=== PATIENT | female | born 1935 | race Two or more races ===

== ENCOUNTER 2017-05-27 14:31 | Emergency (ER) | payer MEDICARE, OTHER ==
[~2017-05-27] VITALS: Ht 162.6 cm; Wt 73.9 kg
[~2017-05-27 14:31] MED LIST: AMBIEN10 M1 ORAL; ATIVAN; ATIVAN0.5 MG ORAL; BENAZEPRIL HCL20 MG; BENAZEPRIL-HCT1 EAC1 ORAL; CEFTIN500 MG ORAL; CLARITIN10 M2 PO; COLACE100 MG ORAL; FLAGYL500 MG ORAL; GABAPENTIN300 MG ORAL; HYDROCHLOROTHIAZIDE; KEFLEX500 MG ORAL; LACTULOSE10 GM/153 PO; LIPITOR10 MG ORAL; LITHIUM; LITHIUM CARBON150 MG ORAL; NORCO 5-325 TA1 EACH ORAL; NORVASC; NORVASC5 MG ORAL; PANTOPRAZOLE SO40 MG ORAL; POLYETHYLENE GL17 GM ORAL; PRILOSEC; QUETIAPINE FUMA50 MG ORAL; SIMETHICONE80 MG ORAL; TRANSDERM-SCOP1.5 MG TD; TRAZADONE; TRAZODONE HCL50 MG PO; XANAX0.5 MG ORAL; ZYPREXA5 MG ORAL
--- NOTE | 2017-05-27 14:55 | Emergency Room Report ---
History of Present Illness General Chief Complaint: Lower Extremity Injury Source: Patient, Family Member Present Illness HPI 82-year-old female walks in with pain to out a part of right ankle after accidental missing step getting into a van. Patient not sure if ankle he everted or inverted. Pain when she walks. Previous left knee arthroscopically , but no other orthopedic surgery previously, no injury to for her ankle previously. Didn't take any medication for pain. Allergies: Coded Allergies: GABAPENTIN (Verified Allergy, Unknown, 05/27/17) LITHIUM (Verified Allergy, Unknown, 05/27/17) Patient History Past Medical History: see triage record, old chart reviewed Past Surgical History: none, other - left knee arthroscopy Pertinent Family History: none Social History: Denies: smoking, alcohol use, drug use Now: No Immunizations: UTD Reviewed Nursing Documentation: PMH: Agreed, PSxH: Agreed Nursing Documentation-PMH Hx Hypertension: Yes Hx Cancer: No Hx Gastrointestinal Problems: Yes - GASTRITIS Hx Dialysis: No History Of Psychiatric Problem: Yes - Bipolar Hx Neurological Problems: No Review of Systems All Other Systems: negative except mentioned in HPI Physical Exam Vital Signs Date Time Temp Pulse Resp B/P (MAP) Pulse Ox O2 Delivery O2 Flow Rate FiO2 05/27/17 14:39 98.2 72 18 143/64 97 Room Air Sp02 EP Interpretation: reviewed, normal General Appearance: normal inspection, well appearing, no apparent distress, alert Head: atraumatic ENT: normal ENT inspection, hearing grossly normal, normal voice Neck: normal inspection, full range of motion, supple, no bony tend Respiratory: normal inspection, lungs clear, normal breath sounds, no respiratory distress, no retraction, no wheezing Cardiovascular #1: regular rate, rhythm, no edema Gastrointestinal: normal inspection, normal bowel sounds, non tender, soft, no guarding, no hernia Genitourinary: no CVA tenderness Musculoskeletal: normal inspection, back normal, normal range of motion, Shelby' s Sign negative, other - right ankle: No obvious swelling or trauma, no deformity. Very minimal tenderness to lateral malleolus. Neurologic: normal inspection, alert, responsive, speech normal Psychiatric: normal inspection, judgement/insight normal, mood/affect normal Skin: normal inspection, normal color, no rash Medical Decision Making Diagnostic Impression: Primary Impression: Right ankle sprain Qualified Codes: S93.401A - Sprain of unspecified ligament of right ankle, initial encounter ER Course 82-year-old female with accidental right ankle sprain noObvious signs of trauma exam X-rays of right ankle and foot unremarkable on ER review Patient placed in air cast and, and crutches Will followup with Dr. Luna ER course: Patient has remained stable during ED stay. Patient is to be discharged to home. Patient is instructed to follow up with Dr Luna within 5 days. Strict return precautions discussed with patient such as fever, chills, worsening/severe pain, nausea, vomiting, which may indicate severe illness. Patient verbalizes understanding and agrees with plan. Please note that this Emergency Department Report was dictated using [employer] tender technology software, occasionally this can lead to erroneous entry secondary to interpretation by the dictation equipment Other X-Ray Diagnostic Results Other X-Ray Diagnostic Results #1: X-Ray ordered: Right ankle # of Views/Limited Vs Complete: 3 View Indication: Pain EP Interpretation: Yes Interpretation: no dislocation, no soft tissue swelling, no fractures Impression: No acute disease Electronically Signed by: Dr Nima Prescott mD Other X-Ray Diagnostic Results #2: X-Ray ordered: Right foot # of Views/Limited Vs Complete: 3 View Indication: Pain EP Interpretation: Yes Interpretation: no dislocation, no soft tissue swelling, no fractures Impression: No acute disease Electronically Signed by: Dr Nima Prescott MD Last Vital Signs Date Time Temp Pulse Resp B/P (MAP) Pulse Ox O2 Delivery O2 Flow Rate FiO2 05/27/17 14:39 98.2 72 18 143/64 97 Room Air Status: improved Disposition: HOME, SELF-CARE NIMA PRESCOTT M.D. May 27, 2017 14:54
[2017-05-27] MEDS ORDERED: TYLENOL325 MG ORAL (15:45)
[2017-05-27 15:54] VITALS: BP 141/68
--- NOTE | 2017-05-27 17:04 | Diagnostic Imaging Report ---
Indication: PAIN Technique: 3 views right foot Comparison: none Findings: Bones are osteoporotic. No acute fractures. There is probably an old healed fracture deformity of the fifth metatarsal base. No dislocations. Joint spaces are preserved. There are plantar and calcaneal spurs. Impression: Osteoporotic change. No definite acute bony trauma
--- NOTE | 2017-05-27 17:15 | Diagnostic Imaging Report ---
Indication: PAIN Technique: 3 views of the right ankle Comparison: none Findings: No acute fractures. No dislocations. There are plantar and calcaneal spurs. The joint spaces are preserved. Bones are osteoporotic Impression: No acute process
== END 2017-05-27 15:54 | disposition home or self-care (01) ==
LOC: EMR 14:58
DX: S93.401A Sprain of unspecified ligament of right ankle, initial encounter (principal); F31.9 Bipolar disorder, unspecified; I10 Essential (primary) hypertension; Z88.8 Allergy status to other drugs, medicaments and biological substances; X50.1XXA Overexertion from prolonged static or awkward postures, initial encounter; Y92.810 Car as the place of occurrence of the external cause
CPT/HCPCS: 99284

== ENCOUNTER 2017-08-01 07:00 | Emergency (ER) | payer MEDICARE, OTHER ==
[~2017-08-01] VITALS: Ht 160 cm; Wt 67.6 kg
[~2017-08-01 07:00] MED LIST changes: +TYLENOL325 MG ORAL
[2017-08-01] MEDS ORDERED: QUETIAPINE FUM200 MG ORAL (07:06)
[2017-08-01] MEDS ORDERED: VITAMIN D400 INTLU ORAL (07:06)
[2017-08-01] MEDS ORDERED: MELATONIN5 M6 PO (07:06)
[2017-08-01] MEDS ORDERED: FERROUS SULFAT325 MG ORAL (07:06)
[2017-08-01 07:50] VITALS: BP 144/68
--- NOTE | 2017-08-01 08:11 | Emergency Room Report ---
History of Present Illness General Chief Complaint: Laceration Source: Patient, Family Member Present Illness HPI 82YOF with laceration to left earlobe when removing earring this morning. Per son, patient, patient always had large 1-inch slit there for large earing clips but tip of earlobe tore this morning No active/tano bleeding currently No retained FB from earring Allergies: Coded Allergies: GABAPENTIN (Verified Allergy, Unknown, 05/27/17) LITHIUM (Verified Allergy, Unknown, 05/27/17) Patient History Past Medical History: none Past Surgical History: none Pertinent Family History: none Social History: Denies: smoking, alcohol use, drug use Now: No Immunizations: UTD Reviewed Nursing Documentation: PMH: Agreed, PSxH: Agreed Nursing Documentation-PMH Hx Hypertension: Yes Hx Cancer: No Hx Gastrointestinal Problems: Yes - GASTRITIS Hx Dialysis: No History Of Psychiatric Problem: Yes - bipolar Hx Neurological Problems: No Review of Systems All Other Systems: negative except mentioned in HPI Physical Exam Vital Signs Date Time Temp Pulse Resp B/P (MAP) Pulse Ox O2 Delivery O2 Flow Rate FiO2 08/01/17 07:02 97.3 63 14 144/68 98 Room Air 97.3 Sp02 EP Interpretation: reviewed, normal General Appearance: normal inspection, well appearing, no apparent distress, alert, GCS 15, non-toxic Head: normocephalic, atraumatic Eyes: bilateral eye PERRL, bilateral eye EOMI ENT: normal ENT inspection, hearing grossly normal, normal pharynx, no angioedema, normal voice, TMs + canals normal, uvula midline, moist mucus membranes, other - Left earlobe: only distal inferior part of lobe is freshly torn, no tano bleeding. Looks like 1-inch earring slit is always there. No retained FB. Neck: normal inspection, full range of motion, supple, thyroid normal, no meningismus, no bony tend Respiratory: normal inspection, lungs clear, normal breath sounds, no rhonchi, no respiratory distress, no retraction, no accessory muscle use, no wheezing, speaking full sentences Cardiovascular #1: regular rate, rhythm, no edema, no JVD, normal capillary refill Gastrointestinal: normal inspection, normal bowel sounds, non tender, soft, no mass, no peritonitis, non-distended, no guarding, no hernia, no pulsatile mass Genitourinary: no CVA tenderness Musculoskeletal: normal inspection, back normal, normal range of motion, no calf tenderness, pelvis stable, Shelby's Sign negative Neurologic: normal inspection, alert, oriented x3, responsive, beef grader III-XII nml as tested, motor strength/tone normal, cerebellar normal, normal gait, speech normal Psychiatric: normal inspection, judgement/insight normal, mood/affect normal, no suicidal/homicidal ideation, no delusions Skin: normal inspection, normal color, no rash Lymphatic: normal inspection, no adenopathy Procedures Laceration/Wound Repair Laceration/Wound Repair : Consent: Verbal Wound Location: other - Left earlobe Wound Explored: clean Betadine Prep?: Yes Anesthesia: 1% Lidocaine Wound Debrided: minimal Wound Repaired With: sutures Suture Size/Type: 6:0 Number of Sutures: 2 Layer Closure?: Yes Deep Layer Suture Size/Type: 6:0 Number Deep Layer Sutures: 1 Sterile Dressing Applied?: Yes Splint Applied?: No Sling Applied?: No Patient Tolerated: Well Complications: None Medical Decision Making Diagnostic Impression: Primary Impression: Laceration of left earlobe Qualified Codes: S01.312A - Laceration without foreign body of left ear, initial encounter ER Course Left earlobe laceration now s/p primary repair of distal tip in ED with 1 deep layer absorbable suture and 2 external sutures Covered with dry dressing Advised keep clean for 24-36 hours Return in 7-10 days for suture removal ER course: Patient has remained stable during ED stay. Disposition: Patient is to be discharged to home. Patient is instructed to follow up ER in 7-10 days for suture removal Strict return precautions discussed with patient such as fever, chills, worsening/severe pain, nausea, vomiting, which may indicate severe illness. Patient verbalizes understanding and agrees with plan. Please note that this Emergency Department Report was dictated using [employer] inspection supervisor technology software, occasionally this can lead to erroneous entry secondary to interpretation by the dictation equipment Last Vital Signs Date Time Temp Pulse Resp B/P (MAP) Pulse Ox O2 Delivery O2 Flow Rate FiO2 08/01/17 07:50 97.3 63 14 144/68 98 Room Air 97.3 Status: improved Disposition: HOME, SELF-CARE Condition: Improved Patient Instructions: Laceration Care, Adult Additional Instructions: - Return to 7-10 days to ER for suture removal (2 sutures to be removed) - Keep clean/dry for 24-36 hours NIMA PRESCOTT M.D. Aug 01, 2017 08:11
[2017-08-01 08:13] VITALS: BP 144/68
== END 2017-08-01 08:42 | disposition home or self-care (01) ==
LOC: EMR 07:59
DX: S01.312A Laceration without foreign body of left ear, initial encounter (principal); X58.XXXA Exposure to other specified factors, initial encounter; Y92.9 Unspecified place or not applicable; I10 Essential (primary) hypertension; F31.9 Bipolar disorder, unspecified; Z88.8 Allergy status to other drugs, medicaments and biological substances
CPT/HCPCS: 99283

== ENCOUNTER 2017-08-10 11:47 | Emergency (ER) | payer MEDICARE, OTHER ==
[~2017-08-10] VITALS: Ht 162.6 cm; Wt 59.0 kg
[~2017-08-10 11:47] MED LIST changes: +FERROUS SULFAT325 MG ORAL; +MELATONIN5 M6 PO; +QUETIAPINE FUM200 MG ORAL; +VITAMIN D400 INTLU ORAL
--- NOTE | 2017-08-10 12:41 | Emergency Room Report ---
History of Present Illness General Chief Complaint: Wound Recheck/Suture Removal Present Illness HPI 82 YO female presents to the ED c/o Sutures in the right ear lobe x 1 week that need to be removed s/p wound closure. Denies bleeding. Denies pain, fleeting, tenderness or discharge. She states she has been avoiding water and keeping her here as clean as possible. Allergies: Coded Allergies: GABAPENTIN (Verified Allergy, Unknown, 05/27/17) LITHIUM (Verified Allergy, Unknown, 05/27/17) Patient History Past Medical History: see triage record Past Surgical History: none Pertinent Family History: none Now: No Immunizations: UTD Reviewed Nursing Documentation: PMH: Agreed, PSxH: Agreed Nursing Documentation-PMH Hx Hypertension: Yes Hx Cancer: No Hx Gastrointestinal Problems: Yes - GASTRITIS Hx Dialysis: No Hx Neurological Problems: No Review of Systems All Other Systems: negative except mentioned in HPI Physical Exam Vital Signs Date Time Temp Pulse Resp B/P (MAP) Pulse Ox O2 Delivery O2 Flow Rate FiO2 08/10/17 12:15 97.8 78 16 110/60 98 Room Air 97.9 Sp02 EP Interpretation: reviewed, normal General Appearance: no apparent distress, alert, GCS 15, non-toxic Head: normocephalic, atraumatic Eyes: bilateral eye PERRL, bilateral eye fluoroscene uptake ENT: hearing grossly normal, normal voice, other - Right Earlobe sutured lac noted, two sutures in place. no erythma. Neck: full range of motion Respiratory: lungs clear, normal breath sounds, speaking full sentences Cardiovascular #1: regular rate, rhythm Musculoskeletal: back normal, gait/station normal, normal range of motion, non- tender Neurologic: alert, oriented x3, responsive, motor strength/tone normal, sensory intact, speech normal, grossly normal Psychiatric: judgement/insight normal Skin: normal color, no rash, warm/dry, well hydrated, wd healing/no infection noted - the laceration is healed, sutures removed, however the ear lobe did not take and is separate although healed. Medical Decision Making PA Attestation Dr. Wagner is my supervising Physician whom patient management has been discussed with. Diagnostic Impression: Primary Impression: Encounter for removal of sutures Additional Impression: Split ear lobe ER Course Pt. presents to the ED c/o Suture in the left ear lobe x 1 week that need to be removed s/p wound closure. Ddx considered but are not limited to laceration, tendon injury, cellulitis, dehiscence. Vital signs: are WNL, pt. is afebrile H&PE are most consistent with: healed laceration of the Right ear lobe. the Lobe is split/ did not take. ORDERS: none required at this time, the diagnosis is clinical ED INTERVENTIONS: - 2 Sutures removed. d/w pt. and son about cosmetic revision. also offered two referrals for plastic surgeons Dr. Cruz, and Dr. Dawson. DISCHARGE: At this time pt. is stable for d/c to home. Will provide printed patient care instructions, and any necessary prescriptions. Care plan and follow up instructions have been discussed with the patient prior to discharge. Last Vital Signs Date Time Temp Pulse Resp B/P (MAP) Pulse Ox O2 Delivery O2 Flow Rate FiO2 08/10/17 12:15 97.8 78 16 110/60 98 Room Air 97.9 Disposition: HOME, SELF-CARE Condition: Stable Referrals: PADMA CRUZ PERRY M.D. Patient Instructions: Suture Removal, Care After Additional Instructions: Take any previously prescribed medications as directed. Referral for Plastic Surgery for Split ear lobe revision. Follow up with a Primary Care Provider in 3-5 days. Return sooner to ED if new symptoms occur, or current symptoms become worse. - Please note that this Emergency Department Report was dictated using [employer] service representative technology software, occasionally this can lead to erroneous entry secondary to interpretation by the dictation equipment. Farahna Carrero Aug 10, 2017 12:41
[2017-08-10 12:42] VITALS: BP 110/60
[2017-08-10 12:47] VITALS: BP 110/60
== END 2017-08-10 12:49 | disposition home or self-care (01) ==
LOC: EMR 12:35
DX: S01.312D Laceration without foreign body of left ear, subsequent encounter (principal); X58.XXXD Exposure to other specified factors, subsequent encounter; Z48.02 Encounter for removal of sutures; I10 Essential (primary) hypertension; Z88.8 Allergy status to other drugs, medicaments and biological substances
CPT/HCPCS: 99281

== ENCOUNTER 2018-02-10 01:14 | Emergency (ER) | payer MEDICARE, OTHER ==
[~2018-02-10] VITALS: Ht 157.5 cm; Wt 74.8 kg
--- NOTE | 2018-02-10 01:48 | Emergency Room Report ---
History of Present Illness General Chief Complaint: Laceration Source: Patient, Family Member Present Illness HPI Ear ring pulled through ear lobe earlier tonight. Same happened before on R side. No pain. No bleeding. No fevers. Bipolar disorder. Goes to [employer] and now worried cannot go due to disfigurement. Anxious, not suicidal. Has been eating and sleeping. Had seen plastics who quoted amount to have other ear fixed. Allergies: Coded Allergies: GABAPENTIN (Verified Allergy, Unknown, 05/27/17) LITHIUM (Verified Allergy, Unknown, 05/27/17) Patient History Past Medical History: see triage record Social History: Denies: smoking, alcohol use, drug use Social History Narrative with son Reviewed Nursing Documentation: PMH: Agreed; PSxH: Agreed Nursing Documentation-PMH Hx Hypertension: Yes Hx Cancer: No Hx Gastrointestinal Problems: Yes - GASTRITIS Hx Dialysis: No History Of Psychiatric Problem: Yes - bipolar Hx Neurological Problems: No Review of Systems Constitutional: Denies: fever ENT: Reports: see HPI Skin: Reports: see HPI Psychiatric: Reports: see HPI Hematologic/Lymphatic: Reports: see HPI Physical Exam Vital Signs Date Time Temp Pulse Resp B/P (MAP) Pulse Ox O2 Delivery O2 Flow Rate FiO2 02/10/18 01:28 98.1 66 18 124/66 98 Room Air 98.1 General Appearance: well appearing, no apparent distress Head: normocephalic, atraumatic Eyes: bilateral eye normal inspection, bilateral eye PERRL ENT: hearing grossly normal, normal voice, other - L ear lobe with small area where prior piercing pulled through larger hole. R with V shaped prior piercing space Neck: full range of motion, supple Respiratory: lungs clear, no respiratory distress, speaking full sentences Cardiovascular #1: regular rate, rhythm Cardiovascular #2: 2+ radial (R) Gastrointestinal: normal inspection, overweight Musculoskeletal: digits/nails normal, gait/station normal, normal range of motion, no calf tenderness Neurologic: alert, normal gait, grossly normal Psychiatric: no suicidal/homicidal ideation, depressed affect, anxious Skin: other - see ear Medical Decision Making Diagnostic Impression: Primary Impression: Ear lobe laceration Qualified Codes: S01.312A - Laceration without foreign body of left ear, initial encounter Additional Impression: Bipolar depression ER Course Patient with piercing lac L. Discussed that would have to revise completely or will not heal. No evidence of current infection. She is anxious about this and states now will not be able to go to [facility]. Discussed either need to go to plastic surgeon or have ear pierced again. Local care indicated. Patient stable for outpatient observation and treatment. Last Vital Signs Date Time Temp Pulse Resp B/P (MAP) Pulse Ox O2 Delivery O2 Flow Rate FiO2 02/10/18 02:05 98.1 18 124/66 98 Room Air 98.1 02/10/18 01:28 66 Status: improved Disposition: HOME, SELF-CARE Condition: Improved Scripts Bacitracin (Bacitracin) 28.4 Gm Oint...g. 1 APPLIC TOPIC BID, #10 GM Prov: Pb Wagner M.D. 02/10/18 Pb Wagner M.D. Feb 10, 2018 01:48
[2018-02-10] MEDS ORDERED: BACITRACIN15 GM TOPIC (01:51)
[2018-02-10] MEDS ORDERED: Bacitracin Oint UD TOPIC ONE (02:00)
[2018-02-10 02:04] VITALS: BP 124/66
[2018-02-10 02:05] VITALS: BP 124/66
== END 2018-02-10 02:11 | disposition home or self-care (01) ==
LOC: EMR 01:49
DX: S01.312A Laceration without foreign body of left ear, initial encounter (principal); X50.9XXA Other and unspecified overexertion or strenuous movements or postures, initial encounter; Y93.89 Activity, other specified; Y92.9 Unspecified place or not applicable; F31.9 Bipolar disorder, unspecified
CPT/HCPCS: 99282

== ENCOUNTER 2018-09-28 18:38 | Emergency (ER) | payer MEDICARE, OTHER ==
[~2018-09-28] VITALS: Ht 160 cm; Wt 76.7 kg
[~2018-09-28 18:38] MED LIST changes: +BACITRACIN15 GM TOPIC
--- NOTE | 2018-09-28 18:54 | NUR ---
ED Nurse Note: Pt came from home s/p fall [id number] ago. According to son, pt was trying to put luggages away and that is when she lost balance and hit her head on the floor. Pt's fall was unwitnessed. Pt noted to have blood on posterior head where the trauma was at. Trauma area not actively bleeding. Pt is complaining of 10/10 pain. Non radiating. Pt is A + O x4. Ambulatory. Skin warm to touch.
[2018-09-28 18:56] VITALS: BP 175/100
[2018-09-28] MEDS ORDERED: Hydrogen Peroxide 473ml Bottle TOPIC ONE (19:00)
--- NOTE | 2018-09-28 19:02 | NUR ---
HAND-OFF: Report given to AMADA Hale.
--- NOTE | 2018-09-28 19:04 | Emergency Room Report ---
History of Present Illness General Chief Complaint: Multiple Trauma/Fall Source: Patient Present Illness HPI Patient presents with reports of trauma and fall backwards Patient reports a mechanical fall backwards while she was picking something up denies any lightheadedness or lapse of consciousness denies any chest pain or short of breath Patient has pain to the back of the head 5 out of 10 Family denies any repetitive questioning denies any focal weakness Patient has significant bleeding from the back of the head and presents for further evaluation Allergies: Coded Allergies: GABAPENTIN (Verified Allergy, Unknown, 05/27/17) LITHIUM (Verified Allergy, Unknown, 05/27/17) Patient History Past Medical History: see triage record Pertinent Family History: none Last Menstrual Period: na Reviewed Nursing Documentation: PMH: Agreed; PSxH: Agreed Nursing Documentation-PMH Past Medical History: No History, Except For Hx Hypertension: Yes Hx Cancer: No Hx Gastrointestinal Problems: Yes - GASTRITIS Hx Dialysis: No History Of Psychiatric Problem: Yes - bipolar Hx Neurological Problems: No Review of Systems All Other Systems: negative except mentioned in HPI Physical Exam Vital Signs Date Time Temp Pulse Resp B/P (MAP) Pulse Ox O2 Delivery O2 Flow Rate FiO2 09/28/18 18:42 99.1 76 20 152/89 98 Room Air 09/28/18 18:56 95 Sp02 EP Interpretation: reviewed, normal General Appearance: well appearing, no apparent distress Head: other - Approximately 2 x 2 centimeter hematoma occipital region Eyes: bilateral eye PERRL, bilateral eye EOMI ENT: hearing grossly normal, normal pharynx, TMs + canals normal, uvula midline Neck: full range of motion, supple, no meningismus, no bony tend Respiratory: lungs clear, normal breath sounds, no rhonchi, no respiratory distress, no retraction, no accessory muscle use Cardiovascular #1: normal peripheral pulses, regular rate, rhythm, no edema, no gallop, no JVD, no murmur Gastrointestinal: normal bowel sounds, non tender, soft, no mass, no organomegaly, non-distended, no guarding, no hernia, no pulsatile mass, no rebound Genitourinary: no CVA tenderness Musculoskeletal: normal inspection Neurologic: oriented x3, responsive, technician helper instrument III-XII nml as tested, motor strength/ tone normal, sensory intact Psychiatric: mood/affect normal Skin: other - Abrasion with hematoma occipital region of the scalp, associated bleeding from the abrasion, superficial 0.5 cm laceration as well Lymphatic: normal inspection, no adenopathy Procedures Laceration/Wound Repair Progress The area in question shows skin abrasion, along with a very superficial half centimeter laceration, this area did not require suture or staple placement Surgicel was applied to the top layer, pressure dressing on top and Kerlix wrapped around this patient tolerated procedure well, Medical Decision Making Diagnostic Impression: Primary Impression: Head injury Additional Impression: Laceration ER Course Given the history and presentation given the patient's age and comorbidities CT imaging was obtained does not show any acute pathology with regards to bleeding or fractures Patient is observed further in the ER continues to remain GCS 15 And at this time stable for close outpatient follow-up patient is not reported to be on any blood thinners CT/MRI/US Diagnostic Results CT/MRI/US Diagnostic Results : Impression CT head no active bleeding or fracture soft tissue hematoma seen Last Vital Signs Date Time Temp Pulse Resp B/P (MAP) Pulse Ox O2 Delivery O2 Flow Rate FiO2 09/28/18 18:56 98.9 93 27 175/100 95 Room Air 09/28/18 18:56 95 Status: improved Disposition: HOME, SELF-CARE Condition: Improved Additional Instructions: Patient is provided with the discharge instructions notified to follow up with primary doctor in the next 2-3 days otherwise return to the er with any worsening symptoms. Please note that this report is being documented using [employer] technology. This can lead to erroneous entry secondary to incorrect interpretation by the dictating instrument. Kota Richards DO Sep 28, 2018 19:04
--- NOTE | 2018-09-28 19:25 | NUR ---
ER Nurse Note: Pt wound cleaned with hydrogen peroxide and ERMD inspected wound. Placed gauze with kerlix on wound. Pt at [facility]; awaiting results. Will continue to montrm.
[2018-09-28] MEDS ORDERED: Surgicel 4in x 8in TOPIC ONE (19:45)
[2018-09-28 20:39] VITALS: BP 145/86
--- NOTE | 2018-09-28 20:40 | NUR ---
ER Nurse Note: Pt back from radiology, awaiting results. Pt calm. Pt seen, treated, medically cleared for discharge by ERMD. Discharge instructions and prescriptions given with repeat verbazliaion by pt. Instructed pt to follow up with primary care provider within one week. Wound care and teaching with supplies provided, Pt a&ox4, VSS, no signs of distress. Pt left with all belongings with steady gait via own transportation.
--- NOTE | 2018-09-29 10:35 | Diagnostic Imaging Report ---
Indications: Head pain, status post fall Technique: Spiral acquisitions obtained through the brain. Angled axial and coronal 5 x 5 mm slices were reconstructed. Total dose length product 1301.76 mGycm. CTDI vol(s) 70.38 mGy. Dose reduction achieved using automated exposure control Comparison: 10/12/2012 Findings: There is a high parietal scalp hematoma and contusion on the right. No evidence of underlying calvarial injury. No acute intracranial hemorrhage or edema, mass effect, nor midline shift. There is mild age-related enlargement of the ventricles and extra-axial CSF spaces. Normal kim-white differentiation. Visualized orbits are unremarkable. There is some opacification of the right sphenoid sinus. 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 No significant interim change Impression: Evidence of scalp soft tissue injury Chronic and age-related changes, as described No acute intracranial bleed or mass effect This agrees with the preliminary interpretation provided overnight by [facility] teleradiology service. The CT scanner at [facility] is accredited by the [employer] and the scans are performed using protocols designed to limit radiation exposure to as low as reasonably achievable to attain images of sufficient resolution adequate for diagnostic evaluation.
== END 2018-09-28 20:40 | disposition home or self-care (01) ==
LOC: EMR 19:40
DX: S09.90XA Unspecified injury of head, initial encounter (principal); S01.01XA Laceration without foreign body of scalp, initial encounter; F31.9 Bipolar disorder, unspecified; I10 Essential (primary) hypertension; Z88.8 Allergy status to other drugs, medicaments and biological substances; W01.0XXA Fall on same level from slipping, tripping and stumbling without subsequent striking against object, initial encounter; Y92.9 Unspecified place or not applicable
CPT/HCPCS: 70450; 99284

== ENCOUNTER 2018-10-20 20:19 | Inpatient (IN) | payer MEDICARE, OTHER ==
[~2018-10-20] VITALS: Ht 160 cm; Wt 77.1 kg
[2018-10-20 20:30] VITALS: BP 165/70
--- NOTE | 2018-10-20 20:38 | NUR ---
ED Nurse Note: Received report. Pt from home c/o fall yesterday 10/19/18 at 0500 with pain in chest and left leg. Will assess and carry out ER MD's orders.
--- NOTE | 2018-10-20 20:39 | Emergency Room Report ---
History of Present Illness General Chief Complaint: Multiple Trauma/Fall Source: Patient Present Illness HPI Patient initiated presents with reports of left ankle sprain after a fall however after further discussion patient reports that she's had multiple falls over the past several days has had increased dizziness and balance problems Patient is not able to provide appropriate medical history or medication list Denies any chest pain denies any shortness of breath denies any back or flank pain denies any vomiting or diarrhea She does have pain to the left ankle with the most recent fall Allergies: Coded Allergies: GABAPENTIN (Verified Allergy, Unknown, 05/27/17) LITHIUM (Verified Allergy, Unknown, 05/27/17) Patient History Limited by: medical condition Past Medical History: see triage record Pertinent Family History: none Reviewed Nursing Documentation: PMH: Agreed; PSxH: Agreed Nursing Documentation-PMH Past Medical History: No History, Except For Hx Hypertension: Yes Hx Cancer: No Hx Gastrointestinal Problems: Yes - GASTRITIS Hx Dialysis: No Hx Neurological Problems: No Review of Systems All Other Systems: limited - Other than the ones mentioned in the history of present illness all others are reviewed however they do stay limited due to the patient's mental status Physical Exam Vital Signs Date Time Temp Pulse Resp B/P (MAP) Pulse Ox O2 Delivery O2 Flow Rate FiO2 10/20/18 20:32 98.4 57 22 100 Room Air Sp02 EP Interpretation: reviewed, normal General Appearance: well appearing, no apparent distress Head: normocephalic, atraumatic Eyes: bilateral eye PERRL, bilateral eye EOMI ENT: normal pharynx Neck: supple, no meningismus Respiratory: lungs clear, no retraction, no accessory muscle use Cardiovascular #1: regular rate, rhythm Gastrointestinal: non tender, soft Musculoskeletal: swelling - Left ankle pain with palpation bilaterally Neurologic: alert, responsive Skin: normal color, no rash Lymphatic: no adenopathy Medical Decision Making Diagnostic Impression: Primary Impression: Dehydration Additional Impressions: Dizziness Multiple falls ER Course Patient is a fairly complex patient with multiple differential to consideration including but not limited to cardiac cardiopulmonary and vascular emergencies Intracranial pathology also entertained given the patient's multiple falls and dizziness CT head does not show any obvious acute disease ankle x-ray does not show any obvious fracture Patient further hydrated and requires further inpatient care Labs Test 10/20/18 21:23 10/21/18 05:30 White Blood Count 9.3 K/UL (4.8-10.8) 7.5 K/UL (4.8-10.8) Red Blood Count 3.90 M/UL (4.20-5.40) 3.66 M/UL (4.20-5.40) Hemoglobin 11.5 G/DL (12.0-16.0) 11.0 G/DL (12.0-16.0) Hematocrit 34.5 % (37.0-47.0) 32.9 % (37.0-47.0) Mean Corpuscular Volume 89 FL (80-99) 90 FL (80-99) Mean Corpuscular Hemoglobin 29.6 PG (27.0-31.0) 30.1 PG (27.0-31.0) Mean Corpuscular Hemoglobin Concent 33.4 G/DL (32.0-36.0) 33.4 G/DL (32.0-36.0) Red Cell Distribution Width 12.8 % (11.6-14.8) 12.5 % (11.6-14.8) Platelet Count 215 K/UL (150-450) 209 K/UL (150-450) Mean Platelet Volume 5.4 FL (6.5-10.1) 6.1 FL (6.5-10.1) Neutrophils (%) (Auto) 62.1 % (45.0-75.0) 64.3 % (45.0-75.0) Lymphocytes (%) (Auto) 22.4 % (20.0-45.0) 20.8 % (20.0-45.0) Monocytes (%) (Auto) 8.0 % (1.0-10.0) 7.8 % (1.0-10.0) Eosinophils (%) (Auto) 6.2 % (0.0-3.0) 6.2 % (0.0-3.0) Basophils (%) (Auto) 1.4 % (0.0-2.0) 1.0 % (0.0-2.0) Urine Color Pale yellow Urine Appearance Clear Urine pH 5 (4.5-8.0) Urine Specific [place] 1.015 (1.005-1.035) Urine Protein Negative (NEGATIVE) Urine Glucose (UA) Negative (NEGATIVE) Urine Ketones Negative (NEGATIVE) Urine Blood 3+ (NEGATIVE) Urine Nitrite Negative (NEGATIVE) Urine Bilirubin Negative (NEGATIVE) Urine Urobilinogen Normal MG/DL (0.0-1.0) Urine Leukocyte Esterase 3+ (NEGATIVE) Urine RBC 2-4 /HPF (0 - 2) Urine WBC 5-10 /HPF (0 - 2) Urine Squamous Epithelial Cells Few /LPF (NONE/OCC) Urine Bacteria Few /HPF (NONE) Sodium Level 139 MMOL/L (136-145) 138 MMOL/L (136-145) Potassium Level 4.7 MMOL/L (3.5-5.1) 4.5 MMOL/L (3.5-5.1) Chloride Level 105 MMOL/L (98-107) 106 MMOL/L (98-107) Carbon Dioxide Level 26 MMOL/L (21-32) 25 MMOL/L (21-32) Anion Gap 8 mmol/L (5-15) 7 mmol/L (5-15) Blood Urea Nitrogen 25 mg/dL (7-18) 24 mg/dL (7-18) Creatinine 1.0 MG/DL (0.55-1.30) 1.0 MG/DL (0.55-1.30) Estimat Glomerular Filtration Rate mL/min (>60) mL/min (>60) Glucose Level 114 MG/DL (74-106) 103 MG/DL (74-106) Calcium Level 9.0 MG/DL (8.5-10.1) 8.4 MG/DL (8.5-10.1) Total Bilirubin 0.4 MG/DL (0.2-1.0) Aspartate Amino Transf (AST/SGOT) 19 U/L (15-37) Alanine Aminotransferase (ALT/SGPT) 23 U/L (12-78) Alkaline Phosphatase 80 U/L (46-116) Total Creatine Kinase 119 U/L (26-308) Creatine Kinase MB 4.0 NG/ML (0.0-3.6) Creatine Kinase MB Relative Index 3.3 Troponin I 0.023 ng/mL (0.000-0.056) Pro-B-Type Natriuretic Peptide 1150 pg/mL (0-125) Total Protein 6.9 G/DL (6.4-8.2) Albumin 3.6 G/DL (3.4-5.0) Globulin 3.3 g/dL Albumin/Globulin Ratio 1.1 (1.0-2.7) Lipase 224 U/L (73-393) Rhythm Strip Diag. Results EP Interpretation: yes Rate: 80 Rhythm: NSR, no PVC's, no ectopy Chest X-Ray Diagnostic Results Chest X-Ray Diagnostic Results : Chest X-Ray Ordered: Yes # of Views/Limited/Complete: 1 View Indication: Chest Pain EP Interpretation: Yes Interpretation: no consolidation, no effusion, no pneumothorax Impression: No acute disease Electronically Signed by: Kota Richards DO Other X-Ray Diagnostic Results Other X-Ray Diagnostic Results : X-Ray ordered: left ankle # of Views/Limited Vs Complete: 3 View Indication: Pain EP Interpretation: Yes Interpretation: no dislocation, no soft tissue swelling, no fractures Impression: No acute disease Electronically Signed by: Kota Richards DO CT/MRI/US Diagnostic Results CT/MRI/US Diagnostic Results : Impression CT head no acute disease Last Vital Signs Date Time Temp Pulse Resp B/P (MAP) Pulse Ox O2 Delivery O2 Flow Rate FiO2 10/20/18 20:32 98.4 57 22 100 Room Air Status: improved Disposition: ADMITTED INPATIENT Condition: Serious Kota Richards DO October 20, 2018 20:39
[2018-10-20 21:30] VITALS: BP 172/86
[2018-10-20 21:55] LABS: APPEARANCE,URINE CLEAR; BILIRUBIN, URINE NEGATIVE (NEGATIVE); COLOR,URINE PALE YELLOW; GLUCOSE, URINE (UA) NEGATIVE (NEGATIVE); KETONES,URINE NEGATIVE (NEGATIVE); LEUKOCYTE ESTERASE ,URINE 3+ (NEGATIVE); NITRITE,URINE NEGATIVE (NEGATIVE); PH,URINE 5 (4.5-8.0); PROTEIN,URINE NEGATIVE (NEGATIVE); UROBILINOGEN,URINE NORMAL MG/DL (0.0-1.0)
[2018-10-20 21:57] LABS: BASOPHILS % (AUTO) 1.4 % (0.0-2.0); EOSINOPHILS % (AUTO) 6.2 % (0.0-3.0); HEMATOCRIT 34.5 % (37.0-47.0); HEMOGLOBIN 11.5 G/DL (12.0-16.0); LYMPHOCYTES % (AUTO) 22.4 % (20.0-45.0); MEAN CORPUSCULAR VOLUME 89 FL (80-99); NEUTROPHILS % (AUTO) 62.1 % (45.0-75.0); PLATELET COUNT 215 K/UL (150-450); RED CELL DISTRIBUTION WIDTH 12.8 % (11.6-14.8); WHITE BLOOD COUNT 9.3 K/UL (4.8-10.8)
[2018-10-20 22:28] LABS: ANION GAP 8 mmol/L (5-15); BLOOD UREA NITROGEN 25 mg/dL (7-18); CARBON DIOXIDE 26 MMOL/L (21-32); CHLORIDE 105 MMOL/L (98-107); POTASSIUM 4.7 MMOL/L (3.5-5.1); SODIUM 139 MMOL/L (136-145)
[2018-10-20 22:30] VITALS: BP 185/95
[2018-10-20 22:33] LABS: ALANINE AMINOTRANSFERASE 23 U/L (12-78); ALBUMIN 3.6 G/DL (3.4-5.0); ALBUMIN/GLOBULIN RATIO 1.1 (1.0-2.7); ALKALINE PHOSPHATASE 80 U/L (46-116); ASPARTATE AMINO TRANSFERASE 19 U/L (15-37); BILIRUBIN,TOTAL 0.4 MG/DL (0.2-1.0); CREATINE KINASE 119 U/L (26-308)
--- NOTE | 2018-10-20 22:48 | NUR ---
ED Nurse Note: Pt in [facility] with son at bedside. No distress noted. Called for report to tele unit. Awaiting call back. CN made aware.
[2018-10-20] MEDS ORDERED: Enoxaparin 30mg Inj SUBQ SCH (23:00)
[2018-10-20 23:35] VITALS: BP 192/62
[2018-10-20 23:47] VITALS: BP 156/64
--- NOTE | 2018-10-21 | NUR ---
NURSE NOTES: Pt arrived from ER via gurney and transferred to [facility] with 2 staff assist without incidence. cafeteria monitor applied. Belongings list checked with transferring RN and patient at bedside. Pt purse sent home with son, black flip phone and pt clothes remains at bedside with patient. Pt is awake, alert, and oriented x4, primarily [place] speaking. Pt is on room air and breathing is even and unlabored. No acute distress noted. IV site is L hand #20g and site is asymptomatic, patent, and intact. Skin checked and noted to be intact. Strict fall precautions in place - yellow socks, sign outside of door, and patient fall education provided. Pt agreeable to using call light prior to attempting to get out of bed and to not get out of bed without assistance at bedside. Pt verbalized understanding. Pt provided with orientation to surroundings and hospital protocol. Bed is placed in lowest position with brake engaged, side rails up x3, and bed alarm on. Call light and side table placed within reach. Will continue to monitor.
--- NOTE | 2018-10-21 00:01 | NUR ---
TRANSFER TO FLOOR: Patient transferred to [facility] as ordered, per Dr. Timmons. Report given to Salina YBARRA. Belongings and medications given to Salina YBARRA. Son at bedside at time of transfer.
--- NOTE | 2018-10-21 00:55 | NUR ---
NURSE NOTES: Son of patient, Carmen, and pt requesting to continue home medication of seroquel 150mg QHS. MD Timmons notified of request and gave the okay to place order. Orders noted and carried out.
--- NOTE | 2018-10-21 01:00 | NUR ---
NURSE NOTES: Incomplete home medications list per son and patient. Son, Gopi, to bring patient medications in AM from home to update med recon.
[2018-10-21 04:00] VITALS: BP 108/53
[2018-10-21 06:53] LABS: ANION GAP 7 mmol/L (5-15); BLOOD UREA NITROGEN 24 mg/dL (7-18); CALCIUM 8.4 MG/DL (8.5-10.1); CARBON DIOXIDE 25 MMOL/L (21-32); CHLORIDE 106 MMOL/L (98-107); POTASSIUM 4.5 MMOL/L (3.5-5.1); SODIUM 138 MMOL/L (136-145)
--- NOTE | 2018-10-21 07:00 | NUR ---
NURSE NOTES: MD Timmons made aware that son , Gopi, would like to speak with him and that updated contact information is in the chart. MD Timmons to contact family to discuss further. Endorsed to AM shift RN.
[2018-10-21 07:05] LABS: EOSINOPHILS % (AUTO) 6.2 % (0.0-3.0); HEMATOCRIT 32.9 % (37.0-47.0); LYMPHOCYTES % (AUTO) 20.8 % (20.0-45.0); MEAN CORPUSCULAR VOLUME 90 FL (80-99); MONOCYTES % (AUTO) 7.8 % (1.0-10.0); NEUTROPHILS % (AUTO) 64.3 % (45.0-75.0); PLATELET COUNT 209 K/UL (150-450); RED BLOOD COUNT 3.66 M/UL (4.20-5.40); RED CELL DISTRIBUTION WIDTH 12.5 % (11.6-14.8); WHITE BLOOD COUNT 7.5 K/UL (4.8-10.8)
--- NOTE | 2018-10-21 07:15 | NUR ---
NURSE NOTES: Son brought pt medication list from home, given to day shift RN to update medication reconciliation.
--- NOTE | 2018-10-21 07:43 | NUR ---
HAND-OFF: Report given to Peri Weathers RN. Pt is resting in bed in stable condition. No acute distress noted. Endorsed plan of care.
[2018-10-21] MEDS ORDERED: BACLOFEN10 MG ORAL (07:48)
[2018-10-21] MEDS ORDERED: METOPROLOL TART50 MG ORAL (07:56)
[2018-10-21] MEDS ORDERED: COZAAR50 MG ORAL (07:56)
[2018-10-21] MEDS ORDERED: ZANTAC150 MG ORAL (07:56)
[2018-10-21] MEDS ORDERED: OXYBUTYNIN CHLOR5 M1 ORAL (07:56)
[2018-10-21 08:00] VITALS: BP 111/60
[2018-10-21] MEDS: Aspirin Baby 81mg ORAL SCH (08:26)
[2018-10-21] MEDS: Losartan 50mg tab ORAL SCH (08:28)
[2018-10-21] MEDS: Oxybutynin 5mg tab ORAL SCH (08:28)
[2018-10-21] MEDS: Metoprolol 25mg tab ORAL SCH ×2 (08:28→21:04)
[2018-10-21] MEDS ORDERED: Benazepril 10mg tab ORAL SCH (09:00)
--- NOTE | 2018-10-21 09:43 | Diagnostic Imaging Report ---
Indication: Altered mental status Technique: Contiguous 5 mm thick transaxial imaging of the head obtained in a Siemens Sensation [address] scanner. Soft tissue and bone windows generated. Automatic Exposure Control was utilized. Total Dose length Product (DLP): 1333.[address] Dose Index Volume (CTDIvol): 70.38 mGy Comparison: 09/28/2018 Findings: There is mild prominence of the ventricles, basal cisterns, and cerebral sulci consistent with atrophy. Mild, nonspecific, white matter hypoattenuation is noted throughout the brain consistent with chronic small vessel disease. There is no midline shift, edema, acute hemorrhage, mass effect, or abnormal extra-axial fluid collections. Bones and extra osseous soft tissues are unremarkable. Impression: No acute intracranial bleed, mass effect or edema. Mild atrophy of the brain. Nonspecific white matter hypoattenuation probably due to chronic small vessel disease. The CT scanner at [facility] is accredited by the [employer] and the scans are performed using dose optimization techniques as appropriate to a performed exam including Automatic Exposure control.
--- NOTE | 2018-10-21 09:45 | History and Physical Report ---
DATE OF ADMISSION: 10/20/2018 REASON FOR ADMISSION: Multiple falls. HISTORY OF PRESENT ILLNESS: The patient is a pleasant 83-year-old female with son at the bedside. The patient states she lives at home with her son. She states that for over the past two weeks she has been falling over to her left side. Son states that there has been no chest pain, shortness of breath. No nausea, vomiting, diarrhea. No lightheadedness. No passing out. However, he has noticed that his mother has walked always with a left-sided limp, but recently, she is starting to fall. She is falling while ambulating at several stores. She is feeling otherwise well, just complaining of frequent falls. ALLERGIES: Gabapentin and lithium. PAST MEDICAL HISTORY: 1. Hyperlipidemia. 2. Hypertension. 3. GERD. 4. Hypovitamin D. FAMILY HISTORY: Positive for hypertension. PAST SURGICAL HISTORY: Noncontributory. REVIEW OF SYSTEMS: NEUROLOGIC: The patient denies headache, change in vision, syncope, or presyncopal episodes. CARDIOVASCULAR: No current chest pain, palpitations, or angina. PULMONARY: No difficulty breathing, productive cough, or sputum. GASTROINTESTINAL/GENITOURINARY: No change in bowel habits. No nausea, vomiting, or diarrhea. ENDOCRINOLOGY: No night sweats, fevers, or chills. LABORATORY DATA: Laboratories dated October 21, 2018, sodium 138, potassium 4.5, creatinine 1, calcium 8.4. Troponin 0.023. Urinalysis otherwise negative, only 2 to 4 rbc's, few squamous cells. Hemoglobin 11, white cell count 7.5, and platelet count 209. PHYSICAL EXAMINATION: VITAL SIGNS: Blood pressure 108/53, respiratory rate 20, pulse 72, temperature 98.3, and 90% oxygen saturation on room air. GENERAL: The patient is awake, alert, in no overt distress. HEENT: Extraocular muscles are intact. No lymphadenopathy noted. Oropharyngeal mucosa clear and dry. CARDIOVASCULAR: S1, S2. No murmurs, rubs, or gallops. PULMONARY: Clear to auscultation bilaterally. No rales, rhonchi, or wheezes. ABDOMEN: Nondistended and nontender. EXTREMITIES: No edema. ASSESSMENT AND PLAN: 1. Hypertension. At this time, we will continue her antihypertensive medication. Her blood pressure currently stable. 2. Multiple falls. We will order x-ray of left knee and get physical therapy to re-evaluate. The patient on telemetry. No syncopal episodes. 3. Hyperlipidemia. Continue Lipitor. 4. DVT prophylaxis with Lovenox subcutaneous. 5. Dehydration. We will continue IV fluids. Hemal Timmons MD DR: MERCEDEZ JOB#: [id number] CC:
--- NOTE | 2018-10-21 10:04 | NUR ---
RADIOLOGY DEPT, LEFT KNEE X-RAYS COMPLETED.-P.DYE
--- NOTE | 2018-10-21 10:27 | Diagnostic Imaging Report ---
Indication: left ankle pain Comparison: None Findings: 3 views of the left ankle obtained. No acute fracture, malalignment, periostitis, or osteochondral defects are identified. Generalized soft tissue swelling is present. There is spurring at the plantar calcaneus and the Achilles insertion posteriorly. Periarticular spurs are noted multiple locations. IMPRESSION: No acute injury. Soft tissue swelling
--- NOTE | 2018-10-21 10:27 | Diagnostic Imaging Report ---
Indication: Dyspnea Comparison: 12/04/2015 A single view chest radiograph was obtained. Findings: Some tortuosity of the aorta is noted. The lungs are clear. Pulmonary vascularity is appropriate. The diaphragmatic contour is smooth and costophrenic angles are sharp. No pleural effusions are identified. The bones are osteopenic. Impression: No acute findings
--- NOTE | 2018-10-21 11:02 | NUR ---
P.T NOTE: P.T evaluation completed and treatment initiated. Please refer to P.T evaluation for current functional status. Pt is alert, oriented x 4 and cooperative. Pt presented generalized weakness and pain on L knee and ankle 4/10 at rest and 8/10 when standing and walking limiting overall functional mobility and safety. Pt currently require MIN a A X 1 for bed mobility and transfers and CGA x 1 using the the FWW for short distance gait. Skilled P.T service is warranted to improve her strength, balance and endurance to increase her mobility independence and safety for return to [facility]. Recommend FWW and 3 in 1 commode and Home P.T. at [place]. Thank you for this referral.
--- NOTE | 2018-10-21 11:09 | Cardiology Report ---
APPROVED REPORT EKG Measurement Heart [id number] DC [id number] Sinus bradycardia with 1st degree AV block Otherwise normal ECG
[2018-10-21 12:00] VITALS: BP 128/60
--- NOTE | 2018-10-21 15:57 | NUR ---
CASE MANAGEMENT:REVIEW 83 YR OLD MALE PRESENTED TO ER CC: MULTIPLE FALLS. LT LEG AND CHEST PAIN SI: DEHYDRATION. MULTIPLE FALLS 98.4 57 22 163/97 100% ON RA H/H-11.5/34.5 BUN+25 IS: 500CC NS BOLUS CT HEAD CXR URINE REFLEX : TO TELEMETRY interqual criteria met
[2018-10-21 16:00] VITALS: BP 122/53
--- NOTE | 2018-10-21 16:33 | Diagnostic Imaging Report ---
Indication: Knee Pain 3 views of the left knee were obtained. Findings: There is joint space narrowing with marginal osteophyte formation and subchondral sclerosis. The bones are osteopenic. No definite joint effusion identified. Popliteal artery/superficial femoral artery calcification is moderate. IMPRESSION: No acute injury appreciated.
--- NOTE | 2018-10-21 19:22 | NUR ---
NURSE NOTES: Report received from AMADA Downing. Pt shows no signs of distress, no SOB, no pain. A+Ox4. Respirations are even and unlabored on room air. IV site is patent, intact, and running fluids @ prescribed rate. Bed is at lowest position, brakes engaged, siderails x3, bed alarm on, and call light within reach. Pt is in stable condition at this time; will continue to monitor.
--- NOTE | 2018-10-21 19:23 | NUR ---
NURSE NOTES: Report received from Peri Weathers RN. Pt is resting in bed in stable condition. Pt is awake, alert, and oriented x4. Pt is on room air and breathing is even and unlabored. No acute distress noted. IV site is L hand #20g and is asymptomatic, patent, and intact and running IV fluids at rx rate. Bed is placed in lowest position with brake engaged, side rails up x3, and bed alarm on. Call light and side table placed within reach. Family is at bedside. Will continue to monitor.
--- NOTE | 2018-10-21 19:23 | NUR ---
HAND-OFF: Report given to AMADA Downing. Pt is in stable condition at this time; plan of care endorsed.
[2018-10-21 20:00] VITALS: BP 145/68
[2018-10-21] MEDS ORDERED: Enoxaparin 40mg Inj SUBQ SCH (21:00)
[2018-10-21] MEDS ORDERED: Atorvastatin 20mg tab ORAL SCH ×2 (21:00)
[2018-10-22] VITALS: BP 131/61
[2018-10-22 04:00] VITALS: BP 141/68
[2018-10-22 07:20] LABS: BASOPHILS % (AUTO) 1.4 % (0.0-2.0); EOSINOPHILS % (AUTO) 6.8 % (0.0-3.0); HEMATOCRIT 35.1 % (37.0-47.0); HEMOGLOBIN 11.4 G/DL (12.0-16.0); LYMPHOCYTES % (AUTO) 33.9 % (20.0-45.0); MEAN CORPUSCULAR VOLUME 91 FL (80-99); MONOCYTES % (AUTO) 7.5 % (1.0-10.0); NEUTROPHILS % (AUTO) 50.4 % (45.0-75.0); PLATELET COUNT 218 K/UL (150-450); RED BLOOD COUNT 3.88 M/UL (4.20-5.40); RED CELL DISTRIBUTION WIDTH 13.3 % (11.6-14.8); WHITE BLOOD COUNT 6.7 K/UL (4.8-10.8)
--- NOTE | 2018-10-22 07:39 | NUR ---
HAND-OFF: Report given to Peri Weathers RN. Pt is resting in bed in stable condition. No acute distress noted. Endorsed plan of care.
[2018-10-22 07:47] LABS: CREATINE KINASE 72 U/L (26-308)
[2018-10-22 08:00] VITALS: BP 140/68
[2018-10-22 08:00] LABS: ANION GAP 7 mmol/L (5-15); BLOOD UREA NITROGEN 23 mg/dL (7-18); CALCIUM 8.9 MG/DL (8.5-10.1); CARBON DIOXIDE 25 MMOL/L (21-32); CHLORIDE 110 MMOL/L (98-107); CREATININE 1.1 MG/DL (0.55-1.30); SODIUM 142 MMOL/L (136-145)
--- NOTE | 2018-10-22 08:04 | Nephrology Progress Note ---
Assessment/Plan Assessment/Plan: A/P 1) Multiple Falls- Left foot ambulating weakness - PT recommended walker and continued therapy - HH and PT ordered. Left Knee Xray and ankle xray negative 2) HTN- stable. Monitor HR on BB. Reduce dose if HR <50. Currently stable 3) HLP- lipitor At DC patient will have HH and PT. Will need PCP follow up one week Subjective Date patient seen: October 22, 2018 Time patient seen: 07:59 ROS Limited/Unobtainable: No Allergies: Coded Allergies: GABAPENTIN (Verified Allergy, Unknown, 05/27/17) LITHIUM (Verified Allergy, Unknown, 05/27/17) Subjective Patient had PT. Feels little weak but improving Objective Last 24 Hour Vital Signs Date Time Temp Pulse Resp B/P (MAP) Pulse Ox O2 Delivery O2 Flow Rate FiO2 10/22/18 04:00 96.6 55 18 141/68 (92) 97 10/22/18 03:00 58 10/22/18 00:00 54 10/22/18 00:00 98.1 60 18 131/61 (84) 98 10/21/18 21:04 65 145/68 10/21/18 21:00 Room Air 10/21/18 20:00 98.8 65 18 145/68 (93) 97 10/21/18 20:00 68 10/21/18 16:00 60 10/21/18 16:00 98.1 60 18 122/53 (76) 97 10/21/18 12:00 97.8 55 18 128/60 (82) 97 10/21/18 12:00 63 10/21/18 09:00 Room Air 10/21/18 08:28 69 111/60 10/21/18 08:28 111/60 10/21/18 08:00 66 10/21/18 08:00 98.2 69 18 111/60 (77) 96 Intake and Output 10/21/18 10/22/18 18:59 06:59 Intake Total 1450 ml Balance 1450 ml Intake Oral 750 ml IV Total 700 ml # Voids 3 1 # Bowel Movements 1 Laboratory Tests 10/22/18 06:47: White Blood Count [Pending], Red Blood Count [Pending], Hemoglobin [Pending], Hematocrit [Pending], Mean Corpuscular Volume [Pending], Mean Corpuscular Hemoglobin [Pending], Mean Corpuscular Hemoglobin Concent [Pending], Red Cell Distribution Width [Pending], Platelet Count [Pending], Mean Platelet Volume [ Pending], Neutrophils (%) (Auto) [Pending], Lymphocytes (%) (Auto) [Pending], Monocytes (%) (Auto) [Pending], Eosinophils (%) (Auto) [Pending], Basophils (%) (Auto) [Pending], Sodium Level [Pending], Potassium Level [Pending], Chloride Level [Pending], Carbon Dioxide Level [Pending], Blood Urea Nitrogen [Pending], Creatinine [Pending], Estimat Glomerular Filtration Rate [Pending], Glucose Level [Pending], Calcium Level [Pending], Total Creatine Kinase 72 Height (Feet): 5 Height (Inches): 3.00 Weight (Pounds): 170 General Appearance: no apparent distress, alert EENT: normal ENT inspection Neck: normal alignment, supple Cardiovascular: normal rate, regular rhythm Respiratory/Chest: lungs clear, normal breath sounds Abdomen: non tender, soft Edema: no edema noted Arm (L), no edema noted Arm (R), no edema noted Leg (L), no edema noted Leg (R), no edema noted Pedal (L), no edema noted Pedal (R), no edema noted Generalized Hemal Timmons MD October 22, 2018 08:04
--- NOTE | 2018-10-22 08:08 | Discharge Instructions ---
Discharge Instructions Discharge Instructions Services at Discharge: physical therapy Diet: 2 GM sodium (low sodium) Resume Normal Activity?: Yes Activity: up ad palak, light activity Follow Up Orders 1) Follow Up PCP 1 week 2) Reduce Lopressor to 25 mg bid and slow heart rate < 50 3) Home with Physical Therapy For Congestive Heart Failure Reminder Report to your physician any weight gain of 5 pounds or more in one week. Hemal Timmons MD October 22, 2018 08:08
[2018-10-22] MEDS: Oxybutynin 5mg tab ORAL SCH (08:23)
[2018-10-22] MEDS: Aspirin Baby 81mg ORAL SCH (08:23)
[2018-10-22] MEDS: Metoprolol 25mg tab ORAL SCH (08:24)
[2018-10-22] MEDS: Losartan 50mg tab ORAL SCH (08:24)
--- NOTE | 2018-10-22 08:45 | NUR ---
DISCHARGE PLANNING DISCHARGE ORDER NOTED FAXED CLINICALS TO [facility] T: [phone] F: [phone]
[2018-10-22 12:00] VITALS: BP 159/72
[2018-10-22 16:00] VITALS: BP 155/99
--- NOTE | 2018-10-22 16:34 | NUR ---
NURSE NOTES: Pt to be discharged today. Discharge order in. Patient packet printed. Waiting for son's arrival around 1800 to discharge patient.
[2018-10-22] MEDS ORDERED: METOPROLOL TART25 MG ORAL (17:13)
--- NOTE | 2018-10-22 17:32 | NUR ---
NURSE NOTES: Pt discharged safely from floor with son via wheelchair. IV, wristband, and ekg monitor tech removed. Pt was in stable condition upon discharge. Discharge paperwork and belongings list signed.
--- NOTE | 2018-10-23 10:45 | Discharge Summary ---
Discharge Summary Discharge Summary _ DATE OF ADMISSION: 10/20/2018 DATE OF DISCHARGE: 10/22/2018 DISCHARGED BY: Dr. Hemal Timmons BRIEF HOSPITAL COURSE: Patient is an 83-year-old female, who was living at home with the son. She stated for the past 2 weeks she had been falling over to her left side. She stated that there has been no chest pain, shortness of breath, no nausea, vomiting or diarrhea. She denied lightheadedness. There was no passing out. However, son noticed that his mother has always walked with a left-sided limp, but recently was starting to fall while ambulating. She otherwise felt well, except for frequent falls. She has medical history significant for hyperlipidemia, hypertension, GERD and hypovitaminosis D. On evaluation at the ED, blood pressure was elevated. Blood work was stable. Troponin was negative. proBNP was 1150. Urinalyses 3+ leukocyte esterase, 2-4 RBC, 5-10 WBC, negative nitrite, few bacteria. Chest x-ray did not show any acute findings. Had CT did not show any acute intracranial bleed, mass-effect or edema. There was atrophy of the brain and chronic small vessel disease. She had an x-ray of the left ankle. There was no injury but with generalized soft tissue swelling. Left knee x-ray did not show any acute injury. She was admitted for evaluation and management of hypertension and multiple falls. She was admitted to telemetry. She was given antihypertensive therapy. She was given Lovenox for DVT prophylaxis. She was continued on Lipitor. She was given IV hydration. She was given physical therapy and mobility. She had episodes she had episodes of bradycardia. Lopressor was reduced to 25 mg twice daily due to slow heart rate. She was eventually discharged home to follow-up with PCP and to continue with home physical therapy. FINAL DIAGNOSES: Multiple falls due to left foot weakness on ambulation Hypertension Hyperlipidemia DISPOSITION: DC home with home health. DISCHARGE MEDICATIONS: Refer to Discharge Medication List. DISCHARGE INSTRUCTIONS: Follow-up with PCP in a week. I have been assigned to complete a discharge summary on this account, I was not involved with the patient's management. Tyra Chew NP October 23, 2018 10:45
== END 2018-10-22 17:20 | disposition home health service (06) | DRG 556 ==
LOC: EMR 21:26 → 2E 21:29 → EDBEDREQ 21:46
DX: R26.2 Difficulty in walking, not elsewhere classified (principal); R29.6 Repeated falls; E86.0 Dehydration; I10 Essential (primary) hypertension; R53.1 Weakness; R42 Dizziness and giddiness; Z91.81 History of falling; Z88.8 Allergy status to other drugs, medicaments and biological substances; E78.5 Hyperlipidemia, unspecified; K21.9 Gastro-esophageal reflux disease without esophagitis; R00.1 Bradycardia, unspecified
CPT/HCPCS: 36415; 70450; 71045; 80048; 80053; 81003; 82550; 82553; 83690; 83880; 84484; 85025; 93005; 96374; 99285

== ENCOUNTER 2018-11-10 12:54 | Inpatient (IN) | payer MEDICARE, OTHER ==
[~2018-11-10] VITALS: Ht 165.1 cm; Wt 72.3 kg
[~2018-11-10 12:54] MED LIST changes: +BACLOFEN10 MG ORAL; +COZAAR50 MG ORAL; +METOPROLOL TART25 MG ORAL; +METOPROLOL TART50 MG ORAL; +OXYBUTYNIN CHLOR5 M1 ORAL; +ZANTAC150 MG ORAL
--- NOTE | 2018-11-10 13:10 | NUR ---
ED Nurse Note: PT FROM HOME CAME IN DUE TO ABD PAIN AND DIARRHEA ALL DAY LONG. PT ALSO STATES THERE IS A BLACK COLOR FROM HER STOOL. DENIES VOMITING. AAO X4 AMBULATORY. NO RESPIRATORY DISTRESS.
--- NOTE | 2018-11-10 13:17 | Emergency Room Report ---
History of Present Illness General Chief Complaint: Gastrointestinal Bleed Source: Patient Present Illness HPI Patient presents with a blockage in her rectum. She also has slight amount of abdominal pain is lower 6/10, pressure and constant. She denies any vomiting. She ate lunch today. Because of trying to move her bowels and straining she is passing some blood. She states her stool is dark. Is not tarry or foul smelling. She is worried she has cancer. She has problems with anxiety and treated for this. She feels anxious at this time. She has a history of schizophrenia. She takes Seroquel. The patient was seen at [place] on Saturday and given medication for diarrhea. She was seen there because of dizziness. She fell bruising her knees without loss of consciousness prior to that. She states her tetanus is up-to-date. She states no rectal exam was performed. Patient had colonoscopy 2 years ago. She states it was normal. She was admitted 2015 with acute pancreatitis and lithium toxicity. No fevers, chills, chest pain, palpitations, dysuria, shortness of breath, visual changes, headache, rashes. She was admitted 10/20-10/22 with these d/c diagnoses: Multiple falls due to left foot weakness on ambulation Hypertension Hyperlipidemia Allergies: Coded Allergies: GABAPENTIN (Verified Allergy, Unknown, 05/27/17) LITHIUM (Verified Allergy, Unknown, 05/27/17) Patient History Past Medical History: see triage record, old chart reviewed Social History: Denies: smoking, alcohol use, drug use Social History Narrative at assisted living Last Menstrual Period: na Reviewed Nursing Documentation: PMH: Agreed; PSxH: Agreed Nursing Documentation-PMH Past Medical History: No History, Except For Hx Cardiac Problems: Yes - sick sinus syndrome Hx Hypertension: Yes Hx Cancer: No Hx Gastrointestinal Problems: Yes Hx Dialysis: No Hx Neurological Problems: No Review of Systems All Other Systems: negative except mentioned in HPI Physical Exam Vital Signs Date Time Temp Pulse Resp B/P (MAP) Pulse Ox O2 Delivery O2 Flow Rate FiO2 11/10/18 13:00 98.4 67 18 143/68 (93) 94 Room Air Sp02 EP Interpretation: reviewed, normal General Appearance: well appearing, no apparent distress - But anxious, GCS 15 Head: normocephalic, atraumatic Eyes: bilateral eye normal inspection, bilateral eye PERRL ENT: moist mucus membranes, other - Some tardive dyskinetic movements Neck: supple Respiratory: lungs clear, normal breath sounds Cardiovascular #1: regular rate, rhythm Cardiovascular #2: 2+ radial (R) Gastrointestinal: normal inspection, normal bowel sounds, soft, no mass, non- distended, no guarding, no rebound, tenderness - Reported, overweight Rectal: other - Large fecal impaction Genitourinary: no CVA tenderness Musculoskeletal: back normal, normal range of motion, other - Wide-based gait Neurologic: alert, motor strength/tone normal, sensory intact, oriented - X2 Psychiatric: other - Flat affect aside from anxiety and some perseveration Skin: normal inspection, warm/dry Procedures Additional Procedure Procedure Narrative disimpacted large amount of solid stool Medical Decision Making Diagnostic Impression: Primary Impression: Abdominal pain Qualified Codes: R10.30 - Lower abdominal pain, unspecified Additional Impressions: Fecal impaction Leukocytosis Qualified Codes: D72.828 - Other elevated white blood cell count Schizoaffective disorder, bipolar type ER Course Patient presents with blockage in her rectum and diarrhea. She also has abdominal discomfort without vomiting. Differential includes impaction with escape diarrhea, UTI, diverticulitis, appendicitis amongst others. Exam is most consistent with fecal impaction. Evaluation with labs. The patient will be treated with IV hydration and also given Tylenol. EKG was sinus rhythm first-degree AV block and nonspecific ST-T wave changes. Abdominal series with possibility of gas and increased stool load. White count is elevated. Patient is disimpacted emergency department. Pain is resolved. Because of the elevated white count and CT the abdomen is ordered. Also the patient will be observed overnight. Admit Dr. Webber. CT unremarkable (pancreas hypodensity). Recall h/o acute pancreatitis. Laboratory Tests Test 11/10/18 13:40 White Blood Count 14.3 K/UL (4.8-10.8) H Red Blood Count 4.03 M/UL (4.20-5.40) L Hemoglobin 12.0 G/DL (12.0-16.0) Hematocrit 36.3 % (37.0-47.0) L Mean Corpuscular Volume 90 FL (80-99) Mean Corpuscular Hemoglobin 29.8 PG (27.0-31.0) Mean Corpuscular Hemoglobin Concent 33.0 G/DL (32.0-36.0) Red Cell Distribution Width 12.6 % (11.6-14.8) Platelet Count 249 K/UL (150-450) Mean Platelet Volume 5.9 FL (6.5-10.1) L Neutrophils (%) (Auto) 77.5 % (45.0-75.0) H Lymphocytes (%) (Auto) 12.0 % (20.0-45.0) L Monocytes (%) (Auto) 6.9 % (1.0-10.0) Eosinophils (%) (Auto) 2.9 % (0.0-3.0) Basophils (%) (Auto) 0.6 % (0.0-2.0) Prothrombin Time 10.2 SEC (9.30-11.50) Prothrombin Time INR 1.0 (0.9-1.1) PTT 26 SEC (23-33) Urine Color Pale yellow Urine Appearance Clear Urine pH 6 (4.5-8.0) Urine Specific [place] 1.005 (1.005-1.035) Urine Protein Negative (NEGATIVE) Urine Glucose (UA) Negative (NEGATIVE) Urine Ketones Negative (NEGATIVE) Urine Blood 2+ (NEGATIVE) H Urine Nitrite Negative (NEGATIVE) Urine Bilirubin Negative (NEGATIVE) Urine Urobilinogen Normal MG/DL (0.0-1.0) Urine Leukocyte Esterase Negative (NEGATIVE) Urine RBC 0-2 /HPF (0 - 2) Urine WBC 0 /HPF (0 - 2) Urine Squamous Epithelial Cells Occasional /LPF Urine Bacteria Occasional /HPF (NONE) Sodium Level 140 MMOL/L (136-145) Potassium Level 4.9 MMOL/L (3.5-5.1) Chloride Level 104 MMOL/L (98-107) Carbon Dioxide Level 29 MMOL/L (21-32) Anion Gap 7 mmol/L (5-15) Blood Urea Nitrogen 21 mg/dL (7-18) H Creatinine 1.1 MG/DL (0.55-1.30) Estimate Glomerular Filtration Rate mL/min (>60) Glucose Level 102 MG/DL (74-106) Calcium Level 9.4 MG/DL (8.5-10.1) Total Bilirubin 0.5 MG/DL (0.2-1.0) Aspartate Amino Transferase (AST) 22 U/L (15-37) Alanine Aminotransferase (ALT) 28 U/L (12-78) Alkaline Phosphatase 84 U/L (46-116) Troponin I 0.029 ng/mL (0.000-0.056) Total Protein 7.1 G/DL (6.4-8.2) Albumin 4.0 G/DL (3.4-5.0) Globulin 3.1 g/dL Albumin/Globulin Ratio 1.3 (1.0-2.7) Lipase 212 U/L (73-393) EKG Diagnostic Results Rate: normal Rhythm: NSR ST Segments: no acute changes - NSSTTW changes Rhythm Strip Diag. Results EP Interpretation: yes Rhythm: NSR, no PVC's, no ectopy Other X-Ray Diagnostic Results Other X-Ray Diagnostic Results : X-Ray ordered: abd # of Views/Limited Vs Complete: 1 View Indication: Pain EP Interpretation: Yes Interpretation: nonspecific bowel gas, no sbo, other - increased stool Impression: Other Electronically Signed by: Electronically signed by Pb Wagner MD CT/MRI/US Diagnostic Results CT/MRI/US Diagnostic Results : Imaging Test Ordered: abd/pelvis Impression Moderate-large colonic stool. Mildly prominent small bowel which may be ileus. No appendicitis, SBO, or diverticulitis. No hydronephrosis or ureteral calculus. Distended bladder. Pancreatic tail hypodensity Last Vital Signs Date Time Temp Pulse Resp B/P (MAP) Pulse Ox O2 Delivery O2 Flow Rate FiO2 11/10/18 17:38 97.0 76 23 156/126 (136) 96 11/10/18 17:25 Room Air Status: improved Disposition: PLACE IN OBSERVATION Condition: Serious Pb Wagner MD November 10, 2018 13:17
[2018-11-10 13:40] VITALS: BP 138/60
--- NOTE | 2018-11-10 13:50 | NUR ---
ED Nurse Note: COLLECTED BLOOD/URINE THEN SENT.
[2018-11-10 14:14] LABS: APPEARANCE,URINE CLEAR; BILIRUBIN, URINE NEGATIVE (NEGATIVE); COLOR,URINE PALE YELLOW; GLUCOSE, URINE (UA) NEGATIVE (NEGATIVE); KETONES,URINE NEGATIVE (NEGATIVE); LEUKOCYTE ESTERASE ,URINE NEGATIVE (NEGATIVE); NITRITE,URINE NEGATIVE (NEGATIVE); PH,URINE 6 (4.5-8.0); PROTEIN,URINE NEGATIVE (NEGATIVE); UROBILINOGEN,URINE NORMAL MG/DL (0.0-1.0)
[2018-11-10 14:15] LABS: BASOPHILS % (AUTO) 0.6 % (0.0-2.0); EOSINOPHILS % (AUTO) 2.9 % (0.0-3.0); HEMATOCRIT 36.3 % (37.0-47.0); MEAN CORPUSCULAR VOLUME 90 FL (80-99); MONOCYTES % (AUTO) 6.9 % (1.0-10.0); NEUTROPHILS % (AUTO) 77.5 % (45.0-75.0); PLATELET COUNT 249 K/UL (150-450); RED BLOOD COUNT 4.03 M/UL (4.20-5.40); RED CELL DISTRIBUTION WIDTH 12.6 % (11.6-14.8); WHITE BLOOD COUNT 14.3 K/UL (4.8-10.8)
[2018-11-10 14:22] LABS: ANION GAP 7 mmol/L (5-15); BLOOD UREA NITROGEN 21 mg/dL (7-18); CALCIUM 9.4 MG/DL (8.5-10.1); CARBON DIOXIDE 29 MMOL/L (21-32); CHLORIDE 104 MMOL/L (98-107); CREATININE 1.1 MG/DL (0.55-1.30); POTASSIUM 4.9 MMOL/L (3.5-5.1); SODIUM 140 MMOL/L (136-145)
[2018-11-10 14:28] LABS: ALANINE AMINOTRANSFERASE 28 U/L (12-78); ALBUMIN/GLOBULIN RATIO 1.3 (1.0-2.7); ALKALINE PHOSPHATASE 84 U/L (46-116); ASPARTATE AMINO TRANSFERASE 22 U/L (15-37); BILIRUBIN,TOTAL 0.5 MG/DL (0.2-1.0)
[2018-11-10] MEDS ORDERED: Isovue-300 100ml vial INJ PRN (14:30)
--- NOTE | 2018-11-10 14:35 | NUR ---
ED Nurse Note: ASSISTED DR MOSHER AT THE BED SIDE FOR RECTAL EXAM. PT WAS INFORMED OF PROCEDURE. NOTED LARGE AMOUNTS OF IMPACTED BLACK STOOLS TAKEN OUT BY DR MOSHER. NO ACTIVE BLEEDING.
[2018-11-10 15:49] VITALS: BP 129/75
--- NOTE | 2018-11-10 15:50 | NUR ---
ED Nurse Note: REPORT GIVEN TO BERKLEY YBARRA OF [facility].
--- NOTE | 2018-11-10 15:54 | NUR ---
ED Nurse Note: attempted to obtain med recon from pt, she is unable to recall meds. she states [facility] there is no answer at this time. unable to completer med recon due to no info able to be given by pt.
--- NOTE | 2018-11-10 16:50 | NUR ---
ED Nurse Note: PT TAKEN TO CT VIA [facility]. VSS.
--- NOTE | 2018-11-10 17:10 | NUR ---
ED Nurse Note: PT CAME BACK FROM CT . VSS.
[2018-11-10 17:25] VITALS: BP 132/88
--- NOTE | 2018-11-10 17:35 | NUR ---
ED Nurse Note: NOTIFIED BERKLEY YBARRA OF [facility] THAT MRSA/VRE AND CRE SWABS ARE NOT DONE. ENDORSED PT.
[2018-11-10 17:38] VITALS: BP 156/126
--- NOTE | 2018-11-10 17:40 | NUR ---
NURSE NOTES: patient admitted from ER via gurney with staff. a&Ox4. verbally responsive. no respiratory ditstress noted with room air. no pain at this time. offered bed henderson for urination. IV on RAC 20g. intact. skin assessment done. no decubitus noted. right fore arm with ecchymosis d/t iv insertion at [facility] where she admitted in week ago. CAT scan done at ER for fecal impaction. removed large amount fecal at the ER. no diarrhea at this time. no N/V. checked and counted belongings with patient. bed in the lowest position. call light within reach. alarm on.
[2018-11-10] MEDS: Enoxaparin 40mg Inj SUBQ SCH (18:22)
--- NOTE | 2018-11-10 19:41 | NUR ---
HAND-OFF: Report given to AMADA Felder.
[2018-11-10 20:00] VITALS: BP 144/71
--- NOTE | 2018-11-10 20:03 | NUR ---
NURSE NOTES: Received report from AMADA Ruby. Patient A&Ox4. On room air. No signs of distress or labored distress or labored breathing. Iv intact, patent, and saline locked. Bed in lowest position with call light in reach. Will continue with plan of care. Addendum: 11/10/18 at 2020 by Emerita Arciniega RN IV intact, patent, and infusing IV fluids.
[2018-11-10] MEDS: Docusate 100mg cap ORAL SCH (21:00)
[2018-11-10] MEDS ORDERED: Milk of Magnesia 30ml Ud ORAL PRN (21:00)
[2018-11-10] MEDS: Metoprolol 25mg tab ORAL SCH (21:51)
[2018-11-10] MEDS: Atorvastatin 20mg tab ORAL SCH (21:52)
--- NOTE | 2018-11-10 22:15 | History and Physical Report ---
DATE OF ADMISSION: 11/10/2018 REASON FOR ADMISSION: 1. Abdominal pain. 2. Fecal impaction. 3. Leukocytosis. HISTORY OF PRESENT ILLNESS: The patient is a 65-year-old female, who was evaluated in the emergency room for abdominal pain 11/24. No nausea or vomiting. The patient has been trying to move her bowels for several days and has been passing some string blood. She says that she had been to [place] last week, Saturday and given some medications for diarrhea. She was there because of feeling lightheaded and dizziness, however, never passed out and since being to [place], the patient has been quite constipated and having abdominal pain. Emergency room abdominal series showed gas with increased stool load and she was disimpacted and had a large bowel movement. The patient states she is already feeling better. No current chest pain. No shortness of breath. PAST MEDICAL HISTORY: 1. Hypertension. 2. GERD. 3. Generalized weakness. 4. Vitamin D deficiency. 5. Hyperlipidemia. PAST SURGICAL HISTORY: Noncontributory. ALLERGIES: Gabapentin and lithium. FAMILY HISTORY: Positive for hypertension. REVIEW OF SYSTEMS: NEUROLOGIC: The patient denies headache, change in vision, syncope, or presyncopal episodes. CARDIOVASCULAR: No current chest pain, palpitations, or angina. PULMONARY: No difficulty breathing, cough, or sputum. GASTROINTESTINAL/GENITOURINARY: The patient is having abdominal pain and difficulty passing stool. ENDOCRINOLOGY: No night sweats, fevers, or chills. MUSCULOSKELETAL: The patient feeling very tired and fatigued. PHYSICAL EXAMINATION: VITAL SIGNS: Blood pressure 129/75, respiratory rate 19, pulse 82, temperature 98.2, and 100% oxygen saturation on room air. GENERAL: Awake, alert, and not in distress. HEENT: Extraocular muscles intact. No lymphadenopathy noted. CARDIOVASCULAR: S1, S2. No rubs or gallops. PULMONARY: Clear to auscultation bilaterally. No rales, rhonchi, or wheezes. ABDOMEN: Nondistended and nontender with good bowel sounds. EXTREMITIES: No edema. LABORATORY DATA: Labs dated 11/10/2018, white cell count 14.2, hemoglobin 12, and platelet count 249,000. Sodium 140, potassium 4.9, and creatinine 1.1. Troponin 0.029. ASSESSMENT AND PLAN: 1. Leukocytosis, at this time, most likely secondary to fecal impaction inducing stress. The patient has been disimpacted and feels better at this time. The patient is not febrile and not ill appearing. We will recheck white cell count in the morning. Urinalysis was negative. We will hold off antibiotics for the time being. 2. Hypertension. We will continue home medications as needed. 3. DVT prophylaxis with Lovenox. 4. GERD. We will continue with gastrointestinal prophylaxis. Hemal Timmons MD DR: MELANIE/GLADIS JOB#: [id number] CC: TOAN
[2018-11-10] MEDS ORDERED: Zolpidem 5mg tab ORAL PRN (22:45)
[2018-11-11] VITALS (7 sets, daily range): BP systolic 135–174; BP diastolic 66–79
[2018-11-11 06:22] LABS: BASOPHILS % (AUTO) 1.4 % (0.0-2.0); EOSINOPHILS % (AUTO) 6.2 % (0.0-3.0); HEMATOCRIT 33.3 % (37.0-47.0); LYMPHOCYTES % (AUTO) 30.8 % (20.0-45.0); MEAN CORPUSCULAR VOLUME 90 FL (80-99); MONOCYTES % (AUTO) 7.7 % (1.0-10.0); NEUTROPHILS % (AUTO) 53.9 % (45.0-75.0); PLATELET COUNT 190 K/UL (150-450); RED BLOOD COUNT 3.68 M/UL (4.20-5.40); RED CELL DISTRIBUTION WIDTH 12.7 % (11.6-14.8); WHITE BLOOD COUNT 8.4 K/UL (4.8-10.8)
[2018-11-11 07:11] LABS: ANION GAP 10 mmol/L (5-15); BLOOD UREA NITROGEN 17 mg/dL (7-18); CALCIUM 8.8 MG/DL (8.5-10.1); CARBON DIOXIDE 23 MMOL/L (21-32); CHLORIDE 106 MMOL/L (98-107); POTASSIUM 4.6 MMOL/L (3.5-5.1); SODIUM 139 MMOL/L (136-145)
--- NOTE | 2018-11-11 07:38 | NUR ---
HAND-OFF: Report given to Deysi López RN.
--- NOTE | 2018-11-11 07:40 | NUR ---
NURSE NOTES: Received patient in bed, awake, alert and oriented x4. Denies any pain or discomfort. Mikhail nausea,vomiting or diarrhea. IV intact, running IVF. Bed is in lowest position and locked. Reminded patient to call nurses if needed. Jordan light within reach, Will continue plan of care.
[2018-11-11] MEDS: Oxybutynin 5mg tab ORAL SCH (08:19)
[2018-11-11] MEDS: Metoprolol 25mg tab ORAL SCH ×2 (08:19→20:08)
[2018-11-11] MEDS: Docusate 100mg cap ORAL SCH ×2 (08:19→20:07)
[2018-11-11] MEDS: Losartan 50mg tab ORAL SCH (08:20)
--- NOTE | 2018-11-11 08:51 | NUR ---
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 FECAL IMPACTION VS: BP 143/68, P 94, T 98.4, RR 18, SpO2 94 WBC 14.3, RBC 4.03, HCT 36.3, BUN 21 IS:TYLENOL 650mg NS x1L IV 4E MED/SURG
--- NOTE | 2018-11-11 09:05 | Diagnostic Imaging Report ---
Indication: Abdominal pain Technique: Continuous helical transaxial imaging of the abdomen and pelvis was obtained from the lung bases to the pubic symphysis during intravenous contrast administration. Coronal 2-D reformats were also obtained. Study obtained in a Siemens sensation [address] Automatic Exposure Control was utilized. Total Dose length Product (DLP): 832.[address] Dose Index Volume (CTDIvol): 18.16 mGy Comparison: 10/02/2014 Findings: Small hiatal hernia demonstrated. Lung bases are clear. Cholecystectomy noted. Mild biliary ductal prominence demonstrated. Cysts within the kidneys noted bilaterally. No adrenal mass seen. Small cystic structure noted in the tail the pancreas measuring about 1 cm. Further evaluation suggested. Spleen and liver are unremarkable. Arterial vascular calcifications are noted. The patient has had partial colectomy. The anatomy is difficult to elucidate. There is a distended loop of colon noted in the mid to lower abdomen associated with anastomotic sutures. There is no evidence of bowel obstruction. There is no evidence of abscess or pneumatosis. There is a moderate amount of fecal retention within the visualized colon. The rectum is present. Atrophic uterus with calcifications noted. The urinary bladder is dilated. There is narrowing of intervertebral discs and accompanying endplate osteophyte formation. Hypertrophied facet joints also demonstrated.. IMPRESSION: Constipation with moderate formed stool within the colon. Partial left kaleb-colectomy is noted. Status post cholecystectomy Hiatal hernia Bilateral renal cysts Degenerative changes of the spine. [facility] has communicated the preliminary results to the Emergency Department. Their findings are largely concordant with this report. The CT scanner at [facility] is accredited by the [employer] and the scans are performed using dose optimization techniques as appropriate to a performed exam including Automatic Exposure control.
--- NOTE | 2018-11-11 10:47 | Diagnostic Imaging Report ---
Indication: Abdominal pain Comparison: None Single view of the abdomen obtained Findings: Bowel gas pattern is nonspecific. Cholecystectomy clips noted in the right upper quadrant. No mass, ectopic calcifications, or abnormal gas collections are identified. Moderate degenerative changes of the lumbar spine demonstrated. Impression: No acute findings
--- NOTE | 2018-11-11 10:50 | GI Initial Consult Note ---
History of Present Illness General Date patient seen: November 11, 2018 Time patient seen: 10:38 Reason for Hospitalization: Gastrointestinal Bleed Referring physician: CRUZ PERDOMO Reason for Consultation: ANEMIA Present Illness HPI Patient presents with a blockage in her rectum. She also has slight amount of abdominal pain is lower 6/10, pressure and constant. She denies any vomiting. She ate lunch today. Because of trying to move her bowels and straining she is passing some blood. She states her stool is dark. Is not tarry or foul smelling. She is worried she has cancer. She has problems with anxiety and treated for this. She feels anxious at this time. She has a history of schizophrenia. She takes Seroquel. The patient was seen at [facility] on Saturday and given medication for diarrhea. She was seen there because of dizziness. She fell bruising her knees without loss of consciousness prior to that. She states her tetanus is up-to-date. She States no rectal exam was performed. She was admitted 2015 with acute pancreatitis and lithium toxicity. No fevers, chills, chest pain, palpitations, dysuria, shortness of breath, visual changes, headache, rashes. GI consulted for reported abdominal pain. Patient seen, awake alert and oriented x4 no apparent distress with no active signs and symptoms of nausea or vomiting. Patient initially reported abdominal pain, which is now improved. An abdominal pelvic CT was performed, noted with constipation with moderate formed stool within the colon. The patient had a digital disimpaction in the emergency room. The patient does have a partial left hemicolectomy with history of a colonic stricture. Patient presents today with reported blood in her stools and melena. The patient recalls having a colonoscopy approximately 2 years ago, but was unsure of the findings. Hemoglobin today 11.0. She was admitted 10/20-10/22 with these d/c diagnoses: Multiple falls due to left foot weakness on ambulation Hypertension Hyperlipidemia Home Meds Reported Medications Metoprolol Tartrate* (METOPROLOL TARTRATE*) 25 Mg Tablet, 25 MG ORAL EVERY 12 HOURS, TAB 10/22/18 Ranitidine Hcl* (ZANTAC*) 150 Mg Tablet, 300 MG ORAL QHS, #30 TAB 0 Refills 10/21/18 Oxybutynin Chloride (OXYBUTYNIN CHLORIDE) 5 Mg Tablet, 5 MG ORAL DAILY, #30 TAB 0 Refills 10/21/18 Losartan Potassium* (COZAAR*) 50 Mg Tablet, 100 MG ORAL DAILY, TAB 10/21/18 Baclofen* (BACLOFEN*) 10 Mg Tablet, 10 MG ORAL BID, TAB 10/21/18 Vitamin D (Vitamin D3) 400 Unit Tablet, 2000 UNITS ORAL DAILY, TAB 08/01/17 Melatonin (MELATONIN) 5 Mg Tab.ir.er, 10 MG PO QHS 08/01/17 Quetiapine Fumarate* (SEROQUEL*) 200 Mg Tablet, 150 MG ORAL DAILY, TAB 08/01/17 Pantoprazole* (PANTOPRAZOLE*) 40 Mg Tablet.dr, 40 MG ORAL DAILY, TAB 12/01/15 Quetiapine Fumarate* (QUETIAPINE FUMARATE*) 50 Mg Tablet, 25 MG ORAL HS, TAB 12/01/15 Atorvastatin Calcium* (LIPITOR*) 10 Mg Tablet, 20 MG ORAL QHS, #30 TAB 0 Refills 07/09/14 Med list reviewed/reconciled: Yes Allergies: Coded Allergies: GABAPENTIN (Verified Allergy, Unknown, 05/27/17) LITHIUM (Verified Allergy, Unknown, 05/27/17) Patient History History Provided By: Patient, Medical Record PMH Narrative Past Medical History: see triage record, old chart reviewed Social History: Denies: smoking, alcohol use, drug use Social History Narrative at assisted living Last Menstrual Period: na Reviewed Nursing Documentation: PMH: Agreed; PSxH: Agreed Nursing Documentation-PMH Past Medical History: No History, Except For Hx Cardiac Problems: Yes - sick sinus syndrome Hx Hypertension: Yes Hx Cancer: No Hx Gastrointestinal Problems: Yes Hx Dialysis: No Hx Neurological Problems: No Social History: Denies: smoking, alcohol use, drug use, other Review of Systems All Other Systems: negative except mentioned in HPI Physical Exam Vital Signs Date Time Temp Pulse Resp B/P (MAP) Pulse Ox O2 Delivery O2 Flow Rate FiO2 11/10/18 13:00 98.4 67 18 143/68 (93) 94 Room Air Sp02 EP Interpretation: reviewed, normal Labs Laboratory Tests Test 11/10/18 13:40 11/11/18 05:05 White Blood Count 14.3 K/UL (4.8-10.8) H 8.4 K/UL (4.8-10.8) Red Blood Count 4.03 M/UL (4.20-5.40) L 3.68 M/UL (4.20-5.40) L Hemoglobin 12.0 G/DL (12.0-16.0) 11.0 G/DL (12.0-16.0) L Hematocrit 36.3 % (37.0-47.0) L 33.3 % (37.0-47.0) L Mean Corpuscular Volume 90 FL (80-99) 90 FL (80-99) Mean Corpuscular Hemoglobin 29.8 PG (27.0-31.0) 29.9 PG (27.0-31.0) Mean Corpuscular Hemoglobin Concent 33.0 G/DL (32.0-36.0) 33.1 G/DL (32.0-36.0) Red Cell Distribution Width 12.6 % (11.6-14.8) 12.7 % (11.6-14.8) Platelet Count 249 K/UL (150-450) 190 K/UL (150-450) Mean Platelet Volume 5.9 FL (6.5-10.1) L 6.2 FL (6.5-10.1) L Neutrophils (%) (Auto) 77.5 % (45.0-75.0) H 53.9 % (45.0-75.0) Lymphocytes (%) (Auto) 12.0 % (20.0-45.0) L 30.8 % (20.0-45.0) Monocytes (%) (Auto) 6.9 % (1.0-10.0) 7.7 % (1.0-10.0) Eosinophils (%) (Auto) 2.9 % (0.0-3.0) 6.2 % (0.0-3.0) H Basophils (%) (Auto) 0.6 % (0.0-2.0) 1.4 % (0.0-2.0) Prothrombin Time 10.2 SEC (9.30-11.50) Prothromb Time International Ratio 1.0 (0.9-1.1) Activated Partial Thromboplast Time 26 SEC (23-33) Urine Color Pale yellow Urine Appearance Clear Urine pH 6 (4.5-8.0) Urine Specific [place] 1.005 (1.005-1.035) Urine Protein Negative (NEGATIVE) Urine Glucose (UA) Negative (NEGATIVE) Urine Ketones Negative (NEGATIVE) Urine Blood 2+ (NEGATIVE) H Urine Nitrite Negative (NEGATIVE) Urine Bilirubin Negative (NEGATIVE) Urine Urobilinogen Normal MG/DL (0.0-1.0) Urine Leukocyte Esterase Negative (NEGATIVE) Urine RBC 0-2 /HPF (0 - 2) Urine WBC 0 /HPF (0 - 2) Urine Squamous Epithelial Cells Occasional /LPF Urine Bacteria Occasional /HPF (NONE) Sodium Level 140 MMOL/L (136-145) 139 MMOL/L (136-145) Potassium Level 4.9 MMOL/L (3.5-5.1) 4.6 MMOL/L (3.5-5.1) Chloride Level 104 MMOL/L (98-107) 106 MMOL/L (98-107) Carbon Dioxide Level 29 MMOL/L (21-32) 23 MMOL/L (21-32) Anion Gap 7 mmol/L (5-15) 10 mmol/L (5-15) Blood Urea Nitrogen 21 mg/dL (7-18) H 17 mg/dL (7-18) Creatinine 1.1 MG/DL (0.55-1.30) 1.0 MG/DL (0.55-1.30) Estimat Glomerular Filtration Rate mL/min (>60) mL/min (>60) Glucose Level 102 MG/DL (74-106) 83 MG/DL (74-106) Calcium Level 9.4 MG/DL (8.5-10.1) 8.8 MG/DL (8.5-10.1) Total Bilirubin 0.5 MG/DL (0.2-1.0) Aspartate Amino Transf (AST/SGOT) 22 U/L (15-37) Alanine Aminotransferase (ALT/SGPT) 28 U/L (12-78) Alkaline Phosphatase 84 U/L (46-116) Troponin I 0.029 ng/mL (0.000-0.056) 0.030 ng/mL (0.000-0.056) Total Protein 7.1 G/DL (6.4-8.2) Albumin 4.0 G/DL (3.4-5.0) Globulin 3.1 g/dL Albumin/Globulin Ratio 1.3 (1.0-2.7) Lipase 212 U/L (73-393) General Appearance: well appearing, no apparent distress, alert Head: normocephalic EENT: PERRL/EOMI, normal ENT inspection Neck: supple Respiratory: normal breath sounds, no respiratory distress Cardiovascular: normal rate Gastrointestinal: normal inspection, non tender, soft, normal bowel sounds, non -distended Rectal: deferred Genitourinary: no CVA tenderness Musculoskeletal: normal inspection, back normal Neurologic: normal inspection, alert, oriented x3, responsive Psychiatric: normal inspection, judgement/insight normal, memory normal Skin: normal inspection, normal color, no rash, warm/dry, palpation normal, well hydrated Lymphatic: normal inspection, no adenopathy Current Medications Current Medications Medications (Trade) Dose Ordered Sig/Caryl Route PRN Reason Start Time Stop Time Status Last Admin Dose Admin Acetaminophen (Tylenol) 650 mg Q4H PRN ORAL Mild Pain (Pain Scale 1-3) 11/10/18 16:33 12/10/18 16:32 Atorvastatin Calcium (Lipitor) 20 mg BEDTIME ORAL 11/10/18 21:00 12/10/18 20:59 11/10/18 21:52 Barium Sulfate (Readi-Cat 2) 450 ml NOW PRN ORAL Radiology Procedure 11/10/18 14:30 11/12/18 14:27 Dextrose (Dextrose 50%) 25 ml Q30M PRN IV Hypoglycemia 11/10/18 16:34 12/10/18 16:33 Dextrose (Dextrose 50%) 50 ml Q30M PRN IV Hypoglycemia 11/10/18 16:34 12/10/18 16:33 Docusate Sodium (Colace) 100 mg EVERY 12 HOURS ORAL 11/10/18 21:00 12/10/18 20:59 11/11/18 08:19 Enoxaparin Sodium (Lovenox) 40 mg Q24H SUBQ 11/10/18 18:00 12/10/18 17:59 11/10/18 18:22 Famotidine (Pepcid) 40 mg DAILY ORAL 11/11/18 09:00 12/11/18 08:59 11/11/18 08:19 Iopamidol (Isovue-300 100ml) 100 ml NOW PRN INJ Radiology Procedure 11/10/18 14:30 Losartan Potassium (Cozaar) 100 mg DAILY ORAL 11/11/18 09:00 12/11/18 08:59 11/11/18 08:20 Magnesium Hydroxide (Mom) 30 ml HSPRN PRN ORAL Constipation 11/10/18 21:00 12/10/18 20:59 Metoprolol Tartrate (Lopressor) 25 mg Q12HR ORAL 11/10/18 21:00 12/10/18 20:59 11/11/18 08:19 Oxybutynin Chloride (Ditropan) 5 mg DAILY ORAL 11/11/18 09:00 12/11/18 08:59 11/11/18 08:19 Quetiapine Fumarate (SEROquel) 25 mg QHS ORAL 11/10/18 21:00 12/10/18 20:59 11/10/18 21:52 Sodium Chloride 1,000 ml @ 75 mls/hr [id number] IV 11/10/18 17:30 12/10/18 17:29 11/11/18 06:31 Zolpidem Tartrate (Ambien) 5 mg HSPRN PRN ORAL Insomnia 11/10/18 22:45 11/17/18 22:44 11/11/18 00:30 GI: Plan Problems: (1) Constipation (2) Anemia (3) Abdominal pain (4) Dehydration Plan History of colonic stricture status post hemicolectomy Hematochezia versus melena GI bleed history of colonoscopy approximately 2 years ago with unremarkable findings EGD/colonoscopy scheduled tomorrow. - CLD, NPO @[place]. - hold all blood thinners tonight. anemia work up OB stool r/o GI bleed monitor H&H, prn transfusions bowel regimen ppi fu labs will follow with additional recommendations post procedure Discussed with Dr. Vázquez. Thank you for this patient referral, we will follow. The patient was seen and examined at bedside and all new and available data was reviewed in the patients chart. I agree with the above findings, impression and plan. (Patient seen earlier today. Signature stamp does not reflect patient encounter time.). - MD Cortney AlmendarezClearsky [facility] CHRISTMAS BELL RINGER November 11, 2018 10:50
[2018-11-11] MEDS ORDERED: Labetalol 5mg/ml 20ml vial IV PRN (13:00)
--- NOTE | 2018-11-11 13:00 | NUR ---
NURSE NOTES: Patient seen by Dr. Timmons and RN relayed patient's elevated BP. RN received new order and clarified with doctor. d/c labetalol, give clonidine 0.1mg Q4PRN for SBP>160. order read back and carried out.
--- NOTE | 2018-11-11 13:04 | Nephrology Progress Note ---
Assessment/Plan Assessment/Plan: A/P 1) Abdominal Pain- Pending EGD and colonoscopy in am - DC afterwards pending procedure results 2) HTN- stable. 3) DVT prophylaxis with lovenox 4) Anxiety- prn ativan Subjective Date patient seen: November 11, 2018 Time patient seen: 13:01 ROS Limited/Unobtainable: No Allergies: Coded Allergies: GABAPENTIN (Verified Allergy, Unknown, 05/27/17) LITHIUM (Verified Allergy, Unknown, 05/27/17) Subjective Patient says abdominal pain resolved. No further diarrhea or constipation Objective Last 24 Hour Vital Signs Date Time Temp Pulse Resp B/P (MAP) Pulse Ox O2 Delivery O2 Flow Rate FiO2 11/11/18 09:00 Room Air 11/11/18 08:20 144/76 11/11/18 08:19 65 144/76 11/11/18 08:00 98.6 65 18 144/76 (98) 98 11/11/18 04:00 97.8 56 18 135/66 (89) 95 11/11/18 00:00 98.4 57 20 145/66 (92) 95 11/10/18 21:51 67 144/71 11/10/18 21:00 Room Air 11/10/18 20:00 98.2 67 18 144/71 (95) 95 11/10/18 18:33 Room Air 11/10/18 17:38 97.0 76 23 156/126 (136) 96 11/10/18 17:25 97.9 78 20 132/88 98 Room Air 11/10/18 17:25 97.9 78 20 132/88 98 Room Air 11/10/18 15:49 98.2 82 19 129/75 100 Room Air 11/10/18 14:18 97.9 11/10/18 13:40 98.4 78 18 138/60 98 Room Air 11/10/18 13:10 67 18 Room Air Intake and Output 11/10/18 11/11/18 19:00 07:00 Intake Total 675 ml Balance 675 ml Intake IV Total 675 ml # Voids 1 4 # Bowel Movements 1 Laboratory Tests 11/10/18 13:40: White Blood Count 14.3H, Red Blood Count 4.03L, Hemoglobin 12.0, Hematocrit 36.3L, Mean Corpuscular Volume 90, Mean Corpuscular Hemoglobin 29.8, Mean Corpuscular Hemoglobin Concent 33.0, Red Cell Distribution Width 12.6, Platelet Count 249, Mean Platelet Volume 5.9L, Neutrophils (%) (Auto) 77.5H, Lymphocytes (%) (Auto) 12.0L, Monocytes (%) (Auto) 6.9, Eosinophils (%) (Auto) 2.9, Basophils (%) (Auto) 0.6, Prothrombin Time 10.2, Prothromb Time International Ratio 1.0, Activated Partial Thromboplast Time 26, Urine Color Pale yellow, Urine Appearance Clear, Urine pH 6, Urine Specific [place] 1.005, Urine Protein Negative, Urine Glucose (UA) Negative, Urine Ketones Negative, Urine Blood 2+H, Urine Nitrite Negative, Urine Bilirubin Negative, Urine Urobilinogen Normal, Urine Leukocyte Esterase Negative, Urine RBC 0-2, Urine WBC 0, Urine Squamous Epithelial Cells Occasional, Urine Bacteria Occasional, Sodium Level 140, Potassium Level 4.9, Chloride Level 104, Carbon Dioxide Level 29, Anion Gap 7, Blood Urea Nitrogen 21H, Creatinine 1.1, Estimat Glomerular Filtration Rate , Glucose Level 102, Calcium Level 9.4, Total Bilirubin 0.5, Aspartate Amino Transf (AST/SGOT) 22, Alanine Aminotransferase (ALT/SGPT) 28, Alkaline Phosphatase 84, Troponin I 0.029, Total Protein 7.1, Albumin 4.0, Globulin 3.1, Albumin/Globulin Ratio 1.3, Lipase 212 11/11/18 05:05: White Blood Count 8.4, Red Blood Count 3.68L, Hemoglobin 11.0L, Hematocrit 33.3L , Mean Corpuscular Volume 90, Mean Corpuscular Hemoglobin 29.9, Mean Corpuscular Hemoglobin Concent 33.1, Red Cell Distribution Width 12.7, Platelet Count 190, Mean Platelet Volume 6.2L, Neutrophils (%) (Auto) 53.9, Lymphocytes ( %) (Auto) 30.8, Monocytes (%) (Auto) 7.7, Eosinophils (%) (Auto) 6.2H, Basophils (%) (Auto) 1.4, Sodium Level 139, Potassium Level 4.6, Chloride Level 106, Carbon Dioxide Level 23, Anion Gap 10, Blood Urea Nitrogen 17, Creatinine 1.0, Estimat Glomerular Filtration Rate , Glucose Level 83, Calcium Level 8.8, Troponin I 0.030 Height (Feet): 5 Height (Inches): 3.00 Weight (Pounds): 163 General Appearance: no apparent distress, alert EENT: normal ENT inspection Neck: normal alignment Cardiovascular: normal rate, regular rhythm Respiratory/Chest: lungs clear, normal breath sounds Abdomen: non tender, soft Edema: no edema noted Arm (L), no edema noted Arm (R), no edema noted Leg (L), no edema noted Leg (R), no edema noted Pedal (L), no edema noted Pedal (R), no edema noted Generalized Hemal Timmons MD November 11, 2018 13:04
[2018-11-11] MEDS ORDERED: LORazepam Inj 2mg/ml 1ml IV PRN (13:15)
--- NOTE | 2018-11-11 14:00 | NUR ---
NURSE NOTES: RN provided information of EGD and colonoscopy in [place] to the patient. Patient said to call her son to consent for EGD and colonoscopy. RN spoke to Perez Gopi son of the patient. Son said those two procedures were done 2 years ago and he is aware of that procedures and consented it. Another RN verified.
[2018-11-11] MEDS ORDERED: Bisacodyl EC 5mg tab ORAL SCH (16:00)
[2018-11-11] MEDS ORDERED: Nulytely 4L ORAL SCH (16:00)
--- NOTE | 2018-11-11 16:02 | Cardiology Report ---
APPROVED REPORT EKG Measurement Heart [id number] Sinus rhythm with 1st degree AV block Inferior infarct, age undetermined Anterolateral infarct, age undetermined Abnormal ECG
--- NOTE | 2018-11-11 16:48 | NUR ---
NURSE NOTES: RN asked to Dr. Timmons if patient needs an IVF due to patient is going to be on NPO post midnight with bowel prep. Dr. Timmons said No for IVF.
--- NOTE | 2018-11-11 17:04 | NUR ---
NURSE NOTES: Given clonidine 0.1mg for SBP>160. Patient denies any chest pain, SOB or blurred vision. Will continue to monitor.
[2018-11-11] MEDS: Enoxaparin 40mg Inj SUBQ SCH (17:26)
--- NOTE | 2018-11-11 17:28 | NUR ---
NURSE NOTES: RN spoke to Samuel and received order to hold lovenox SQ for the procedure tomorrow.
--- NOTE | 2018-11-11 19:39 | NUR ---
NURSE NOTES: Received report from Deysi López RN. Patient A&Ox4. On room air. No signs of distress or labored breathing. IV intact, patent, and saline locked. Patient currently consuming colonoscopy prep. Bed in lowest position with call light in reach. Will continue with plan of care.
--- NOTE | 2018-11-11 19:51 | NUR ---
HAND-OFF: Report given to Emerita, bowel prep started earlier and endorsed to Emerita to follow up with Dr. Vázquez if bowel is not ready.
[2018-11-11] MEDS: Atorvastatin 20mg tab ORAL SCH (20:07)
[2018-11-12] VITALS (11 sets, daily range): BP systolic 119–170; BP diastolic 66–103
[2018-11-12 05:45] LABS: BASOPHILS % (AUTO) 1.3 % (0.0-2.0); HEMATOCRIT 35.6 % (37.0-47.0); HEMOGLOBIN 11.9 G/DL (12.0-16.0); LYMPHOCYTES % (AUTO) 21.8 % (20.0-45.0); MEAN CORPUSCULAR VOLUME 90 FL (80-99); NEUTROPHILS % (AUTO) 62.8 % (45.0-75.0); PLATELET COUNT 230 K/UL (150-450); RED BLOOD COUNT 3.96 M/UL (4.20-5.40); RED CELL DISTRIBUTION WIDTH 12.4 % (11.6-14.8); WHITE BLOOD COUNT 8.9 K/UL (4.8-10.8)
[2018-11-12 05:47] LABS: ANION GAP 7 mmol/L (5-15); BLOOD UREA NITROGEN 14 mg/dL (7-18); CALCIUM 9.1 MG/DL (8.5-10.1); CARBON DIOXIDE 25 MMOL/L (21-32); CHLORIDE 107 MMOL/L (98-107); POTASSIUM 4.4 MMOL/L (3.5-5.1); SODIUM 139 MMOL/L (136-145)
[2018-11-12] MEDS ORDERED: fentaNYL 100 mcg/2 mL IV PRN (06:30)
[2018-11-12] MEDS ORDERED: Midazolam 2mg/2ml Inj IVP PRN (06:30)
[2018-11-12] MEDS ORDERED: Atropine Inj 1mg/10ml Syr IV PRN (06:30)
[2018-11-12] MEDS ORDERED: DiphenhydrAMINE 50mg/ml Inj IVP PRN (06:30)
--- NOTE | 2018-11-12 06:33 | Anethesia Preoperative Eval ---
Anesthesia Pre-op PMH/ROS General Date of Evaluation: November 12, 2018 Time of Evaluation: 06:31 Anesthesiologist: palmer ASA Score: ASA 4 Mallampati Score Class I : Soft palate, uvula, fauces, pillars visible Class II: Soft palate, uvula, fauces visible Class III: Soft palate, base of uvula visible Class IV: Only hard plate visible Mallampati Classification: Class II Surgeon: audrey Diagnosis: abdominal pain Surgical Procedure: egd/colonoscopy Anesthesia History: none Social History: smoking - nonsmoker Family History: no anesthesia problems Allergies: Coded Allergies: GABAPENTIN (Verified Allergy, Unknown, 05/27/17) LITHIUM (Verified Allergy, Unknown, 05/27/17) Medications: see eMAR Patient NPO?: Yes Past Medical History Cardiovascular: Reports: HTN, arrhythmia Pulmonary: Reports: asthma Gastrointestinal/Genitourinary: Reports: GERD, ESRD Neurologic/Psychiatric: Reports: depression/anxiety Hematology/Immune: Reports: anemia Musculoskeletal/Integumentary: Reports: OA, other - rotator cuff tear Anesthesia Pre-op Phys. Exam Physician Exam Last Vital Signs Date Time Temp Pulse Resp B/P (MAP) Pulse Ox O2 Delivery O2 Flow Rate FiO2 11/12/18 04:21 170/90 11/12/18 04:00 97.2 66 18 98 11/11/18 20:20 Room Air Constitutional: NAD Neurologic: CN 2-12 intact Cardiovascular: RRR Respiratory: CTA Airway Exam Mallampati Score: Class II MO: limited Neck: short TMD: 2fb ROM: limited Anesthesia Pre-op A/P Labs Hematology Test 11/12/18 05:25 White Blood Count 8.9 K/UL (4.8-10.8) Red Blood Count 3.96 M/UL (4.20-5.40) L Hemoglobin 11.9 G/DL (12.0-16.0) L Hematocrit 35.6 % (37.0-47.0) L Mean Corpuscular Volume 90 FL (80-99) Mean Corpuscular Hemoglobin 30.0 PG (27.0-31.0) Mean Corpuscular Hemoglobin Concent 33.4 G/DL (32.0-36.0) Red Cell Distribution Width 12.4 % (11.6-14.8) Platelet Count 230 K/UL (150-450) Mean Platelet Volume 6.2 FL (6.5-10.1) L Neutrophils (%) (Auto) 62.8 % (45.0-75.0) Lymphocytes (%) (Auto) 21.8 % (20.0-45.0) Monocytes (%) (Auto) 8.0 % (1.0-10.0) Eosinophils (%) (Auto) 6.0 % (0.0-3.0) H Basophils (%) (Auto) 1.3 % (0.0-2.0) Coagulation Test 11/12/18 05:25 Prothrombin Time 10.4 SEC (9.30-11.50) Prothromb Time International Ratio 1.0 (0.9-1.1) Activated Partial Thromboplast Time 28 SEC (23-33) Chemistry Test 11/12/18 05:25 Sodium Level 139 MMOL/L (136-145) Potassium Level 4.4 MMOL/L (3.5-5.1) Chloride Level 107 MMOL/L (98-107) Carbon Dioxide Level 25 MMOL/L (21-32) Anion Gap 7 mmol/L (5-15) Blood Urea Nitrogen 14 mg/dL (7-18) Creatinine 1.0 MG/DL (0.55-1.30) Estimat Glomerular Filtration Rate mL/min (>60) Glucose Level 98 MG/DL (74-106) Calcium Level 9.1 MG/DL (8.5-10.1) Studies Pre-op Studies: EKG - sr first degree avb Risk Assessment & Plan Assessment: asa4 Plan: mac Status Change Before Surgery: No Pre-Antibiotics Drug: Claudia Sanchez MD November 12, 2018 06:33
--- NOTE | 2018-11-12 07:25 | NUR ---
NURSE NOTES: RECEIVED PATIENT A/A/OX4, CZECH SPEAKING AND ABLE TO SPEAK EMIRATI WELL. OBSERVED NPO AFTER MN FOR PROCEDURE TODAY. IV HEPLOCK IS PATENT AND INTACT. ABLE TO MAKE THINGS KNOWN. BOWEL PREPPED DONE AND CLEARED ACCDG FROM NOC SHIFT NURSE AND PER PATIENT REFUSED IVF WELL BY [facility] NURSE REPORT. NO ACUTE RESP DISTRESS NOTED. NO PAIN/DISCOMFORT NOTED. SIDERAILS ARE UP X3, CALL LIGHT IS WITHIN REACH. BED ALARM IS ON AND LOCKED. KEEP BED IN THE LOWEST POSITION. WILL CONT TO MONITOR.
--- NOTE | 2018-11-12 07:27 | NUR ---
HAND-OFF: Report given to IRMA Cotton.
[2018-11-12] MEDS ORDERED: NS 500ML IVPB ONE (07:45)
--- NOTE | 2018-11-12 07:45 | Nephrology Progress Note ---
Assessment/Plan Assessment/Plan: A/P 1) Abdominal Pain- EGD and colonoscopy today - DC afterwards pending procedure results 2) HTN- stable. 3) DVT prophylaxis with lovenox 4) Anxiety- prn ativan Subjective Date patient seen: November 12, 2018 Time patient seen: 07:44 ROS Limited/Unobtainable: No Allergies: Coded Allergies: GABAPENTIN (Verified Allergy, Unknown, 05/27/17) LITHIUM (Verified Allergy, Unknown, 05/27/17) Subjective Patient says abdominal pain resolved. EGD and colonoscopy this am Objective Last 24 Hour Vital Signs Date Time Temp Pulse Resp B/P (MAP) Pulse Ox O2 Delivery O2 Flow Rate FiO2 11/12/18 06:42 98.6 63 20 135/73 (93) 95 11/12/18 04:21 170/90 11/12/18 04:00 97.2 66 18 170/90 (116) 98 11/12/18 04:00 98.5 58 18 137/103 (114) 96 11/11/18 20:20 Room Air 11/11/18 20:08 60 174/74 11/11/18 20:00 98.4 60 18 174/74 (107) 97 11/11/18 17:04 164/79 11/11/18 16:00 99.5 62 20 164/79 (107) 97 11/11/18 14:30 98.8 67 20 155/74 (101) 97 11/11/18 12:00 99.2 66 20 166/75 (105) 97 11/11/18 09:00 Room Air 11/11/18 08:20 144/76 11/11/18 08:19 65 144/76 11/11/18 08:00 98.6 65 18 144/76 (98) 98 Intake and Output 11/11/18 11/12/18 19:00 07:00 Intake Total 1065 ml Output Total 600 ml Balance 465 ml Intake Oral 840 ml IV Total 225 ml Output Urine Total 600 ml # Voids 3 7 # Bowel Movements 3 Laboratory Tests 11/12/18 05:25: White Blood Count 8.9, Red Blood Count 3.96L, Hemoglobin 11.9L, Hematocrit 35.6L , Mean Corpuscular Volume 90, Mean Corpuscular Hemoglobin 30.0, Mean Corpuscular Hemoglobin Concent 33.4, Red Cell Distribution Width 12.4, Platelet Count 230, Mean Platelet Volume 6.2L, Neutrophils (%) (Auto) 62.8, Lymphocytes ( %) (Auto) 21.8, Monocytes (%) (Auto) 8.0, Eosinophils (%) (Auto) 6.0H, Basophils (%) (Auto) 1.3, Prothrombin Time 10.4, Prothromb Time International Ratio 1.0, Activated Partial Thromboplast Time 28, Sodium Level 139, Potassium Level 4.4, Chloride Level 107, Carbon Dioxide Level 25, Anion Gap 7, Blood Urea Nitrogen 14, Creatinine 1.0, Estimat Glomerular Filtration Rate , Glucose Level 98, Calcium Level 9.1 Height (Feet): 5 Height (Inches): 5.00 Weight (Pounds): 159 General Appearance: no apparent distress, alert EENT: normal ENT inspection Neck: normal alignment, supple Cardiovascular: normal rate, regular rhythm Respiratory/Chest: lungs clear, normal breath sounds Abdomen: non tender, soft Edema: no edema noted Arm (L), no edema noted Arm (R), no edema noted Leg (L), no edema noted Leg (R), no edema noted Pedal (L), no edema noted Pedal (R), no edema noted Generalized Hemal Timmons MD November 12, 2018 07:45
--- NOTE | 2018-11-12 07:49 | Pre-Procedure Note/Attestation ---
Pre-Procedure Note/Attestation Complete Prior to Procedure Planned Procedure: not applicable Procedure Narrative: esophagogastroduodenoscopy and colonoscopy Indications for Procedure Pre-Operative Diagnosis: gib, anemia Attestation I attest that I discussed the nature of the procedure; its benefits; risks and complications; and alternatives (and the risks and benefits of such alternatives ), prior to the procedure, with the patient (or the patient's legal passenger representative). I attest that, if there was a reasonable possibility of needing a blood transfusion, the patient (or the patient's legal passenger representative) was given the [facility] standardized written summary, pursuant to the Vinay [place] Blood Safety Act ([place] Health and Safety Code # 1645, as amended). I attest that I re-evaluated the patient just prior to the surgery and that there has been no change in the patient's H&P, except as documented below: García Vázquez MD November 12, 2018 07:49
--- NOTE | 2018-11-12 07:52 | General Progress Note ---
Assessment/Plan Problem List: (1) Anemia ICD Codes: D64.9 - Anemia, unspecified SNOMED: 760027820 (2) Constipation ICD Codes: K59.00 - Constipation, unspecified SNOMED: 40005936 (3) Fecal impaction ICD Codes: K56.41 - Fecal impaction SNOMED: 57502326 (4) HTN (hypertension) ICD Codes: I10 - Essential (primary) hypertension SNOMED: 14125570 Assessment/Plan: plan EGD and colonoscopy for today Subjective ROS Limited/Unobtainable: Yes Allergies: Coded Allergies: GABAPENTIN (Verified Allergy, Unknown, 05/27/17) LITHIUM (Verified Allergy, Unknown, 05/27/17) Objective Last 24 Hour Vital Signs Date Time Temp Pulse Resp B/P (MAP) Pulse Ox O2 Delivery O2 Flow Rate FiO2 11/12/18 06:42 98.6 63 20 135/73 (93) 95 11/12/18 04:21 170/90 11/12/18 04:00 97.2 66 18 170/90 (116) 98 11/12/18 04:00 98.5 58 18 137/103 (114) 96 11/11/18 20:20 Room Air 11/11/18 20:08 60 174/74 11/11/18 20:00 98.4 60 18 174/74 (107) 97 11/11/18 17:04 164/79 11/11/18 16:00 99.5 62 20 164/79 (107) 97 11/11/18 14:30 98.8 67 20 155/74 (101) 97 11/11/18 12:00 99.2 66 20 166/75 (105) 97 11/11/18 09:00 Room Air 11/11/18 08:20 144/76 11/11/18 08:19 65 144/76 11/11/18 08:00 98.6 65 18 144/76 (98) 98 Intake and Output 11/11/18 11/12/18 19:00 07:00 Intake Total 1065 ml Output Total 600 ml Balance 465 ml Intake Oral 840 ml IV Total 225 ml Output Urine Total 600 ml # Voids 3 7 # Bowel Movements 3 Laboratory Tests 11/12/18 05:25: White Blood Count 8.9, Red Blood Count 3.96L, Hemoglobin 11.9L, Hematocrit 35.6L , Mean Corpuscular Volume 90, Mean Corpuscular Hemoglobin 30.0, Mean Corpuscular Hemoglobin Concent 33.4, Red Cell Distribution Width 12.4, Platelet Count 230, Mean Platelet Volume 6.2L, Neutrophils (%) (Auto) 62.8, Lymphocytes ( %) (Auto) 21.8, Monocytes (%) (Auto) 8.0, Eosinophils (%) (Auto) 6.0H, Basophils (%) (Auto) 1.3, Prothrombin Time 10.4, Prothromb Time International Ratio 1.0, Activated Partial Thromboplast Time 28, Sodium Level 139, Potassium Level 4.4, Chloride Level 107, Carbon Dioxide Level 25, Anion Gap 7, Blood Urea Nitrogen 14, Creatinine 1.0, Estimat Glomerular Filtration Rate , Glucose Level 98, Calcium Level 9.1 Height (Feet): 5 Height (Inches): 5.00 Weight (Pounds): 159 General Appearance: alert EENT: normal ENT inspection Neck: supple Cardiovascular: normal rate Respiratory/Chest: lungs clear Abdomen: normal bowel sounds, non tender, soft Extremities: non-tender García Vázquez MD November 12, 2018 07:52
--- NOTE | 2018-11-12 07:55 | NUR ---
NURSE NOTES: patient transported to GI lab. handoff done with kristian Zaidi. IV access patent and intact. dentures removed upper and lower and stored in a denture cup and placed in her bag. No acute resp distress noted. consent signed by son via phone. Dr Timmons present. Will cont to monitor.
[2018-11-12] MEDS ORDERED: Lidocaine 1% MPF 10mg/ml 5ml ONE (08:00)
[2018-11-12] MEDS ORDERED: Propofol 200mg/20ml IV ONE (08:00)
[2018-11-12] MEDS ORDERED: Atropine Sulfate 0.4mg/ml inj ONE (08:00)
--- NOTE | 2018-11-12 08:30 | Endoscopy Procedure Note ---
Endoscopy Procedure Note General Indication for Procedure: anemia Procedures Performed: EGD, colonoscopy Operative Findings/Diagnosis: gastritis, rectal ulcer Specimen: yes Pt Tolerated Procedure Well: Yes Estimated Blood Loss: none Anesthesia Anesthesiologist: palmer Anesthesia: MAC Inserted Devices Implant(s) used?: No Quality Quality of Bowel Preparation: Good Did scope reach the cecum?: Yes Was there any complications?: No GI Core Measures 50 yrs or older w/o bx or poly: Not Applicable 10yrs. F/U recommended: Not Applicable García Vázquez MD November 12, 2018 08:30
--- NOTE | 2018-11-12 08:49 | Immediate Post-Op Evaluation ---
Immediate Post-Op Evalulation Immediate Post-Op Evalulation Procedure: egd/colonoscopy/bx Date of Evaluation: November 12, 2018 Time of Evaluation: 08:44 IV Fluids: 250ml 0.9ns Blood Products: none Estimated Blood Loss: negligible Blood Pressure Systolic: 119 Blood Pressure Diastolic: 66 Pulse Rate: 68 Respiratory Rate: 18 O2 Sat by Pulse Oximetry: 99 Temperature (Fahrenheit): 99.0 Pain Score (1-10): 0 Nausea: No Vomiting: No Complications none Patient Status: awake, reacts, patent Hydration Status: adequate Drug: Claudia Sanchez MD November 12, 2018 08:49
[2018-11-12] MEDS: Docusate 100mg cap ORAL SCH ×2 (09:00→20:48)
--- NOTE | 2018-11-12 09:00 | NUR ---
NURSE NOTES: came back from GI lab with no acute distress noted. VSS taken and recorded. ordered meal. dentures placed back in her mouth upper and lower. No c/o pain/discomfort noted.
[2018-11-12] MEDS: Metoprolol 25mg tab ORAL SCH ×2 (09:25→20:53)
[2018-11-12] MEDS: Oxybutynin 5mg tab ORAL SCH (09:25)
[2018-11-12] MEDS: Losartan 50mg tab ORAL SCH (09:25)
--- NOTE | 2018-11-12 09:39 | 48 Hour Post Anesthesia Eval ---
Post Anesthesia Evaluation Procedure: egd/colonoscopy/bx Date of Evaluation: November 12, 2018 Time of Evaluation: 08:46 Blood Pressure Systolic: 125 0: 68 Pulse Rate: 66 Respiratory Rate: 18 Temperature (Fahrenheit): 99.0 O2 Sat by Pulse Oximetry: 99 Airway: patent Nausea: No Vomiting: No Pain Intensity: 0 Hydration Status: adequate Cardiopulmonary Status: stable Mental Status/LOC: patient returned to baseline Post-Anesthesia Complications: none Follow-up care needed: N/A Claudia Bryant MD November 12, 2018 09:39
--- NOTE | 2018-11-12 12:00 | NUR ---
NURSE NOTES: tylenol given for mild pain and for fever of 100.2. cooling measures rendered. will cont to monitor.
--- NOTE | 2018-11-12 12:05 | Discharge Instructions ---
Discharge Instructions Discharge Instructions Services at Discharge: day care Resume Normal Activity?: Yes Activity: light activity Follow Up Orders Follow up with primary care doctor 1 week Continue with home health that had been previously arranged For Congestive Heart Failure Reminder Report to your physician any weight gain of 5 pounds or more in one week. Hemal Timmons MD November 12, 2018 12:05
--- NOTE | 2018-11-12 13:00 | NUR ---
NURSE NOTES: rechecked temp 98.1 orally. will cont to monitor.
--- NOTE | 2018-11-12 16:15 | Procedure Note ---
DATE OF PROCEDURE: 11/12/2018 SURGEON: García Vázquez M.D. REFERRING PHYSICIAN: Hemal Timmons M.D. PROCEDURE: Upper endoscopy with biopsy and colonoscopy with biopsy. ANESTHESIA: Per Dr. Sky. INSTRUMENT: Olympus adult flexible upper endoscope and colonoscope. INDICATION: Anemia. REASON FOR PROCEDURE: The procedure, risks, benefits, and possible consequences, including hemorrhage, aspiration, perforation and infection, and alternative treatments, were explained to the patient/legal guardian by Dr. García Vázquez and the patient/legal guardian understood and accepted these risks. PROCEDURE IN DETAIL: After informed consent was obtained and the patient was adequately sedated, Olympus upper endoscope was advanced from the mouth into second portion of the duodenum. Retroflexion was performed in the stomach. GE junction was found to be about 35 cm from the incisors. No evidence of any esophagitis. In the stomach, there was evidence of diffuse gastritis and evidence of some bile reflux. Random biopsy from antrum was obtained to rule out H. pylori infection. At this time, the upper endoscope was retrieved and the patient was turned over for colonoscopy. First, rectal exam was performed, which was normal. Then, the scope was advanced from rectum into the anastomosis and subsequently deep into the small intestine. Per CT report, the patient has a left hemicolectomy, but per on our colonoscopy findings the patient does not have a cecum, so it seems that the patient had a right hemicolectomy. There was evidence of diverticulosis scattered in the left colon. There was evidence of single small rectal erosion versus shallow ulceration, which was biopsied. The rest of the examination grossly within normal limits. No obvious polyp was seen. Retroflexion of rectum performed showed evidence of internal hemorrhoid, very small. SUMMARY OF FINDINGS: 1. Gastritis, status post biopsy. 2. Bile reflux in the stomach. 3. Small shallow rectal ulceration versus erosions, status post biopsy. 4. Patient has history of right hemicolectomy. 5. Diverticulosis. 6. Small internal hemorrhoid. RECOMMENDATIONS: 1. Resume diet. 2. Follow labs. 3. Follow path and treat accordingly. I want to thank Dr. Timmosn for this kind referral. García Samson Vázquez DR: CALLIE JOB#: [id number] CC:
[2018-11-12] MEDS: Enoxaparin 40mg Inj SUBQ SCH (17:14)
--- NOTE | 2018-11-12 19:12 | NUR ---
HAND-OFF: Report given to Shahana.
[2018-11-12] MEDS: Atorvastatin 20mg tab ORAL SCH (20:53)
[2018-11-13] VITALS: BP 137/85
[2018-11-13 04:00] VITALS: BP 141/84
--- NOTE | 2018-11-13 07:47 | NUR ---
NURSE NOTES: Received patient in bed, awake,alert, oriented x4 speaks tamazight only, HL patent, on fall precaution , Bed is in lowest position and locked.4P' s in progress, Reminded patient to call nurses if needed. Jordan light within reach, Will continue plan of care. nancy bruno
[2018-11-13 08:00] VITALS: BP 158/76
[2018-11-13] MEDS: Oxybutynin 5mg tab ORAL SCH (08:22)
[2018-11-13] MEDS: Losartan 50mg tab ORAL SCH (08:22)
[2018-11-13] MEDS: Metoprolol 25mg tab ORAL SCH (08:22)
[2018-11-13] MEDS: Docusate 100mg cap ORAL SCH (08:22)
--- NOTE | 2018-11-13 09:27 | Nephrology Progress Note ---
Assessment/Plan Assessment/Plan: A/P 1) Abdominal Pain- EGD and colonoscopy today - DC to [facility] 2) HTN- stable. 3) DVT prophylaxis with lovenox 4) Anxiety- prn ativan DC today once bed available at [facility] Subjective Date patient seen: November 13, 2018 Time patient seen: 09:23 ROS Limited/Unobtainable: No Allergies: Coded Allergies: GABAPENTIN (Verified Allergy, Unknown, 05/27/17) LITHIUM (Verified Allergy, Unknown, 05/27/17) Subjective Patient says abdominal pain resolved. Awaiting DC to [facility] Objective Last 24 Hour Vital Signs Date Time Temp Pulse Resp B/P (MAP) Pulse Ox O2 Delivery O2 Flow Rate FiO2 11/13/18 08:22 70 141/84 11/13/18 08:22 141/84 11/13/18 08:10 Room Air 11/13/18 08:00 97.2 78 20 158/76 (103) 97 11/13/18 04:00 99.0 70 20 141/84 (103) 95 11/13/18 00:00 99.1 67 18 137/85 (102) 95 11/12/18 21:00 Room Air 11/12/18 20:53 61 152/72 11/12/18 20:00 100.2 61 18 152/72 (98) 95 11/12/18 16:00 99.7 61 20 141/89 (106) 95 11/12/18 13:00 98.1 11/12/18 12:30 99.1 11/12/18 12:00 100.2 67 20 146/73 (97) 96 11/12/18 09:39 66 18 99 11/12/18 09:37 68 18 99 11/12/18 09:25 60 129/73 11/12/18 09:25 129/73 Intake and Output 11/12/18 11/13/18 19:00 07:00 Intake Total 810 ml Output Total 0 ml Balance 810 ml Intake Oral 360 ml IV Total 450 ml Estimated Blood Loss 0 ml # Voids 4 1 Height (Feet): 5 Height (Inches): 5.00 Weight (Pounds): 159 General Appearance: no apparent distress, alert EENT: normal ENT inspection Neck: normal alignment, supple Cardiovascular: normal rate, regular rhythm Respiratory/Chest: lungs clear, normal breath sounds Abdomen: non tender, soft Edema: no edema noted Arm (L), no edema noted Arm (R), no edema noted Leg (L), no edema noted Leg (R), no edema noted Pedal (L), no edema noted Pedal (R), no edema noted Generalized Hemal Timmons MD November 13, 2018 09:27
--- NOTE | 2018-11-13 10:41 | GI Progress Note ---
Assessment/Plan Problems: (1) Fecal impaction ICD Codes: K56.41 - Fecal impaction SNOMED: 07528298 (2) Anemia ICD Codes: D64.9 - Anemia, unspecified SNOMED: 987717658 (3) Dehydration ICD Codes: E86.0 - Dehydration SNOMED: 08974318 (4) Constipation ICD Codes: K59.00 - Constipation, unspecified SNOMED: 72993314 (5) Abdominal pain ICD Codes: R10.9 - Abdominal pain SNOMED: 88718906 Qualifiers: Qualified Codes: R10.30 - Lower abdominal pain, unspecified (6) Leukocytosis ICD Codes: D72.829 - Elevated white blood cell count, unspecified SNOMED: 279167711, 722248666 Qualifiers: Qualified Codes: D72.828 - Other elevated white blood cell count Status: stable Status Narrative Discussed with Dr. Vázquez Assessment/Plan SUMMARY OF FINDINGS: 1. Gastritis, status post biopsy. 2. Bile reflux in the stomach. 3. Small shallow rectal ulceration versus erosions, status post biopsy. 4. Patient has history of right hemicolectomy. 5. Diverticulosis. 6. Small internal hemorrhoid. RECOMMENDATIONS: 1. Resume diet. 2. Follow labs. 3. Follow path and treat accordingly. Okay to DC per GI standpoint The patient was seen and examined at bedside and all new and available data was reviewed in the patients chart. I agree with the above findings, impression and plan. (Patient seen earlier today. Signature stamp does not reflect patient encounter time.). - García Vázquez MD Subjective Subjective Rectal pain resolved Denies any abdominal pain Denies any melena or hematochezia Objective Last 24 Hour Vital Signs Date Time Temp Pulse Resp B/P (MAP) Pulse Ox O2 Delivery O2 Flow Rate FiO2 11/13/18 08:22 70 141/84 11/13/18 08:22 141/84 11/13/18 08:10 Room Air 11/13/18 08:00 97.2 78 20 158/76 (103) 97 11/13/18 04:00 99.0 70 20 141/84 (103) 95 11/13/18 00:00 99.1 67 18 137/85 (102) 95 11/12/18 21:00 Room Air 11/12/18 20:53 61 152/72 11/12/18 20:00 100.2 61 18 152/72 (98) 95 11/12/18 16:00 99.7 61 20 141/89 (106) 95 11/12/18 13:00 98.1 11/12/18 12:30 99.1 11/12/18 12:00 100.2 67 20 146/73 (97) 96 Intake and Output 11/12/18 11/13/18 19:00 07:00 Intake Total 810 ml Output Total 0 ml Balance 810 ml Intake Oral 360 ml IV Total 450 ml Estimated Blood Loss 0 ml # Voids 4 1 Height (Feet): 5 Height (Inches): 5.00 Weight (Pounds): 159 General Appearance: WD/WN, no apparent distress, alert Cardiovascular: normal rate Respiratory/Chest: normal breath sounds, no respiratory distress Abdominal Exam: normal bowel sounds, non tender, soft Extremities: normal range of motion, non-tender Osiel Barr NP November 13, 2018 10:41
[2018-11-13 12:05] VITALS: BP 138/85
[2018-11-13 16:31] VITALS: BP 165/87
[2018-11-13] MEDS: Enoxaparin 40mg Inj SUBQ SCH (16:38)
[2018-11-13 17:10] VITALS: BP 148/72
--- NOTE | 2018-11-13 17:57 | NUR ---
nurse notes patient accepted at [facility] , patient and son agreed with the plan of care report given to AMADA Clarke accorrdingly, receiving nurse amada bruno
--- NOTE | 2018-11-13 19:03 | NUR ---
HAND-OFF: Report given to AMADA Cid RN.
--- NOTE | 2018-11-13 19:05 | NUR ---
NURSE NOTES: RECEIVED PT FROM AMADA PANG. PT IS IN STABLE CONDITION, NO ACUTE DISTRESS NOTE. SON JUST ARRIVED AND INFORMED THAT HE WILL DRIVE PT BACK TO [facility] INSTEAD OF WAITING FOR AMBULANCE. PT DISCHARGE PACKET WAS SIGNED AND GIVEN THE SON. WILL FOLLOW UP.
--- NOTE | 2018-11-13 19:15 | NUR ---
NURSE NOTES: TOOK PT DOWN TO SON'S CAR BY WHEELCHAIR.
--- NOTE | 2018-11-14 08:04 | Discharge Summary ---
Discharge Summary Discharge Summary _ DATE OF ADMISSION: 11/10/2018 DATE OF DISCHARGE: 11/13/2018 DISCHARGED BY: Dr. Timmons REASON FOR ADMISSION: [] 82 years old female with past medical history of hypertension, GERD, hyperlipidemia, vitamin D deficiency, presented to emergency department with abdominal pain rated a 6 out of 10 on a scale 1-10. Patient denied nausea and vomiting. She reported strings of blood while passing blood. Patient apparently was at the [facility] last week and was given some medication for diarrhea since that she was feeling lightheaded and dizzy however never passed out since being in [place] patient became constipated and had abdominal pain. Abdominal series revealed gas with increased stool load. CT of the abdomen and pelvis revealed constipation with moderate formed stool within the colon. Partial left hemicolectomy noted. Status post cholecystectomy. Hiatal hernia. d patient was disimpacted in the emergency department and had large bowel movement. Patient already felt better no chest pain no shortness of breath laboratory work-up revealed mild leukocytosis WBC 14. 2 hemoglobin 12 platelet count 249. Stable electrolytes. Creatinine 1.1. Troponin 0 0.029. CONSULTANTS: GI specialist Dr. Vázquez [facility] COURSE: Patient admitted to medical surgical floor. Patient started on IV hydration, GI consult requested. Leukocytosis was felt to be most likely reactive, secondary to fecal impaction inducing stress. P atient was disimpacted in the emergency department and already felt better. Patient was not febrile, not ill-appearing ,no evidence of infection Urinalysis was negative. Antibiotics were hold. Leukocytosis resolved the next day. Home medication for hypertension resumed. Blood pressure was closely monitored and remained stable. DVT and GI prophylaxis provided. Hemoglobin and hematocrit were closely monitored. Hemoglobin trended down to 11 on 11/11 . Patient subsequently undergone upper endoscopy with biopsy and colonoscopy with biopsy on 11/12 which revealed gastritis,, status post biopsy, bile reflux in the stomach, small shallow rectal ulceration versus erosions, status post biopsy , diverticulosis, small internal hemorrhoids. At the time of this dictation biopsy results still pending. GI specialist recommended to follow-up with biopsy results and treat accordingly, if needed. Diet was slowly resumed. Bowel regimen instituted. Next day hemoglobin is 11.9. Pain management was addressed. Supportive care provided. Blood pressure remained stable. Anxiolytic were on board as needed for anxiety. Patient clinically stabilized and was [facility]. FINAL DIAGNOSES: Abdominal pain Status post EGD and colonoscopy Gastritis, status post biopsy Small shallow rectal ulcerations versus erosion, status post biopsy Diverticulosis Small internal hemorrhoids History of right hemicolectomy Anemia Dehydration Fecal impaction Hypertension Anxiety Leukocytosis reactive resolved DISCHARGE MEDICATIONS: See Medication Reconciliation list. DISCHARGE INSTRUCTIONS: [facility] jail facility. Follow up with medical doctor at the facility. I have been assigned to dictate discharge summary for this account. I was not involved in the patient's management. Brooke Howe NP November 14, 2018 08:04
== END 2018-11-13 19:15 | DRG 389 ==
LOC: EMR 14:02 → EDBEDREQ 14:29 → OBSVTOIN 14:57 → 4E 14:57 → EDBEDREQ 15:07 → 4E 16:06
PROC: 0DBP8ZX Excision of Rectum, Via Natural or Artificial Opening Endoscopic, Diagnostic (ICD-10-PCS; principal; 2018-11-12 08:02)
PROC: 0DB78ZX Excision of Stomach, Pylorus, Via Natural or Artificial Opening Endoscopic, Diagnostic (ICD-10-PCS; principal; 2018-11-12 08:02)
DX: K56.41 Fecal impaction (principal); K62.6 Ulcer of anus and rectum; F25.0 Schizoaffective disorder, bipolar type; R10.9 Unspecified abdominal pain; I10 Essential (primary) hypertension; K21.9 Gastro-esophageal reflux disease without esophagitis; E78.5 Hyperlipidemia, unspecified; Z88.8 Allergy status to other drugs, medicaments and biological substances; K29.70 Gastritis, unspecified, without bleeding; K57.90 Diverticulosis of intestine, part unspecified, without perforation or abscess without bleeding; K64.8 Other hemorrhoids; D64.9 Anemia, unspecified; F41.8 Other specified anxiety disorders; F20.9 Schizophrenia, unspecified; E86.0 Dehydration; Z90.49 Acquired absence of other specified parts of digestive tract; K44.9 Diaphragmatic hernia without obstruction or gangrene
CPT/HCPCS: 36415; 74018; 74177; 80048; 80053; 81003; 83690; 84484; 85025; 85610; 85730; 93005; 94003; 94150; 96360; 96361; 99285

== ENCOUNTER 2018-11-19 19:28 | Inpatient (IN) | payer MEDICARE, OTHER ==
[~2018-11-19] VITALS: Ht 160 cm; Wt 73.2 kg
[2018-11-19 19:35] VITALS: BP 96/51
--- NOTE | 2018-11-19 19:35 | NUR ---
ED Nurse Note: Pt was BIBA from home with pt's son, c/o Anxiety attack today at home. Pt is A/O X 4, Vital signs stable at this time, waiting for orders.
--- NOTE | 2018-11-19 20:05 | NUR ---
ED Nurse Note: Blood collected and sent to Lab.
--- NOTE | 2018-11-19 20:25 | NUR ---
ED Nurse Note: Urine sample collected and sent to Lab.
[2018-11-19 20:31] LABS: BASOPHILS % (AUTO) 0.8 % (0.0-2.0); EOSINOPHILS % (AUTO) 3.4 % (0.0-3.0); HEMOGLOBIN 11.3 G/DL (12.0-16.0); LYMPHOCYTES % (AUTO) 11.7 % (20.0-45.0); MEAN CORPUSCULAR VOLUME 87 FL (80-99); MONOCYTES % (AUTO) 6.8 % (1.0-10.0); NEUTROPHILS % (AUTO) 77.3 % (45.0-75.0); PLATELET COUNT 227 K/UL (150-450); RED BLOOD COUNT 3.89 M/UL (4.20-5.40); RED CELL DISTRIBUTION WIDTH 12.1 % (11.6-14.8); WHITE BLOOD COUNT 10.5 K/UL (4.8-10.8)
[2018-11-19 20:45] LABS: CHLORIDE 105 MMOL/L (98-107); POTASSIUM 4.1 MMOL/L (3.5-5.1)
[2018-11-19 20:54] LABS: ALANINE AMINOTRANSFERASE 23 U/L (12-78); ALBUMIN 3.6 G/DL (3.4-5.0); ALBUMIN/GLOBULIN RATIO 1.1 (1.0-2.7); ALKALINE PHOSPHATASE 74 U/L (46-116); ANION GAP 8 mmol/L (5-15); ASPARTATE AMINO TRANSFERASE 23 U/L (15-37); BILIRUBIN,TOTAL 0.4 MG/DL (0.2-1.0); BLOOD UREA NITROGEN 25 mg/dL (7-18); CALCIUM 9.5 MG/DL (8.5-10.1); CARBON DIOXIDE 24 MMOL/L (21-32); CREATININE 1.3 MG/DL (0.55-1.30); SODIUM 137 MMOL/L (136-145)
[2018-11-19 21:11] LABS: APPEARANCE,URINE CLEAR; BILIRUBIN, URINE NEGATIVE (NEGATIVE); COLOR,URINE PALE YELLOW; GLUCOSE, URINE (UA) NEGATIVE (NEGATIVE); KETONES,URINE NEGATIVE (NEGATIVE); LEUKOCYTE ESTERASE ,URINE 2+ (NEGATIVE); NITRITE,URINE NEGATIVE (NEGATIVE); PH,URINE 6 (4.5-8.0); PROTEIN,URINE 1+ (NEGATIVE); UROBILINOGEN,URINE NORMAL MG/DL (0.0-1.0)
[2018-11-19] MEDS ORDERED: LORazepam 1mg tab ORAL PRN (21:15)
--- NOTE | 2018-11-19 22:05 | NUR ---
TRANSFER TO FLOOR: Patient transferred to [facility] as ordered . Report given to Liv/AMADA. Belongings sent with Pt and rechecked with RN.
--- NOTE | 2018-11-19 22:10 | NUR ---
NURSE NOTES: Received a report from AMADA Torres. Waiting for pt's arrival.
--- NOTE | 2018-11-19 22:33 | Emergency Room Report ---
History of Present Illness General Chief Complaint: Behavioral Complaint Source: Family Member, Medical Record Present Illness HPI 83-year-old female presents ED for evaluation. EMS from home for anxiety. Son at bedside states that while he was giving patient a bath she had an extreme anxiety attack. States that he gave patient Seroquel prior to arrival. Upon arrival patient appears more calm now. States that patient does have a psychiatric history and is being evaluated at [facility]. The patient has been prescribed Seroquel but he believes it is not helping. States that patient had been previously prescribed Ativan and Xanax but patient was suffering frequent falls. Patient was also prescribed propranolol once but accidentally overdosed. Patient denies alcohol or drug use. Denies SI or HI. No other aggravating or relieving factors. Denies any other associated symptoms Allergies: Coded Allergies: GABAPENTIN (Verified Allergy, Unknown, 05/27/17) LITHIUM (Verified Allergy, Unknown, 05/27/17) Patient History Past Medical History: HTN, psych hx Past Surgical History: none Pertinent Family History: none Social History: Denies: smoking, alcohol use, drug use Last Menstrual Period: NA Now: No Immunizations: UTD Reviewed Nursing Documentation: PMH: Agreed; PSxH: Agreed Nursing Documentation-PMH Past Medical History: No History, Except For Hx Cardiac Problems: Yes Hx Hypertension: Yes Hx Cancer: No Hx Gastrointestinal Problems: Yes Hx Dialysis: No Hx Neurological Problems: No Review of Systems All Other Systems: negative except mentioned in HPI Physical Exam Vital Signs Date Time Temp Pulse Resp B/P (MAP) Pulse Ox O2 Delivery O2 Flow Rate FiO2 11/19/18 19:25 98.1 120 18 83/53 (63) 100 11/19/18 19:35 Room Air Sp02 EP Interpretation: reviewed, normal General Appearance: no apparent distress, alert, GCS 15, non-toxic Head: normocephalic, atraumatic Eyes: bilateral eye normal inspection, bilateral eye PERRL ENT: hearing grossly normal, normal pharynx, no angioedema, normal voice Neck: full range of motion, supple/symm/no masses Respiratory: chest non-tender, lungs clear, normal breath sounds, speaking full sentences Cardiovascular #1: regular rate, rhythm, no edema Cardiovascular #2: 2+ carotid (R), 2+ carotid (L), 2+ radial (R), 2+ radial (L) , 2+ dorsalis pedis (R), 2+ dorsalis pedis (L) Gastrointestinal: normal bowel sounds, non tender, soft, non-distended, no guarding, no rebound Rectal: deferred Genitourinary: normal inspection, no CVA tenderness Musculoskeletal: back normal, gait/station normal, normal range of motion, non- tender Neurologic: alert, oriented x3, responsive, motor strength/tone normal, sensory intact, speech normal Psychiatric: no suicidal/homicidal ideation, depressed affect, anxious Reflexes: 3+ bicep (R), 3+ bicep (L), 3+ tricep (R), 3+ tricep (L), 3+ knee (R) , 3+ knee (L) Skin: normal color, no rash, warm/dry, well hydrated Lymphatic: no adenopathy Medical Decision Making Diagnostic Impression: Primary Impression: Behavioral change Additional Impressions: Encephalopathy anxiety ER Course Hospital Course 83-year-old female presents after anxiety attack. Given Seroquel Differential diagnoses include: psychosis, delirium, anxiety, ETOH Clinical course She placed on stretcher. On cardiac technician. After initial history and physical exam revealed elderly female in no acute distress. Patient appears more calm but is still anxious. No SI or HI. No delusions. son states that he is unable to care for the patient. States that her anxiety attacks are getting worse and the Seroquel is not helping. discussed with Dr Florian (psychiatry); states that Seroquel is not an appropriate medication for this patient. Patient will likely require admission for stabilization Labs reviewed-electrolytes okay, no leukocytosis, hemoglobin/hematocrit stable, UA negative, Utox negative Dr. Florian will consult and evaluate patient case discussed with Dr. Timmons and he agreed to accept the patient to his service for further care and support i. I feel this is a highly complex case requiring extensive working including EKG/Rhythm strip, Xray/CT/US, Blood/urine lab work, repeat exams while in ED, and administration of strong opiates/narcotics for pain control, admission to hospital or close patient follow up. Diagnosis - behavioral change, encephalopathy, anxiety Admitted to floor in serious condition Labs Test 11/19/18 20:19 11/19/18 20:50 White Blood Count 10.5 K/UL (4.8-10.8) Red Blood Count 3.89 M/UL (4.20-5.40) Hemoglobin 11.3 G/DL (12.0-16.0) Hematocrit 34.0 % (37.0-47.0) Mean Corpuscular Volume 87 FL (80-99) Mean Corpuscular Hemoglobin 29.1 PG (27.0-31.0) Mean Corpuscular Hemoglobin Concent 33.3 G/DL (32.0-36.0) Red Cell Distribution Width 12.1 % (11.6-14.8) Platelet Count 227 K/UL (150-450) Mean Platelet Volume 5.1 FL (6.5-10.1) Neutrophils (%) (Auto) 77.3 % (45.0-75.0) Lymphocytes (%) (Auto) 11.7 % (20.0-45.0) Monocytes (%) (Auto) 6.8 % (1.0-10.0) Eosinophils (%) (Auto) 3.4 % (0.0-3.0) Basophils (%) (Auto) 0.8 % (0.0-2.0) Sodium Level 137 MMOL/L (136-145) Potassium Level 4.1 MMOL/L (3.5-5.1) Chloride Level 105 MMOL/L (98-107) Carbon Dioxide Level 24 MMOL/L (21-32) Anion Gap 8 mmol/L (5-15) Blood Urea Nitrogen 25 mg/dL (7-18) Creatinine 1.3 MG/DL (0.55-1.30) Estimat Glomerular Filtration Rate mL/min (>60) Glucose Level 125 MG/DL (74-106) Calcium Level 9.5 MG/DL (8.5-10.1) Total Bilirubin 0.4 MG/DL (0.2-1.0) Aspartate Amino Transf (AST/SGOT) 23 U/L (15-37) Alanine Aminotransferase (ALT/SGPT) 23 U/L (12-78) Alkaline Phosphatase 74 U/L (46-116) Total Protein 6.8 G/DL (6.4-8.2) Albumin 3.6 G/DL (3.4-5.0) Globulin 3.2 g/dL Albumin/Globulin Ratio 1.1 (1.0-2.7) Salicylates Level 1.1 ug/mL (2.8-20) Acetaminophen Level < 2 MCG/ML (10-30) Serum Alcohol < 3 mg/dL Urine Color Pale yellow Urine Appearance Clear Urine pH 6 (4.5-8.0) Urine Specific [place] 1.010 (1.005-1.035) Urine Protein 1+ (NEGATIVE) Urine Glucose (UA) Negative (NEGATIVE) Urine Ketones Negative (NEGATIVE) Urine Blood 2+ (NEGATIVE) Urine Nitrite Negative (NEGATIVE) Urine Bilirubin Negative (NEGATIVE) Urine Urobilinogen Normal MG/DL (0.0-1.0) Urine Leukocyte Esterase 2+ (NEGATIVE) Urine RBC 0-2 /HPF (0 - 2) Urine WBC 5-10 /HPF (0 - 2) Urine Squamous Epithelial Cells Few /LPF (NONE/OCC) Urine Bacteria Few /HPF (NONE) Urine Opiates Screen Negative (NEGATIVE) Urine Barbiturates Screen Negative (NEGATIVE) Phencyclidine (PCP) Screen Negative (NEGATIVE) Urine Amphetamines Screen Negative (NEGATIVE) Urine Benzodiazepines Screen Negative (NEGATIVE) Urine Cocaine Screen Negative (NEGATIVE) Urine Marijuana (THC) Screen Negative (NEGATIVE) Last Vital Signs Date Time Temp Pulse Resp B/P (MAP) Pulse Ox O2 Delivery O2 Flow Rate FiO2 11/19/18 19:35 98.1 114 18 96/51 100 Room Air Status: improved Disposition: ADMITTED INPATIENT Condition: Serious Referrals: NON PHYSICIAN (PCP) Tyson Mahmood MD Nov 19, 2018 22:33
--- NOTE | 2018-11-19 22:35 | NUR ---
NURSE NOTES: Pt arrived in the unit with her son. Pt is in stable condition. Faroese speaker, but she understands and speaks Maltese. AAOX4. Able to make needs known. On room air. No c/o pain/discomfort. Iv site is patent and intact. Belongings checked and with the pt. Son signed the belonging list. Skin is intact. 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 Bed in lowest position. Bed alarm is on. Call light within reach. Will continue to monitor.
[2018-11-19 22:38] VITALS: BP 118/58
[2018-11-19] MEDS: Enoxaparin 40mg Inj SUBQ SCH (22:54)
[2018-11-20] VITALS: BP 134/62
[2018-11-20 04:00] VITALS: BP 128/51
--- NOTE | 2018-11-20 07:15 | NUR ---
HAND-OFF: Report given to Preston Ruiz RN.
--- NOTE | 2018-11-20 07:47 | NUR ---
NURSE NOTES: Patient received resting in bed, eating breakfast. Alert and oriented, responds appropriately. Breathing unlabored on room air. Denies pain or SOB at this time. IV site on right wrist intact, saline lock. Bed locked in lowest position, encouraged to press call light for assistance. Call light placed within reach. Will continue to monitor.
[2018-11-20 08:00] VITALS: BP 134/63
[2018-11-20] MEDS: Metoprolol 25mg tab ORAL SCH ×2 (08:15→20:57)
[2018-11-20] MEDS: Oxybutynin 5mg tab ORAL SCH (08:16)
[2018-11-20] MEDS: Losartan 50mg tab ORAL SCH (08:16)
[2018-11-20] MEDS: Docusate 100mg cap ORAL SCH ×2 (08:16→20:55)
--- NOTE | 2018-11-20 09:00 | History and Physical Report ---
DATE OF ADMISSION: 11/20/2018 REASON FOR ADMISSION: 1. Anxiety. 2. Bipolar depression. HISTORY OF PRESENT ILLNESS: The patient is an 83-year-old female, who was recently discharged from [facility] after a bout of alternating constipation and diarrhea with otherwise negative esophagogastroduodenoscopy and colonoscopy. The patient was brought from the son due to an extreme anxiety attack. The patient had been given Seroquel upon admission. Psychiatry recommended admission for further evaluation. PAST MEDICAL HISTORY: 1. Hypertension. 2. Bipolar depression. 3. Anxiety. PAST SURGICAL HISTORY: None. ALLERGIES: Gabapentin and lithium. FAMILY HISTORY: Positive for hypertension. SOCIAL HISTORY: No tobacco, alcohol, or illicit drug use. REVIEW OF SYSTEMS: NEUROLOGIC: The patient denies headache, change in vision, syncope, or presyncopal episodes. CARDIOVASCULAR: No current chest pain, palpitations, or angina. PULMONARY: No difficulty breathing, productive cough, or sputum. GASTROINTESTINAL/GENITOURINARY: No change in urine or bowel habits. No nausea, vomiting, or diarrhea. ENDOCRINOLOGY: No night sweats, fevers, or chills. MUSCULOSKELETAL: The patient is feeling tired and fatigued. PSYCHIATRIC: The patient is slightly anxious and concerned. PHYSICAL EXAMINATION: VITAL SIGNS: Blood pressure 128/51, respiratory rate 24, pulse 54, temperature 99, and pulse oximetry 99% on room air. GENERAL: The patient is awake, alert, in mild distress, and anxious. HEENT: Extraocular muscles intact. No lymphadenopathy noted. Oropharyngeal mucosa is clear and dry. CARDIOVASCULAR: S1, S2. No murmurs, rubs, or gallops. PULMONARY: Clear to auscultation bilaterally. No rales, rhonchi, or wheezes. ABDOMEN: Nondistended and nontender. EXTREMITIES: No edema. LABORATORY DATA: Laboratories dated 11/19/2018, sodium 137, potassium 4.9, and creatinine 1.3. White cell count 10.5, hemoglobin 11.3, and platelet count 227,000. ASSESSMENT AND PLAN: 1. Panic attack with anxiety disorder. At this time, Psychiatry had recommended admission for further evaluation. We will await psychiatrist's recommendations and speak to the sonGopi about placement at a long-term facility. 2. Hypertension, stable. Adjust medications as deemed appropriate. 3. DVT prophylaxis with Lovenox. 4. Hyperlipidemia. On Lipitor. I will speak to the pillowcase folder about initiating placement at a long-term facility with psychiatric assistance. We will speak to Gopi about sending the patient to [facility]. Hemal Timmons MD DR: PAXTON JOB#: [id number] CC:
--- NOTE | 2018-11-20 10:17 | NUR ---
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 ENCEPHALOPATHY VS: BP 83/53, P 120, T 98.1, RR 18, SpO2 100 RBC 3.89, H&H 11.3/34.0, BUN 25 IS:LOVENOX 40mg SUBQ ADMITTED TO MED/SURG DCP: RETURN HOME
[2018-11-20 12:00] VITALS: BP 141/90
[2018-11-20 16:00] VITALS: BP 138/57
--- NOTE | 2018-11-20 16:42 | NUR ---
DIRECTOR OF GRANTS NOTES SPOKE WITH MANNY FROM [facility], PT ACCEPTED. NO DISCHARGE AT THIS TIME. MESSAGE LEFT FOR PT'S SON IN REGARDS TO DCP. WILL CONTINUE TO MONITOR.
--- NOTE | 2018-11-20 19:23 | NUR ---
HAND-OFF: Report given to Liv YBARRA.
--- NOTE | 2018-11-20 19:29 | NUR ---
NURSE NOTES: Received a report from Sara Johnston RN. Pt is in stable condition. Pashto speaker, but she understands and speaks Serbian. AAOX4. Able to make needs known. On room air. No c/o pain/discomfort. IV site is patent and intact. Bed in lowest position. Bed alarm is on. Call light within reach. Will continue to monitor.
[2018-11-20 20:00] VITALS: BP 116/73
[2018-11-20] MEDS ORDERED: LOSARTAN POTASS50 MG ORAL (20:05)
[2018-11-20] MEDS ORDERED: QUETIAPINE FUMA25 MG ORAL (20:05)
[2018-11-20] MEDS ORDERED: QUEtiapine 200mg tab ORAL SCH (21:00)
[2018-11-20] MEDS ORDERED: Atorvastatin 20mg tab ORAL SCH (21:00)
[2018-11-20] MEDS: Enoxaparin 40mg Inj SUBQ SCH (21:11)
--- NOTE | 2018-11-20 22:06 | Discharge Instructions ---
Discharge Instructions Discharge Instructions Services at Discharge: day care Resume Normal Activity?: Yes Follow Up Orders DC 11/21/18 to [facility] Reminder Report to your physician any weight gain of 5 pounds or more in one week. Hemal Timmons MD Nov 20, 2018 22:06
[2018-11-21] VITALS: BP 114/68
[2018-11-21 04:07] VITALS: BP 117/80
--- NOTE | 2018-11-21 04:45 | Consultation ---
DATE OF CONSULTATION: 11/20/2018 CONSULTING PHYSICIAN: Keily Florian M.D. HISTORY OF PRESENT ILLNESS: The patient was admitted last night due to a panic attack and severe anxiety. The patient also complained of chest tightness. The patient has a history of bipolar disorder, has been treated with Seroquel. The patient has a psychiatrist whom I spoke to today. The patient has been having anxiety and panic attack-like in her day program. The patient has cognitive impairment, was anxious during the evaluation. Target symptoms include anxiety, panic attack-like symptoms, chest tightness, and restlessness. The patient is having adverse reaction to benzodiazepine as well as propranolol. At some point, she overdosed on it. The medicine was given to her by her son. The patient does not endorse any suicidal or homicidal ideations, has memory impairment. PAST PSYCHIATRIC HISTORY: Bipolar disorder, has been on Seroquel for years. The psychiatrist stated that patient from another psychiatrist. ALLERGIES: Gabapentin and lithium. PAST MEDICAL HISTORY: Significant for hypertension, history of urinary tract infection, renal failure, and chronic constipation. SUBSTANCE ABUSE HISTORY: No known history of illicit drug use or alcohol. MENTAL STATUS EXAMINATION: The patient is calm, cooperative, in no apparent distress. Alert and oriented times self, place, and situation. Mood is anxious. Affect is constricted, congruent with mood. Thought process is linear. Thought content, no suicidal or homicidal ideation. ASSESSMENT: Pyote I Bipolar disorder, panic attacks. Pyote II Deferred. Pyote III None. Pyote IV Low. Pyote V 50. PLAN: The patient will be started on 200 mg of Seroquel at night and 25 mg in the morning. She already received a prescription. I discussed the case with her son and her psychiatrist. Keily Florian M.D. DR: VICTOR MANUEL JOB#: [id number] CC:
--- NOTE | 2018-11-21 07:35 | NUR ---
HAND-OFF: Report given to Isabell Kraft RN. Endorsed to follow up about the prescription for medication with Dr. Florian.
--- NOTE | 2018-11-21 07:50 | NUR ---
NURSE NOTES: Called Dr. Florian for the prescription of medication. Waiting for response. Endorsed to Isabell Kraft to follow up.
--- NOTE | 2018-11-21 07:50 | NUR ---
NURSE NOTES: Patient is in bed awake and able to verbalize needs. Patient is stable. Denies pain or SOB. Patient encouraged to use call light for assistance, verbalized understanding. Was endorsed by Liv to follow up with prescription for Seroquel. Patient is in bed in locked and lowest position with call light within reach. All safety measures provided. Will continue to monitor.
[2018-11-21 08:00] VITALS: BP 134/64
--- NOTE | 2018-11-21 08:01 | NUR ---
NURSE NOTES: Dr. Florian gave instructions to fax medication list to SNF and to continue seroquel but Dr. Florian will not write a new prescription. Will fax medication list over to SNF as instructed.
[2018-11-21 08:31] VITALS: BP 134/64
[2018-11-21] MEDS: Docusate 100mg cap ORAL SCH (08:31)
[2018-11-21] MEDS: Oxybutynin 5mg tab ORAL SCH (08:31)
[2018-11-21] MEDS: Metoprolol 25mg tab ORAL SCH (08:31)
[2018-11-21] MEDS: Losartan 50mg tab ORAL SCH (08:31)
--- NOTE | 2018-11-21 09:34 | Nephrology Progress Note ---
Assessment/Plan Assessment/Plan: A/P 1) Anxiety- per PSY. On seroquel 2) Constipation resolved 3) HTN- stable 4) DVT prophylaxsis with lovenox DC to [facility] today Subjective Date patient seen: Nov 21, 2018 Time patient seen: 09:32 ROS Limited/Unobtainable: No Allergies: Coded Allergies: GABAPENTIN (Verified Allergy, Unknown, 05/27/17) LITHIUM (Verified Allergy, Unknown, 05/27/17) Subjective Patient improved. Pending DC today Objective Last 24 Hour Vital Signs Date Time Temp Pulse Resp B/P (MAP) Pulse Ox O2 Delivery O2 Flow Rate FiO2 11/21/18 08:31 134/64 11/21/18 08:31 60 134/64 11/21/18 04:07 97.2 69 20 117/80 (92) 97 11/21/18 00:00 98.2 20 114/68 (83) 96 11/20/18 21:00 Room Air 11/20/18 20:57 64 116/73 11/20/18 20:00 98.3 64 24 116/73 (87) 97 11/20/18 16:00 98.5 60 17 138/57 (84) 97 11/20/18 12:00 98.3 58 17 141/90 (107) 95 Intake and Output 11/20/18 11/21/18 19:00 07:00 Intake Total 800 ml Output Total 250 ml Balance 800 ml -250 ml Intake Oral 800 ml Output Urine Total 250 ml # Voids 7 # Bowel Movements 1 Height (Feet): 5 Height (Inches): 3.00 Weight (Pounds): 161 General Appearance: no apparent distress EENT: normal ENT inspection Neck: normal alignment, supple Cardiovascular: normal rate, regular rhythm Respiratory/Chest: lungs clear, normal breath sounds Abdomen: non tender, soft Edema: no edema noted Arm (L), no edema noted Arm (R), no edema noted Leg (L), no edema noted Leg (R), no edema noted Pedal (L), no edema noted Pedal (R), no edema noted Generalized Hemal Timmons MD Nov 21, 2018 09:34
--- NOTE | 2018-11-21 09:39 | NUR ---
DISCHARGE PLANNED [facility] ROOM [address] SKILLED T [phone] FOR NURSE TO NURSE REPORT [facility] WILL MANAGER [facility] AT [phone]
--- NOTE | 2018-11-21 11:14 | NUR ---
NURSE NOTES: Report given to Marion YBARRA at [facility].
--- NOTE | 2018-11-21 11:23 | NUR ---
NURSE NOTES: Patient discharged to [facility] as ordered. Stable. Denies pain or SOB. Skin is clean, dry, and intact. Patient has all belongings. Prescription given to son. All paperwork and transfer sheet given to son. RN instructed son to give paperwork to nurse at [facility], son verbalized understanding. Patient is in good spirits. No IV access. Pt assisted into private vehicle without incident.
--- NOTE | 2018-11-21 12:35 | Discharge Summary ---
Discharge Summary Discharge Summary _ DATE OF ADMISSION: 11/19/2018 DATE OF DISCHARGE: 11/21/2018 DISCHARGED BY: Dr. Timmons REASON FOR ADMISSION: 83 years old female with past medical history of hypertension, hyperlipidemia, bipolar depression, anxiety, was brought by her son for evaluation due to extreme anxiety attack. Patient was given Seroquel upon admission. Psychiatrist recommended admission for further evaluation. Patient was recently discharged from [facility] after bout of alternating constipation and diarrhea with otherwise negative esophagogastroduodenoscopy and colonoscopy. Laboratory work-up revealed no leukocytosis , hemoglobin 11.3,, hematocrit 34, stable electrolytes. BUN 25 , creatinine 1.3. Glucose 125. Urinalysis revealed only mild pyuria with occasional bacteria. Urine toxicology screen was negative. Serum salicylate , Tylenol , and alcohol negative. Patient was admitted for psychiatric evaluation CONSULTANTS: psychiatrist [facility] COURSE: Patient admitted to medical surgical floor. Psychiatry evaluation was requested. Home medication resumed. Blood pressure was managed with Cozaar and metoprolol and remained stable. Statin continued. DVT prophylaxis with Lovenox provided. Supportive care provided. Bowel regimen instituted. Constipation resolved. Psychiatrist seen and evaluated patient Per psychiatrist, patient had bipolar disorder and panic attacks. Patient started on Seroquel higher dose at nighttime and low-dose in the morning. Reality orientation and supportive therapy provided. Patient's condition discussed with patient's son and her psychiatrist. Placement was arranged to assisted facility for continuation of care. Patient was stable for transfer. FINAL DIAGNOSES: Bipolar disorder Panic attacks Hypertension Constipation Anxiety DISCHARGE MEDICATIONS: See Medication Reconciliation list. DISCHARGE INSTRUCTIONS: [facility] Follow up with medical doctor at the facility. I have been assigned to dictate discharge summary for this account. I was not involved in the patient's management. Brooke Howe NP Nov 21, 2018 12:35
[2018-11-21] MEDS ORDERED: Enoxaparin 40mg Inj SUBQ SCH (21:00)
--- NOTE | 2018-11-22 07:30 | Progress Note ---
DATE: 11/21/2018 SUBJECTIVE: The patient continues to have anxiety and mood lability. We spoke to son at length. The patient's son wants her to be discharged to . The patient is depressed, anxious, panic attack like symptoms. MENTAL STATUS EXAMINATION: The patient is alert, oriented times self, place, and situation. Mood is anxious. Affect is constricted, congruent with mood. Thought process is concrete. Thought content, no suicidal or homicidal ideation. Insight and judgment is fair. Memory is impaired. ASSESSMENT: 1. Bipolar disorder. 2. Anxiety disorder. PLAN: We will continue with Seroquel 200 mg at night and 75 mg in the morning. Discussed with son. Keily Florian M.D. DR: VICTOR MANUEL JOB#: [id number] CC:
== END 2018-11-21 11:15 | DRG 880 ==
LOC: EDBD 19:28 → EMR 21:04 → 4E 21:06 → EDBEDREQ 21:23
DX: F41.0 Panic disorder [episodic paroxysmal anxiety] (principal); I10 Essential (primary) hypertension; E78.5 Hyperlipidemia, unspecified; F31.9 Bipolar disorder, unspecified; K59.00 Constipation, unspecified; F41.9 Anxiety disorder, unspecified; Z88.8 Allergy status to other drugs, medicaments and biological substances
CPT/HCPCS: 36415; 80053; 80307; 80329; 81003; 85025; 99285

== ENCOUNTER 2019-04-03 08:38 | Inpatient (IN) | payer MEDICARE, OTHER ==
[2019-04-03] VITALS (10 sets, daily range): BP systolic 92–168; BP diastolic 60–100
[~2019-04-03] VITALS: Ht 165.1 cm; Wt 73.9 kg
[~2019-04-03 08:38] MED LIST changes: +LOSARTAN POTASS50 MG ORAL; +QUETIAPINE FUMA25 MG ORAL
[2019-04-03] MEDS ORDERED: Sodium Chloride 550 ML IV SCH (09:00)
[2019-04-03] MEDS ORDERED: Morphine Sulfate 4mg/ml Inj (IV USE ONLY) IVP ONE (09:00)
--- NOTE | 2019-04-03 09:03 | Emergency Room Report ---
History of Present Illness General Chief Complaint: General Complaint Source: Patient, Family Member Present Illness HPI The patient presents with drainage and pain in her right knee. She had knee replacement surgery on the . She recently had a partial course of Keflex but stopped because of diarrhea. Her private physician ordered Augmentin however the surgeon stated that he did want any antibiotics given at this time and for the patient to come to the hospital. The patient had copious amounts of diarrhea yesterday and took low material. She had diarrhea this morning also. She does not answer whether he was blood. She rates the pain 9/10 at this time. She has more pain when she moves her knee and is unable to ambulate at this time. She denies any numbness. She is quite upset and anxious. She is refusing to answer many questions. Allergies: Coded Allergies: GABAPENTIN (Verified Allergy, Unknown, 05/27/17) LITHIUM (Verified Allergy, Unknown, 05/27/17) Patient History Limited by: other - Patient anxious and refusing to answer questions Past Medical History: see triage record Past Surgical History: other - R knee Social History: Denies: smoking, alcohol use, drug use Social History Narrative with son Reviewed Nursing Documentation: PMH: Agreed; PSxH: Agreed Nursing Documentation-PMH Past Medical History: No History, Except For Hx Cardiac Problems: Yes Hx Hypertension: Yes Hx Cancer: No Hx Gastrointestinal Problems: Yes Hx Dialysis: No Hx Neurological Problems: No Review of Systems All Other Systems: limited Physical Exam Vital Signs Date Time Temp Pulse Resp B/P (MAP) Pulse Ox O2 Delivery O2 Flow Rate FiO2 04/03/19 08:42 98.1 68 18 133/67 (89) 97 Room Air Sp02 EP Interpretation: reviewed, normal General Appearance: well appearing, no apparent distress, GCS 15 Head: normocephalic Eyes: bilateral eye normal inspection, bilateral eye PERRL, bilateral eye EOMI ENT: moist mucus membranes Neck: supple Respiratory: lungs clear, normal breath sounds Cardiovascular #1: regular rate, rhythm Cardiovascular #2: 2+ radial (R) Gastrointestinal: normal inspection, normal bowel sounds, non tender, no mass, non-distended Musculoskeletal: back normal, normal range of motion, swelling - Knee with purulent drainage from the operative site Neurologic: alert, oriented x3, grossly normal Psychiatric: anxious Skin: warm/dry, other - See the knee Medical Decision Making Diagnostic Impression: Primary Impression: Post-operative infection Qualified Codes: T81.42XA - Infection following a procedure, deep incisional surgical site, initial encounter Additional Impression: Diarrhea Qualified Codes: R19.7 - Diarrhea, unspecified ER Course Presents with postoperative purulent drainage from her right knee and diarrhea post taking Keflex. Differential includes septic knee, cellulitis, postoperative infection, diarrhea related to antibiotic usage amongst others. Evaluation with EKG, chest x-ray, knee x-ray and labs. The patient will be treated with a dose of Zofran and morphine and gentle IV hydration. We will have a low threshold for starting the patient on antibiotics. EKG without injury. Chest x-ray clear. Right knee with post surgical changes and soft tissue swelling. White count normal. Discussed with Dr. Luna. He requested admission to Dr. Manuel. He also requested no antibiotics be administered in the emergency department. Patient taken to the operating room. Laboratory Tests Test 04/03/19 09:15 04/03/19 10:00 White Blood Count 7.6 K/UL (4.8-10.8) Red Blood Count 3.86 M/UL (4.20-5.40) L Hemoglobin 11.5 G/DL (12.0-16.0) L Hematocrit 34.5 % (37.0-47.0) L Mean Corpuscular Volume 89 FL (80-99) Mean Corpuscular Hemoglobin 29.8 PG (27.0-31.0) Mean Corpuscular Hemoglobin Concent 33.3 G/DL (32.0-36.0) Red Cell Distribution Width 13.1 % (11.6-14.8) Platelet Count 251 K/UL (150-450) Mean Platelet Volume 4.9 FL (6.5-10.1) L Neutrophils (%) (Auto) 63.8 % (45.0-75.0) Lymphocytes (%) (Auto) 18.8 % (20.0-45.0) L Monocytes (%) (Auto) 8.2 % (1.0-10.0) Eosinophils (%) (Auto) 7.7 % (0.0-3.0) H Basophils (%) (Auto) 1.5 % (0.0-2.0) Erythrocyte Sedimentation Rate 23 MM/HR (0-30) Prothrombin Time 11.2 SEC (9.30-11.50) Prothrombin Time INR 1.1 (0.9-1.1) PTT 21 SEC (23-33) L Sodium Level 141 MMOL/L (136-145) Potassium Level 4.2 MMOL/L (3.5-5.1) Chloride Level 106 MMOL/L (98-107) Carbon Dioxide Level 27 MMOL/L (21-32) Anion Gap 8 mmol/L (5-15) Blood Urea Nitrogen 26 mg/dL (7-18) H Creatinine 1.1 MG/DL (0.55-1.30) Estimate Glomerular Filtration Rate mL/min (>60) Glucose Level 112 MG/DL (74-106) H Lactic Acid Level 1.20 mmol/L (0.4-2.0) Calcium Level 9.1 MG/DL (8.5-10.1) Total Bilirubin 0.8 MG/DL (0.2-1.0) Aspartate Amino Transferase (AST) 21 U/L (15-37) Alanine Aminotransferase (ALT) 23 U/L (12-78) Alkaline Phosphatase 91 U/L (46-116) Total Creatine Kinase 89 U/L (26-308) Troponin I 0.000 ng/mL (0.000-0.056) C-Reactive Protein, Quantitative < 0.4 mg/dL (0.00-0.90) Pro-B-Type Natriuretic Peptide 547 pg/mL (0-125) H Total Protein 6.8 G/DL (6.4-8.2) Albumin 3.4 G/DL (3.4-5.0) Globulin 3.4 g/dL Albumin/Globulin Ratio 1.0 (1.0-2.7) Lipase 197 U/L (73-393) Urine Color Pale yellow Urine Appearance Slightly cloudy Urine pH 6 (4.5-8.0) Urine Specific [place] 1.010 (1.005-1.035) Urine Protein Negative (NEGATIVE) Urine Glucose (UA) Negative (NEGATIVE) Urine Ketones Negative (NEGATIVE) Urine Blood 2+ (NEGATIVE) H Urine Nitrite Negative (NEGATIVE) Urine Bilirubin Negative (NEGATIVE) Urine Urobilinogen Normal MG/DL (0.0-1.0) Urine Leukocyte Esterase 3+ (NEGATIVE) H Urine RBC 2-4 /HPF (0 - 2) H Urine WBC 15-20 /HPF (0 - 2) H Urine Squamous Epithelial Cells Few /LPF (NONE/OCC) Urine Bacteria Few /HPF (NONE) EKG Diagnostic Results Rate: normal Rhythm: NSR ST Segments: no acute changes - First-degree AV block Rhythm Strip Diag. Results EP Interpretation: yes Rhythm: NSR, no PVC's, no ectopy Chest X-Ray Diagnostic Results Chest X-Ray Diagnostic Results : Chest X-Ray Ordered: Yes # of Views/Limited/Complete: 1 View Indication: Other EP Interpretation: Yes Interpretation: no consolidation, no effusion, no pneumothorax Impression: No acute disease Electronically Signed by: Electronically signed by Pb Wagner MD Other X-Ray Diagnostic Results Other X-Ray Diagnostic Results : X-Ray ordered: Knee # of Views/Limited Vs Complete: 3 View Indication: Other EP Interpretation: Yes Interpretation: no dislocation, no fractures, other - Soft tissue swelling no gas formation observed Impression: Other Last Vital Signs Date Time Temp Pulse Resp B/P (MAP) Pulse Ox O2 Delivery O2 Flow Rate FiO2 04/05/19 12:00 98.7 64 20 102/63 (76) 97 04/05/19 09:00 Room Air 04/05/19 08:08 21 04/03/19 20:25 3 Status: improved Disposition: ADMITTED INPATIENT Condition: Serious Pb Wagner MD Apr 03, 2019 09:03
--- NOTE | 2019-04-03 09:10 | NUR ---
ED Nurse Note: Patient wheeled in ED accompanied by son. Patient was advised to come into hospital per Dr. Luna who is her surgeon for reevaluation of surigical site on right knee. S/P knee replacement done on 03/05/19. Redness, tenderness and serosanguineous drainage noted from surigal site. Oral temp 99.0. Patient C/O of pain in right knee 02/24. A/Ox4, Primarily speaks Sami but is able to understand some Citizen [place]. Reports having diarrhea yesterday and this morning. IV established on RAC 20G, patent and asymptomatic. Blood drawn and sent to lab. Still waiting for patient to void for urine specimen.
[2019-04-03 09:41] LABS: BASOPHILS % (AUTO) 1.5 % (0.0-2.0); EOSINOPHILS % (AUTO) 7.7 % (0.0-3.0); HEMATOCRIT 34.5 % (37.0-47.0); HEMOGLOBIN 11.5 G/DL (12.0-16.0); LYMPHOCYTES % (AUTO) 18.8 % (20.0-45.0); MEAN CORPUSCULAR VOLUME 89 FL (80-99); MONOCYTES % (AUTO) 8.2 % (1.0-10.0); NEUTROPHILS % (AUTO) 63.8 % (45.0-75.0); PLATELET COUNT 251 K/UL (150-450); RED BLOOD COUNT 3.86 M/UL (4.20-5.40); RED CELL DISTRIBUTION WIDTH 13.1 % (11.6-14.8); WHITE BLOOD COUNT 7.6 K/UL (4.8-10.8)
[2019-04-03 09:48] LABS: INR 1.1 (0.9-1.1)
[2019-04-03 09:49] LABS: ANION GAP 8 mmol/L (5-15); BLOOD UREA NITROGEN 26 mg/dL (7-18); CALCIUM 9.1 MG/DL (8.5-10.1); CARBON DIOXIDE 27 MMOL/L (21-32); CHLORIDE 106 MMOL/L (98-107); CREATININE 1.1 MG/DL (0.55-1.30); POTASSIUM 4.2 MMOL/L (3.5-5.1); SODIUM 141 MMOL/L (136-145)
[2019-04-03 10:00] LABS: ALANINE AMINOTRANSFERASE 23 U/L (12-78); ALBUMIN 3.4 G/DL (3.4-5.0); ALKALINE PHOSPHATASE 91 U/L (46-116); ASPARTATE AMINO TRANSFERASE 21 U/L (15-37); BILIRUBIN,TOTAL 0.8 MG/DL (0.2-1.0); CREATINE KINASE 89 U/L (26-308)
--- NOTE | 2019-04-03 10:12 | Diagnostic Imaging Report ---
Indication: Chest pain Technique: XRAY Chest 1v Comparison: 10/20/2018 Findings: Heart size and mediastinal contours stable compared to the prior exam. Again atherosclerotic calcifications noted in a tortuous aorta. There is no definite focal airspace consolidation, pleural effusion or pneumothorax. There is elevation of the left hemidiaphragm. There are degenerative changes in the spine. No acute osseous abnormality. Impression: No radiographic evidence of acute cardiopulmonary disease. No significant interval change from prior exam of 10/20/2018.
--- NOTE | 2019-04-03 10:14 | Diagnostic Imaging Report ---
Indication: Knee pain Technique: XRAY Knee 3v R Comparison: 10/21/2018 Findings: Since the prior exam the patient has undergone interval medial unicondylar knee arthroplasty no evidence of periprosthetic fracture or other hardware-related complication. No acute fractures identified. There are degenerative changes of the knee with lateral and patellofemoral femoral compartment osteophytes. There are atherosclerotic vascular calcifications. Impression: Indwelling unicondylar knee arthroplasty without evidence of hardware-related complication. Degenerative changes of the patellofemoral and lateral femorotibial compartments. No acute fracture.
--- NOTE | 2019-04-03 10:15 | NUR ---
ED Nurse Note: XR taken at bedside. Urine and wound swab collected and sent to lab.
[2019-04-03 10:20] LABS: APPEARANCE,URINE SLIGHTLY CLOUDY; BILIRUBIN, URINE NEGATIVE (NEGATIVE); COLOR,URINE PALE YELLOW; GLUCOSE, URINE (UA) NEGATIVE (NEGATIVE); KETONES,URINE NEGATIVE (NEGATIVE); LEUKOCYTE ESTERASE ,URINE 3+ (NEGATIVE); NITRITE,URINE NEGATIVE (NEGATIVE); PH,URINE 6 (4.5-8.0); PROTEIN,URINE NEGATIVE (NEGATIVE); UROBILINOGEN,URINE NORMAL MG/DL (0.0-1.0)
[2019-04-03] MEDS ORDERED: PEPCID AC20 M2 PO (12:06)
--- NOTE | 2019-04-03 12:16 | NUR ---
NURSE NOTES: Patient transferred from ER via gurney. Patient is alert and oriented. Patient oriented to room. Call light placed near patient. No reports of pain at the moment. Drainage noted on gauze covering right knee. Patient refused to have RN check skin on back. Patient also not a great historian. Patient goes off topic and becomes irritable when RN asks questions. Will continue to monitor.
--- NOTE | 2019-04-03 12:27 | NUR ---
NURSE NOTES: Patient refused to have RN look under gauze on right knee.
--- NOTE | 2019-04-03 13:50 | NUR ---
NURSE NOTES: Dr. Manuel contacted for admission orders. Dr. Manuel ordered to have Dr. Vallejo contacted. Dr. Vallejo contacted for admission orders.
--- NOTE | 2019-04-03 13:55 | Consultation ---
History of Present Illness General Date patient seen: Apr 03, 2019 Chief Complaint: General Complaint Present Illness HPI 83 year old female with hx of HTN, bipolar disorder with recent Knee replacement surgery presented to ER with drainage and pain in her right knee. She recently had a partial course of Keflex but stopped because of diarrhea. The patient had copious amounts of diarrhea yesterday and took some lomotil. She is admitted for possible of drainage of the radha. Allergies: Coded Allergies: GABAPENTIN (Verified Allergy, Unknown, 05/27/17) LITHIUM (Verified Allergy, Unknown, 05/27/17) Medication History Scheduled Atorvastatin Calcium* (Lipitor*), 20 MG ORAL QHS, (Reported) Baclofen* (Baclofen*), 10 MG ORAL BID, (Reported) Famotidine (Pepcid Ac), 20 MG PO BID, (Reported) Losartan Potassium* (Losartan Potassium*), 100 MG ORAL DAILY, (Reported) Metoprolol Tartrate* (Metoprolol Tartrate*), 25 MG ORAL EVERY 12 HOURS, ( Reported) Oxybutynin Chloride (Oxybutynin Chloride), 5 MG ORAL DAILY, (Reported) Quetiapine Fumarate* (Seroquel*), 200 MG ORAL QHS, (Reported) Quetiapine Fumarate* (Seroquel*), 25 MG ORAL MORNING, (Reported) Vitamin D (Vitamin D3), 2,000 UNITS ORAL DAILY, (Reported) Discontinued Medications Melatonin (Melatonin), 10 MG PO QHS, (Reported) Discontinued Reason: Pt stopped taking med Oxybutynin Chloride (Oxybutynin Chloride), 5 MG ORAL DAILY PRN for Urinary Incontinence, (Reported) Discontinued Reason: Therapy completed Pantoprazole* (Pantoprazole*), 40 MG ORAL DAILY, (Reported) Discontinued Reason: Therapy completed Quetiapine Fumarate* (Seroquel*), 25 MG ORAL BEDTIME, (Reported) Discontinued Reason: Pt stopped taking med Ranitidine Hcl* (Zantac*), 300 MG ORAL QHS, (Reported) Discontinued Reason: Pt stopped taking med Patient History Healthcare decision maker Resuscitation status Full Code Advanced Directive on File Past Medical/Surgical History Past Medical/Surgical History: (1) Bipolar depression (2) HTN (hypertension) (3) Anemia Review of Systems All Other Systems: negative except mentioned in HPI Physical Exam General Appearance: WD/WN, no apparent distress Lines, tubes and drains: peripheral HEENT: normocephalic, atraumatic, anicteric Neck: non-tender, normal alignment Respiratory/Chest: chest wall non-tender, lungs clear Breasts: no masses Cardiovascular/Chest: normal peripheral pulses Abdomen: normal bowel sounds Genitourinary/Rectal: normal rectal exam Extremities: normal range of motion Skin Exam: other - pain over right knee 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 Last 24 Hour Vital Signs Date Time Temp Pulse Resp B/P (MAP) Pulse Ox O2 Delivery O2 Flow Rate FiO2 04/03/19 12:19 Room Air 04/03/19 11:30 99.0 58 18 128/68 100 Room Air 04/03/19 09:58 58 18 Room Air 04/03/19 09:58 99.0 58 18 128/68 100 Room Air 04/03/19 08:42 98.1 68 18 133/67 (89) 97 Room Air Laboratory Tests Test 04/03/19 09:15 04/03/19 10:00 White Blood Count 7.6 K/UL (4.8-10.8) Red Blood Count 3.86 M/UL (4.20-5.40) L Hemoglobin 11.5 G/DL (12.0-16.0) L Hematocrit 34.5 % (37.0-47.0) L Mean Corpuscular Volume 89 FL (80-99) Mean Corpuscular Hemoglobin 29.8 PG (27.0-31.0) Mean Corpuscular Hemoglobin Concent 33.3 G/DL (32.0-36.0) Red Cell Distribution Width 13.1 % (11.6-14.8) Platelet Count 251 K/UL (150-450) Mean Platelet Volume 4.9 FL (6.5-10.1) L Neutrophils (%) (Auto) 63.8 % (45.0-75.0) Lymphocytes (%) (Auto) 18.8 % (20.0-45.0) L Monocytes (%) (Auto) 8.2 % (1.0-10.0) Eosinophils (%) (Auto) 7.7 % (0.0-3.0) H Basophils (%) (Auto) 1.5 % (0.0-2.0) Erythrocyte Sedimentation Rate 23 MM/HR (0-30) Prothrombin Time 11.2 SEC (9.30-11.50) Prothromb Time International Ratio 1.1 (0.9-1.1) Activated Partial Thromboplast Time 21 SEC (23-33) L Sodium Level 141 MMOL/L (136-145) Potassium Level 4.2 MMOL/L (3.5-5.1) Chloride Level 106 MMOL/L (98-107) Carbon Dioxide Level 27 MMOL/L (21-32) Anion Gap 8 mmol/L (5-15) Blood Urea Nitrogen 26 mg/dL (7-18) H Creatinine 1.1 MG/DL (0.55-1.30) Estimat Glomerular Filtration Rate mL/min (>60) Glucose Level 112 MG/DL (74-106) H Lactic Acid Level 1.20 mmol/L (0.4-2.0) Calcium Level 9.1 MG/DL (8.5-10.1) Total Bilirubin 0.8 MG/DL (0.2-1.0) Aspartate Amino Transf (AST/SGOT) 21 U/L (15-37) Alanine Aminotransferase (ALT/SGPT) 23 U/L (12-78) Alkaline Phosphatase 91 U/L (46-116) Total Creatine Kinase 89 U/L (26-308) Troponin I 0.000 ng/mL (0.000-0.056) C-Reactive Protein, Quantitative < 0.4 mg/dL (0.00-0.90) Pro-B-Type Natriuretic Peptide 547 pg/mL (0-125) H Total Protein 6.8 G/DL (6.4-8.2) Albumin 3.4 G/DL (3.4-5.0) Globulin 3.4 g/dL Albumin/Globulin Ratio 1.0 (1.0-2.7) Lipase 197 U/L (73-393) Urine Color Pale yellow Urine Appearance Slightly cloudy Urine pH 6 (4.5-8.0) Urine Specific [place] 1.010 (1.005-1.035) Urine Protein Negative (NEGATIVE) Urine Glucose (UA) Negative (NEGATIVE) Urine Ketones Negative (NEGATIVE) Urine Blood 2+ (NEGATIVE) H Urine Nitrite Negative (NEGATIVE) Urine Bilirubin Negative (NEGATIVE) Urine Urobilinogen Normal MG/DL (0.0-1.0) Urine Leukocyte Esterase 3+ (NEGATIVE) H Urine RBC 2-4 /HPF (0 - 2) H Urine WBC 15-20 /HPF (0 - 2) H Urine Squamous Epithelial Cells Few /LPF (NONE/OCC) Urine Bacteria Few /HPF (NONE) Height (Feet): 5 Height (Inches): 5.00 Weight (Pounds): 165 Medications Current Medications Medications (Trade) Dose Ordered Sig/Caryl Route PRN Reason Start Time Stop Time Status Last Admin Dose Admin Acetaminophen (Tylenol) 650 mg Q4H PRN ORAL fever 04/03/19 14:00 05/03/19 13:59 Albuterol/ Ipratropium (Albuterol/ Ipratropium) 3 ml Q4H PRN HHN Shortness of Breath 04/03/19 14:00 04/08/19 13:59 Baclofen (Lioresal) 10 mg BID ORAL 04/03/19 18:00 05/03/19 17:59 Cefepime HCl 2 gm/ Dextrose 110 ml @ 220 mls/hr Q24H IV 04/03/19 18:00 04/10/19 17:59 Dextrose (Dextrose 50%) 25 ml Q30M PRN IV Hypoglycemia 04/03/19 14:00 05/03/19 13:59 Dextrose (Dextrose 50%) 50 ml Q30M PRN IV Hypoglycemia 04/03/19 14:00 05/03/19 13:59 Heparin Sodium (Porcine) (Heparin 5000 units/ml) 5,000 units EVERY 12 HOURS SUBQ 04/03/19 21:00 05/03/19 20:59 Losartan Potassium (Cozaar) 100 mg DAILY ORAL 04/04/19 09:00 05/04/19 08:59 Metoprolol Tartrate (Lopressor) 25 mg EVERY 12 HOURS ORAL 04/03/19 21:00 05/03/19 20:59 Morphine Sulfate (Morphine Sulfate) 2 mg Q4H PRN IVP Moderate Pain (Pain Scale 4-6) 04/03/19 14:00 04/10/19 13:59 Nitroglycerin (Ntg) 0.4 mg Q5M PRN SL Prn Chest Pain 04/03/19 14:00 05/03/19 13:59 Ondansetron HCl (Zofran) 4 mg Q6H PRN IVP Nausea & Vomiting 04/03/19 14:00 05/03/19 13:59 Polyethylene Glycol (Miralax) 17 gm DAILYPRN PRN ORAL Constipation 04/03/19 14:00 05/03/19 13:59 Quetiapine Fumarate (SEROquel) 100 mg DAILY ORAL 04/04/19 09:00 05/04/19 08:59 Sodium Chloride 550 ml @ 150 mls/hr Q3H40M IV 04/03/19 09:00 05/03/19 08:59 04/03/19 09:30 Temazepam (Restoril) 15 mg HSPRN PRN ORAL Insomnia 04/03/19 14:00 04/10/19 13:59 Vancomycin HCl (Vanco rx to dose) 1 ea DAILY PRN MISC . 04/03/19 14:00 05/03/19 13:59 Vancomycin HCl 750 mg/Sodium Chloride 275 ml @ 183.333 mls/hr Q12HR@0300,1500 IVPB 04/03/19 15:00 04/08/19 14:59 Assessment/Plan Problem List: (1) Septic arthritis ICD Codes: M00.9 - Pyogenic arthritis, unspecified SNOMED: 067375823 (2) Bipolar depression ICD Codes: F31.30 - Bipolar disorder, current episode depressed, mild or moderate severity, unspecified SNOMED: 27750154 (3) HTN (hypertension) ICD Codes: I10 - Essential (primary) hypertension SNOMED: 13845457 Assessment/Plan: iv abx f/u ortho recommendation ID evaluation symptomatic treatment pain management. Christ Vallejo MD Apr 03, 2019 13:55
[2019-04-03] MEDS ORDERED: Nitroglycerin Subl 0.4mg tab SL PRN (14:00)
[2019-04-03] MEDS ORDERED: Albuterol/Ipratropium 3ml neb HHN PRN (14:00)
[2019-04-03] MEDS ORDERED: Morphine Sulfate 2mg/ml Inj(IV/IM USE ONLY) IVP PRN (14:00)
[2019-04-03] MEDS ORDERED: Miralax 17gm pkt ORAL PRN (14:00)
--- NOTE | 2019-04-03 14:49 | NUR ---
NURSE NOTES: left msg to dr uLna re consent orders. awaiting orders
[2019-04-03] MEDS: Vancomycin 750mg/NS 275ml IVPB SCH ×2 (14:54)
--- NOTE | 2019-04-03 16:09 | History & Physical ---
History and Physical History & Physicial Brad Manuel MD Apr 03, 2019 16:09
[2019-04-03] MEDS ORDERED: Ketorolac 30mg Inj ONE (17:03)
[2019-04-03] MEDS ORDERED: Kenalog-40 1ml Vial ONE (17:03)
[2019-04-03] MEDS ORDERED: Duramorph PF 5mg/10ml amp ONE (17:05)
[2019-04-03] MEDS ORDERED: Bupivacaine w/Epi 0.5% 30ml Vial INJ ONE (17:05)
[2019-04-03] MEDS ORDERED: Bacitracin 50000 Units Vial ONE ×2 (17:05→18:40)
[2019-04-03] MEDS ORDERED: NeoSporin Gu Irrig 1ml Amp IRRIG ONE ×2 (17:05→18:40)
--- NOTE | 2019-04-03 17:07 | Consultation ---
History of Present Illness General Date patient seen: Apr 03, 2019 Chief Complaint: General Complaint Present Illness HPI 83 y/o F with hx of HTN, R knee replacement on 04/04/19 presented to ED on with R knee pain and drainage. She recently had a partial course of Keflex but stopped because of diarrhea. Pain is described as 9/10 intensity, pain with movement of the knee and has trouble ambulating. Denied numbness Allergies: Coded Allergies: GABAPENTIN (Verified Allergy, Unknown, 05/27/17) LITHIUM (Verified Allergy, Unknown, 05/27/17) Medication History Scheduled Atorvastatin Calcium* (Lipitor*), 20 MG ORAL QHS, (Reported) Baclofen* (Baclofen*), 10 MG ORAL BID, (Reported) Famotidine (Pepcid Ac), 20 MG PO BID, (Reported) Losartan Potassium* (Losartan Potassium*), 100 MG ORAL DAILY, (Reported) Melatonin (Melatonin), 10 MG PO QHS, (Reported) Metoprolol Tartrate* (Metoprolol Tartrate*), 25 MG ORAL EVERY 12 HOURS, ( Reported) Quetiapine Fumarate* (Seroquel*), 100 MG ORAL DAILY, (Reported) Vitamin D (Vitamin D3), 2,000 UNITS ORAL DAILY, (Reported) Discontinued Medications Oxybutynin Chloride (Oxybutynin Chloride), 5 MG ORAL DAILY PRN for Urinary Incontinence, (Reported) Discontinued Reason: Therapy completed Pantoprazole* (Pantoprazole*), 40 MG ORAL DAILY, (Reported) Discontinued Reason: Therapy completed Quetiapine Fumarate* (Seroquel*), 25 MG ORAL BEDTIME, (Reported) Discontinued Reason: Pt stopped taking med Ranitidine Hcl* (Zantac*), 300 MG ORAL QHS, (Reported) Discontinued Reason: Pt stopped taking med Patient History Healthcare decision maker Resuscitation status Full Code Advanced Directive on File Patient History Narrative Pmhx: as above Shx: reviewed Fhx: non contributory Physical Exam Physical Exam Narrative General Appearance: well appearing, no apparent distress Head: normocephalic Eyes: bilateral eye normal inspection, bilateral eye PERRL, bilateral eye EOMI ENT: moist mucus membranes Neck: supple Respiratory: lungs clear, normal breath sounds Cardiovascular : regular rate, rhythm Gastrointestinal: normal inspection, normal bowel sounds, non tender, no mass, non-distended Musculoskeletal: back normal, normal range of motion, swelling - Knee with purulent drainage from the operative site Neurologic: alert, oriented x3, grossly normal Skin: warm/dry, other - See the knee Last 24 Hour Vital Signs Date Time Temp Pulse Resp B/P (MAP) Pulse Ox O2 Delivery O2 Flow Rate FiO2 04/03/19 16:00 99.2 58 17 92/60 (71) 99 04/03/19 12:19 Room Air 04/03/19 12:00 98.6 90 18 121/80 (94) 100 04/03/19 11:30 99.0 58 18 128/68 100 Room Air 04/03/19 09:58 58 18 Room Air 04/03/19 09:58 99.0 58 18 128/68 100 Room Air 04/03/19 08:42 98.1 68 18 133/67 (89) 97 Room Air Laboratory Tests Test 04/03/19 09:15 04/03/19 10:00 White Blood Count 7.6 K/UL (4.8-10.8) Red Blood Count 3.86 M/UL (4.20-5.40) L Hemoglobin 11.5 G/DL (12.0-16.0) L Hematocrit 34.5 % (37.0-47.0) L Mean Corpuscular Volume 89 FL (80-99) Mean Corpuscular Hemoglobin 29.8 PG (27.0-31.0) Mean Corpuscular Hemoglobin Concent 33.3 G/DL (32.0-36.0) Red Cell Distribution Width 13.1 % (11.6-14.8) Platelet Count 251 K/UL (150-450) Mean Platelet Volume 4.9 FL (6.5-10.1) L Neutrophils (%) (Auto) 63.8 % (45.0-75.0) Lymphocytes (%) (Auto) 18.8 % (20.0-45.0) L Monocytes (%) (Auto) 8.2 % (1.0-10.0) Eosinophils (%) (Auto) 7.7 % (0.0-3.0) H Basophils (%) (Auto) 1.5 % (0.0-2.0) Erythrocyte Sedimentation Rate 23 MM/HR (0-30) Prothrombin Time 11.2 SEC (9.30-11.50) Prothromb Time International Ratio 1.1 (0.9-1.1) Activated Partial Thromboplast Time 21 SEC (23-33) L Sodium Level 141 MMOL/L (136-145) Potassium Level 4.2 MMOL/L (3.5-5.1) Chloride Level 106 MMOL/L (98-107) Carbon Dioxide Level 27 MMOL/L (21-32) Anion Gap 8 mmol/L (5-15) Blood Urea Nitrogen 26 mg/dL (7-18) H Creatinine 1.1 MG/DL (0.55-1.30) Estimat Glomerular Filtration Rate mL/min (>60) Glucose Level 112 MG/DL (74-106) H Lactic Acid Level 1.20 mmol/L (0.4-2.0) Calcium Level 9.1 MG/DL (8.5-10.1) Total Bilirubin 0.8 MG/DL (0.2-1.0) Aspartate Amino Transf (AST/SGOT) 21 U/L (15-37) Alanine Aminotransferase (ALT/SGPT) 23 U/L (12-78) Alkaline Phosphatase 91 U/L (46-116) Total Creatine Kinase 89 U/L (26-308) Troponin I 0.000 ng/mL (0.000-0.056) C-Reactive Protein, Quantitative < 0.4 mg/dL (0.00-0.90) Pro-B-Type Natriuretic Peptide 547 pg/mL (0-125) H Total Protein 6.8 G/DL (6.4-8.2) Albumin 3.4 G/DL (3.4-5.0) Globulin 3.4 g/dL Albumin/Globulin Ratio 1.0 (1.0-2.7) Lipase 197 U/L (73-393) Urine Color Pale yellow Urine Appearance Slightly cloudy Urine pH 6 (4.5-8.0) Urine Specific [place] 1.010 (1.005-1.035) Urine Protein Negative (NEGATIVE) Urine Glucose (UA) Negative (NEGATIVE) Urine Ketones Negative (NEGATIVE) Urine Blood 2+ (NEGATIVE) H Urine Nitrite Negative (NEGATIVE) Urine Bilirubin Negative (NEGATIVE) Urine Urobilinogen Normal MG/DL (0.0-1.0) Urine Leukocyte Esterase 3+ (NEGATIVE) H Urine RBC 2-4 /HPF (0 - 2) H Urine WBC 15-20 /HPF (0 - 2) H Urine Squamous Epithelial Cells Few /LPF (NONE/OCC) Urine Bacteria Few /HPF (NONE) Height (Feet): 5 Height (Inches): 5.00 Weight (Pounds): 165 Medications Current Medications Medications (Trade) Dose Ordered Sig/Caryl Route PRN Reason Start Time Stop Time Status Last Admin Dose Admin Acetaminophen (Tylenol) 650 mg Q4H PRN ORAL fever 04/03/19 14:00 05/03/19 13:59 Albuterol/ Ipratropium (Albuterol/ Ipratropium) 3 ml Q4H PRN HHN Shortness of Breath 04/03/19 14:00 04/08/19 13:59 Baclofen (Lioresal) 10 mg BID ORAL 04/03/19 18:00 05/03/19 17:59 Cefepime HCl 2 gm/ Dextrose 110 ml @ 220 mls/hr Q24H IV 04/03/19 18:00 04/10/19 17:59 Dextrose (Dextrose 50%) 25 ml Q30M PRN IV Hypoglycemia 04/03/19 14:00 05/03/19 13:59 Dextrose (Dextrose 50%) 50 ml Q30M PRN IV Hypoglycemia 04/03/19 14:00 05/03/19 13:59 Heparin Sodium (Porcine) (Heparin 5000 units/ml) 5,000 units EVERY 12 HOURS SUBQ 04/03/19 21:00 05/03/19 20:59 Losartan Potassium (Cozaar) 100 mg DAILY ORAL 04/04/19 09:00 05/04/19 08:59 Metoprolol Tartrate (Lopressor) 25 mg EVERY 12 HOURS ORAL 04/03/19 21:00 05/03/19 20:59 Morphine Sulfate (Morphine Sulfate) 2 mg Q4H PRN IVP Moderate Pain (Pain Scale 4-6) 04/03/19 14:00 04/10/19 13:59 Nitroglycerin (Ntg) 0.4 mg Q5M PRN SL Prn Chest Pain 04/03/19 14:00 05/03/19 13:59 Ondansetron HCl (Zofran) 4 mg Q6H PRN IVP Nausea & Vomiting 04/03/19 14:00 05/03/19 13:59 Polyethylene Glycol (Miralax) 17 gm DAILYPRN PRN ORAL Constipation 04/03/19 14:00 05/03/19 13:59 Quetiapine Fumarate (SEROquel) 100 mg DAILY ORAL 04/04/19 09:00 05/04/19 08:59 Temazepam (Restoril) 15 mg HSPRN PRN ORAL Insomnia 04/03/19 14:00 04/10/19 13:59 Vancomycin HCl (Vanco rx to dose) 1 ea DAILY PRN MISC . 04/03/19 14:00 05/03/19 13:59 Vancomycin HCl 750 mg/Sodium Chloride 275 ml @ 183.333 mls/hr Q12HR@0300,1500 IVPB 04/03/19 15:00 04/08/19 14:59 04/03/19 14:54 Assessment/Plan Assessment/Plan: Abx: IV Vancomycin 04/03- Cefepime 04/03- Assessment: R knee hardware infection -Xray R knee: Indwelling unicondylar knee arthroplasty without evidence of hardware-related complication. Degenerative changes of the patellofemoral and lateral femorotibial compartments. No acute fracture. Afebrile No leukocytosis -CXR: no acute disease -u/a wbc 15-20, nit neg, leuk +3 HTN R knee replacement on 04/04/19 Plan: -Continue empiric IV Vancomycin and Cefepime #1 -f/u cx -Monitor CBC/CMP, temperatures -ortho f/u -wound cx Thank you for this consultation. Will continue to follow along with you. Discussed with Chelsey Luu M.D. Apr 03, 2019 17:07
[2019-04-03] MEDS ORDERED: fentaNYL 100 mcg/2 mL IV ONE (17:30)
--- NOTE | 2019-04-03 17:30 | History and Physical Report ---
DATE OF ADMISSION: 04/03/2019 CHIEF COMPLAINT: Right knee pain and swelling. HISTORY OF PRESENT ILLNESS: This is an 83-year-old female with a past medical history significant for hypertension, dyslipidemia, bipolar disorder, gastritis, and chronic diarrhea, who has presented to the hospital as per request by Dr. Luna after complaining about right knee pain. The patient recently underwent right knee replacement surgery on March 25, 2019 about a week ago. The patient said that she has been treated with Keflex and stopped the medication due to the diarrhea and was switched to the Augmentin. Her status is progressively worsening and pain became severe 02/24 in intensity and shortly after discussion with Dr. Luna, the patient was advised to come to the hospital for further evaluation, possible incision and drainage, and wash and culture from the right knee and the patient subsequently was admitted to the hospital with septic arthritis of the right knee. PAST MEDICAL HISTORY/PAST SURGICAL HISTORY: As above. History of hypertension, dyslipidemia, bipolar disorder, history of gastritis, chronic diarrhea, colonoscopy in the past, and recent right knee arthroplasty. MEDICATIONS AT HOME: Significant for atorvastatin 20 mg daily, baclofen 10 mg twice a day as needed for cramps, Cozaar 100 mg daily, Baclofen topical cream 1%, melatonin 10 mg daily, metoprolol 25 mg twice a day, Pepto-Bismol as needed, Seroquel 100 mg daily, vitamin D 2000 IU daily, and Pepcid 20 mg twice a day. Medication. ALLERGIES: Gabapentin as well as lithium. SOCIAL HISTORY: The patient denies any smoking, alcohol, or drugs. FAMILY HISTORY: Noncontributory except her grandmother had a history of diabetes. REVIEW OF SYSTEMS: Mostly as above. Denies any dysuria, frequency, or hematuria. Denies any hemoptysis or hematochezia. diarrhea, chronic. Denies any loss of consciousness. Denies any fall or head trauma. Denies any knee injury. PHYSICAL EXAMINATION: VITAL SIGNS: On admission from the ER, temperature 98.1, pulse of 68, respirations 18, and blood pressure 133/67. GENERAL: The patient is awake, responsive, and in no acute distress. HEAD AND NECK: Pupils are reactive to light. Extraocular movements are intact. NECK: Supple. No JVD. LUNGS: Good air entry. No wheezing or rales. HEART: Reveals S1, S2. Regular rhythm. No gallops. ABDOMEN: Soft, nondistended, and nontender. Mildly obese. EXTREMITIES: No cyanosis, clubbing, or edema. The patient's right knee has a surgical site, tender to touch, mildly edematous, plus fluid shift edema NEUROLOGIC: Cranial nerves II through XII are grossly intact. The patient is moving all her extremities except the right lower extremity. RECTAL/GENITOURINARY: Refused and deferred. PSYCHIATRIC: Mood and affect is intact. LABORATORY DATA: On admission, WBC of 7.6, hemoglobin 11, hematocrit 34, and platelets is 251,000. ESR is 23. Sodium 141, potassium 4.2, chloride is 106, bicarb 27, BUN 26, creatinine 1.1, and glucose is 112. Lactic acid is 1.2. Total bilirubin of 0.8. AST of 21 and ALT of 23. Troponin 0.00. CRP less than 0.4. BNP of 547. Urinalysis, +2 blood, +3 leukocytes, 2 to 4 rbc, and 15 to 20 wbc. A chest x-ray showed no radiographic evidence of acute cardiopulmonary disease. No significant interval changes from the prior examination of October 20, 2018. X-ray of the right knee showed that the unicondylar knee arthroplasty without evidence of the hardware related complication, degenerative changes of the patellofemoral, as well as lateral femoral tibial compartment. No acute fracture. EKG was noted to be atrial flutter with 5:1 first-degree AV conduction, no ST elevation. ASSESSMENT: 1. Right knee septic arthritis. 2. Hypertension. 3. Dyslipidemia. 4. Morbid obesity. 5. Atrial flutter with 5:1 block. 6. History of bipolar disorder. 7. Chronic diarrhea. 8. Gastritis. PLAN: Admit the patient to medical floor. We will follow up with Dr. Luna recommendation. I will start the patient on IV hydration and NPO. Resume home medication. Code status is Full Code. DVT prophylaxis with heparin subcutaneous. We will follow up with a broad-spectrum antibiotic with cefepime and vancomycin. Continue consultation with Dr. Luna from the Orthopedics and Dr. Sybil Paz from ID. We will monitor laboratory as well as culture postoperatively. Brad Manuel M.D. DR: MARYAM JOB#: [id number] CC:
[2019-04-03] MEDS ORDERED: Propofol 200mg/20ml IV ONE (17:36)
[2019-04-03] MEDS ORDERED: Lidocaine 1% MPF 10mg/ml 5ml ONE (17:36)
--- NOTE | 2019-04-03 17:57 | Pre-Procedure Note/Attestation ---
Pre-Procedure Note/Attestation Complete Prior to Procedure Planned Procedure: right Procedure Narrative: knee incision and drainage and revision od tibial component Indications for Procedure Pre-Operative Diagnosis: right knee possible septic joint s/p uka Attestation I attest that I discussed the nature of the procedure; its benefits; risks and complications; and alternatives (and the risks and benefits of such alternatives ), prior to the procedure, with the patient (or the patient's legal territory sales representative). I attest that, if there was a reasonable possibility of needing a blood transfusion, the patient (or the patient's legal territory sales representative) was given the [facility] standardized written summary, pursuant to the [place] Blood Safety Act ([place] Health and Safety Code # 1645, as amended). I attest that I re-evaluated the patient just prior to the surgery and that there has been no change in the patient's H&P, except as documented below: Julian Luna MD Apr 03, 2019 17:56
[2019-04-03] MEDS ORDERED: NS Irrig 4000ml IRRIG ONE (18:00)
[2019-04-03] MEDS ORDERED: NS Irrig 1000ml ONE (18:00)
[2019-04-03] MEDS ORDERED: HYDROcodone/Acetamin 5/325 tab ORAL PRN (18:00)
[2019-04-03] MEDS ORDERED: Sterile Water Irrig 1000ml IRRIG ONE (18:00)
[2019-04-03] MEDS ORDERED: Cefepime HCl 2 GM in D5W 110 ML IV SCH (18:00)
[2019-04-03] MEDS ORDERED: HYDROcodone/Acetamin 7.5/325 tab ORAL PRN (18:02)
--- NOTE | 2019-04-03 18:06 | Operative Note - PDOC ---
Operative Note Operative Note Pre-op Diagnosis: right knee possible septic joint s/p uka Procedure: see op report Post-op Diagnosis: same as pre-op plus Operative Findings: consistent w/pre-op dx studies Anesthesia: general Specimen: yes Complications: none Condition: stable Estimated Blood Loss: none Drains: none Implant(s) used?: Yes Julian Luna MD Apr 03, 2019 18:06
--- NOTE | 2019-04-03 18:13 | NUR ---
NURSE NOTES: Patient off unit for surgery.
[2019-04-03] MEDS ORDERED: Vancomycin 1gm vial IVPB ONE (18:37)
--- NOTE | 2019-04-03 18:40 | Anethesia Preoperative Eval ---
Anesthesia Pre-op PMH/ROS General Date of Evaluation: Apr 03, 2019 Time of Evaluation: 14:50 Anesthesiologist: Matt ASA Score: ASA 3 Mallampati Score Class I : Soft palate, uvula, fauces, pillars visible Class II: Soft palate, uvula, fauces visible Class III: Soft palate, base of uvula visible Class IV: Only hard plate visible Mallampati Classification: Class II Surgeon: Jeremy Diagnosis: Infected R knee Surgical Procedure: I&D of R knee Anesthesia History: none Family History: no anesthesia problems Allergies: Coded Allergies: GABAPENTIN (Verified Allergy, Unknown, 05/27/17) LITHIUM (Verified Allergy, Unknown, 05/27/17) Medications: see eMAR Patient NPO?: Yes Past Medical History Cardiovascular: Reports: HTN; Denies: CAD, PA, valve dz, arrhythmia, other Pulmonary: Denies: asthma, COPD, WILFRED, other Gastrointestinal/Genitourinary: Reports: GERD Neurologic/Psychiatric: Reports: depression/anxiety, other - bipolar disorder; Denies: dementia, CVA, TIA Endocrine: Reports: hypothyroidism; Denies: DM, steroids, other HEENT: Denies: cataract (L), cataract (R), glaucoma, VIEJAS (L), VIEJAS (R), other Hematology/Immune: Reports: anemia - mild; Denies: DVT, bleeding disorder, other Musculoskeletal/Integumentary: Reports: DJD; Denies: OA, RA, DDD, edema, other PMH Narrative: as above PSxH Narrative: see chart Anesthesia Pre-op Phys. Exam Physician Exam Last Vital Signs Date Time Temp Pulse Resp B/P (MAP) Pulse Ox O2 Delivery O2 Flow Rate FiO2 04/03/19 16:00 99.2 58 17 92/60 (71) 99 04/03/19 12:19 Room Air Constitutional: NAD Neurologic: CN 2-12 intact Cardiovascular: RRR, no M/R/G Respiratory: CTA Airway Exam Mallampati Score: Class II MO: limited Neck: stiff ROM: limited Teeth: missing Dentures: upper, lower Anesthesia Pre-op A/P Labs Hematology Test 04/03/19 09:15 White Blood Count 7.6 K/UL (4.8-10.8) Red Blood Count 3.86 M/UL (4.20-5.40) L Hemoglobin 11.5 G/DL (12.0-16.0) L Hematocrit 34.5 % (37.0-47.0) L Mean Corpuscular Volume 89 FL (80-99) Mean Corpuscular Hemoglobin 29.8 PG (27.0-31.0) Mean Corpuscular Hemoglobin Concent 33.3 G/DL (32.0-36.0) Red Cell Distribution Width 13.1 % (11.6-14.8) Platelet Count 251 K/UL (150-450) Mean Platelet Volume 4.9 FL (6.5-10.1) L Neutrophils (%) (Auto) 63.8 % (45.0-75.0) Lymphocytes (%) (Auto) 18.8 % (20.0-45.0) L Monocytes (%) (Auto) 8.2 % (1.0-10.0) Eosinophils (%) (Auto) 7.7 % (0.0-3.0) H Basophils (%) (Auto) 1.5 % (0.0-2.0) Erythrocyte Sedimentation Rate 23 MM/HR (0-30) Coagulation Test 04/03/19 09:15 Prothrombin Time 11.2 SEC (9.30-11.50) Prothromb Time International Ratio 1.1 (0.9-1.1) Activated Partial Thromboplast Time 21 SEC (23-33) L Chemistry Test 04/03/19 09:15 Sodium Level 141 MMOL/L (136-145) Potassium Level 4.2 MMOL/L (3.5-5.1) Chloride Level 106 MMOL/L (98-107) Carbon Dioxide Level 27 MMOL/L (21-32) Anion Gap 8 mmol/L (5-15) Blood Urea Nitrogen 26 mg/dL (7-18) H Creatinine 1.1 MG/DL (0.55-1.30) Estimat Glomerular Filtration Rate mL/min (>60) Glucose Level 112 MG/DL (74-106) H Lactic Acid Level 1.20 mmol/L (0.4-2.0) Calcium Level 9.1 MG/DL (8.5-10.1) Total Bilirubin 0.8 MG/DL (0.2-1.0) Aspartate Amino Transf (AST/SGOT) 21 U/L (15-37) Alanine Aminotransferase (ALT/SGPT) 23 U/L (12-78) Alkaline Phosphatase 91 U/L (46-116) Total Creatine Kinase 89 U/L (26-308) Troponin I 0.000 ng/mL (0.000-0.056) C-Reactive Protein, Quantitative < 0.4 mg/dL (0.00-0.90) Pro-B-Type Natriuretic Peptide 547 pg/mL (0-125) H Total Protein 6.8 G/DL (6.4-8.2) Albumin 3.4 G/DL (3.4-5.0) Globulin 3.4 g/dL Albumin/Globulin Ratio 1.0 (1.0-2.7) Lipase 197 U/L (73-393) Studies Pre-op Studies: EKG - R Risk Assessment & Plan Assessment: ASA 3 Plan: GA with LMA Status Change Before Surgery: No Pre-Antibiotics Drug: Ancef 1gr. Given Within 1 Hr of Incision: Yes Time Given: 18:20 Edmundo Gutierrez MD Apr 03, 2019 18:40
[2019-04-03] MEDS ORDERED: Ketorolac 30mg Inj IV PRN (18:45)
[2019-04-03] MEDS ORDERED: DiphenhydrAMINE 50mg/ml Inj IVP PRN (18:45)
--- NOTE | 2019-04-03 18:45 | Consultation ---
DATE OF CONSULTATION: 04/03/2019 CONSULTING PHYSICIAN: Julian Luna M.D. HISTORY OF PRESENT ILLNESS: I was contacted by the son who noted that she still had drainage. Subsequently to her partial knee replacement, she was doing well. She had some drainage, which stopped that subsequently reoccurred. She was started on some oral antibiotics and developed slight loose stools and therefore after 3 days of the antibiotic, she stopped taking it. She was doing well, but she had persistent drainage serous drainage along the incision site. Therefore, I was contacted. I discussed with her that given the fact that she has this persistent drainage, we have to consider possibility of septic joint and asked him to bring his mother in for an admission and I and D of the knee and exchange of the tibial insert. PAST MEDICAL HISTORY: Reviewed from the intake chart. SURGICAL HISTORY: Reviewed from the intake chart. MEDICATIONS: Reviewed from the intake chart. PHYSICAL EXAMINATION: GENERAL: The patient is alert, oriented, resting comfortably on exam bed. EXTREMITIES: Right knee incision is clean, dry, intact with serous drainage. Posterior calf is soft. Neurovascular exam is normal. ASSESSMENT: Status post right partial knee arthroplasty, possible septic joint. DISCUSSION: At this point, what we are going to do is go ahead and proceed with incision and drainage and exchange of the tibial insert. We will go ahead and take intraoperative cultures and then see how she does from clinical point of view going forward. We like to monitor for potential C. difficile given that she did have some loose bowels previously. Based on the cultures, further recommendations can be made. Julian Luna M.D. DR: KIMBERLY JOB#: [id number] CC:
--- NOTE | 2019-04-03 19:24 | NUR ---
HAND-OFF: Report given to AMADA Oliva.
--- NOTE | 2019-04-03 19:40 | Immediate Post-Op Evaluation ---
Immediate Post-Op Evalulation Immediate Post-Op Evalulation Procedure: R knee I&D change of a liner Date of Evaluation: Apr 03, 2019 Time of Evaluation: 19:38 IV Fluids: 400 Blood Products: none Estimated Blood Loss: 50 Urinary Output: 750 Blood Pressure Systolic: 145 Blood Pressure Diastolic: 68 Pulse Rate: 58 Respiratory Rate: 20 O2 Sat by Pulse Oximetry: 98 Temperature (Fahrenheit): 97.5 Pain Score (1-10): 2 Nausea: No Vomiting: No Complications none Patient Status: awake, patent, none Hydration Status: adequate Edmundo Gutierrez MD Apr 03, 2019 19:40
[2019-04-03] MEDS: fentaNYL 100 mcg/2 mL IV PRN ×2 (19:42→20:17)
--- NOTE | 2019-04-03 20:15 | Operative Note - Dictated ---
DATE OF OPERATION: 04/03/2019 PREOPERATIVE DIAGNOSIS: Right possible septic joint, status post partial unicompartmental knee replacement. POSTOPERATIVE DIAGNOSIS: Right possible septic joint, status post partial unicompartmental knee replacement. PROCEDURES: 1. Revision of right partial knee replacement, tibial insert. 2. Incision and drainage, right knee. 3. Complex closure measuring 5 cm. SURGEON: Julian Luna M.D. ANESTHESIA: General. INDICATION FOR PROCEDURE: The patient is an 83-year-old female, approximately a month ago underwent a partial knee replacement. Subsequently, she had some serous drainage, which persisted, failed to stop drainage with oral antibiotics and therefore elected to undergo possible workup and treatment for possible septic joint. Risks, limitations, expectations, complications of procedure were discussed in detail including continued infection, nerve vessel damage, risk of anesthesia, medical complications, DVT, PE, and mortality risks. All questions addressed. DESCRIPTION OF PROCEDURE: After informed consent was obtained, the patient was brought to the operating room. The patient was placed under general anesthesia. Tourniquet was applied proximal thigh. Right leg was prepped and draped in a sterile manner. Time-out was performed. Previous skin incision was incised and cultures in the subcutaneous tissue were obtained. The previous arthrotomy site was identified. Arthrotomy was performed. Synovial fluid was sent off for analysis. look grossly purulent. Once the cultures were obtained, Ancef was administered. Once that was done, the tibial insert was removed. At this point, some synovial tissue was sent off for additional specimens. At this point, 9 liters of bacitracin irrigation was then used to irrigate the knee. Once this was done, the same sized tibial insert was reimplanted and secured. Attention turned towards closure. There was significant fraying of the tissue. The knee bent at 90, then arthrotomy site subcutaneous tissue skin was closed. Compression dressing was applied. The patient was awoken and taken to recovery room with stable vital signs. ESTIMATED BLOOD LOSS: None. COMPLICATIONS: None. SPECIMENS: 1. Right knee synovial fluid. 2. Right knee synovial tissue. IMPLANTS: A size 4 x 8 mm poly. Julian Luna M.D. DR: HARRIET JOB#: [id number] CC:
--- NOTE | 2019-04-03 20:50 | NUR ---
NURSE NOTES: Patient in bed, awake, alert and verbally responsive. Able to make needs known. Respiration is even and unlabored. IV site noted. Noted with belongings at bedside. Dentures noted on the cup. patient noted with knee immobilizer. Ice pack on the knee. Dressing intact. Will reassess patient. Call light is at bedside.
[2019-04-03] MEDS: Heparin 5000 units/ml inj SUBQ SCH (21:00)
[2019-04-03] MEDS: Morphine Sulfate 2mg/ml Inj(IV/IM USE ONLY) IVP PRN (21:31)
[2019-04-03] MEDS: D5 1/2NS w/KCl 20mEq 1,000 ML IV SCH (21:57)
[2019-04-03] MEDS: Acetaminophen 500mg (ES) tab ORAL SCH (21:58)
[2019-04-03] MEDS: Metoprolol 25mg tab ORAL SCH (21:58)
[2019-04-03] MEDS: ceFAZolin sod 1 GM in D5W 55 ML IV SCH (23:24)
[2019-04-04] VITALS: BP 154/97
[2019-04-04] MEDS ORDERED: Vancomycin 1 GM in D5W 275 ML IV SCH (00:30)
[2019-04-04] MEDS: Vancomycin 750mg/NS 275ml IVPB SCH ×4 (02:10→15:45)
[2019-04-04 04:00] VITALS: BP 107/61
[2019-04-04] MEDS: Morphine Sulfate 2mg/ml Inj(IV/IM USE ONLY) IVP PRN ×2 (04:33→15:05)
--- NOTE | 2019-04-04 04:56 | NUR ---
NURSE NOTES: patient concerned about the right knee because patient thinks its infected again, explained to the patient that she just had the surgery and shes getting antibiotics. Patient noted that she does not want to listen to the information to be given, Charge nurse made aware. Patient is awake, alert x 4. Patient also was given PRn pain medication IVP.
[2019-04-04] MEDS: ceFAZolin sod 1 GM in D5W 55 ML IV SCH ×3 (05:07→21:53)
[2019-04-04] MEDS: Acetaminophen 500mg (ES) tab ORAL SCH ×3 (05:24→21:51)
--- NOTE | 2019-04-04 06:37 | NUR ---
NURSE NOTES: Received PRN medication from Primary MD for muscle spasm. Noted and carried out.
[2019-04-04 06:57] LABS: ALANINE AMINOTRANSFERASE 19 U/L (12-78); ALBUMIN 2.8 G/DL (3.4-5.0); ALKALINE PHOSPHATASE 73 U/L (46-116); ANION GAP 8 mmol/L (5-15); ASPARTATE AMINO TRANSFERASE 20 U/L (15-37); BILIRUBIN,TOTAL 0.5 MG/DL (0.2-1.0); BLOOD UREA NITROGEN 20 mg/dL (7-18); CARBON DIOXIDE 24 MMOL/L (21-32); CHLORIDE 108 MMOL/L (98-107); CREATININE 1.1 MG/DL (0.55-1.30); POTASSIUM 4.5 MMOL/L (3.5-5.1); SODIUM 140 MMOL/L (136-145)
[2019-04-04 07:14] LABS: BASOPHILS % (AUTO) 0.8 % (0.0-2.0); EOSINOPHILS % (AUTO) 6.3 % (0.0-3.0); HEMATOCRIT 29.8 % (37.0-47.0); HEMOGLOBIN 9.8 G/DL (12.0-16.0); LYMPHOCYTES % (AUTO) 19.1 % (20.0-45.0); MEAN CORPUSCULAR VOLUME 90 FL (80-99); MONOCYTES % (AUTO) 10.4 % (1.0-10.0); NEUTROPHILS % (AUTO) 63.4 % (45.0-75.0); PLATELET COUNT 220 K/UL (150-450); RED CELL DISTRIBUTION WIDTH 12.5 % (11.6-14.8); WHITE BLOOD COUNT 7.4 K/UL (4.8-10.8)
--- NOTE | 2019-04-04 07:14 | NUR ---
HAND-OFF: Report given to Dafne Garrison.
--- NOTE | 2019-04-04 07:15 | NUR ---
NURSE NOTES: Received report from AMADA Oliva. Pt is A/Ox4, anxious about the dressing saturated with blood. RN educated pt that it is normal after since she s/p procedure on her Right knee. Pt is on RA, IV site intact and running fluids. No apparent distress noted at the moment. Bed locked in lowest position, side rails up, call light within reach. Will continue to monitor.
[2019-04-04 08:00] VITALS: BP 112/61
--- NOTE | 2019-04-04 08:44 | Pulmonology Progress Note ---
Assessment/Plan Problems: (1) Septic arthritis (2) Bipolar depression (3) HTN (hypertension) Assessment/Plan doing better continue abx f/u cultures pain management Subjective ROS Limited/Unobtainable: No Constitutional: Reports: no symptoms Respiratory: Reports: no symptoms Cardiovascular: Reports: no symptoms Allergies: Coded Allergies: GABAPENTIN (Verified Allergy, Unknown, 05/27/17) LITHIUM (Verified Allergy, Unknown, 05/27/17) Objective Last 24 Hour Vital Signs Date Time Temp Pulse Resp B/P (MAP) Pulse Ox O2 Delivery O2 Flow Rate FiO2 04/04/19 07:35 67 16 95 Room Air 21 04/04/19 04:00 97.7 70 18 107/61 (76) 94 04/04/19 00:00 98.7 75 18 154/97 (116) 96 04/03/19 21:58 66 143/100 04/03/19 21:00 Room Air 04/03/19 20:25 98.1 57 13 154/68 100 Nasal Cannula 3 04/03/19 20:17 63 11 168/75 100 Nasal Cannula 3 04/03/19 20:00 98.0 66 18 143/100 (114) 94 04/03/19 19:52 52 11 153/60 100 Nasal Cannula 3 04/03/19 19:42 53 13 149/61 100 Nasal Cannula 3 04/03/19 19:40 58 20 98 04/03/19 19:39 53 18 145/60 99 Nasal Cannula 3 04/03/19 19:34 97.1 56 20 150/68 99 Simple Mask 6 04/03/19 16:00 99.2 58 17 92/60 (71) 99 04/03/19 12:19 Room Air 04/03/19 12:00 98.6 90 18 121/80 (94) 100 04/03/19 11:30 99.0 58 18 128/68 100 Room Air 04/03/19 09:58 58 18 Room Air 04/03/19 09:58 99.0 58 18 128/68 100 Room Air Intake and Output 04/03/19 04/04/19 19:00 07:00 Intake Total 1860.000 ml Output Total 30 ml 1700 ml Balance -30 ml 160.000 ml Intake Oral 500 ml IV Total 1360.000 ml Output Urine Total 30 ml 1650 ml Estimated Blood Loss 50 ml # Voids 1 # Bowel Movements 1 General Appearance: WD/WN HEENT: normocephalic, atraumatic Respiratory/Chest: chest wall non-tender, lungs clear Abdomen: normal bowel sounds, no organomegaly, no scars Neurologic/Psychiatric: lab head II-XII grossly normal Microbiology Date/Time Source Procedure Growth Status 04/03/19 10:00 Urine,Clean Catch Urine Culture - Preliminary Mixed Gram Positive Organism Resulted Laboratory Tests 04/03/19 09:15: White Blood Count 7.6, Red Blood Count 3.86L, Hemoglobin 11.5L, Hematocrit 34.5L , Mean Corpuscular Volume 89, Mean Corpuscular Hemoglobin 29.8, Mean Corpuscular Hemoglobin Concent 33.3, Red Cell Distribution Width 13.1, Platelet Count 251, Mean Platelet Volume 4.9L, Neutrophils (%) (Auto) 63.8, Lymphocytes ( %) (Auto) 18.8L, Monocytes (%) (Auto) 8.2, Eosinophils (%) (Auto) 7.7H, Basophils (%) (Auto) 1.5, Erythrocyte Sedimentation Rate 23, Prothrombin Time 11.2, Prothromb Time International Ratio 1.1, Activated Partial Thromboplast Time 21L, Sodium Level 141, Potassium Level 4.2, Chloride Level 106, Carbon Dioxide Level 27, Anion Gap 8, Blood Urea Nitrogen 26H, Creatinine 1.1, Estimat Glomerular Filtration Rate , Glucose Level 112H, Lactic Acid Level 1.20, Calcium Level 9.1, Total Bilirubin 0.8, Aspartate Amino Transf (AST/SGOT) 21, Alanine Aminotransferase (ALT/SGPT) 23, Alkaline Phosphatase 91, Total Creatine Kinase 89, Troponin I 0.000, C-Reactive Protein, Quantitative < 0.4, Pro-B-Type Natriuretic Peptide 547H, Total Protein 6.8, Albumin 3.4, Globulin 3.4, Albumin/ Globulin Ratio 1.0, Lipase 197 04/03/19 10:00: Urine Color Pale yellow, Urine Appearance Slightly cloudy, Urine pH 6, Urine Specific [place] 1.010, Urine Protein Negative, Urine Glucose (UA) Negative, Urine Ketones Negative, Urine Blood 2+H, Urine Nitrite Negative, Urine Bilirubin Negative, Urine Urobilinogen Normal, Urine Leukocyte Esterase 3+H, Urine RBC 2-4H, Urine WBC 15-20H, Urine Squamous Epithelial Cells Few, Urine Bacteria Few 04/04/19 05:40: White Blood Count 7.4, Red Blood Count 3.30L, Hemoglobin 9.8L, Hematocrit 29.8L , Mean Corpuscular Volume 90, Mean Corpuscular Hemoglobin 29.7, Mean Corpuscular Hemoglobin Concent 32.9, Red Cell Distribution Width 12.5, Platelet Count 220, Mean Platelet Volume 5.1L, Neutrophils (%) (Auto) 63.4, Lymphocytes ( %) (Auto) 19.1L, Monocytes (%) (Auto) 10.4H, Eosinophils (%) (Auto) 6.3H, Basophils (%) (Auto) 0.8, Sodium Level 140, Potassium Level 4.5, Chloride Level 108H, Carbon Dioxide Level 24, Anion Gap 8, Blood Urea Nitrogen 20H, Creatinine 1.1, Estimat Glomerular Filtration Rate , Glucose Level 84, Calcium Level 8.0L, Total Bilirubin 0.5, Aspartate Amino Transf (AST/SGOT) 20, Alanine Aminotransferase (ALT/SGPT) 19, Alkaline Phosphatase 73, Total Protein 5.6L, Albumin 2.8L, Globulin 2.8, Albumin/Globulin Ratio 1.0 Current Medications Medications (Trade) Dose Ordered Sig/Caryl Route PRN Reason Start Time Stop Time Status Last Admin Dose Admin Acetaminophen (Tylenol) 650 mg Q4H PRN ORAL fever 04/03/19 14:00 05/03/19 13:59 Acetaminophen (Tylenol) 1,000 mg Q8HR ORAL 04/03/19 22:00 05/03/19 21:59 04/04/19 05:24 Acetaminophen/ Hydrocodone Bitart ([place] 5/325) 2 tab Q4H PRN ORAL pain scores 4-10 04/03/19 18:00 04/10/19 17:59 Acetaminophen/ Hydrocodone Bitart ([place] 7.5/325) 1 tab Q4H PRN ORAL Mild Pain (Pain Scale 1-3) 04/03/19 18:02 04/10/19 18:01 Albuterol/ Ipratropium (Albuterol/ Ipratropium) 3 ml Q4H PRN HHN Shortness of Breath 04/03/19 14:00 04/08/19 13:59 Baclofen (Lioresal) 10 mg BID ORAL 04/03/19 18:00 05/03/19 17:59 Baclofen (Lioresal) 10 mg Q8H PRN ORAL Muscle Spasm 04/04/19 06:36 05/04/19 06:35 Cefazolin Sodium 1 gm/Dextrose 55 ml @ 110 mls/hr EVERY 8 HOURS IV 04/03/19 23:00 04/10/19 22:59 04/04/19 05:07 Celecoxib (CeleBREX) 200 mg DAILY ORAL 04/04/19 09:00 05/04/19 08:59 Dextrose (Dextrose 50%) 25 ml Q30M PRN IV Hypoglycemia 04/03/19 14:00 05/03/19 13:59 Dextrose (Dextrose 50%) 50 ml Q30M PRN IV Hypoglycemia 04/03/19 14:00 05/03/19 13:59 Dextrose/ Electrolytes 1,000 ml @ 75 mls/hr [id number] IV 04/03/19 22:00 05/03/19 21:59 04/03/19 21:57 Gabapentin (Neurontin) 100 mg THREE TIMES A DAY ORAL 04/03/19 18:00 05/03/19 17:59 UNV Heparin Sodium (Porcine) (Heparin 5000 units/ml) 5,000 units EVERY 12 HOURS SUBQ 04/03/19 21:00 05/03/19 20:59 Losartan Potassium (Cozaar) 100 mg DAILY ORAL 04/04/19 09:00 05/04/19 08:59 Metoprolol Tartrate (Lopressor) 25 mg EVERY 12 HOURS ORAL 04/03/19 21:00 05/03/19 20:59 04/03/19 21:58 Morphine Sulfate (Morphine Sulfate) 1 mg Q4H PRN IVP Mild Pain (Pain Scale 1-3) 04/03/19 18:02 04/10/19 18:01 04/04/19 04:33 Nitroglycerin (Ntg) 0.4 mg Q5M PRN SL Prn Chest Pain 04/03/19 14:00 05/03/19 13:59 Ondansetron HCl (Zofran) 4 mg Q6H PRN IVP Nausea & Vomiting 04/03/19 14:00 05/03/19 13:59 Polyethylene Glycol (Miralax) 17 gm DAILYPRN PRN ORAL Constipation 04/03/19 14:00 05/03/19 13:59 Quetiapine Fumarate (SEROquel) 100 mg DAILY ORAL 04/04/19 09:00 05/04/19 08:59 Temazepam (Restoril) 7.5 mg HSPRN PRN ORAL Insomnia 04/03/19 18:00 04/10/19 17:59 04/04/19 01:37 Vancomycin HCl (Vanco rx to dose) 1 ea DAILY PRN MISC . 04/03/19 14:00 05/03/19 13:59 Vancomycin HCl 750 mg/Sodium Chloride 275 ml @ 183.333 mls/hr Q12HR@0300,1500 IVPB 04/03/19 15:00 04/08/19 14:59 04/04/19 02:10 Christ Vallejo MD Apr 04, 2019 08:44
[2019-04-04] MEDS: celeBREX 200mg Cap **SURGERY PATIENTS ONLY ORAL SCH (08:57)
[2019-04-04] MEDS: Losartan 50mg tab ORAL SCH (09:00)
[2019-04-04] MEDS: Heparin 5000 units/ml inj SUBQ SCH ×2 (09:00→21:56)
[2019-04-04] MEDS: Metoprolol 25mg tab ORAL SCH ×2 (09:00→21:52)
--- NOTE | 2019-04-04 09:16 | NUR ---
NURSE NOTES: PT AXOX4, COMPLAINS OF MUSCLE SPASMS AND PAIN OF RIGHT KNEE. RN ADMINISTERED SCHEDULED BACLOFEN AND CELEBREX FOR 0900HRS. EDUCATED ON AVAILABLE PRN MEDICATIONS FOR PAIN. PT VERBALIZED UNDERSTANDING. DR DONNIE HOWELL AT BEDSIDE, SUGGESTS TO CALL DR GARCIA REGARDING DRAINAGE OF SURGICAL DRESSING AND KEEP KNEE IMMOBILIZER LOOSE. RN LEFT MESSAGE FOR DR Yenifer GARCIA REGARDING SATURATED DRESSING 75% WITH SERO-SANG DRAINAGE.
--- NOTE | 2019-04-04 09:21 | 48 Hour Post Anesthesia Eval ---
Post Anesthesia Evaluation Procedure: R knee I&D change of a liner Date of Evaluation: Apr 04, 2019 Time of Evaluation: 09:17 Blood Pressure Systolic: 116 0: 74 Pulse Rate: 70 Respiratory Rate: 20 Temperature (Fahrenheit): 97.6 O2 Sat by Pulse Oximetry: 98 Airway: patent Nausea: No Vomiting: No Pain Intensity: 3 Hydration Status: adequate Cardiopulmonary Status: stable Mental Status/LOC: patient returned to baseline Follow-up Care/Observations: condition stable, alert, follows commands, moderate swelling of soft tissues around R knee, dressing tainted with some pinkish fluid, no active discharge. Post-Anesthesia Complications: none Follow-up care needed: N/A Edmundo Gutierrez MD Apr 04, 2019 09:21
--- NOTE | 2019-04-04 10:45 | NUR ---
PT Note Attempted to see patient for eval and treatment but patient adamantly refused. RN and CN attempted to encourage patient to participate with PT but still refused. Patient also refused to have the CPM set up on the RLE.
--- NOTE | 2019-04-04 10:50 | NUR ---
NURSE NOTES: CRN RECEIVED ORDERS FOR SURGICAL DRESSING CHANGE. RN AND PHYSICAL THERAPIST ANJELICA AT BEDSIDE WITH PT. PT IS REFUSING CPM AND EXERCISES. PHYSICAL THERAPIST, RN, AND CRN ATTEMPTED TO EDUCATE PT ON NECESSITY OF STARTING PHYSICAL THERAPY. PT SCREAMS "NO! NO! NO! I CANNOT WALK RIGHT NOW! I'M WAITING FOR MY SON!". PT IS ALERT AND ORIENTED X4.
[2019-04-04] MEDS: D5 1/2NS w/KCl 20mEq 1,000 ML IV SCH (11:08)
--- NOTE | 2019-04-04 11:30 | NUR ---
NURSE NOTES: RN CHANGED SURGICAL DRESSING ORDERED BY DR GARCIA. CLEANSED WITH NS, PAT DRY, APPLIED DRY GAUZE AND SECURED WITH TEGADERM. INCISION LINE CLEAN, NO S/S INFECTION. SERO-SANG DRAINAGE COMING FROM SUPERIOR PORTION OF SURGICAL WOUND. KNEE IMMOBILIZER APPLIED AFTER DRESSING CHANGE. PT CRYING BUT REFUSES MORPHINE FOR PAIN. WILL CONTINUE TO MONITOR.
[2019-04-04 12:00] VITALS: BP 102/49
--- NOTE | 2019-04-04 14:00 | NUR ---
NURSE NOTES: PT REFUSING TO PUT ON RIGHT KNEE IMMOBILIZER. PT EDUCATED IT IS VERY IMPORTANT TO HEALING PROCESS AND RN HAD TO EXTENSIVELY PERSUADE PT TO KEEP IMMOBILIZER ON. PT ATTEMPTS TO REMOVE IMMOBILIZER.
--- NOTE | 2019-04-04 14:16 | Internal Med Progress Note ---
Subjective Date of Service: Apr 04, 2019 Physician Name García Rodrigues Attending Physician Brad Manuel MD Current Medications Medications (Trade) Dose Ordered Sig/Caryl Route PRN Reason Start Time Stop Time Status Last Admin Dose Admin Acetaminophen (Tylenol) 650 mg Q4H PRN ORAL fever 04/03/19 14:00 05/03/19 13:59 Acetaminophen (Tylenol) 1,000 mg Q8HR ORAL 04/03/19 22:00 05/03/19 21:59 04/04/19 05:24 Acetaminophen/ Hydrocodone Bitart ([place] 5/325) 2 tab Q4H PRN ORAL pain scores 4-10 04/03/19 18:00 04/10/19 17:59 Acetaminophen/ Hydrocodone Bitart ([place] 7.5/325) 1 tab Q4H PRN ORAL Mild Pain (Pain Scale 1-3) 04/03/19 18:02 04/10/19 18:01 Albuterol/ Ipratropium (Albuterol/ Ipratropium) 3 ml Q4H PRN HHN Shortness of Breath 04/03/19 14:00 04/08/19 13:59 Baclofen (Lioresal) 10 mg BID ORAL 04/03/19 18:00 05/03/19 17:59 04/04/19 08:57 Baclofen (Lioresal) 10 mg Q8H PRN ORAL Muscle Spasm 04/04/19 06:36 05/04/19 06:35 Cefazolin Sodium 1 gm/Dextrose 55 ml @ 110 mls/hr EVERY 8 HOURS IV 04/03/19 23:00 04/10/19 22:59 04/04/19 05:07 Celecoxib (CeleBREX) 200 mg DAILY ORAL 04/04/19 09:00 05/04/19 08:59 04/04/19 08:57 Dextrose (Dextrose 50%) 25 ml Q30M PRN IV Hypoglycemia 04/03/19 14:00 05/03/19 13:59 Dextrose (Dextrose 50%) 50 ml Q30M PRN IV Hypoglycemia 04/03/19 14:00 05/03/19 13:59 Dextrose/ Electrolytes 1,000 ml @ 75 mls/hr [id number] IV 04/03/19 22:00 05/03/19 21:59 04/04/19 11:08 Gabapentin (Neurontin) 100 mg THREE TIMES A DAY ORAL 04/03/19 18:00 05/03/19 17:59 UNV Heparin Sodium (Porcine) (Heparin 5000 units/ml) 5,000 units EVERY 12 HOURS SUBQ 04/03/19 21:00 05/03/19 20:59 04/04/19 09:00 Losartan Potassium (Cozaar) 100 mg DAILY ORAL 04/04/19 09:00 05/04/19 08:59 Metoprolol Tartrate (Lopressor) 25 mg EVERY 12 HOURS ORAL 04/03/19 21:00 05/03/19 20:59 04/03/19 21:58 Morphine Sulfate (Morphine Sulfate) 1 mg Q4H PRN IVP Mild Pain (Pain Scale 1-3) 04/03/19 18:02 04/10/19 18:01 04/04/19 04:33 Nitroglycerin (Ntg) 0.4 mg Q5M PRN SL Prn Chest Pain 04/03/19 14:00 05/03/19 13:59 Ondansetron HCl (Zofran) 4 mg Q6H PRN IVP Nausea & Vomiting 04/03/19 14:00 05/03/19 13:59 Polyethylene Glycol (Miralax) 17 gm DAILYPRN PRN ORAL Constipation 04/03/19 14:00 05/03/19 13:59 Quetiapine Fumarate (SEROquel) 100 mg DAILY ORAL 04/04/19 09:00 05/04/19 08:59 04/04/19 08:57 Temazepam (Restoril) 7.5 mg HSPRN PRN ORAL Insomnia 04/03/19 18:00 04/10/19 17:59 04/04/19 01:37 Vancomycin HCl (Vanco rx to dose) 1 ea DAILY PRN MISC . 04/03/19 14:00 05/03/19 13:59 Vancomycin HCl 750 mg/Sodium Chloride 275 ml @ 183.333 mls/hr Q12HR@0300,1500 IVPB 04/03/19 15:00 04/08/19 14:59 04/04/19 02:10 Allergies: Coded Allergies: GABAPENTIN (Verified Allergy, Unknown, 05/27/17) LITHIUM (Verified Allergy, Unknown, 05/27/17) ROS Limited/Unobtainable: No Constitutional: Reports: no symptoms HEENT: Reports: no symptoms Cardiovascular: Reports: no symptoms Respiratory: Reports: no symptoms Gastrointestinal/Abdominal: Reports: no symptoms Genitourinary: Reports: no symptoms Neurologic/Psychiatric: Reports: no symptoms Subjective 83 YO F with recent right knee artrhoplasty admitted with right knee pain. Now septic arthritis right knee. Cover for Int [facility]-Dr Manuel. S/P revision right knee replacement and I&D on 04/03/19. Objective Last Vital Signs Date Time Temp Pulse Resp B/P (MAP) Pulse Ox O2 Delivery O2 Flow Rate FiO2 04/04/19 12:00 98.2 79 17 102/49 (66) 95 04/04/19 07:35 Room Air 21 04/03/19 20:25 3 Laboratory Tests Test 04/04/19 05:40 White Blood Count 7.4 K/UL (4.8-10.8) Red Blood Count 3.30 M/UL (4.20-5.40) L Hemoglobin 9.8 G/DL (12.0-16.0) L Hematocrit 29.8 % (37.0-47.0) L Mean Corpuscular Volume 90 FL (80-99) Mean Corpuscular Hemoglobin 29.7 PG (27.0-31.0) Mean Corpuscular Hemoglobin Concent 32.9 G/DL (32.0-36.0) Red Cell Distribution Width 12.5 % (11.6-14.8) Platelet Count 220 K/UL (150-450) Mean Platelet Volume 5.1 FL (6.5-10.1) L Neutrophils (%) (Auto) 63.4 % (45.0-75.0) Lymphocytes (%) (Auto) 19.1 % (20.0-45.0) L Monocytes (%) (Auto) 10.4 % (1.0-10.0) H Eosinophils (%) (Auto) 6.3 % (0.0-3.0) H Basophils (%) (Auto) 0.8 % (0.0-2.0) Sodium Level 140 MMOL/L (136-145) Potassium Level 4.5 MMOL/L (3.5-5.1) Chloride Level 108 MMOL/L (98-107) H Carbon Dioxide Level 24 MMOL/L (21-32) Anion Gap 8 mmol/L (5-15) Blood Urea Nitrogen 20 mg/dL (7-18) H Creatinine 1.1 MG/DL (0.55-1.30) Estimat Glomerular Filtration Rate mL/min (>60) Glucose Level 84 MG/DL (74-106) Calcium Level 8.0 MG/DL (8.5-10.1) L Total Bilirubin 0.5 MG/DL (0.2-1.0) Aspartate Amino Transf (AST/SGOT) 20 U/L (15-37) Alanine Aminotransferase (ALT/SGPT) 19 U/L (12-78) Alkaline Phosphatase 73 U/L (46-116) Total Protein 5.6 G/DL (6.4-8.2) L Albumin 2.8 G/DL (3.4-5.0) L Globulin 2.8 g/dL Albumin/Globulin Ratio 1.0 (1.0-2.7) Microbiology Date/Time Source Procedure Growth Status 04/03/19 10:00 Urine,Clean Catch Urine Culture - Preliminary Mixed Gram Positive Organism Resulted 04/03/19 20:00 Knee Right Gram Stain - Final Resulted 04/03/19 20:00 Knee Right Aerobic Culture Pending Resulted 04/03/19 20:00 Knee Right Anaerobic Culture Pending Resulted 04/03/19 10:00 Knee Right Gram Stain - Final Resulted 04/03/19 10:00 Wound Culture - Preliminary Gram Negative Bacillus 1 Resulted Intake and Output 04/03/19 04/04/19 19:00 07:00 Intake Total 1860.000 ml Output Total 30 ml 1700 ml Balance -30 ml 160.000 ml Intake Oral 500 ml IV Total 1360.000 ml Output Urine Total 30 ml 1650 ml Estimated Blood Loss 50 ml # Voids 1 # Bowel Movements 1 Objective PHYSICAL EXAMINATION: GENERAL: The patient is awake, responsive, and in no acute distress. HEAD AND NECK: Pupils are reactive to light. Extraocular movements are intact. NECK: Supple. No JVD. LUNGS: Good air entry. No wheezing or rales. HEART: Reveals S1, S2. Regular rhythm. No gallops. ABDOMEN: Soft, nondistended, and nontender. Mildly obese. EXTREMITIES: No cyanosis, clubbing, or edema. The patient's right knee has a surgical site, tender to touch, mildly edematous, plus fluid shift edema NEUROLOGIC: Cranial nerves II through XII are grossly intact. The patient is moving all her extremities except the right lower extremity. RECTAL/GENITOURINARY: Refused and deferred. PSYCHIATRIC: Mood and affect is intact. Assessment/Plan Assessment/Plan ASSESSMENT: 1. Right knee septic arthritis. 2. Hypertension. 3. Dyslipidemia. 4. Morbid obesity. 5. Atrial flutter with 5:1 block. 6. History of bipolar disorder. 7. Chronic diarrhea. 8. Gastritis. PLAN: 1. Admit the patient to medical floor. 2. Ortho= Dr. Luna-S/P right knee replacement revision and incision and drainage 04/03/19 3. Code status is Full Code. 4. DVT prophylaxis with heparin subcutaneous. 5. antibiotic= cefepime and vancomycin. 6. Dr. Sybil Paz = Infectious Disease. García Rodrigues MD Apr 04, 2019 14:16
[2019-04-04 16:00] VITALS: BP 114/69
--- NOTE | 2019-04-04 16:03 | NUR ---
NURSE NOTES: RN left a message for Dr. Luna regarding pt's scheduled gabapentin since the pt's allergic to gabapentin. Addendum: 04/04/19 at 1606 by Cynthia Bowers RN Dr. Luna called and said OK to DC gabapentin.
--- NOTE | 2019-04-04 18:39 | NUR ---
NURSE NOTES: AMADA ROLLE LEFT MESSAGE FOR DR GARCIA REGARDING PT REFUSING PHYSICAL THERAPY, REFUSING CPM, REFUSING TO DO EXERCISES. NEED CLARIFICATION FOR REMOVING EVANS CATH WHEN PT IS NOT AMBULATING.
--- NOTE | 2019-04-04 18:45 | NUR ---
NURSE NOTES: SONAKANKSHA BROUGHT LIST OF PT'S HOME MEDICATIONS. RN MADE DR ROCHA AWARE AND RECEIVED ORDERS TO CONTINUE SEROQUEL 200MG PO QHS, ATORVASTATIN 20MG PO QHS, OXYBUTYNIN 5MG PO DAILY, AND VITAMIN D 2,OOO INTERNATIONAL UNITS PO DAILY. ORDERS ENTERED. MED LIST FILED IN PT'S PAPER CHART.
--- NOTE | 2019-04-04 19:30 | NUR ---
NURSE NOTES: Received report from AMADA Garrison. Pt sleeping in bed. On room air. IV site intact and running D5 1/2 with KCL 75cc/hr. I/S is at bedside. No acute distress noted at this time. Bed locked, lowest position, alarm on, side rails up x 2, call light within reach. Will continue to monitor.
--- NOTE | 2019-04-04 19:46 | NUR ---
HAND-OFF: Report given to Justin SCHMIDT RN.
[2019-04-04 20:00] VITALS: BP 117/76
--- NOTE | 2019-04-04 20:50 | NUR ---
NURSE NOTES: Pt refused RN to assess R knee. Received call from Dr. Luna and said DEL Godfrey @0610 04/05/19. Order noted.
[2019-04-04] MEDS: QUEtiapine 200mg tab ORAL SCH (21:52)
[2019-04-04] MEDS: Atorvastatin 20mg tab ORAL SCH (21:52)
[2019-04-05] VITALS: BP 110/63
[2019-04-05 02:14] LABS: BASOPHILS % (AUTO) 0.6 % (0.0-2.0); EOSINOPHILS % (AUTO) 9.2 % (0.0-3.0); LYMPHOCYTES % (AUTO) 17.9 % (20.0-45.0); MEAN CORPUSCULAR VOLUME 90 FL (80-99); MONOCYTES % (AUTO) 11.7 % (1.0-10.0); NEUTROPHILS % (AUTO) 60.7 % (45.0-75.0); PLATELET COUNT 204 K/UL (150-450); RED BLOOD COUNT 3.45 M/UL (4.20-5.40); RED CELL DISTRIBUTION WIDTH 12.7 % (11.6-14.8)
[2019-04-05 02:30] LABS: ANION GAP 5 mmol/L (5-15); BLOOD UREA NITROGEN 15 mg/dL (7-18); CALCIUM 8.2 MG/DL (8.5-10.1); CARBON DIOXIDE 24 MMOL/L (21-32); CHLORIDE 109 MMOL/L (98-107); CREATININE 1.1 MG/DL (0.55-1.30); POTASSIUM 4.6 MMOL/L (3.5-5.1); SODIUM 138 MMOL/L (136-145)
[2019-04-05] MEDS: D5 1/2NS w/KCl 20mEq 1,000 ML IV SCH ×2 (02:35→18:43)
--- NOTE | 2019-04-05 03:35 | NUR ---
NURSE NOTES: [facility] vanco T 14.7. Said give same dose.
[2019-04-05] MEDS: Vancomycin 750mg/NS 275ml IVPB SCH ×4 (03:56→15:28)
[2019-04-05 04:00] VITALS: BP 123/56
--- NOTE | 2019-04-05 06:00 | NUR ---
NURSE NOTES: RN tried to remove Godfrey but pt is crying, agitated, and persisting Godfrey. Left message Dr. Luna.
[2019-04-05] MEDS: Acetaminophen 500mg (ES) tab ORAL SCH ×3 (06:08→23:16)
[2019-04-05] MEDS: ceFAZolin sod 1 GM in D5W 55 ML IV SCH (06:08)
--- NOTE | 2019-04-05 07:41 | NUR ---
HAND-OFF: Report given to AMADA Escobar.
[2019-04-05 08:00] VITALS: BP 131/56
[2019-04-05] MEDS ORDERED: Tubing IV Secondary IV ONE (08:55)
[2019-04-05] MEDS ORDERED: NS 275ml ONE (08:55)
--- NOTE | 2019-04-05 09:00 | NUR ---
NURSE NOTES: PATIENT REFUSED DRESSING CHANGE THIS AM. PATIENT ALSO REFUSED TO ALLOW A THOROUGH ASSESSMENT. TRIED TO ASSESS PERIPHERAL PULSE IN THE RIGHT LEG BUT PATIENT SCREAMING TO LEAVE HER ALONE.
[2019-04-05] MEDS: Losartan 50mg tab ORAL SCH (09:10)
[2019-04-05] MEDS: Metoprolol 25mg tab ORAL SCH ×2 (09:10→22:32)
[2019-04-05] MEDS: Vitamin D 1000 IU Tab ORAL SCH (09:11)
--- NOTE | 2019-04-05 09:11 | NUR ---
NURSE NOTES: SEROQUEL DROPPED ON THE FLOOR. WASTED THE MEDICATION AND PULLED ANOTHER DOSE FROM THE PYXUS TO ADMINISTER TO PATIENT.
[2019-04-05] MEDS: celeBREX 200mg Cap **SURGERY PATIENTS ONLY ORAL SCH (09:13)
[2019-04-05] MEDS: Oxybutynin 5mg tab ORAL SCH (09:13)
[2019-04-05] MEDS: Heparin 5000 units/ml inj SUBQ SCH ×2 (09:15→22:34)
--- NOTE | 2019-04-05 10:00 | NUR ---
NURSE NOTES: TOLD PATIENT REFUSED EVANS REMOVAL AT SERVICE SPRINKLER HELPER, PATIENT REFUSED AGAIN THIS AM. DR GARCIA CALLED AND REITERATED THAT THE EVANS NEEDS TO BE DISCONTINUED. SON ARRIVED TO VISIT, I EXPLAINED THAT HIS MOTHER REFUSED THE REMOVAL. THE SON SAID TO REMOVE IT WHILE SHE IS SLEEPING. SON REMAINED AT BEDSIDE WHILE THE EVANS WAS REMOVED.
--- NOTE | 2019-04-05 11:13 | NUR ---
NURSE NOTES: PATIENTS SON VISITED THIS AM. SON SAID MOTHER IS SLEEPY AND WANTED INFORMATION ON WHAT MEDICATIONS WERE GIVEN THIS AM, TOLD PATIENTS SON WHAT MEDICATIONS WERE GIVEN. SON STATED THAT THE DOSE OF SEROQUEL IS TOO HIGH. SON STATED THAT THE USUAL DOSE IS 25MG IN THE AM AND 200MG AT BEDTIME. CURRENT DAILY DOSE IS 100MG. SON ASKED FOR DR ROCHA'S NUMBER, PROVIDED THIS TO THE PATIENT. WILL ALSO CONTACT DR ROCHA PER SONS REQUEST TO NOTIFY HIM THAT SON WOULD LIKE THE DOSE CHANGED TO 25MG DAYTIME DOSE.
[2019-04-05 12:00] VITALS: BP 102/63
--- NOTE | 2019-04-05 12:12 | NUR ---
PT note Attempted to see patient for PT eval/tx but patient was asleep. Patient's son is at bedside and does not want patient to be seen by PT this AM as she was given Seroquel. Will attempt again in AM if time permits.
--- NOTE | 2019-04-05 12:54 | NUR ---
NURSE NOTES: LONG WILDER RN ASSISTED THE PATIENT TO EAT LUNCH. PATIENT ATE 100% OF HER MEAL. WE ALSO REPOSITIONED THE PATIENT.
--- NOTE | 2019-04-05 13:37 | Infectious Diseases Prog Note ---
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 Incision and drainage, right knee. Complex closure measuring 5 cm. --OR findings: synovial fluid looked grossly purulent. Tibial insert was removed. 9 liters of bacitracin irrigation was then used to irrigate the knee. Once this was done, the same sized tibial insert was reimplanted and secured.There was significant fraying of the tissue. --OR cx: PsA -Xray R knee: Indwelling unicondylar knee arthroplasty without evidence of hardware-related complication. Degenerative changes of the patellofemoral and lateral femorotibial compartments. No acute fracture. Afebrile No leukocytosis -CXR: no acute disease -u/a wbc 15-20, nit neg, leuk +3 HTN R knee replacement on 03/25/19 Plan: -Continue IV Vancomycin #3 and switch Ancef #3 back to Cefepime for PsA -Treatment for 6weeks from time of debridement; expected end date 05/15/19; weekly CBC, CMP, vanco through -04/03 SP Cefepime #1 -f/u cx -Monitor CBC/CMP, temperatures -ortho f/u -f/u OR wound cx Thank you for this consultation. Will continue to follow along with you. Discussed with RN Subjective Allergies: Coded Allergies: GABAPENTIN (Verified Allergy, Unknown, 05/27/17) LITHIUM (Verified Allergy, Unknown, 05/27/17) Subjective afebrile no leukocytosis s/p revision and debridement on 04/05; prosthesis retained Cefepime was d/c and started on Ancef; PsA now growing on cultures Objective Vital Signs Last 24 Hour Vital Signs Date Time Temp Pulse Resp B/P (MAP) Pulse Ox O2 Delivery O2 Flow Rate FiO2 04/05/19 09:10 69 131/56 04/05/19 09:10 131/56 04/05/19 09:00 Room Air 04/05/19 08:08 69 17 98 Room Air 21 04/05/19 08:00 96.4 66 21 131/56 (81) 98 04/05/19 04:00 97.6 67 18 123/56 (78) 98 04/05/19 00:00 98.6 67 18 110/63 (79) 97 04/04/19 21:52 82 117/76 04/04/19 21:00 Room Air 04/04/19 20:21 84 18 95 Room Air 21 04/04/19 20:00 98.4 82 20 117/76 (90) 98 04/04/19 16:00 98.7 89 18 114/69 (84) 95 Height (Feet): 5 Height (Inches): 5.00 Weight (Pounds): 165 Objective General Appearance: well appearing, no apparent distress Head: normocephalic Eyes: bilateral eye normal inspection, bilateral eye PERRL, bilateral eye EOMI ENT: moist mucus membranes Neck: supple Respiratory: lungs clear, normal breath sounds Cardiovascular : regular rate, rhythm Gastrointestinal: normal inspection, normal bowel sounds, non tender, no mass, non-distended Musculoskeletal: back normal, normal range of motion. R knee with surgical dressings Neurologic: alert, oriented x3, grossly normal Skin: warm/dry, other - See the knee Microbiology Date/Time Source Procedure Growth Status 04/03/19 09:15 Blood Blood Culture - Preliminary NO GROWTH AFTER 24 HOURS Resulted 04/03/19 09:15 Blood Blood Culture - Preliminary NO GROWTH AFTER 24 HOURS Resulted 04/03/19 10:00 Urine,Clean Catch Urine Culture - Preliminary Mixed Gram Positive Organism Resulted 04/03/19 20:00 Knee Right Gram Stain - Final Resulted 04/03/19 20:00 Knee Right Aerobic Culture Pending Resulted 04/03/19 20:00 Knee Right Anaerobic Culture Pending Resulted 04/03/19 10:00 Knee Right Gram Stain - Final Complete 04/03/19 10:00 Wound Culture - Final Pseudomonas Aeruginosa Staphylococcus Sp Coag Neg Complete Laboratory Tests Test 04/05/19 02:08 White Blood Count 7.0 K/UL (4.8-10.8) Red Blood Count 3.45 M/UL (4.20-5.40) L Hemoglobin 10.0 G/DL (12.0-16.0) L Hematocrit 31.0 % (37.0-47.0) L Mean Corpuscular Volume 90 FL (80-99) Mean Corpuscular Hemoglobin 29.0 PG (27.0-31.0) Mean Corpuscular Hemoglobin Concent 32.4 G/DL (32.0-36.0) Red Cell Distribution Width 12.7 % (11.6-14.8) Platelet Count 204 K/UL (150-450) Mean Platelet Volume 5.2 FL (6.5-10.1) L Neutrophils (%) (Auto) 60.7 % (45.0-75.0) Lymphocytes (%) (Auto) 17.9 % (20.0-45.0) L Monocytes (%) (Auto) 11.7 % (1.0-10.0) H Eosinophils (%) (Auto) 9.2 % (0.0-3.0) H Basophils (%) (Auto) 0.6 % (0.0-2.0) Sodium Level 138 MMOL/L (136-145) Potassium Level 4.6 MMOL/L (3.5-5.1) Chloride Level 109 MMOL/L (98-107) H Carbon Dioxide Level 24 MMOL/L (21-32) Anion Gap 5 mmol/L (5-15) Blood Urea Nitrogen 15 mg/dL (7-18) Creatinine 1.1 MG/DL (0.55-1.30) Estimat Glomerular Filtration Rate mL/min (>60) Glucose Level 108 MG/DL (74-106) H Calcium Level 8.2 MG/DL (8.5-10.1) L Vancomycin Level Trough 14.7 ug/mL (5.0-12.0) H Current Medications Medications (Trade) Dose Ordered Sig/Caryl Route PRN Reason Start Time Stop Time Status Last Admin Dose Admin Acetaminophen (Tylenol) 650 mg Q4H PRN ORAL fever 04/03/19 14:00 05/03/19 13:59 Acetaminophen (Tylenol) 1,000 mg Q8HR ORAL 04/03/19 22:00 05/03/19 21:59 04/05/19 06:08 Acetaminophen/ Hydrocodone Bitart ([place] 5/325) 2 tab Q4H PRN ORAL pain scores 4-10 04/03/19 18:00 04/10/19 17:59 Acetaminophen/ Hydrocodone Bitart ([place] 7.5/325) 1 tab Q4H PRN ORAL Mild Pain (Pain Scale 1-3) 04/03/19 18:02 04/10/19 18:01 Albuterol/ Ipratropium (Albuterol/ Ipratropium) 3 ml Q4H PRN HHN Shortness of Breath 04/03/19 14:00 04/08/19 13:59 Atorvastatin Calcium (Lipitor) 20 mg BEDTIME ORAL 04/04/19 21:00 05/04/19 20:59 04/04/19 21:52 Baclofen (Lioresal) 10 mg BID ORAL 04/03/19 18:00 05/03/19 17:59 04/05/19 09:11 Baclofen (Lioresal) 10 mg Q8H PRN ORAL Muscle Spasm 04/04/19 06:36 05/04/19 06:35 Cefazolin Sodium 1 gm/Dextrose 55 ml @ 110 mls/hr EVERY 8 HOURS IV 04/03/19 23:00 04/10/19 22:59 04/05/19 06:08 Celecoxib (CeleBREX) 200 mg DAILY ORAL 04/04/19 09:00 05/04/19 08:59 04/05/19 09:13 Dextrose (Dextrose 50%) 25 ml Q30M PRN IV Hypoglycemia 04/03/19 14:00 05/03/19 13:59 Dextrose (Dextrose 50%) 50 ml Q30M PRN IV Hypoglycemia 04/03/19 14:00 05/03/19 13:59 Dextrose/ Electrolytes 1,000 ml @ 75 mls/hr [id number] IV 04/03/19 22:00 05/03/19 21:59 04/05/19 02:35 Heparin Sodium (Porcine) (Heparin 5000 units/ml) 5,000 units EVERY 12 HOURS SUBQ 04/03/19 21:00 05/03/19 20:59 04/05/19 09:15 Losartan Potassium (Cozaar) 100 mg DAILY ORAL 04/04/19 09:00 05/04/19 08:59 04/05/19 09:10 Metoprolol Tartrate (Lopressor) 25 mg EVERY 12 HOURS ORAL 04/03/19 21:00 05/03/19 20:59 04/05/19 09:10 Morphine Sulfate (Morphine Sulfate) 1 mg Q4H PRN IVP Mild Pain (Pain Scale 1-3) 04/03/19 18:02 04/10/19 18:01 04/04/19 15:05 Nitroglycerin (Ntg) 0.4 mg Q5M PRN SL Prn Chest Pain 04/03/19 14:00 05/03/19 13:59 Ondansetron HCl (Zofran) 4 mg Q6H PRN IVP Nausea & Vomiting 04/03/19 14:00 05/03/19 13:59 Oxybutynin Chloride (Ditropan) 5 mg DAILY ORAL 04/05/19 09:00 05/05/19 08:59 04/05/19 09:13 Polyethylene Glycol (Miralax) 17 gm DAILYPRN PRN ORAL Constipation 04/03/19 14:00 05/03/19 13:59 Quetiapine Fumarate (SEROquel) 100 mg DAILY ORAL 04/04/19 09:00 05/04/19 08:59 04/05/19 09:07 Quetiapine Fumarate (SEROquel) 200 mg QHS ORAL 04/04/19 21:00 05/04/19 20:59 04/04/19 21:52 Temazepam (Restoril) 7.5 mg HSPRN PRN ORAL Insomnia 04/03/19 18:00 04/10/19 17:59 04/04/19 01:37 Vancomycin HCl (Vanco rx to dose) 1 ea DAILY PRN MISC . 04/03/19 14:00 05/03/19 13:59 Vancomycin HCl 750 mg/Sodium Chloride 275 ml @ 183.333 mls/hr Q12HR@0300,1500 IVPB 04/03/19 15:00 04/08/19 14:59 04/05/19 03:56 Vitamin D (Vitamin D) 2,000 intlu DAILY ORAL 04/05/19 09:00 05/05/19 08:59 04/05/19 09:11 Chelsey Harkins M.D. Apr 05, 2019 13:37
--- NOTE | 2019-04-05 14:29 | Internal Med Progress Note ---
Subjective Date of Service: Apr 05, 2019 Physician Name Rodrigues,García Attending Physician Brad Manuel MD Current Medications Medications (Trade) Dose Ordered Sig/Caryl Route PRN Reason Start Time Stop Time Status Last Admin Dose Admin Acetaminophen (Tylenol) 650 mg Q4H PRN ORAL fever 04/03/19 14:00 05/03/19 13:59 Acetaminophen (Tylenol) 1,000 mg Q8HR ORAL 04/03/19 22:00 05/03/19 21:59 04/05/19 06:08 Acetaminophen/ Hydrocodone Bitart ([place] 5/325) 2 tab Q4H PRN ORAL pain scores 4-10 04/03/19 18:00 04/10/19 17:59 Acetaminophen/ Hydrocodone Bitart ([place] 7.5/325) 1 tab Q4H PRN ORAL Mild Pain (Pain Scale 1-3) 04/03/19 18:02 04/10/19 18:01 Albuterol/ Ipratropium (Albuterol/ Ipratropium) 3 ml Q4H PRN HHN Shortness of Breath 04/03/19 14:00 04/08/19 13:59 Atorvastatin Calcium (Lipitor) 20 mg BEDTIME ORAL 04/04/19 21:00 05/04/19 20:59 04/04/19 21:52 Baclofen (Lioresal) 10 mg BID ORAL 04/03/19 18:00 05/03/19 17:59 04/05/19 09:11 Baclofen (Lioresal) 10 mg Q8H PRN ORAL Muscle Spasm 04/04/19 06:36 05/04/19 06:35 Cefepime HCl 1 gm/ Dextrose 55 ml @ 110 mls/hr Q12HR IVPB 04/05/19 15:00 04/12/19 14:59 Celecoxib (CeleBREX) 200 mg DAILY ORAL 04/04/19 09:00 05/04/19 08:59 04/05/19 09:13 Dextrose (Dextrose 50%) 25 ml Q30M PRN IV Hypoglycemia 04/03/19 14:00 05/03/19 13:59 Dextrose (Dextrose 50%) 50 ml Q30M PRN IV Hypoglycemia 04/03/19 14:00 05/03/19 13:59 Dextrose/ Electrolytes 1,000 ml @ 75 mls/hr [id number] IV 04/03/19 22:00 05/03/19 21:59 04/05/19 02:35 Heparin Sodium (Porcine) (Heparin 5000 units/ml) 5,000 units EVERY 12 HOURS SUBQ 04/03/19 21:00 05/03/19 20:59 04/05/19 09:15 Losartan Potassium (Cozaar) 100 mg DAILY ORAL 04/04/19 09:00 05/04/19 08:59 04/05/19 09:10 Metoprolol Tartrate (Lopressor) 25 mg EVERY 12 HOURS ORAL 04/03/19 21:00 05/03/19 20:59 04/05/19 09:10 Morphine Sulfate (Morphine Sulfate) 1 mg Q4H PRN IVP Mild Pain (Pain Scale 1-3) 04/03/19 18:02 04/10/19 18:01 04/04/19 15:05 Nitroglycerin (Ntg) 0.4 mg Q5M PRN SL Prn Chest Pain 04/03/19 14:00 05/03/19 13:59 Ondansetron HCl (Zofran) 4 mg Q6H PRN IVP Nausea & Vomiting 04/03/19 14:00 05/03/19 13:59 Oxybutynin Chloride (Ditropan) 5 mg DAILY ORAL 04/05/19 09:00 05/05/19 08:59 04/05/19 09:13 Polyethylene Glycol (Miralax) 17 gm DAILYPRN PRN ORAL Constipation 04/03/19 14:00 05/03/19 13:59 Quetiapine Fumarate (SEROquel) 100 mg DAILY ORAL 04/04/19 09:00 05/04/19 08:59 04/05/19 09:07 Quetiapine Fumarate (SEROquel) 200 mg QHS ORAL 04/04/19 21:00 05/04/19 20:59 04/04/19 21:52 Temazepam (Restoril) 7.5 mg HSPRN PRN ORAL Insomnia 04/03/19 18:00 04/10/19 17:59 04/04/19 01:37 Vancomycin HCl (Vanco rx to dose) 1 ea DAILY PRN MISC . 04/03/19 14:00 05/03/19 13:59 Vancomycin HCl 750 mg/Sodium Chloride 275 ml @ 183.333 mls/hr Q12HR@0300,1500 IVPB 04/03/19 15:00 04/08/19 14:59 04/05/19 03:56 Vitamin D (Vitamin D) 2,000 intlu DAILY ORAL 04/05/19 09:00 05/05/19 08:59 04/05/19 09:11 Allergies: Coded Allergies: GABAPENTIN (Verified Allergy, Unknown, 05/27/17) LITHIUM (Verified Allergy, Unknown, 05/27/17) ROS Limited/Unobtainable: No Constitutional: Reports: no symptoms Cardiovascular: Reports: no symptoms Respiratory: Reports: no symptoms Gastrointestinal/Abdominal: Reports: no symptoms Genitourinary: Reports: no symptoms Neurologic/Psychiatric: Reports: no symptoms Subjective 83 YO F with recent right knee artrhoplasty admitted with right knee pain. Now septic arthritis right knee. Cover for Int Med-Dr Manuel. S/P revision right knee replacement and I&D on 04/03/19. Objective Last Vital Signs Date Time Temp Pulse Resp B/P (MAP) Pulse Ox O2 Delivery O2 Flow Rate FiO2 04/05/19 12:00 98.7 64 20 102/63 (76) 97 04/05/19 09:00 Room Air 04/05/19 08:08 21 04/03/19 20:25 3 Laboratory Tests Test 04/05/19 02:08 White Blood Count 7.0 K/UL (4.8-10.8) Red Blood Count 3.45 M/UL (4.20-5.40) L Hemoglobin 10.0 G/DL (12.0-16.0) L Hematocrit 31.0 % (37.0-47.0) L Mean Corpuscular Volume 90 FL (80-99) Mean Corpuscular Hemoglobin 29.0 PG (27.0-31.0) Mean Corpuscular Hemoglobin Concent 32.4 G/DL (32.0-36.0) Red Cell Distribution Width 12.7 % (11.6-14.8) Platelet Count 204 K/UL (150-450) Mean Platelet Volume 5.2 FL (6.5-10.1) L Neutrophils (%) (Auto) 60.7 % (45.0-75.0) Lymphocytes (%) (Auto) 17.9 % (20.0-45.0) L Monocytes (%) (Auto) 11.7 % (1.0-10.0) H Eosinophils (%) (Auto) 9.2 % (0.0-3.0) H Basophils (%) (Auto) 0.6 % (0.0-2.0) Sodium Level 138 MMOL/L (136-145) Potassium Level 4.6 MMOL/L (3.5-5.1) Chloride Level 109 MMOL/L (98-107) H Carbon Dioxide Level 24 MMOL/L (21-32) Anion Gap 5 mmol/L (5-15) Blood Urea Nitrogen 15 mg/dL (7-18) Creatinine 1.1 MG/DL (0.55-1.30) Estimat Glomerular Filtration Rate mL/min (>60) Glucose Level 108 MG/DL (74-106) H Calcium Level 8.2 MG/DL (8.5-10.1) L Vancomycin Level Trough 14.7 ug/mL (5.0-12.0) H Microbiology Date/Time Source Procedure Growth Status 04/03/19 09:15 Blood Blood Culture - Preliminary NO GROWTH AFTER 24 HOURS Resulted 04/03/19 09:15 Blood Blood Culture - Preliminary NO GROWTH AFTER 24 HOURS Resulted 04/03/19 10:00 Urine,Clean Catch Urine Culture - Preliminary Mixed Gram Positive Organism Resulted 04/03/19 20:00 Knee Right Gram Stain - Final Resulted 04/03/19 20:00 Knee Right Aerobic Culture Pending Resulted 04/03/19 20:00 Knee Right Anaerobic Culture Pending Resulted 04/03/19 10:00 Knee Right Gram Stain - Final Complete 04/03/19 10:00 Wound Culture - Final Pseudomonas Aeruginosa Staphylococcus Sp Coag Neg Complete Intake and Output 04/04/19 04/05/19 19:00 07:00 Intake Total 2226.666 ml 75 ml Output Total 1200 ml 2300 ml Balance 1026.666 ml -2225 ml Intake Oral 1280 ml IV Total 946.666 ml 75 ml Output Urine Total 1200 ml 2300 ml Objective PHYSICAL EXAMINATION: GENERAL: The patient is awake, responsive, and in no acute distress. HEAD AND NECK: Pupils are reactive to light. Extraocular movements are intact. NECK: Supple. No JVD. LUNGS: Good air entry. No wheezing or rales. HEART: Reveals S1, S2. Regular rhythm. No gallops. ABDOMEN: Soft, nondistended, and nontender. Mildly obese. EXTREMITIES: No cyanosis, clubbing, or edema. The patient's right knee has a surgical site, tender to touch, mildly edematous, plus fluid shift edema NEUROLOGIC: Cranial nerves II through XII are grossly intact. The patient is moving all her extremities except the right lower extremity. RECTAL/GENITOURINARY: Refused and deferred. PSYCHIATRIC: Mood and affect is intact. Assessment/Plan Assessment/Plan ASSESSMENT: 1. Right knee septic arthritis=pseudamonas and coag neg staph 2. Hypertension. 3. Dyslipidemia. 4. Morbid obesity. 5. Atrial flutter with 5:1 block. 6. History of bipolar disorder. 7. Chronic diarrhea. 8. Gastritis. PLAN: 1. Admit the patient to medical floor. 2. Ortho= Dr. Luna-S/P right knee replacement revision and incision and drainage 04/03/19 3. Code status is Full Code. 4. DVT prophylaxis with heparin subcutaneous. 5. antibiotic= cefepime and vancomycin. 6. Dr. Sybil Paz = Infectious Disease. 7. ABX=vanco and cefepime García Rodrigues MD Apr 05, 2019 14:29
[2019-04-05] MEDS: Cefepime HCl 1 GM in D5W 55 ML IVPB SCH ×2 (14:31→22:33)
[2019-04-05 16:00] VITALS: BP 126/60
[2019-04-05] MEDS ORDERED: QUETIAPINE FUMA25 MG ORAL (16:13)
[2019-04-05] MEDS ORDERED: OXYBUTYNIN CHLOR5 M1 ORAL (16:17)
--- NOTE | 2019-04-05 16:29 | Pulmonology Progress Note ---
Assessment/Plan Problems: (1) Septic arthritis (2) Bipolar depression (3) HTN (hypertension) Assessment/Plan all noted doing better continue abx f/u cultures pain management dvt prophylaxis Subjective ROS Limited/Unobtainable: No Constitutional: Reports: no symptoms HEENT: Repors: no symptoms Allergies: Coded Allergies: GABAPENTIN (Verified Allergy, Unknown, 05/27/17) LITHIUM (Verified Allergy, Unknown, 05/27/17) Objective Last 24 Hour Vital Signs Date Time Temp Pulse Resp B/P (MAP) Pulse Ox O2 Delivery O2 Flow Rate FiO2 04/05/19 12:00 98.7 64 20 102/63 (76) 97 04/05/19 09:10 69 131/56 04/05/19 09:10 131/56 04/05/19 09:00 Room Air 04/05/19 08:08 69 17 98 Room Air 21 04/05/19 08:00 96.4 66 21 131/56 (81) 98 04/05/19 04:00 97.6 67 18 123/56 (78) 98 04/05/19 00:00 98.6 67 18 110/63 (79) 97 04/04/19 21:52 82 117/76 04/04/19 21:00 Room Air 04/04/19 20:21 84 18 95 Room Air 21 04/04/19 20:00 98.4 82 20 117/76 (90) 98 Intake and Output 04/04/19 04/05/19 19:00 07:00 Intake Total 2226.666 ml 75 ml Output Total 1200 ml 2300 ml Balance 1026.666 ml -2225 ml Intake Oral 1280 ml IV Total 946.666 ml 75 ml Output Urine Total 1200 ml 2300 ml General Appearance: WD/WN HEENT: normocephalic, atraumatic Respiratory/Chest: chest wall non-tender, lungs clear Breasts: no masses Cardiovascular: normal peripheral pulses Abdomen: normal bowel sounds, soft, non tender Genitourinary: normal external genitalia Extremities: no cyanosis 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 Microbiology Date/Time Source Procedure Growth Status 04/03/19 09:15 Blood Blood Culture - Preliminary NO GROWTH AFTER 24 HOURS Resulted 04/03/19 09:15 Blood Blood Culture - Preliminary NO GROWTH AFTER 24 HOURS Resulted 04/03/19 10:00 Urine,Clean Catch Urine Culture - Preliminary Mixed Gram Positive Organism Resulted 04/03/19 20:00 Knee Right Gram Stain - Final Resulted 04/03/19 20:00 Knee Right Aerobic Culture Pending Resulted 04/03/19 20:00 Knee Right Anaerobic Culture Pending Resulted 04/03/19 10:00 Knee Right Gram Stain - Final Complete 04/03/19 10:00 Wound Culture - Final Pseudomonas Aeruginosa Staphylococcus Sp Coag Neg Complete Laboratory Tests 04/05/19 02:08: White Blood Count 7.0, Red Blood Count 3.45L, Hemoglobin 10.0L, Hematocrit 31.0L , Mean Corpuscular Volume 90, Mean Corpuscular Hemoglobin 29.0, Mean Corpuscular Hemoglobin Concent 32.4, Red Cell Distribution Width 12.7, Platelet Count 204, Mean Platelet Volume 5.2L, Neutrophils (%) (Auto) 60.7, Lymphocytes ( %) (Auto) 17.9L, Monocytes (%) (Auto) 11.7H, Eosinophils (%) (Auto) 9.2H, Basophils (%) (Auto) 0.6, Sodium Level 138, Potassium Level 4.6, Chloride Level 109H, Carbon Dioxide Level 24, Anion Gap 5, Blood Urea Nitrogen 15, Creatinine 1.1, Estimat Glomerular Filtration Rate , Glucose Level 108H, Calcium Level 8.2L , Vancomycin Level Trough 14.7H Current Medications Medications (Trade) Dose Ordered Sig/Caryl Route PRN Reason Start Time Stop Time Status Last Admin Dose Admin Acetaminophen (Tylenol) 650 mg Q4H PRN ORAL fever 04/03/19 14:00 05/03/19 13:59 Acetaminophen (Tylenol) 1,000 mg Q8HR ORAL 04/03/19 22:00 05/03/19 21:59 04/05/19 14:30 Acetaminophen/ Hydrocodone Bitart ([place] 5/325) 2 tab Q4H PRN ORAL pain scores 4-10 04/03/19 18:00 04/10/19 17:59 Acetaminophen/ Hydrocodone Bitart ([place] 7.5/325) 1 tab Q4H PRN ORAL Mild Pain (Pain Scale 1-3) 04/03/19 18:02 04/10/19 18:01 Albuterol/ Ipratropium (Albuterol/ Ipratropium) 3 ml Q4H PRN HHN Shortness of Breath 10/18/19 14:00 04/08/19 13:59 Atorvastatin Calcium (Lipitor) 20 mg BEDTIME ORAL 04/04/19 21:00 05/04/19 20:59 04/04/19 21:52 Baclofen (Lioresal) 10 mg BID ORAL 04/03/19 18:00 05/03/19 17:59 04/05/19 09:11 Baclofen (Lioresal) 10 mg Q8H PRN ORAL Muscle Spasm 04/04/19 06:36 05/04/19 06:35 Cefepime HCl 1 gm/ Dextrose 55 ml @ 110 mls/hr Q12HR IVPB 04/05/19 15:00 04/12/19 14:59 04/05/19 14:31 Celecoxib (CeleBREX) 200 mg DAILY ORAL 04/04/19 09:00 05/04/19 08:59 04/05/19 09:13 Dextrose (Dextrose 50%) 25 ml Q30M PRN IV Hypoglycemia 04/03/19 14:00 05/03/19 13:59 Dextrose (Dextrose 50%) 50 ml Q30M PRN IV Hypoglycemia 04/03/19 14:00 05/03/19 13:59 Dextrose/ Electrolytes 1,000 ml @ 75 mls/hr [id number] IV 04/03/19 22:00 05/03/19 21:59 04/05/19 02:35 Heparin Sodium (Porcine) (Heparin 5000 units/ml) 5,000 units EVERY 12 HOURS SUBQ 04/03/19 21:00 05/03/19 20:59 04/05/19 09:15 Losartan Potassium (Cozaar) 100 mg DAILY ORAL 04/04/19 09:00 05/04/19 08:59 04/05/19 09:10 Metoprolol Tartrate (Lopressor) 25 mg EVERY 12 HOURS ORAL 04/03/19 21:00 05/03/19 20:59 04/05/19 09:10 Morphine Sulfate (Morphine Sulfate) 1 mg Q4H PRN IVP Mild Pain (Pain Scale 1-3) 04/03/19 18:02 04/10/19 18:01 04/04/19 15:05 Nitroglycerin (Ntg) 0.4 mg Q5M PRN SL Prn Chest Pain 04/03/19 14:00 05/03/19 13:59 Ondansetron HCl (Zofran) 4 mg Q6H PRN IVP Nausea & Vomiting 04/03/19 14:00 05/03/19 13:59 Oxybutynin Chloride (Ditropan) 5 mg DAILY ORAL 04/05/19 09:00 05/05/19 08:59 04/05/19 09:13 Polyethylene Glycol (Miralax) 17 gm DAILYPRN PRN ORAL Constipation 04/03/19 14:00 05/03/19 13:59 Quetiapine Fumarate (SEROquel) 25 mg DAILY ORAL 04/06/19 09:00 05/04/19 08:59 Quetiapine Fumarate (SEROquel) 200 mg QHS ORAL 04/04/19 21:00 05/04/19 20:59 04/04/19 21:52 Temazepam (Restoril) 7.5 mg HSPRN PRN ORAL Insomnia 04/03/19 18:00 04/10/19 17:59 04/04/19 01:37 Vancomycin HCl (Vanco rx to dose) 1 ea DAILY PRN MISC . 04/03/19 14:00 05/03/19 13:59 Vancomycin HCl 750 mg/Sodium Chloride 275 ml @ 183.333 mls/hr Q12HR@0300,1500 IVPB 04/03/19 15:00 04/08/19 14:59 04/05/19 15:28 Vitamin D (Vitamin D) 2,000 intlu DAILY ORAL 04/05/19 09:00 05/05/19 08:59 04/05/19 09:11 Christ Vallejo MD Apr 05, 2019 16:29
--- NOTE | 2019-04-05 17:00 | NUR ---
NURSE NOTES: PATIENT REFUSED DRESSING CHANGE FOR THE SECOND TIME TODAY.
--- NOTE | 2019-04-05 18:30 | NUR ---
NURSE NOTES: BLADDER SCAN PERFORMED ON PATIENT. PATIENT IS RETAINING URINE SINCE EVANS REMOVED. BLADDER SCAN SHOWS 515ML URINE. Addendum: 04/05/19 at 1901 by Shawn Espino RN DR PICKENS NOTIFIED. AWAITING ORDERS.
--- NOTE | 2019-04-05 18:44 | NUR ---
NURSE NOTES: IV FLUIDS HUNG LATE BECAUSE PREVIOUS BAG JUST FINISHED.
--- NOTE | 2019-04-05 19:57 | NUR ---
NURSE NOTES: ATTEMPTED TO PLACE EVANS CATHETER WITH NIGHT RN, PATIENT SCREAMING AND REFUSING. EVANS CATHETER NOT PLACED.
[2019-04-05 20:00] VITALS: BP 122/57
--- NOTE | 2019-04-05 20:00 | NUR ---
HAND-OFF: Report given to AMADA RIBEIRO.
--- NOTE | 2019-04-05 20:05 | NUR ---
NURSE NOTES: RECEIVED PT FROM AMADA HART. PT IS AWAKE, AAOX3, ON ROOM AIR, NO RESPIRATORY DISTRESS NOTED. PT IS VISIBLY ANXIOUS, RESISTIVE TO CARE AND REFUSED TO BE TOUCHED. SURGICAL DRESSING ON RIGHT KNEE IS INTACT AND DRY. IMMOBILIZER WAS PLACED. IV ON RIGHT AC IS INTACT AND PATENT. BLADDER SCAN SHOWED URINE RETENTION OF 515ML. MD ORDER WAS PLACED FOR EVANS CATH BUT PT REFUSED. PT ATTEMPTED TO URINATE ON COMMODE BUT WAS NOT ABLE TO. PATIENT'S SON WAS CONTACTED, AND ON HIS WAY TO COME ASSIST. WILL FOLLOW UP. BED IS LOCKED AND LOW, BED ALARMS ACTIVE, SIDE RAILS UP X2, AND CALL LIGHT IS WITHIN REACH. WILL CONTINUE TO MONITOR.
[2019-04-05] MEDS: QUEtiapine 200mg tab ORAL SCH (22:27)
[2019-04-05] MEDS: Atorvastatin 20mg tab ORAL SCH (22:27)
--- NOTE | 2019-04-05 23:50 | NUR ---
NURSE NOTES: PATIENT'S SON ARRIVED ON UNIT. RN WAS ABLE TO INSERT EVANS CATHETER 16FR, ANCHOR IN PLACE, PATENT AND DRAINING WELL, YELLOW URINE NOTED. WILL CONTINUE TO MONITOR.
[2019-04-06] VITALS: BP 103/49
[2019-04-06 04:00] VITALS: BP 104/53
[2019-04-06] MEDS: Vancomycin 750mg/NS 275ml IVPB SCH ×4 (04:39→14:35)
[2019-04-06] MEDS: D5 1/2NS w/KCl 20mEq 1,000 ML IV SCH ×2 (04:40→16:31)
[2019-04-06] MEDS: Acetaminophen 500mg (ES) tab ORAL SCH ×3 (06:23→22:03)
[2019-04-06 07:16] LABS: BASOPHILS % (AUTO) 0.6 % (0.0-2.0); EOSINOPHILS % (AUTO) 8.8 % (0.0-3.0); HEMATOCRIT 28.4 % (37.0-47.0); HEMOGLOBIN 9.6 G/DL (12.0-16.0); LYMPHOCYTES % (AUTO) 21.4 % (20.0-45.0); MEAN CORPUSCULAR VOLUME 90 FL (80-99); MONOCYTES % (AUTO) 9.4 % (1.0-10.0); NEUTROPHILS % (AUTO) 59.8 % (45.0-75.0); PLATELET COUNT 190 K/UL (150-450); RED BLOOD COUNT 3.16 M/UL (4.20-5.40); RED CELL DISTRIBUTION WIDTH 11.5 % (11.6-14.8); WHITE BLOOD COUNT 6.9 K/UL (4.8-10.8)
[2019-04-06 07:32] LABS: CARBON DIOXIDE 24 MMOL/L (21-32)
[2019-04-06 07:45] LABS: BLOOD UREA NITROGEN 13 mg/dL (7-18); CALCIUM 8.2 MG/DL (8.5-10.1); CHLORIDE 111 MMOL/L (98-107); POTASSIUM 4.7 MMOL/L (3.5-5.1); SODIUM 141 MMOL/L (136-145)
--- NOTE | 2019-04-06 07:53 | NUR ---
HAND-OFF: Report given to AMADA ROJAS.
--- NOTE | 2019-04-06 07:55 | NUR ---
NURSE NOTES: Received patient in bed awake. No SOB or cardiac distress. IV line intact and patent. FC intact and draining well. HOB elevated. Bed locked in lowest position. Will continue plan of care.
[2019-04-06 08:00] VITALS: BP 128/82
--- NOTE | 2019-04-06 08:00 | NUR ---
NURSE NOTES: Patient refused to put immobilizer despite offering 3x. Explained risks and benefits. Patient still refused.
[2019-04-06] MEDS: celeBREX 200mg Cap **SURGERY PATIENTS ONLY ORAL SCH (08:23)
[2019-04-06] MEDS: Oxybutynin 5mg tab ORAL SCH (08:23)
[2019-04-06] MEDS: Cefepime HCl 1 GM in D5W 55 ML IVPB SCH (08:24)
[2019-04-06] MEDS: Metoprolol 25mg tab ORAL SCH ×3 (08:25→20:42)
[2019-04-06] MEDS: Vitamin D 1000 IU Tab ORAL SCH (08:26)
[2019-04-06] MEDS: Losartan 50mg tab ORAL SCH (08:26)
--- NOTE | 2019-04-06 08:30 | NUR ---
NURSE NOTES: Patient with order from Dr. Manuel for picc line insertion. Tried to reach family member, left a message to call back.
[2019-04-06] MEDS: Heparin 5000 units/ml inj SUBQ SCH ×3 (08:32→20:42)
[2019-04-06] MEDS ORDERED: Lidocaine 1% Plain 30 ml INJ PRN (08:45)
[2019-04-06] MEDS ORDERED: Heparin1,000 units/500ml Premix(Conc:2 units/ml) IV PRN (08:45)
--- NOTE | 2019-04-06 09:10 | NUR ---
NURSE NOTES: Consent for PICC line insertion signed.
--- NOTE | 2019-04-06 09:11 | NUR ---
P.T Note: P.T evaluation attempted however unable to proceed due to patient 's refusal to participate. Pt became agitated upon attempt to encourage to participate. Will reattempt when cooperative. RN notified.
--- NOTE | 2019-04-06 10:20 | NUR ---
NURSE NOTES: Patient transported by radio [employer].
--- NOTE | 2019-04-06 10:35 | NUR ---
NURSE NOTES: Radio tech called, said that patient refused picc line insertion. Prefers a female provider to do procedure but no female available. Radio tech said he will bring the patient up without a picc line. Dr. Manuel made aware, awaiting reply.
--- NOTE | 2019-04-06 12:27 | NUR ---
NURSE NOTES: Spoke with son informing of patient's refusal for picc line and immobilizer. Son said she doesn't need any of those and will only take orders from Dr. Luna, surgeon.
--- NOTE | 2019-04-06 13:08 | Infectious Diseases Prog Note ---
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 Incision and drainage, right knee. Complex closure measuring 5 cm. --OR findings: synovial fluid looked grossly purulent. Tibial insert was removed. 9 liters of bacitracin irrigation was then used to irrigate the knee. Once this was done, the same sized tibial insert was reimplanted and secured.There was significant fraying of the tissue. --OR cx: PsA -Xray R knee: Indwelling unicondylar knee arthroplasty without evidence of hardware-related complication. Degenerative changes of the patellofemoral and lateral femorotibial compartments. No acute fracture. Afebrile No leukocytosis -CXR: no acute disease -u/a wbc 15-20, nit neg, leuk +3 HTN R knee replacement on 03/25/19 Plan: -Continue IV Vancomycin #4 and Cefepime #2 for CONS and PsA R knee hardware infection -Treatment for 6 weeks from time of debridement; expected end date 05/15/19; weekly CBC, CMP, vanco through -04/05 SP ANcef #3 -04/03 SP Cefepime #1 -f/u cx -Monitor CBC/CMP, temperatures -ortho f/u -f/u OR wound cx Thank you for this consultation. Will continue to follow along with you. Discussed with RN Subjective Allergies: Coded Allergies: GABAPENTIN (Verified Allergy, Unknown, 05/27/17) LITHIUM (Verified Allergy, Unknown, 05/27/17) Subjective afebrile no leukocytosis Objective Vital Signs Last 24 Hour Vital Signs Date Time Temp Pulse Resp B/P (MAP) Pulse Ox O2 Delivery O2 Flow Rate FiO2 04/06/19 09:00 58 128/82 04/06/19 09:00 Room Air 04/06/19 08:26 128/82 04/06/19 08:00 98.1 58 128/82 (97) 99 04/06/19 04:00 98.1 73 104/53 (70) 96 04/06/19 00:00 97.8 59 18 103/49 (67) 97 04/05/19 22:32 67 122/57 04/05/19 21:00 Room Air 04/05/19 20:03 65 18 97 Room Air 21 04/05/19 20:00 98.8 67 17 122/57 (78) 97 04/05/19 16:00 97.6 62 126/60 (82) Height (Feet): 5 Height (Inches): 5.00 Weight (Pounds): 165 Objective General Appearance: well appearing, no apparent distress Head: normocephalic Eyes: bilateral eye normal inspection, bilateral eye PERRL, bilateral eye EOMI ENT: moist mucus membranes Neck: supple Respiratory: lungs clear, normal breath sounds Cardiovascular : regular rate, rhythm Gastrointestinal: normal inspection, normal bowel sounds, non tender, no mass, non-distended Musculoskeletal: back normal, normal range of motion. R knee with surgical dressings Neurologic: alert, oriented x3, grossly normal Skin: warm/dry, other - See the knee Microbiology Date/Time Source Procedure Growth Status 04/03/19 20:00 Knee Right Gram Stain - Final Resulted 04/03/19 20:00 Aerobic Culture - Preliminary Staphylococcus Sp Coag Neg Gram Negative Bacillus 1 Resulted 04/03/19 20:00 Knee Right Anaerobic Culture - Preliminary Resulted Laboratory Tests Test 04/06/19 05:55 White Blood Count 6.9 K/UL (4.8-10.8) Red Blood Count 3.16 M/UL (4.20-5.40) L Hemoglobin 9.6 G/DL (12.0-16.0) L Hematocrit 28.4 % (37.0-47.0) L Mean Corpuscular Volume 90 FL (80-99) Mean Corpuscular Hemoglobin 30.3 PG (27.0-31.0) Mean Corpuscular Hemoglobin Concent 33.7 G/DL (32.0-36.0) Red Cell Distribution Width 11.5 % (11.6-14.8) L Platelet Count 190 K/UL (150-450) Mean Platelet Volume 5.5 FL (6.5-10.1) L Neutrophils (%) (Auto) 59.8 % (45.0-75.0) Lymphocytes (%) (Auto) 21.4 % (20.0-45.0) Monocytes (%) (Auto) 9.4 % (1.0-10.0) Eosinophils (%) (Auto) 8.8 % (0.0-3.0) H Basophils (%) (Auto) 0.6 % (0.0-2.0) Sodium Level 141 MMOL/L (136-145) Potassium Level 4.7 MMOL/L (3.5-5.1) Chloride Level 111 MMOL/L (98-107) H Carbon Dioxide Level 24 MMOL/L (21-32) Blood Urea Nitrogen 13 mg/dL (7-18) Creatinine 1.0 MG/DL (0.55-1.30) Estimat Glomerular Filtration Rate mL/min (>60) Glucose Level 108 MG/DL (74-106) H Calcium Level 8.2 MG/DL (8.5-10.1) L Current Medications Medications (Trade) Dose Ordered Sig/Caryl Route PRN Reason Start Time Stop Time Status Last Admin Dose Admin Acetaminophen (Tylenol) 650 mg Q4H PRN ORAL fever 04/03/19 14:00 05/03/19 13:59 Acetaminophen (Tylenol) 1,000 mg Q8HR ORAL 04/03/19 22:00 05/03/19 21:59 04/06/19 06:23 Acetaminophen/ Hydrocodone Bitart ([place] 5/325) 2 tab Q4H PRN ORAL pain scores 4-10 04/03/19 18:00 04/10/19 17:59 Acetaminophen/ Hydrocodone Bitart ([place] 7.5/325) 1 tab Q4H PRN ORAL Mild Pain (Pain Scale 1-3) 04/03/19 18:02 04/10/19 18:01 Albuterol/ Ipratropium (Albuterol/ Ipratropium) 3 ml Q4H PRN HHN Shortness of Breath 04/03/19 14:00 04/08/19 13:59 Atorvastatin Calcium (Lipitor) 20 mg BEDTIME ORAL 04/04/19 21:00 05/04/19 20:59 04/05/19 22:27 Baclofen (Lioresal) 10 mg BID ORAL 04/03/19 18:00 05/03/19 17:59 04/06/19 08:24 Baclofen (Lioresal) 10 mg Q8H PRN ORAL Muscle Spasm 04/04/19 06:36 05/04/19 06:35 Cefepime HCl 1 gm/ Dextrose 55 ml @ 110 mls/hr Q12HR IVPB 04/05/19 15:00 04/12/19 14:59 04/06/19 08:24 Celecoxib (CeleBREX) 200 mg DAILY ORAL 04/04/19 09:00 05/04/19 08:59 04/06/19 08:23 Chlorhexidine Gluconate (Michelle-Hex 2%) 1 applic DAILY@2000 TOPIC 04/06/19 20:00 05/06/19 19:59 Dextrose (Dextrose 50%) 25 ml Q30M PRN IV Hypoglycemia 04/03/19 14:00 05/03/19 13:59 Dextrose (Dextrose 50%) 50 ml Q30M PRN IV Hypoglycemia 04/03/19 14:00 05/03/19 13:59 Dextrose/ Electrolytes 1,000 ml @ 75 mls/hr [id number] IV 04/03/19 22:00 05/03/19 21:59 04/06/19 04:40 Heparin Sodium (Porcine) (Heparin 5000 units/ml) 5,000 units EVERY 12 HOURS SUBQ 04/03/19 21:00 05/03/19 20:59 04/05/19 22:34 Heparin Sodium/ Sodium Chloride (Heparin 1000 units/500ml Premix) 1,000 unit ONCE PRN IV PICC PLACEMENT 04/06/19 08:45 04/08/19 23:59 Lidocaine HCl (Xylocaine 1% 30ml) 30 ml ONCE PRN INJ PICC PLACEMENT 04/06/19 08:45 04/08/19 23:59 Losartan Potassium (Cozaar) 100 mg DAILY ORAL 04/04/19 09:00 05/04/19 08:59 04/06/19 08:26 Metoprolol Tartrate (Lopressor) 25 mg EVERY 12 HOURS ORAL 04/03/19 21:00 05/03/19 20:59 04/05/19 22:32 Morphine Sulfate (Morphine Sulfate) 1 mg Q4H PRN IVP Mild Pain (Pain Scale 1-3) 04/03/19 18:02 04/10/19 18:01 04/04/19 15:05 Nitroglycerin (Ntg) 0.4 mg Q5M PRN SL Prn Chest Pain 04/03/19 14:00 05/03/19 13:59 Ondansetron HCl (Zofran) 4 mg Q6H PRN IVP Nausea & Vomiting 04/03/19 14:00 05/03/19 13:59 Oxybutynin Chloride (Ditropan) 5 mg DAILY ORAL 04/05/19 09:00 05/05/19 08:59 04/06/19 08:23 Polyethylene Glycol (Miralax) 17 gm DAILYPRN PRN ORAL Constipation 04/03/19 14:00 05/03/19 13:59 Quetiapine Fumarate (SEROquel) 25 mg DAILY ORAL 04/06/19 09:00 05/04/19 08:59 04/06/19 08:29 Quetiapine Fumarate (SEROquel) 200 mg QHS ORAL 04/04/19 21:00 05/04/19 20:59 04/05/19 22:27 Temazepam (Restoril) 7.5 mg HSPRN PRN ORAL Insomnia 04/03/19 18:00 04/10/19 17:59 04/04/19 01:37 Vancomycin HCl (Vanco rx to dose) 1 ea DAILY PRN MISC . 04/03/19 14:00 05/03/19 13:59 Vancomycin HCl 750 mg/Sodium Chloride 275 ml @ 183.333 mls/hr Q12HR@0300,1500 IVPB 04/03/19 15:00 04/08/19 14:59 04/06/19 04:39 Vitamin D (Vitamin D) 2,000 intlu DAILY ORAL 04/05/19 09:00 05/05/19 08:59 04/06/19 08:26 Chelsey Harkins M.D. Apr 06, 2019 13:08
--- NOTE | 2019-04-06 13:21 | Pulmonology Progress Note ---
Assessment/Plan Problems: (1) Septic arthritis (2) Bipolar depression (3) HTN (hypertension) Assessment/Plan all noted doing better continue abx f/u cultures, staph, henderson sensitive pain management dvt prophylaxis Subjective Constitutional: Reports: no symptoms HEENT: Repors: no symptoms Cardiovascular: Reports: no symptoms Allergies: Coded Allergies: GABAPENTIN (Verified Allergy, Unknown, 05/27/17) LITHIUM (Verified Allergy, Unknown, 05/27/17) Objective Last 24 Hour Vital Signs Date Time Temp Pulse Resp B/P (MAP) Pulse Ox O2 Delivery O2 Flow Rate FiO2 04/06/19 09:00 58 128/82 04/06/19 09:00 Room Air 04/06/19 08:26 128/82 04/06/19 08:00 98.1 58 128/82 (97) 99 04/06/19 04:00 98.1 73 104/53 (70) 96 04/06/19 00:00 97.8 59 18 103/49 (67) 97 04/05/19 22:32 67 122/57 04/05/19 21:00 Room Air 04/05/19 20:03 65 18 97 Room Air 21 04/05/19 20:00 98.8 67 17 122/57 (78) 97 04/05/19 16:00 97.6 62 126/60 (82) Intake and Output 04/05/19 04/06/19 19:00 07:00 Intake Total 600 ml 2096.666 ml Output Total 4000 ml Balance 600 ml -1903.334 ml Intake Oral 600 ml IV Total 1376.666 ml Other 720 ml Output Urine Total 4000 ml General Appearance: WD/WN HEENT: normocephalic, atraumatic Respiratory/Chest: lungs clear, no respiratory distress Cardiovascular: normal peripheral pulses, no gallop/murmur Abdomen: no organomegaly Microbiology Date/Time Source Procedure Growth Status 04/03/19 20:00 Knee Right Gram Stain - Final Resulted 04/03/19 20:00 Aerobic Culture - Preliminary Staphylococcus Sp Coag Neg Gram Negative Bacillus 1 Resulted 04/03/19 20:00 Knee Right Anaerobic Culture - Preliminary Resulted Laboratory Tests 04/06/19 05:55: White Blood Count 6.9, Red Blood Count 3.16L, Hemoglobin 9.6L, Hematocrit 28.4L , Mean Corpuscular Volume 90, Mean Corpuscular Hemoglobin 30.3, Mean Corpuscular Hemoglobin Concent 33.7, Red Cell Distribution Width 11.5L, Platelet Count 190, Mean Platelet Volume 5.5L, Neutrophils (%) (Auto) 59.8, Lymphocytes (%) (Auto) 21.4, Monocytes (%) (Auto) 9.4, Eosinophils (%) (Auto) 8.8H, Basophils (%) (Auto) 0.6, Sodium Level 141, Potassium Level 4.7, Chloride Level 111H, Carbon Dioxide Level 24, Blood Urea Nitrogen 13, Creatinine 1.0, Estimat Glomerular Filtration Rate , Glucose Level 108H, Calcium Level 8.2L Current Medications Medications (Trade) Dose Ordered Sig/Caryl Route PRN Reason Start Time Stop Time Status Last Admin Dose Admin Acetaminophen (Tylenol) 650 mg Q4H PRN ORAL fever 04/03/19 14:00 05/03/19 13:59 Acetaminophen (Tylenol) 1,000 mg Q8HR ORAL 04/03/19 22:00 05/03/19 21:59 04/06/19 06:23 Acetaminophen/ Hydrocodone Bitart ([place] 5/325) 2 tab Q4H PRN ORAL pain scores 4-10 04/03/19 18:00 04/10/19 17:59 Acetaminophen/ Hydrocodone Bitart ([place] 7.5/325) 1 tab Q4H PRN ORAL Mild Pain (Pain Scale 1-3) 04/03/19 18:02 04/10/19 18:01 Albuterol/ Ipratropium (Albuterol/ Ipratropium) 3 ml Q4H PRN HHN Shortness of Breath 04/03/19 14:00 04/08/19 13:59 Atorvastatin Calcium (Lipitor) 20 mg BEDTIME ORAL 04/04/19 21:00 05/04/19 20:59 04/05/19 22:27 Baclofen (Lioresal) 10 mg BID ORAL 04/03/19 18:00 05/03/19 17:59 04/06/19 08:24 Baclofen (Lioresal) 10 mg Q8H PRN ORAL Muscle Spasm 04/04/19 06:36 05/04/19 06:35 Cefepime HCl 1 gm/ Dextrose 55 ml @ 110 mls/hr Q12HR IVPB 04/05/19 15:00 04/12/19 14:59 04/06/19 08:24 Celecoxib (CeleBREX) 200 mg DAILY ORAL 04/04/19 09:00 05/04/19 08:59 04/06/19 08:23 Chlorhexidine Gluconate (Michelle-Hex 2%) 1 applic DAILY@2000 TOPIC 04/06/19 20:00 05/06/19 19:59 Dextrose (Dextrose 50%) 25 ml Q30M PRN IV Hypoglycemia 04/03/19 14:00 05/03/19 13:59 Dextrose (Dextrose 50%) 50 ml Q30M PRN IV Hypoglycemia 04/03/19 14:00 05/03/19 13:59 Dextrose/ Electrolytes 1,000 ml @ 75 mls/hr [id number] IV 04/03/19 22:00 05/03/19 21:59 04/06/19 04:40 Heparin Sodium (Porcine) (Heparin 5000 units/ml) 5,000 units EVERY 12 HOURS SUBQ 04/03/19 21:00 05/03/19 20:59 04/05/19 22:34 Heparin Sodium/ Sodium Chloride (Heparin 1000 units/500ml Premix) 1,000 unit ONCE PRN IV PICC PLACEMENT 04/06/19 08:45 04/08/19 23:59 Lidocaine HCl (Xylocaine 1% 30ml) 30 ml ONCE PRN INJ PICC PLACEMENT 04/06/19 08:45 04/08/19 23:59 Losartan Potassium (Cozaar) 100 mg DAILY ORAL 04/04/19 09:00 05/04/19 08:59 04/06/19 08:26 Metoprolol Tartrate (Lopressor) 25 mg EVERY 12 HOURS ORAL 04/03/19 21:00 05/03/19 20:59 04/05/19 22:32 Morphine Sulfate (Morphine Sulfate) 1 mg Q4H PRN IVP Mild Pain (Pain Scale 1-3) 04/03/19 18:02 04/10/19 18:01 04/04/19 15:05 Nitroglycerin (Ntg) 0.4 mg Q5M PRN SL Prn Chest Pain 04/03/19 14:00 05/03/19 13:59 Ondansetron HCl (Zofran) 4 mg Q6H PRN IVP Nausea & Vomiting 04/03/19 14:00 05/03/19 13:59 Oxybutynin Chloride (Ditropan) 5 mg DAILY ORAL 04/05/19 09:00 05/05/19 08:59 04/06/19 08:23 Polyethylene Glycol (Miralax) 17 gm DAILYPRN PRN ORAL Constipation 04/03/19 14:00 05/03/19 13:59 Quetiapine Fumarate (SEROquel) 25 mg DAILY ORAL 04/06/19 09:00 05/04/19 08:59 04/06/19 08:29 Quetiapine Fumarate (SEROquel) 200 mg QHS ORAL 04/04/19 21:00 05/04/19 20:59 04/05/19 22:27 Temazepam (Restoril) 7.5 mg HSPRN PRN ORAL Insomnia 04/03/19 18:00 04/10/19 17:59 04/04/19 01:37 Vancomycin HCl (Vanco rx to dose) 1 ea DAILY PRN MISC . 04/03/19 14:00 05/03/19 13:59 Vancomycin HCl 750 mg/Sodium Chloride 275 ml @ 183.333 mls/hr Q12HR@0300,1500 IVPB 04/03/19 15:00 04/08/19 14:59 04/06/19 04:39 Vitamin D (Vitamin D) 2,000 intlu DAILY ORAL 04/05/19 09:00 05/05/19 08:59 04/06/19 08:26 Christ Vallejo MD Apr 06, 2019 13:21
--- NOTE | 2019-04-06 14:00 | NUR ---
NURSE NOTES: Informed [facility] of Radiology dept that patient may go ahead with PICC line insertion again after son spoke with the patient. Radiology still unable to do procedure as there are other patients lined up for procedures as well. Awaiting further notice from radiology. Addendum: 04/06/19 at 1847 by Rehana Sidhu RN [facility] said that if patient signs consent, she has the right to refuse procedure. But if son signs, she cannot refuse.
--- NOTE | 2019-04-06 14:13 | Cardiology Report ---
APPROVED REPORT EKG Measurement Heart [id number] OK P55 [id number] Sinus rhythm Nonspecific ST and T wave abnormality Abnormal ECG
[2019-04-06 16:00] VITALS: BP 145/85
--- NOTE | 2019-04-06 18:35 | NUR ---
NURSE NOTES: Consent for PICC line insertion obtained from sonGopi.
--- NOTE | 2019-04-06 19:50 | NUR ---
HAND-OFF: Report given to
[2019-04-06 20:00] VITALS: BP 154/71
[2019-04-06] MEDS: Dyna-Hex 2% Top Sol 2oz TOPIC SCH (20:00)
--- NOTE | 2019-04-06 20:10 | NUR ---
NURSE NOTES: Received patient awake,alert,verbal, Faroese speaking, speaks little Tristanian.son at bedside.
--- NOTE | 2019-04-06 20:28 | NUR ---
CASE MANAGEMENT: REVIEW 83Y/FEMALE PRESENTED TO ED FROM HOME CC: DRAINAGE FROM RIGHT KNEE SI: SEPTIC RIGHT KNEE S/P PARTIAL UNICOMPARTMENTAL KNEE REPLACEMENT I&D RIGHT KNEE 04/03 T 98.1 HR 68 RR 18 BP 133/67 SAT 97% ROOM AIR H/H 11.5/34.5 IS: NS IVF BOLUS X1 ZOFRAN IV X1 MORPHINE IV X1 ANCEF IV X1 PATIENT ADMITTED TO MED/SURG UNIT 04/03/2019 DCP: PATIENT IS FROM HOME
[2019-04-06] MEDS: Atorvastatin 20mg tab ORAL SCH (20:42)
[2019-04-06] MEDS: QUEtiapine 200mg tab ORAL SCH (20:42)
--- NOTE | 2019-04-06 23:01 | Progress Note ---
DATE: 04/06/2019 ORTHOPEDIC PROGRESS NOTE SUBJECTIVE: Atypical over the weekend. She did have moderate pain. She was not very compliant with physical therapy. She was on antibiotics. Had no issues. She is still complaining of moderate discomfort and pain. OBJECTIVE: GENERAL: The patient is resting comfortably in bed. VITAL SIGNS: Afebrile. Stable vital signs. EXTREMITIES: Right knee incision is clean, dry, intact. Posterior calf is soft. CULTURE RESULTS: The initial culture results taken in the ER was positive for Pseudomonas. Intraoperative cultures showed coag-negative staph. ASSESSMENT: Right knee septic joint. DISCUSSION: At this point, she is being treating for both the Pseudomonas and the coag-negative staph. Her wound looks pretty good. She is going to be set up for a PICC line tomorrow morning and then we can set her up for home IV antibiotics for 6 weeks. The issue of my concern is that when she was oral Keflex, she did have diarrhea. We want to make sure that she does not develop C. diff. If she does, she may have to get treated with Flagyl as well. I am going to communicate this with Dr. Manuel to see we need any further monitoring. We are going to set her up for the IV antibiotics. She is going to maintain the Godfrey catheter. Maybe voiding trial in the future. She is going to do physical therapy tomorrow to get up and around for discharge disposition planning. Julian Luna M.D. DR: KIMBERLY JOB#: [id number] CC:
[2019-04-07] VITALS: BP 143/85
[2019-04-07] MEDS: Vancomycin 750mg/NS 275ml IVPB SCH ×4 (02:58→14:37)
[2019-04-07 04:00] VITALS: BP 107/90
[2019-04-07] MEDS: D5 1/2NS w/KCl 20mEq 1,000 ML IV SCH ×2 (05:37→19:20)
[2019-04-07] MEDS: Acetaminophen 500mg (ES) tab ORAL SCH ×4 (05:38→22:42)
--- NOTE | 2019-04-07 07:13 | NUR ---
HAND-OFF: Report given to Maria Fernanda Denis RN.
--- NOTE | 2019-04-07 07:31 | NUR ---
NURSE NOTES: Patient awake, Georgian speaking, forgetful; on room air, no sign of distress and shortness of breath; IV Right AC 20G D51/2NS 20mEq running at 75cc; Godfrey in place, drains yellow urine; according to the report patient refused Knee Immobilizer; call light within reach; will keep monitoring.
[2019-04-07 08:00] VITALS: BP 125/68
[2019-04-07] MEDS: Metoprolol 25mg tab ORAL SCH ×2 (08:56→20:59)
[2019-04-07] MEDS: Losartan 50mg tab ORAL SCH (08:56)
[2019-04-07] MEDS: Oxybutynin 5mg tab ORAL SCH (08:56)
[2019-04-07] MEDS: celeBREX 200mg Cap **SURGERY PATIENTS ONLY ORAL SCH (08:56)
[2019-04-07] MEDS: Vitamin D 1000 IU Tab ORAL SCH (08:57)
[2019-04-07] MEDS: Heparin 5000 units/ml inj SUBQ SCH ×2 (08:59→21:05)
[2019-04-07 09:38] LABS: BASOPHILS % (AUTO) 0.8 % (0.0-2.0); EOSINOPHILS % (AUTO) 9.2 % (0.0-3.0); HEMATOCRIT 29.7 % (37.0-47.0); HEMOGLOBIN 9.7 G/DL (12.0-16.0); LYMPHOCYTES % (AUTO) 18.7 % (20.0-45.0); MEAN CORPUSCULAR VOLUME 91 FL (80-99); MONOCYTES % (AUTO) 6.9 % (1.0-10.0); NEUTROPHILS % (AUTO) 64.5 % (45.0-75.0); PLATELET COUNT 222 K/UL (150-450); RED BLOOD COUNT 3.26 M/UL (4.20-5.40); RED CELL DISTRIBUTION WIDTH 12.9 % (11.6-14.8); WHITE BLOOD COUNT 6.8 K/UL (4.8-10.8)
[2019-04-07 09:53] LABS: ANION GAP 6 mmol/L (5-15); BLOOD UREA NITROGEN 12 mg/dL (7-18); CALCIUM 8.4 MG/DL (8.5-10.1); CARBON DIOXIDE 24 MMOL/L (21-32); CHLORIDE 110 MMOL/L (98-107); CREATININE 0.9 MG/DL (0.55-1.30); POTASSIUM 4.8 MMOL/L (3.5-5.1); SODIUM 140 MMOL/L (136-145)
[2019-04-07] MEDS: Cefepime HCl 1 GM in NS 55 ML IVPB SCH (10:02)
[2019-04-07 12:00] VITALS: BP 130/65
--- NOTE | 2019-04-07 12:23 | Pulmonology Progress Note ---
Assessment/Plan Problems: (1) Septic arthritis (2) Bipolar depression (3) HTN (hypertension) Assessment/Plan all noted doing better continue abx, for total of 6 weeks. f/u cultures, staph, henderson sensitive pain management dvt prophylaxis Subjective ROS Limited/Unobtainable: No Constitutional: Reports: no symptoms HEENT: Repors: no symptoms Respiratory: Reports: no symptoms Allergies: Coded Allergies: GABAPENTIN (Verified Allergy, Unknown, 05/27/17) LITHIUM (Verified Allergy, Unknown, 05/27/17) Objective Last 24 Hour Vital Signs Date Time Temp Pulse Resp B/P (MAP) Pulse Ox O2 Delivery O2 Flow Rate FiO2 04/07/19 09:00 Room Air 04/07/19 08:56 66 125/68 04/07/19 08:56 125/68 04/07/19 08:00 97.5 66 20 125/68 (87) 96 04/07/19 06:09 98.6 04/07/19 04:00 98.6 86 18 107/90 (96) 98 04/07/19 00:00 98.3 73 18 143/85 (104) 98 04/06/19 23:21 68 18 98 Room Air 21 04/06/19 20:42 71 154/71 04/06/19 20:25 Room Air 04/06/19 20:00 98.1 71 18 154/71 (98) 97 04/06/19 16:00 98.1 71 145/85 (105) 98 Intake and Output 04/06/19 04/07/19 19:00 07:00 Intake Total 1145.000 ml 1025.000 ml Output Total 1200 ml 2000 ml Balance -55.000 ml -975.000 ml Intake Oral 120 ml IV Total 1025.000 ml 1025.000 ml Output Urine Total 1200 ml 2000 ml General Appearance: WD/WN HEENT: normocephalic, atraumatic Respiratory/Chest: chest wall non-tender, lungs clear Breasts: no masses Cardiovascular: regular rhythm Abdomen: normal bowel sounds, soft, non tender Genitourinary: normal external genitalia Skin: no rash Laboratory Tests 04/07/19 09:30: White Blood Count 6.8, Red Blood Count 3.26L, Hemoglobin 9.7L, Hematocrit 29.7L , Mean Corpuscular Volume 91, Mean Corpuscular Hemoglobin 29.7, Mean Corpuscular Hemoglobin Concent 32.7, Red Cell Distribution Width 12.9, Platelet Count 222, Mean Platelet Volume 5.3L, Neutrophils (%) (Auto) 64.5, Lymphocytes ( %) (Auto) 18.7L, Monocytes (%) (Auto) 6.9, Eosinophils (%) (Auto) 9.2H, Basophils (%) (Auto) 0.8, Sodium Level 140, Potassium Level 4.8, Chloride Level 110H, Carbon Dioxide Level 24, Anion Gap 6, Blood Urea Nitrogen 12, Creatinine 0.9, Estimat Glomerular Filtration Rate , Glucose Level 181H, Calcium Level 8.4L Current Medications Medications (Trade) Dose Ordered Sig/Caryl Route PRN Reason Start Time Stop Time Status Last Admin Dose Admin Acetaminophen (Tylenol) 650 mg Q4H PRN ORAL fever 04/03/19 14:00 05/03/19 13:59 Acetaminophen (Tylenol) 1,000 mg Q8HR ORAL 04/03/19 22:00 05/03/19 21:59 04/07/19 05:38 Acetaminophen/ Hydrocodone Bitart ([place] 5/325) 2 tab Q4H PRN ORAL pain scores 4-10 04/03/19 18:00 04/10/19 17:59 Acetaminophen/ Hydrocodone Bitart ([place] 7.5/325) 1 tab Q4H PRN ORAL Mild Pain (Pain Scale 1-3) 04/03/19 18:02 04/10/19 18:01 Al Hydroxide/Mg Hydroxide ([place]) 30 ml Q6H PRN ORAL Abdominal cramps 04/06/19 22:15 05/06/19 22:14 04/07/19 01:01 Albuterol/ Ipratropium (Albuterol/ Ipratropium) 3 ml Q4H PRN HHN Shortness of Breath 04/03/19 14:00 04/08/19 13:59 Atorvastatin Calcium (Lipitor) 20 mg BEDTIME ORAL 04/04/19 21:00 05/04/19 20:59 04/06/19 20:42 Baclofen (Lioresal) 10 mg BID ORAL 04/03/19 18:00 05/03/19 17:59 04/07/19 08:57 Baclofen (Lioresal) 10 mg Q8H PRN ORAL Muscle Spasm 04/04/19 06:36 05/04/19 06:35 Cefepime HCl 1 gm/ Sodium Chloride 55 ml @ 110 mls/hr DAILY IVPB 04/07/19 09:00 04/12/19 08:59 04/07/19 10:02 Celecoxib (CeleBREX) 200 mg DAILY ORAL 04/04/19 09:00 05/04/19 08:59 04/07/19 08:56 Chlorhexidine Gluconate (Michelle-Hex 2%) 1 applic DAILY@2000 TOPIC 04/06/19 20:00 05/06/19 19:59 Dextrose (Dextrose 50%) 25 ml Q30M PRN IV Hypoglycemia 04/03/19 14:00 05/03/19 13:59 Dextrose (Dextrose 50%) 50 ml Q30M PRN IV Hypoglycemia 04/03/19 14:00 05/03/19 13:59 Dextrose/ Electrolytes 1,000 ml @ 75 mls/hr [id number] IV 04/03/19 22:00 05/03/19 21:59 04/07/19 05:37 Heparin Sodium (Porcine) (Heparin 5000 units/ml) 5,000 units EVERY 12 HOURS SUBQ 04/03/19 21:00 05/03/19 20:59 04/07/19 08:59 Heparin Sodium/ Sodium Chloride (Heparin 1000 units/500ml Premix) 1,000 unit ONCE PRN IV PICC PLACEMENT 04/06/19 08:45 04/08/19 23:59 Lidocaine HCl (Xylocaine 1% 30ml) 30 ml ONCE PRN INJ PICC PLACEMENT 04/06/19 08:45 04/08/19 23:59 Losartan Potassium (Cozaar) 100 mg DAILY ORAL 04/04/19 09:00 05/04/19 08:59 04/07/19 08:56 Metoprolol Tartrate (Lopressor) 25 mg EVERY 12 HOURS ORAL 04/03/19 21:00 05/03/19 20:59 04/07/19 08:56 Morphine Sulfate (Morphine Sulfate) 1 mg Q4H PRN IVP Mild Pain (Pain Scale 1-3) 04/03/19 18:02 04/10/19 18:01 04/04/19 15:05 Nitroglycerin (Ntg) 0.4 mg Q5M PRN SL Prn Chest Pain 04/03/19 14:00 05/03/19 13:59 Ondansetron HCl (Zofran) 4 mg Q6H PRN IVP Nausea & Vomiting 04/03/19 14:00 05/03/19 13:59 Oxybutynin Chloride (Ditropan) 5 mg DAILY ORAL 04/05/19 09:00 05/05/19 08:59 04/07/19 08:56 Polyethylene Glycol (Miralax) 17 gm DAILYPRN PRN ORAL Constipation 04/03/19 14:00 05/03/19 13:59 Quetiapine Fumarate (SEROquel) 25 mg DAILY ORAL 04/06/19 09:00 05/04/19 08:59 04/07/19 08:56 Quetiapine Fumarate (SEROquel) 200 mg QHS ORAL 04/04/19 21:00 05/04/19 20:59 04/06/19 20:42 Temazepam (Restoril) 7.5 mg HSPRN PRN ORAL Insomnia 04/03/19 18:00 04/10/19 17:59 04/04/19 01:37 Vancomycin HCl (Vanco rx to dose) 1 ea DAILY PRN MISC . 04/03/19 14:00 05/15/19 13:59 Vancomycin HCl 750 mg/Sodium Chloride 275 ml @ 183.333 mls/hr Q12HR@0300,1500 IVPB 04/03/19 15:00 05/15/19 23:59 04/07/19 02:58 Vitamin D (Vitamin D) 2,000 intlu DAILY ORAL 04/05/19 09:00 05/05/19 08:59 04/07/19 08:57 Christ Vallejo MD Apr 07, 2019 12:23
--- NOTE | 2019-04-07 12:50 | NUR ---
NURSE NOTES: Patient left the floor for PICC line insertion; patient's son, Gopi is aware;
--- NOTE | 2019-04-07 12:51 | Infectious Diseases Prog Note ---
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 Incision and drainage, right knee. Complex closure measuring 5 cm. --OR findings: synovial fluid looked grossly purulent. Tibial insert was removed. 9 liters of bacitracin irrigation was then used to irrigate the knee. Once this was done, the same sized tibial insert was reimplanted and secured.There was significant fraying of the tissue. --OR cx: PsA -Xray R knee: Indwelling unicondylar knee arthroplasty without evidence of hardware-related complication. Degenerative changes of the patellofemoral and lateral femorotibial compartments. No acute fracture. Afebrile No leukocytosis -CXR: no acute disease -u/a wbc 15-20, nit neg, leuk +3 HTN R knee replacement on 03/25/19 Plan: -Continue IV Vancomycin #5 and Cefepime #3 for CONS and PsA R knee hardware infection -Treatment for 6 weeks from time of debridement; expected end date 05/15/19; weekly CBC, CMP, vanco through -04/05 SP ANcef #3 -04/03 SP Cefepime #1 -f/u cx -Monitor CBC/CMP, temperatures -ortho f/u -f/u OR wound cx Thank you for this consultation. Will continue to follow along with you. Discussed with RN Subjective Allergies: Coded Allergies: GABAPENTIN (Verified Allergy, Unknown, 05/27/17) LITHIUM (Verified Allergy, Unknown, 05/27/17) Subjective afebrile no leukocytosis Objective Vital Signs Last 24 Hour Vital Signs Date Time Temp Pulse Resp B/P (MAP) Pulse Ox O2 Delivery O2 Flow Rate FiO2 04/07/19 09:00 Room Air 04/07/19 08:56 66 125/68 04/07/19 08:56 125/68 04/07/19 08:00 97.5 66 20 125/68 (87) 96 04/07/19 06:09 98.6 04/07/19 04:00 98.6 86 18 107/90 (96) 98 04/07/19 00:00 98.3 73 18 143/85 (104) 98 04/06/19 23:21 68 18 98 Room Air 21 04/06/19 20:42 71 154/71 04/06/19 20:25 Room Air 04/06/19 20:00 98.1 71 18 154/71 (98) 97 04/06/19 16:00 98.1 71 145/85 (105) 98 Height (Feet): 5 Height (Inches): 5.00 Weight (Pounds): 165 Objective General Appearance: well appearing, no apparent distress Head: normocephalic Eyes: bilateral eye normal inspection, bilateral eye PERRL, bilateral eye EOMI ENT: moist mucus membranes Neck: supple Respiratory: lungs clear, normal breath sounds Cardiovascular : regular rate, rhythm Gastrointestinal: normal inspection, normal bowel sounds, non tender, no mass, non-distended Musculoskeletal: back normal, normal range of motion. R knee with surgical dressings Neurologic: alert, oriented x3, grossly normal Skin: warm/dry, other - See the knee Laboratory Tests Test 04/07/19 09:30 White Blood Count 6.8 K/UL (4.8-10.8) Red Blood Count 3.26 M/UL (4.20-5.40) L Hemoglobin 9.7 G/DL (12.0-16.0) L Hematocrit 29.7 % (37.0-47.0) L Mean Corpuscular Volume 91 FL (80-99) Mean Corpuscular Hemoglobin 29.7 PG (27.0-31.0) Mean Corpuscular Hemoglobin Concent 32.7 G/DL (32.0-36.0) Red Cell Distribution Width 12.9 % (11.6-14.8) Platelet Count 222 K/UL (150-450) Mean Platelet Volume 5.3 FL (6.5-10.1) L Neutrophils (%) (Auto) 64.5 % (45.0-75.0) Lymphocytes (%) (Auto) 18.7 % (20.0-45.0) L Monocytes (%) (Auto) 6.9 % (1.0-10.0) Eosinophils (%) (Auto) 9.2 % (0.0-3.0) H Basophils (%) (Auto) 0.8 % (0.0-2.0) Sodium Level 140 MMOL/L (136-145) Potassium Level 4.8 MMOL/L (3.5-5.1) Chloride Level 110 MMOL/L (98-107) H Carbon Dioxide Level 24 MMOL/L (21-32) Anion Gap 6 mmol/L (5-15) Blood Urea Nitrogen 12 mg/dL (7-18) Creatinine 0.9 MG/DL (0.55-1.30) Estimat Glomerular Filtration Rate mL/min (>60) Glucose Level 181 MG/DL (74-106) H Calcium Level 8.4 MG/DL (8.5-10.1) L Current Medications Medications (Trade) Dose Ordered Sig/Caryl Route PRN Reason Start Time Stop Time Status Last Admin Dose Admin Acetaminophen (Tylenol) 650 mg Q4H PRN ORAL fever 04/03/19 14:00 05/03/19 13:59 Acetaminophen (Tylenol) 1,000 mg Q8HR ORAL 04/03/19 22:00 05/03/19 21:59 04/07/19 05:38 Acetaminophen/ Hydrocodone Bitart ([place] 5/325) 2 tab Q4H PRN ORAL pain scores 4-10 04/03/19 18:00 04/10/19 17:59 Acetaminophen/ Hydrocodone Bitart ([place] 7.5/325) 1 tab Q4H PRN ORAL Mild Pain (Pain Scale 1-3) 04/03/19 18:02 04/10/19 18:01 Al Hydroxide/Mg Hydroxide (Mylanta) 30 ml Q6H PRN ORAL Abdominal cramps 04/06/19 22:15 05/06/19 22:14 04/07/19 01:01 Albuterol/ Ipratropium (Albuterol/ Ipratropium) 3 ml Q4H PRN HHN Shortness of Breath 04/03/19 14:00 04/08/19 13:59 Atorvastatin Calcium (Lipitor) 20 mg BEDTIME ORAL 04/04/19 21:00 05/04/19 20:59 04/06/19 20:42 Baclofen (Lioresal) 10 mg BID ORAL 04/03/19 18:00 05/03/19 17:59 04/07/19 08:57 Baclofen (Lioresal) 10 mg Q8H PRN ORAL Muscle Spasm 04/04/19 06:36 05/04/19 06:35 Cefepime HCl 1 gm/ Sodium Chloride 55 ml @ 110 mls/hr DAILY IVPB 04/07/19 09:00 04/12/19 08:59 04/07/19 10:02 Celecoxib (CeleBREX) 200 mg DAILY ORAL 04/04/19 09:00 05/04/19 08:59 04/07/19 08:56 Chlorhexidine Gluconate (Michelle-Hex 2%) 1 applic DAILY@2000 TOPIC 04/06/19 20:00 05/06/19 19:59 Dextrose (Dextrose 50%) 25 ml Q30M PRN IV Hypoglycemia 04/03/19 14:00 05/03/19 13:59 Dextrose (Dextrose 50%) 50 ml Q30M PRN IV Hypoglycemia 04/03/19 14:00 05/03/19 13:59 Dextrose/ Electrolytes 1,000 ml @ 75 mls/hr [id number] IV 04/03/19 22:00 05/03/19 21:59 04/07/19 05:37 Heparin Sodium (Porcine) (Heparin 5000 units/ml) 5,000 units EVERY 12 HOURS SUBQ 04/03/19 21:00 05/03/19 20:59 04/07/19 08:59 Heparin Sodium/ Sodium Chloride (Heparin 1000 units/500ml Premix) 1,000 unit ONCE PRN IV PICC PLACEMENT 04/06/19 08:45 04/08/19 23:59 Lidocaine HCl (Xylocaine 1% 30ml) 30 ml ONCE PRN INJ PICC PLACEMENT 04/06/19 08:45 04/08/19 23:59 Losartan Potassium (Cozaar) 100 mg DAILY ORAL 04/04/19 09:00 05/04/19 08:59 04/07/19 08:56 Metoprolol Tartrate (Lopressor) 25 mg EVERY 12 HOURS ORAL 04/03/19 21:00 05/03/19 20:59 04/07/19 08:56 Morphine Sulfate (Morphine Sulfate) 1 mg Q4H PRN IVP Mild Pain (Pain Scale 1-3) 04/03/19 18:02 04/10/19 18:01 04/04/19 15:05 Nitroglycerin (Ntg) 0.4 mg Q5M PRN SL Prn Chest Pain 04/03/19 14:00 05/03/19 13:59 Ondansetron HCl (Zofran) 4 mg Q6H PRN IVP Nausea & Vomiting 04/03/19 14:00 05/03/19 13:59 Oxybutynin Chloride (Ditropan) 5 mg DAILY ORAL 04/05/19 09:00 05/05/19 08:59 04/07/19 08:56 Polyethylene Glycol (Miralax) 17 gm DAILYPRN PRN ORAL Constipation 04/03/19 14:00 05/03/19 13:59 Quetiapine Fumarate (SEROquel) 25 mg DAILY ORAL 04/06/19 09:00 05/04/19 08:59 04/07/19 08:56 Quetiapine Fumarate (SEROquel) 200 mg QHS ORAL 04/04/19 21:00 05/04/19 20:59 04/06/19 20:42 Temazepam (Restoril) 7.5 mg HSPRN PRN ORAL Insomnia 04/03/19 18:00 04/10/19 17:59 04/04/19 01:37 Vancomycin HCl (Vanco rx to dose) 1 ea DAILY PRN MISC . 04/03/19 14:00 05/15/19 13:59 Vancomycin HCl 750 mg/Sodium Chloride 275 ml @ 183.333 mls/hr Q12HR@0300,1500 IVPB 04/03/19 15:00 05/15/19 23:59 04/07/19 02:58 Vitamin D (Vitamin D) 2,000 intlu DAILY ORAL 04/05/19 09:00 05/05/19 08:59 04/07/19 08:57 Chelsey Harkins M.D. Apr 07, 2019 12:51
--- NOTE | 2019-04-07 14:51 | NUR ---
LEFT UPPER EXTREMITY PICC LINE PLACED BY DR. SARAN MIGUEL. FA
--- NOTE | 2019-04-07 15:37 | NUR ---
[employer] OFF[employer] NOTES SPOKE WITH MARCIO PT'S SON MADE AWARE OF PT NEEDING SIX WEEKS OF IV ATB. PICC LINE IN PLACE. MARCIO WANTS PT TO RETURN HOME WITH HOME HEALTH. PT CURRENTLY ON SERVICES WITH [facility]. WILL CALL THEM AND FAX A REQUEST FOR CONTINUED CARE. MARCIO [phone]
[2019-04-07 16:00] VITALS: BP 136/62
--- NOTE | 2019-04-07 16:03 | NUR ---
P.T NOTE: P.T evaluation completed and tx initiated. Please refer to P.T evaluation for current functional status. Pt is alert, Oriented to self , place and time. Pt c/o 4/10 pain on the R knee however agreeable to participate in P.T evaluation. Pt is limited by R knee and pain and generalized weakness affecting overall functional mobility independence. Pt currently require MIN A X 1 for bed mobility, Transfers and gait/ambulation with use of FWW. Skilled P.T service is warranted to improve strength, balance and endurance to increase mobility independence and safety for return to PLOF during stay. Recommend Home P.T for further rehab intervention to maximize mobility independence and home safety at [place]. Thank you for this referral.
--- NOTE | 2019-04-07 16:18 | Diagnostic Imaging Report ---
Indications: Needs long-term IV access Technique: Ultrasound confirms patent compressible left basilic vein. Total sterile technique, including sterile probe cover and sterile gel, hat, mask, sterile gown, large sterile drape, and preparation with 2% chlorhexidine utilized. Local anesthesia with 1% lidocaine. Under real-time ultrasound guidance, puncture basilic vein using 21-gauge needle, documented and archived, passage 0.018 guidewire under direct fluoroscopy, which was used to determine appropriate catheter length, exchange for 4 Ghanaian peel-away sheath. 4 [place]ian Bard dual-lumen power PICC cut to 46 cm. It was inserted through the peel-away sheath. Peel-away sheath and guidewire removed. Catheter fixed to the skin. Both catheter ports aspirated and flushed. Patient tolerated procedure well, without immediate complication. Digital radiograph documents satisfactory catheter tip position, at the cavoatrial junction. Total fluoroscopy time 19 seconds. Total dose area product [id number] [id number] Total number of images: 1 Impression: Successful placement of left arm PICC under sonographic and fluoroscopic guidance, as described above.
--- NOTE | 2019-04-07 17:05 | Internal Med Progress Note ---
Subjective Date of Service: Apr 07, 2019 Physician Name LiliaGarcía Attending Physician Brad Manuel MD Current Medications Medications (Trade) Dose Ordered Sig/Caryl Route PRN Reason Start Time Stop Time Status Last Admin Dose Admin Acetaminophen (Tylenol) 650 mg Q4H PRN ORAL fever 04/03/19 14:00 05/03/19 13:59 Acetaminophen (Tylenol) 1,000 mg Q8HR ORAL 04/03/19 22:00 05/03/19 21:59 04/07/19 14:37 Acetaminophen/ Hydrocodone Bitart ([place] 5/325) 2 tab Q4H PRN ORAL pain scores 4-10 04/03/19 18:00 04/10/19 17:59 Acetaminophen/ Hydrocodone Bitart ([place] 7.5/325) 1 tab Q4H PRN ORAL Mild Pain (Pain Scale 1-3) 04/03/19 18:02 04/10/19 18:01 Al Hydroxide/Mg Hydroxide (Mylanta) 30 ml Q6H PRN ORAL Abdominal cramps 04/06/19 22:15 05/06/19 22:14 04/07/19 01:01 Albuterol/ Ipratropium (Albuterol/ Ipratropium) 3 ml Q4H PRN HHN Shortness of Breath 04/03/19 14:00 04/08/19 13:59 Atorvastatin Calcium (Lipitor) 20 mg BEDTIME ORAL 04/04/19 21:00 05/04/19 20:59 04/06/19 20:42 Baclofen (Lioresal) 10 mg BID ORAL 04/03/19 18:00 05/03/19 17:59 04/07/19 08:57 Baclofen (Lioresal) 10 mg Q8H PRN ORAL Muscle Spasm 04/04/19 06:36 05/04/19 06:35 Cefepime HCl 1 gm/ Sodium Chloride 55 ml @ 110 mls/hr DAILY IVPB 04/07/19 09:00 04/12/19 08:59 04/07/19 10:02 Celecoxib (CeleBREX) 200 mg DAILY ORAL 04/04/19 09:00 05/04/19 08:59 04/07/19 08:56 Chlorhexidine Gluconate (Michelle-Hex 2%) 1 applic DAILY@2000 TOPIC 04/06/19 20:00 05/06/19 19:59 Dextrose (Dextrose 50%) 25 ml Q30M PRN IV Hypoglycemia 04/03/19 14:00 05/03/19 13:59 Dextrose (Dextrose 50%) 50 ml Q30M PRN IV Hypoglycemia 04/03/19 14:00 05/03/19 13:59 Dextrose/ Electrolytes 1,000 ml @ 75 mls/hr [id number] IV 04/03/19 22:00 05/03/19 21:59 04/07/19 05:37 Heparin Sodium (Porcine) (Heparin 5000 units/ml) 5,000 units EVERY 12 HOURS SUBQ 04/03/19 21:00 05/03/19 20:59 04/07/19 08:59 Heparin Sodium/ Sodium Chloride (Heparin 1000 units/500ml Premix) 1,000 unit ONCE PRN IV PICC PLACEMENT 04/06/19 08:45 04/08/19 23:59 Lidocaine HCl (Xylocaine 1% 30ml) 30 ml ONCE PRN INJ PICC PLACEMENT 04/06/19 08:45 04/08/19 23:59 Losartan Potassium (Cozaar) 100 mg DAILY ORAL 04/04/19 09:00 05/04/19 08:59 04/07/19 08:56 Metoprolol Tartrate (Lopressor) 25 mg EVERY 12 HOURS ORAL 04/03/19 21:00 05/03/19 20:59 04/07/19 08:56 Morphine Sulfate (Morphine Sulfate) 1 mg Q4H PRN IVP Mild Pain (Pain Scale 1-3) 04/03/19 18:02 04/10/19 18:01 04/04/19 15:05 Nitroglycerin (Ntg) 0.4 mg Q5M PRN SL Prn Chest Pain 04/03/19 14:00 05/03/19 13:59 Ondansetron HCl (Zofran) 4 mg Q6H PRN IVP Nausea & Vomiting 04/03/19 14:00 05/03/19 13:59 Oxybutynin Chloride (Ditropan) 5 mg DAILY ORAL 04/05/19 09:00 05/05/19 08:59 04/07/19 08:56 Polyethylene Glycol (Miralax) 17 gm DAILYPRN PRN ORAL Constipation 04/03/19 14:00 05/03/19 13:59 Quetiapine Fumarate (SEROquel) 25 mg DAILY ORAL 04/06/19 09:00 05/04/19 08:59 04/07/19 08:56 Quetiapine Fumarate (SEROquel) 200 mg QHS ORAL 04/04/19 21:00 05/04/19 20:59 04/06/19 20:42 Temazepam (Restoril) 7.5 mg HSPRN PRN ORAL Insomnia 04/03/19 18:00 04/10/19 17:59 04/04/19 01:37 Vancomycin HCl (Vanco rx to dose) 1 ea DAILY PRN MISC . 04/03/19 14:00 05/15/19 13:59 Vancomycin HCl 750 mg/Sodium Chloride 275 ml @ 183.333 mls/hr Q12HR@0300,1500 IVPB 04/03/19 15:00 05/15/19 23:59 04/07/19 14:37 Vitamin D (Vitamin D) 2,000 intlu DAILY ORAL 04/05/19 09:00 05/05/19 08:59 04/07/19 08:57 Allergies: Coded Allergies: GABAPENTIN (Verified Allergy, Unknown, 05/27/17) LITHIUM (Verified Allergy, Unknown, 05/27/17) ROS Limited/Unobtainable: No Constitutional: Reports: no symptoms HEENT: Reports: no symptoms Cardiovascular: Reports: no symptoms Respiratory: Reports: no symptoms Gastrointestinal/Abdominal: Reports: no symptoms Genitourinary: Reports: no symptoms Neurologic/Psychiatric: Reports: no symptoms Subjective 83 YO F with recent right knee artrhoplasty admitted with right knee pain. Now septic arthritis right knee. Cover for Int Med-Dr Manuel. S/P revision right knee replacement and I&D on 04/03/19. Objective Last Vital Signs Date Time Temp Pulse Resp B/P (MAP) Pulse Ox O2 Delivery O2 Flow Rate FiO2 04/07/19 16:00 98.6 60 20 136/62 (86) 100 04/07/19 09:00 Room Air 04/06/19 23:21 21 04/03/19 20:25 3 Laboratory Tests Test 04/07/19 09:30 White Blood Count 6.8 K/UL (4.8-10.8) Red Blood Count 3.26 M/UL (4.20-5.40) L Hemoglobin 9.7 G/DL (12.0-16.0) L Hematocrit 29.7 % (37.0-47.0) L Mean Corpuscular Volume 91 FL (80-99) Mean Corpuscular Hemoglobin 29.7 PG (27.0-31.0) Mean Corpuscular Hemoglobin Concent 32.7 G/DL (32.0-36.0) Red Cell Distribution Width 12.9 % (11.6-14.8) Platelet Count 222 K/UL (150-450) Mean Platelet Volume 5.3 FL (6.5-10.1) L Neutrophils (%) (Auto) 64.5 % (45.0-75.0) Lymphocytes (%) (Auto) 18.7 % (20.0-45.0) L Monocytes (%) (Auto) 6.9 % (1.0-10.0) Eosinophils (%) (Auto) 9.2 % (0.0-3.0) H Basophils (%) (Auto) 0.8 % (0.0-2.0) Sodium Level 140 MMOL/L (136-145) Potassium Level 4.8 MMOL/L (3.5-5.1) Chloride Level 110 MMOL/L (98-107) H Carbon Dioxide Level 24 MMOL/L (21-32) Anion Gap 6 mmol/L (5-15) Blood Urea Nitrogen 12 mg/dL (7-18) Creatinine 0.9 MG/DL (0.55-1.30) Estimat Glomerular Filtration Rate mL/min (>60) Glucose Level 181 MG/DL (74-106) H Calcium Level 8.4 MG/DL (8.5-10.1) L Intake and Output 04/06/19 04/07/19 19:00 07:00 Intake Total 1145.000 ml 1025.000 ml Output Total 1200 ml 2000 ml Balance -55.000 ml -975.000 ml Intake Oral 120 ml IV Total 1025.000 ml 1025.000 ml Output Urine Total 1200 ml 2000 ml Objective PHYSICAL EXAMINATION: GENERAL: The patient is awake, responsive, and in no acute distress. HEAD AND NECK: Pupils are reactive to light. Extraocular movements are intact. NECK: Supple. No JVD. LUNGS: Good air entry. No wheezing or rales. HEART: Reveals S1, S2. Regular rhythm. No gallops. ABDOMEN: Soft, nondistended, and nontender. Mildly obese. EXTREMITIES: No cyanosis, clubbing, or edema. The patient's right knee has a surgical site, tender to touch, mildly edematous, plus fluid shift edema NEUROLOGIC: Cranial nerves II through XII are grossly intact. The patient is moving all her extremities except the right lower extremity. RECTAL/GENITOURINARY: Refused and deferred. PSYCHIATRIC: Mood and affect is intact. Assessment/Plan Assessment/Plan ASSESSMENT: 1. Right knee septic arthritis=pseudomonas and coag neg staph 2. Hypertension. 3. Dyslipidemia. 4. Morbid obesity. 5. Atrial flutter with 5:1 block. 6. History of bipolar disorder. 7. Chronic diarrhea. 8. Gastritis. PLAN: 1. Admit the patient to medical floor. 2. Ortho= Dr. Luna-S/P right knee replacement revision and incision and drainage 04/03/19 3. Code status is Full Code. 4. DVT prophylaxis with heparin subcutaneous. 5. antibiotic= cefepime and vancomycin. 6. Dr. Sybil Paz = Infectious Disease. 7. ABX=vanco and cefepime for 6 weeks (end 05/15/19) García Rodrigues MD Apr 07, 2019 17:05
--- NOTE | 2019-04-07 19:23 | NUR ---
HAND-OFF: Report given to AMADA Quevedo.
--- NOTE | 2019-04-07 19:59 | NUR ---
NURSE NOTES: Received report from AMADA Irving. Patient is in bed, awake and alert x3. On room air with no signs of distress or SOB. CIARA PICC line in place and running D51/2 NS w/20 mEq @ 75cc/hr. Godfrey intact and draining yellow urine. No c/o pain at this time. Bed locked and in lowest position. Bed alarm on. Call light in reach. Will continue to monitor the patient.
[2019-04-07 20:00] VITALS: BP 143/71
[2019-04-07] MEDS: Dyna-Hex 2% Top Sol 2oz TOPIC SCH (20:55)
[2019-04-07] MEDS: QUEtiapine 200mg tab ORAL SCH (20:56)
[2019-04-07] MEDS: Atorvastatin 20mg tab ORAL SCH (20:56)
[2019-04-08] VITALS: BP 145/67
[2019-04-08] MEDS: Vancomycin 750mg/NS 275ml IVPB SCH ×4 (02:20→16:01)
[2019-04-08 04:00] VITALS: BP 105/71
[2019-04-08] MEDS: Acetaminophen 500mg (ES) tab ORAL SCH ×2 (06:07→14:00)
[2019-04-08] MEDS ORDERED: Tubing IV Secondary IV ONE (06:29)
[2019-04-08 06:33] LABS: BASOPHILS % (AUTO) 0.7 % (0.0-2.0); EOSINOPHILS % (AUTO) 8.2 % (0.0-3.0); HEMATOCRIT 29.5 % (37.0-47.0); HEMOGLOBIN 9.3 G/DL (12.0-16.0); LYMPHOCYTES % (AUTO) 21.5 % (20.0-45.0); MEAN CORPUSCULAR VOLUME 94 FL (80-99); NEUTROPHILS % (AUTO) 61.6 % (45.0-75.0); PLATELET COUNT 149 K/UL (150-450); RED BLOOD COUNT 3.15 M/UL (4.20-5.40); RED CELL DISTRIBUTION WIDTH 13.2 % (11.6-14.8)
--- NOTE | 2019-04-08 07:55 | NUR ---
NURSE NOTES: Patient awake, alert x3, [place] speaking; on room air, no sing of distress and shortness of breath; no sing of chest pain; PICC line on the Left Upper arm double lumen, D51/2NS w/Kcl 20 running at 75cc; Godfrey drains yellow urine; side rails up x2, breaks engaged, bed at lowest position; call light within reach; will keep monitoring.
--- NOTE | 2019-04-08 07:56 | NUR ---
HAND-OFF: Report given to AMADA Irving.
[2019-04-08 08:00] VITALS: BP 141/68
[2019-04-08 08:44] LABS: ANION GAP 6 mmol/L (5-15); BLOOD UREA NITROGEN 11 mg/dL (7-18); CALCIUM 8.2 MG/DL (8.5-10.1); CARBON DIOXIDE 26 MMOL/L (21-32); CHLORIDE 112 MMOL/L (98-107); CREATININE 0.9 MG/DL (0.55-1.30); POTASSIUM 5.4 MMOL/L (3.5-5.1); SODIUM 144 MMOL/L (136-145)
[2019-04-08] MEDS: D5 1/2NS w/KCl 20mEq 1,000 ML IV SCH (08:59)
[2019-04-08] MEDS: Cefepime HCl 1 GM in NS 55 ML IVPB SCH (09:00)
[2019-04-08] MEDS: Vitamin D 1000 IU Tab ORAL SCH (09:00)
[2019-04-08] MEDS: Heparin 5000 units/ml inj SUBQ SCH (09:00)
[2019-04-08] MEDS: Losartan 50mg tab ORAL SCH (09:00)
[2019-04-08] MEDS: Oxybutynin 5mg tab ORAL SCH (09:00)
[2019-04-08] MEDS: Metoprolol 25mg tab ORAL SCH (09:00)
[2019-04-08] MEDS: celeBREX 200mg Cap **SURGERY PATIENTS ONLY ORAL SCH (09:00)
--- NOTE | 2019-04-08 11:18 | Pulmonology Progress Note ---
Assessment/Plan Problems: (1) Septic arthritis (2) Bipolar depression (3) HTN (hypertension) Assessment/Plan no new complains doing better continue abx, for total of 6 weeks. f/u cultures, staph, henderson sensitive pain management dvt prophylaxis Subjective ROS Limited/Unobtainable: No Constitutional: Reports: no symptoms HEENT: Repors: no symptoms Respiratory: Reports: no symptoms Allergies: Coded Allergies: GABAPENTIN (Verified Allergy, Unknown, 05/27/17) LITHIUM (Verified Allergy, Unknown, 05/27/17) Objective Last 24 Hour Vital Signs Date Time Temp Pulse Resp B/P (MAP) Pulse Ox O2 Delivery O2 Flow Rate FiO2 04/08/19 09:00 Room Air 04/08/19 08:00 98.7 55 16 141/68 (92) 100 04/08/19 06:37 97.8 04/08/19 04:00 97.8 53 20 105/71 (82) 97 04/08/19 00:00 98.6 66 20 145/67 (93) 97 04/07/19 21:00 Room Air 04/07/19 20:59 64 143/71 04/07/19 20:35 72 18 96 Room Air 21 04/07/19 20:00 100.4 64 20 143/71 (95) 100 04/07/19 16:00 98.6 60 20 136/62 (86) 100 04/07/19 12:00 98.0 60 20 130/65 (86) 97 Intake and Output 04/07/19 04/08/19 19:00 07:00 Intake Total 1856.666 ml 675 ml Output Total 1000 ml 1700 ml Balance 856.666 ml -1025 ml Intake Oral 480 ml IV Total 1376.666 ml 675 ml Output Urine Total 1000 ml 1700 ml # Voids 2 2 General Appearance: WD/WN HEENT: normocephalic, anicteric Respiratory/Chest: chest wall non-tender, lungs clear Breasts: no masses Cardiovascular: normal peripheral pulses, regularly irregular, no JVD Abdomen: soft, non tender, no scars Extremities: no clubbing Skin: no rash Laboratory Tests 04/08/19 05:40: White Blood Count 7.0, Red Blood Count 3.15L, Hemoglobin 9.3L, Hematocrit 29.5L , Mean Corpuscular Volume 94, Mean Corpuscular Hemoglobin 29.4, Mean Corpuscular Hemoglobin Concent 31.4L, Red Cell Distribution Width 13.2, Platelet Count 149L, Mean Platelet Volume 4.5L, Neutrophils (%) (Auto) 61.6, Lymphocytes (%) (Auto) 21.5, Monocytes (%) (Auto) 8.0, Eosinophils (%) (Auto) 8.2H, Basophils (%) (Auto) 0.7, Sodium Level 144, Potassium Level 5.4H, Chloride Level 112H, Carbon Dioxide Level 26, Anion Gap 6, Blood Urea Nitrogen 11, Creatinine 0.9, Estimat Glomerular Filtration Rate , Glucose Level 89, Calcium Level 8.2L Current Medications Medications (Trade) Dose Ordered Sig/Caryl Route PRN Reason Start Time Stop Time Status Last Admin Dose Admin Acetaminophen (Tylenol) 650 mg Q4H PRN ORAL fever 04/03/19 14:00 05/03/19 13:59 Acetaminophen (Tylenol) 1,000 mg Q8HR ORAL 04/03/19 22:00 05/03/19 21:59 04/08/19 06:07 Acetaminophen/ Hydrocodone Bitart ([place] 5/325) 2 tab Q4H PRN ORAL pain scores 4-10 04/03/19 18:00 04/10/19 17:59 Acetaminophen/ Hydrocodone Bitart ([place] 7.5/325) 1 tab Q4H PRN ORAL Mild Pain (Pain Scale 1-3) 04/03/19 18:02 04/10/19 18:01 Al Hydroxide/Mg Hydroxide (Mylanta) 30 ml Q6H PRN ORAL Abdominal cramps 04/06/19 22:15 05/06/19 22:14 04/07/19 01:01 Albuterol/ Ipratropium (Albuterol/ Ipratropium) 3 ml Q4H PRN HHN Shortness of Breath 04/03/19 14:00 04/08/19 13:59 Atorvastatin Calcium (Lipitor) 20 mg BEDTIME ORAL 04/04/19 21:00 05/04/19 20:59 04/07/19 20:56 Baclofen (Lioresal) 10 mg BID ORAL 04/03/19 18:00 05/03/19 17:59 04/07/19 17:43 Baclofen (Lioresal) 10 mg Q8H PRN ORAL Muscle Spasm 04/04/19 06:36 05/04/19 06:35 Cefepime HCl 1 gm/ Sodium Chloride 55 ml @ 110 mls/hr DAILY IVPB 04/07/19 09:00 04/12/19 08:59 04/08/19 09:00 Celecoxib (CeleBREX) 200 mg DAILY ORAL 04/04/19 09:00 05/04/19 08:59 04/07/19 08:56 Chlorhexidine Gluconate (Michelle-Hex 2%) 1 applic DAILY@2000 TOPIC 04/06/19 20:00 05/06/19 19:59 04/07/19 20:55 Dextrose (Dextrose 50%) 25 ml Q30M PRN IV Hypoglycemia 04/03/19 14:00 05/03/19 13:59 Dextrose (Dextrose 50%) 50 ml Q30M PRN IV Hypoglycemia 04/03/19 14:00 05/03/19 13:59 Dextrose/ Electrolytes 1,000 ml @ 75 mls/hr [id number] IV 04/03/19 22:00 05/03/19 21:59 04/08/19 08:59 Heparin Sodium (Porcine) (Heparin 5000 units/ml) 5,000 units EVERY 12 HOURS SUBQ 04/03/19 21:00 05/03/19 20:59 04/07/19 21:05 Heparin Sodium/ Sodium Chloride (Heparin 1000 units/500ml Premix) 1,000 unit ONCE PRN IV PICC PLACEMENT 04/06/19 08:45 04/08/19 23:59 Lidocaine HCl (Xylocaine 1% 30ml) 30 ml ONCE PRN INJ PICC PLACEMENT 04/06/19 08:45 04/08/19 23:59 Losartan Potassium (Cozaar) 100 mg DAILY ORAL 04/04/19 09:00 05/04/19 08:59 04/07/19 08:56 Metoprolol Tartrate (Lopressor) 25 mg EVERY 12 HOURS ORAL 04/03/19 21:00 05/03/19 20:59 04/07/19 20:59 Morphine Sulfate (Morphine Sulfate) 1 mg Q4H PRN IVP Mild Pain (Pain Scale 1-3) 04/03/19 18:02 04/10/19 18:01 04/04/19 15:05 Nitroglycerin (Ntg) 0.4 mg Q5M PRN SL Prn Chest Pain 04/03/19 14:00 05/03/19 13:59 Ondansetron HCl (Zofran) 4 mg Q6H PRN IVP Nausea & Vomiting 04/03/19 14:00 05/03/19 13:59 04/08/19 00:24 Oxybutynin Chloride (Ditropan) 5 mg DAILY ORAL 04/05/19 09:00 05/05/19 08:59 04/07/19 08:56 Polyethylene Glycol (Miralax) 17 gm DAILYPRN PRN ORAL Constipation 04/03/19 14:00 05/03/19 13:59 Quetiapine Fumarate (SEROquel) 25 mg DAILY ORAL 04/06/19 09:00 05/04/19 08:59 04/07/19 08:56 Quetiapine Fumarate (SEROquel) 200 mg QHS ORAL 04/04/19 21:00 05/04/19 20:59 04/07/19 20:56 Temazepam (Restoril) 7.5 mg HSPRN PRN ORAL Insomnia 04/03/19 18:00 04/10/19 17:59 04/04/19 01:37 Vancomycin HCl (Vanco rx to dose) 1 ea DAILY PRN MISC . 04/03/19 14:00 05/15/19 13:59 Vancomycin HCl 750 mg/Sodium Chloride 275 ml @ 183.333 mls/hr Q12HR@0300,1500 IVPB 04/03/19 15:00 05/15/19 23:59 04/08/19 02:20 Vitamin D (Vitamin D) 2,000 intlu DAILY ORAL 04/05/19 09:00 05/05/19 08:59 04/07/19 08:57 Christ Vallejo MD Apr 08, 2019 11:18
--- NOTE | 2019-04-08 11:39 | Internal Med Progress Note ---
Subjective Date of Service: Apr 08, 2019 Physician Name Rodrigues,García Attending Physician Brad Manuel MD Current Medications Medications (Trade) Dose Ordered Sig/Caryl Route PRN Reason Start Time Stop Time Status Last Admin Dose Admin Acetaminophen (Tylenol) 650 mg Q4H PRN ORAL fever 04/03/19 14:00 05/03/19 13:59 Acetaminophen (Tylenol) 1,000 mg Q8HR ORAL 04/03/19 22:00 05/03/19 21:59 04/08/19 06:07 Acetaminophen/ Hydrocodone Bitart (Woodland 5/325) 2 tab Q4H PRN ORAL pain scores 4-10 04/03/19 18:00 04/10/19 17:59 Acetaminophen/ Hydrocodone Bitart ([place]land 7.5/325) 1 tab Q4H PRN ORAL Mild Pain (Pain Scale 1-3) 04/03/19 18:02 04/10/19 18:01 Al Hydroxide/Mg Hydroxide (Mylanta) 30 ml Q6H PRN ORAL Abdominal cramps 04/06/19 22:15 05/06/19 22:14 04/07/19 01:01 Albuterol/ Ipratropium (Albuterol/ Ipratropium) 3 ml Q4H PRN HHN Shortness of Breath 04/03/19 14:00 04/08/19 13:59 Atorvastatin Calcium (Lipitor) 20 mg BEDTIME ORAL 04/04/19 21:00 05/04/19 20:59 04/07/19 20:56 Baclofen (Lioresal) 10 mg BID ORAL 04/03/19 18:00 05/03/19 17:59 04/07/19 17:43 Baclofen (Lioresal) 10 mg Q8H PRN ORAL Muscle Spasm 04/04/19 06:36 05/04/19 06:35 Cefepime HCl 1 gm/ Sodium Chloride 55 ml @ 110 mls/hr DAILY IVPB 04/07/19 09:00 04/12/19 08:59 04/08/19 09:00 Celecoxib (CeleBREX) 200 mg DAILY ORAL 04/04/19 09:00 05/04/19 08:59 04/07/19 08:56 Chlorhexidine Gluconate (Michelle-Hex 2%) 1 applic DAILY@2000 TOPIC 04/06/19 20:00 05/06/19 19:59 04/07/19 20:55 Dextrose (Dextrose 50%) 25 ml Q30M PRN IV Hypoglycemia 04/03/19 14:00 05/03/19 13:59 Dextrose (Dextrose 50%) 50 ml Q30M PRN IV Hypoglycemia 04/03/19 14:00 05/03/19 13:59 Dextrose/ Electrolytes 1,000 ml @ 75 mls/hr [id number] IV 04/03/19 22:00 05/03/19 21:59 04/08/19 08:59 Heparin Sodium (Porcine) (Heparin 5000 units/ml) 5,000 units EVERY 12 HOURS SUBQ 04/03/19 21:00 05/03/19 20:59 04/07/19 21:05 Heparin Sodium/ Sodium Chloride (Heparin 1000 units/500ml Premix) 1,000 unit ONCE PRN IV PICC PLACEMENT 04/06/19 08:45 04/08/19 23:59 Lidocaine HCl (Xylocaine 1% 30ml) 30 ml ONCE PRN INJ PICC PLACEMENT 04/06/19 08:45 04/08/19 23:59 Losartan Potassium (Cozaar) 100 mg DAILY ORAL 04/04/19 09:00 05/04/19 08:59 04/07/19 08:56 Metoprolol Tartrate (Lopressor) 25 mg EVERY 12 HOURS ORAL 04/03/19 21:00 05/03/19 20:59 04/07/19 20:59 Morphine Sulfate (Morphine Sulfate) 1 mg Q4H PRN IVP Mild Pain (Pain Scale 1-3) 04/03/19 18:02 04/10/19 18:01 04/04/19 15:05 Nitroglycerin (Ntg) 0.4 mg Q5M PRN SL Prn Chest Pain 04/03/19 14:00 05/03/19 13:59 Ondansetron HCl (Zofran) 4 mg Q6H PRN IVP Nausea & Vomiting 04/03/19 14:00 05/03/19 13:59 04/08/19 00:24 Oxybutynin Chloride (Ditropan) 5 mg DAILY ORAL 04/05/19 09:00 05/05/19 08:59 04/07/19 08:56 Polyethylene Glycol (Miralax) 17 gm DAILYPRN PRN ORAL Constipation 04/03/19 14:00 05/03/19 13:59 Quetiapine Fumarate (SEROquel) 25 mg DAILY ORAL 04/06/19 09:00 05/04/19 08:59 04/07/19 08:56 Quetiapine Fumarate (SEROquel) 200 mg QHS ORAL 04/04/19 21:00 05/04/19 20:59 04/07/19 20:56 Temazepam (Restoril) 7.5 mg HSPRN PRN ORAL Insomnia 04/03/19 18:00 04/10/19 17:59 04/04/19 01:37 Vancomycin HCl (Vanco rx to dose) 1 ea DAILY PRN MISC . 04/03/19 14:00 05/15/19 13:59 Vancomycin HCl 750 mg/Sodium Chloride 275 ml @ 183.333 mls/hr Q12HR@0300,1500 IVPB 04/03/19 15:00 05/15/19 23:59 04/08/19 02:20 Vitamin D (Vitamin D) 2,000 intlu DAILY ORAL 04/05/19 09:00 05/05/19 08:59 04/07/19 08:57 Allergies: Coded Allergies: GABAPENTIN (Verified Allergy, Unknown, 05/27/17) LITHIUM (Verified Allergy, Unknown, 05/27/17) ROS Limited/Unobtainable: No Constitutional: Reports: no symptoms HEENT: Reports: no symptoms Cardiovascular: Reports: no symptoms Respiratory: Reports: no symptoms Gastrointestinal/Abdominal: Reports: no symptoms Genitourinary: Reports: no symptoms Neurologic/Psychiatric: Reports: no symptoms Subjective 83 YO F with recent right knee artrhoplasty admitted with right knee pain. Now septic arthritis right knee. Cover for Int Med-Dr Manuel. S/P revision right knee replacement and I&D on 04/03/19. Objective Last Vital Signs Date Time Temp Pulse Resp B/P (MAP) Pulse Ox O2 Delivery O2 Flow Rate FiO2 04/08/19 09:00 Room Air 04/08/19 08:00 98.7 55 16 141/68 (92) 100 04/07/19 20:35 21 04/03/19 20:25 3 Laboratory Tests Test 04/08/19 05:40 White Blood Count 7.0 K/UL (4.8-10.8) Red Blood Count 3.15 M/UL (4.20-5.40) L Hemoglobin 9.3 G/DL (12.0-16.0) L Hematocrit 29.5 % (37.0-47.0) L Mean Corpuscular Volume 94 FL (80-99) Mean Corpuscular Hemoglobin 29.4 PG (27.0-31.0) Mean Corpuscular Hemoglobin Concent 31.4 G/DL (32.0-36.0) L Red Cell Distribution Width 13.2 % (11.6-14.8) Platelet Count 149 K/UL (150-450) L Mean Platelet Volume 4.5 FL (6.5-10.1) L Neutrophils (%) (Auto) 61.6 % (45.0-75.0) Lymphocytes (%) (Auto) 21.5 % (20.0-45.0) Monocytes (%) (Auto) 8.0 % (1.0-10.0) Eosinophils (%) (Auto) 8.2 % (0.0-3.0) H Basophils (%) (Auto) 0.7 % (0.0-2.0) Sodium Level 144 MMOL/L (136-145) Potassium Level 5.4 MMOL/L (3.5-5.1) H Chloride Level 112 MMOL/L (98-107) H Carbon Dioxide Level 26 MMOL/L (21-32) Anion Gap 6 mmol/L (5-15) Blood Urea Nitrogen 11 mg/dL (7-18) Creatinine 0.9 MG/DL (0.55-1.30) Estimat Glomerular Filtration Rate mL/min (>60) Glucose Level 89 MG/DL (74-106) Calcium Level 8.2 MG/DL (8.5-10.1) L Intake and Output 04/07/19 04/08/19 19:00 07:00 Intake Total 1856.666 ml 675 ml Output Total 1000 ml 1700 ml Balance 856.666 ml -1025 ml Intake Oral 480 ml IV Total 1376.666 ml 675 ml Output Urine Total 1000 ml 1700 ml # Voids 2 2 Objective PHYSICAL EXAMINATION: GENERAL: The patient is awake, responsive, and in no acute distress. HEAD AND NECK: Pupils are reactive to light. Extraocular movements are intact. NECK: Supple. No JVD. LUNGS: Good air entry. No wheezing or rales. HEART: Reveals S1, S2. Regular rhythm. No gallops. ABDOMEN: Soft, nondistended, and nontender. Mildly obese. EXTREMITIES: No cyanosis, clubbing, or edema. The patient's right knee has a surgical site, tender to touch, mildly edematous, plus fluid shift edema NEUROLOGIC: Cranial nerves II through XII are grossly intact. The patient is moving all her extremities except the right lower extremity. RECTAL/GENITOURINARY: Refused and deferred. PSYCHIATRIC: Mood and affect is intact. Assessment/Plan Assessment/Plan ASSESSMENT: 1. Right knee septic arthritis=pseudomonas and coag neg staph 2. Hypertension. 3. Dyslipidemia. 4. Morbid obesity. 5. Atrial flutter with 5:1 block. 6. History of bipolar disorder. 7. Chronic diarrhea. 8. Gastritis. PLAN: 1. Admit the patient to medical floor. 2. Ortho= Dr. Luna-S/P right knee replacement revision and incision and drainage 04/03/19 3. Code status is Full Code. 4. DVT prophylaxis with heparin subcutaneous. 5. antibiotic= cefepime and vancomycin. 6. Dr. Sybil Paz = Infectious Disease. 7. ABX=vanco and cefepime for 6 weeks (end 05/15/19) 8. Discharge planning: Home with [facility] health Garcaí Rodrigues MD Apr 08, 2019 11:39
[2019-04-08] MEDS ORDERED: CEFEPIME-D1 GM/50 ML IVPB (13:33)
[2019-04-08] MEDS ORDERED: VANCOMYCIN750 MG/150 IV (13:33)
--- NOTE | 2019-04-08 13:51 | NUR ---
NURSE NOTES: PT REFUSED FLUVACCINE SINCE SHE ALREADY RECEIVED IT ON FEB 2019
--- NOTE | 2019-04-08 13:59 | NUR ---
*-* DISCHARGE PLANNING *-* PATIENT HAS BEEN REFERRED TO: [facility] F: [phone]
[2019-04-08 16:00] VITALS: BP 150/68
--- NOTE | 2019-04-08 17:27 | NUR ---
TEACHING MANAGER NOTES SPOKE WITH GOVIND FROM [facility] PT ACCEPTED. IV ATB TO BE DELIVERED ANTHONY [facility] UNABLE TO ACCOMMODATE IV INFUSION @ THIS TIME. INQUIRY FAXED TO [facility] .WILL FOLLOW UP WITH ACCEPTANCE. [facility]- [phone] Addendum: 04/08/19 at 1809 by TAMMI ROBERTSON RN RN pt accepted to [facility]. START OF CARE IN AM FOR IV ATB. [facility] [phone]
--- NOTE | 2019-04-08 18:32 | NUR ---
NURSE NOTES: called and spoke with dr Manuel , received order for dc gregg, son Gopi does not want to wait for voiding, instructed with risk of urinary retention, son wants to take mom home
--- NOTE | 2019-04-08 18:53 | NUR ---
NURSE NOTES: Patient discharged and left the floor by wheelchair, accompanied by her son, Gopi, advertising assistant Rohini, and primary nurse; name tag removed; PICC line dressing changed today and dry and intact; printed material given to patient's son; belonging list singed by patient's son and primary nurse; charge nurse, Griffin received order from MD Manuel to removed Godfrey upon discharge, order carried out as order received; patient was stable upon discharge.
--- NOTE | 2019-04-08 19:34 | NUR ---
NURSE NOTES: Dr Luna called RN and md is aware that son did not want to wait for voiding output
--- NOTE | 2019-04-09 08:15 | Discharge Summary ---
Discharge Summary Discharge Summary _ DATE OF ADMISSION: 04/03/2019 DATE OF DISCHARGE: 04/08/2019 DISCHARGED BY: Dr. Manuel REASON FOR ADMISSION: 83 years old female with past medical history significant for hypertension, dyslipidemia, gastritis, chronic diarrhea, bipolar disorder, presented to the hospital per request of Dr. Luna after complaints of right knee pain. Patient recently underwent right knee replacement (on March 25, 2019), about 1 week ago. Patient was treated with the Keflex , but stopped medication due to diarrhea. Patient subsequently was switched to Augmentin. Patient' condition progressively worsened, pain became severe 9 out of 10 in intensity. Shortly after discussion with Dr. Luna patient was advised to come to the hospital for further evaluation and possible incision and drainage. Upon evaluation laboratory work-up revealed no leukocytosis , ESR within normal limits , hemoglobin 11.5, hematocrit 24.5. Chemistry revealed BUN 26 , creatinine 1.1. Glucose 112. Lactic acid 1.2. Stable electrolytes. Troponin negative. pro BNP 547. Urinalysis revealed pyuria and few bacteria. Chest x-ray revealed no acute cardiopulmonary pathology. X-ray of the right knee revealed indwelling unicondylar knee arthroplasty without evidence of hardware related complication. Degenerative changes of the patellofemoral and lateral femorotibial compartments. No active fracture. Patient subsequently admitted to the hospital for septic arthritis of right knee. CONSULTANTS: hospitalist Dr. Vallejo ID specialist Dr. Harkins orthopedic surgeon Dr. Luna HOSPITAL COURSE: Patient admitted to medical surgical floor. Patient started on the IV hydration and kept n.p.o. in anticipation for surgery. Patient subsequently undergone on 04/03 revision of right partial knee replacement, tibial insert, incision and drainage, complex closure. Patient started on empiric antibiotic as per ID specialist recommendation. Blood culture revealed no evidence of growth. Urine culture revealed mixed gram-positive organisms. Synovial fluid looked grossly purulent. The tibial insert was removed. 9 L of bacitracin irrigation was used to irrigate the knee . Once this was done, the same size tibial insert was reimplanted and secured. Synovial fluid culture revealed Pseudomonas and Staphylococci coagulase- negative. Patient remained afebrile , no leukocytosis. ID specialist recommended continue vancomycin and cefepime for Staph coagulase negative and Peudomonas aeruginosa right knee hardware infection. Patient will require treatment for 6 weeks from the time of the debridement. End date of treatment 05/15. Patient will need weekly CBC, CMP , and Vanco trough level. PICC line was placed for long-term IV antibiotics. Pain management was addressed. DVT prophylaxis provided Supportive care provided. Home medication resumed. Surgeon closely followed. Wound care provided. Blood pressure was managed with Cozaar and metoprolol, and remained stable. Statin continued. Bowel regimen instituted. Patient will need to be closely monitored while on long-term of antibiotic due to history of chronic diarrhea , at risk for C. difficile colitis. Patient clinically stabilized and was ready for discharge home with home health services for IV antibiotics and wound care. FINAL DIAGNOSES: Right knee septic arthritis , status post recent partial unicompartmental right knee replacement Status post revision of right partial knee replacement, tibial insert with incision and drainage right knee Hypertension Dyslipidemia History of bipolar disorder Chronic diarrhea Gastritis History of atrial flutter DISCHARGE MEDICATIONS: See Medication Reconciliation list. DISCHARGE INSTRUCTIONS: Patient was discharged home with home health services. Follow up with primary care provider in one week. I have been assigned to dictate discharge summary for this account. I was not involved in the patient's management. Brooke Howe NP Apr 09, 2019 08:15
== END 2019-04-08 18:48 | disposition home health service (06) | DRG 486 ==
LOC: EMR 09:15 → 4E 09:48 → EDBEDREQ 10:45
DX: T84.53XA Infection and inflammatory reaction due to internal right knee prosthesis, initial encounter (principal); I48.92 Unspecified atrial flutter; M00.861 Arthritis due to other bacteria, right knee; B96.5 Pseudomonas (aeruginosa) (mallei) (pseudomallei) as the cause of diseases classified elsewhere; B96.89 Other specified bacterial agents as the cause of diseases classified elsewhere; I10 Essential (primary) hypertension; Z88.6 Allergy status to analgesic agent; Z88.8 Allergy status to other drugs, medicaments and biological substances; E78.5 Hyperlipidemia, unspecified; Y83.8 Other surgical procedures as the cause of abnormal reaction of the patient, or of later complication, without mention of misadventure at the time of the procedure; E66.01 Morbid (severe) obesity due to excess calories; K52.9 Noninfective gastroenteritis and colitis, unspecified; K29.70 Gastritis, unspecified, without bleeding; F31.9 Bipolar disorder, unspecified; Z68.27 Body mass index [BMI] 27.0-27.9, adult
CPT/HCPCS: 36415; 36569; 71045; 76937; 80048; 80053; 80202; 81003; 82550; 83605; 83690; 83880; 84484; 85025; 85610; 85651; 85730; 86140; 86850; 86900; 86901; 87040; 87070; 87075; 87086; 87181; 87205; 93005; 94003; 94150; 94664; 96361; 96374; 96375; 99285; J2405; J7030

== ENCOUNTER 2019-04-12 12:47 | Inpatient (IN) | payer MEDICARE, OTHER ==
[~2019-04-12] VITALS: Ht 160 cm; Wt 80.7 kg
[~2019-04-12 12:47] MED LIST changes: +CEFEPIME-D1 GM/50 ML IVPB; +PEPCID AC20 M2 PO; +VANCOMYCIN750 MG/150 IV
--- NOTE | 2019-04-12 13:10 | NUR ---
ED Nurse Note: Pt brought in by son from home due to diarrhea for the last 2 days. Pt came with PICC line on left upper arm. per pt, on antibiotic meds; does not know the name. Pt is irritable; reports 10/10 ABD pain. V/S stable. Pt is connected to the manager monitoring.
[2019-04-12 13:11] VITALS: BP 111/56
--- NOTE | 2019-04-12 13:40 | Emergency Room Report ---
History of Present Illness General Chief Complaint: Diarrhea Source: Patient, Medical Record Present Illness HPI 83 years old female with past medical history significant for hypertension, dyslipidemia, gastritis, chronic diarrhea, bipolar disorder, recent discharge from hospital for septic arthritis, patient endorses diarrhea x2 days no aggravating relieving factors severity is severe, with greater than 5 episodes, no fever no chills, patient endorses generalized abdominal pain achy in nature no aggravating relieving factors severity is moderate, constant. Patient presents for evaluation Allergies: Coded Allergies: GABAPENTIN (Verified Allergy, Unknown, 05/27/17) LITHIUM (Verified Allergy, Unknown, 05/27/17) Patient History Past Medical History: see triage record Reviewed Nursing Documentation: PMH: Agreed; PSxH: Agreed Nursing Documentation-PMH Past Medical History: No History, Except For Hx Cardiac Problems: Yes Hx Hypertension: Yes Hx Cancer: No Hx Gastrointestinal Problems: No Hx Dialysis: No Hx Neurological Problems: No Review of Systems All Other Systems: negative except mentioned in HPI Physical Exam Vital Signs Date Time Temp Pulse Resp B/P (MAP) Pulse Ox O2 Delivery O2 Flow Rate FiO2 04/12/19 13:00 98.4 74 18 111/56 (74) 98 Room Air Sp02 EP Interpretation: reviewed, normal General Appearance: alert, mild distress Head: normocephalic, atraumatic Eyes: bilateral eye PERRL, bilateral eye EOMI ENT: uvula midline, moist mucus membranes Neck: supple, thyroid normal, supple/symm/no masses Respiratory: lungs clear, no respiratory distress, no retraction, no accessory muscle use Cardiovascular #1: normal peripheral pulses, regular rate, rhythm, no edema, no gallop, no murmur Gastrointestinal: distended, tenderness - Generalized Rectal: other - Fisheries Inspector Krista Flores RN , No mass noted, patient with stool present no blood Musculoskeletal: normal inspection Neurologic: alert, oriented x3 Psychiatric: mood/affect normal Skin: no rash, warm/dry Medical Decision Making Diagnostic Impression: Primary Impression: Diarrhea Qualified Codes: R19.7 - Diarrhea, unspecified Additional Impression: Fecal impaction in rectum ER Course 83-year-old female presents with diarrhea, patient found to have a fecal impaction on CT, patient was rectally disimpacted by me, Fleet enema was inserted by me, will start patient on a bowel regimen Patient still with severe pain, still in distress Patient with a very very large stool burden. Will admit for bowel regimen and with overflow obstruction. Patient admitted to Dr. Manuel Laboratory Tests Test 04/12/19 14:15 White Blood Count 11.0 K/UL (4.8-10.8) H Red Blood Count 3.04 M/UL (4.20-5.40) L Hemoglobin 9.1 G/DL (12.0-16.0) L Hematocrit 27.6 % (37.0-47.0) L Mean Corpuscular Volume 91 FL (80-99) Mean Corpuscular Hemoglobin 30.0 PG (27.0-31.0) Mean Corpuscular Hemoglobin Concent 33.0 G/DL (32.0-36.0) Red Cell Distribution Width 12.8 % (11.6-14.8) Platelet Count 270 K/UL (150-450) Mean Platelet Volume 4.6 FL (6.5-10.1) L Neutrophils (%) (Auto) 77.2 % (45.0-75.0) H Lymphocytes (%) (Auto) 10.1 % (20.0-45.0) L Monocytes (%) (Auto) 7.8 % (1.0-10.0) Eosinophils (%) (Auto) 3.9 % (0.0-3.0) H Basophils (%) (Auto) 1.1 % (0.0-2.0) Sodium Level 143 MMOL/L (136-145) Potassium Level 4.0 MMOL/L (3.5-5.1) Chloride Level 109 MMOL/L (98-107) H Carbon Dioxide Level 25 MMOL/L (21-32) Anion Gap 10 mmol/L (5-15) Blood Urea Nitrogen 18 mg/dL (7-18) Creatinine 1.0 MG/DL (0.55-1.30) Estimate Glomerular Filtration Rate mL/min (>60) Glucose Level 153 MG/DL (74-106) H Calcium Level 8.9 MG/DL (8.5-10.1) Total Bilirubin 0.5 MG/DL (0.2-1.0) Aspartate Amino Transferase (AST) 26 U/L (15-37) Alanine Aminotransferase (ALT) 32 U/L (12-78) Alkaline Phosphatase 88 U/L (46-116) Total Protein 6.0 G/DL (6.4-8.2) L Albumin 3.0 G/DL (3.4-5.0) L Globulin 3.0 g/dL Albumin/Globulin Ratio 1.0 (1.0-2.7) Lipase 156 U/L (73-393) Rhythm Strip Diag. Results Rhythm Strip Time: 14:11 EP Interpretation: yes Rate: 72 Rhythm: NSR, no PVC's, no ectopy CT/MRI/US Diagnostic Results CT/MRI/US Diagnostic Results : Impression Patient : MARCELL MEDRANO Referring Physician: Ish Sweeney MD ID Number: [id number] Service Date: 04/12/19 : 1935 Report Date: 04/12/19 Gender: F Accession No.: [id number] Location: [facility] Procedure: CT Abdomen Pelvis w/Contrast CT ABDOMEN + PELVIS With Contrast: Fecal impaction. Previous bowel surgery. Nonobstructive bowel gas pattern. Appendix not identified. Cholecystectomy. Small low-attenuation foci in the kidneys, typically represent cysts. Small low-attenuation lesion in the tail of the pancreas measuring less than 1 cm. Presacral edema. Dictated By: Kenneth Strong MD Electronically Signed By: Signed Date/Time CC: Last Vital Signs Date Time Temp Pulse Resp B/P (MAP) Pulse Ox O2 Delivery O2 Flow Rate FiO2 04/12/19 13:11 98.4 78 18 111/56 98 Room Air Disposition: ADMITTED INPATIENT Condition: Stable Ish Sweeney MD Apr 12, 2019 13:40
[2019-04-12] MEDS ORDERED: Omnipaque-300 100ml vial INJ PRN (13:45)
[2019-04-12 14:49] LABS: BASOPHILS % (AUTO) 1.1 % (0.0-2.0); EOSINOPHILS % (AUTO) 3.9 % (0.0-3.0); HEMATOCRIT 27.6 % (37.0-47.0); HEMOGLOBIN 9.1 G/DL (12.0-16.0); LYMPHOCYTES % (AUTO) 10.1 % (20.0-45.0); MEAN CORPUSCULAR VOLUME 91 FL (80-99); MONOCYTES % (AUTO) 7.8 % (1.0-10.0); NEUTROPHILS % (AUTO) 77.2 % (45.0-75.0); PLATELET COUNT 270 K/UL (150-450); RED BLOOD COUNT 3.04 M/UL (4.20-5.40); RED CELL DISTRIBUTION WIDTH 12.8 % (11.6-14.8)
[2019-04-12 15:05] LABS: ANION GAP 10 mmol/L (5-15); BLOOD UREA NITROGEN 18 mg/dL (7-18); CALCIUM 8.9 MG/DL (8.5-10.1); CARBON DIOXIDE 25 MMOL/L (21-32); CHLORIDE 109 MMOL/L (98-107); SODIUM 143 MMOL/L (136-145)
--- NOTE | 2019-04-12 15:06 | NUR ---
ED Nurse Note: left for CT
--- NOTE | 2019-04-12 15:08 | NUR ---
ED Nurse Note: reportr eceived from AMADA Driver. pt in bed. pt aware urine sample is still needed to sent to lab . VSS
[2019-04-12 15:10] LABS: ALANINE AMINOTRANSFERASE 32 U/L (12-78); ALKALINE PHOSPHATASE 88 U/L (46-116); ASPARTATE AMINO TRANSFERASE 26 U/L (15-37); BILIRUBIN,TOTAL 0.5 MG/DL (0.2-1.0)
--- NOTE | 2019-04-12 15:31 | NUR ---
ED Nurse Note: returned back from CT
[2019-04-12 15:51] VITALS: BP 123/65
--- NOTE | 2019-04-12 16:15 | NUR ---
ED Nurse Note: pt son's phone number is [phone] ( Gopi Perez). call son to pick pt up when she is ready to go home
--- NOTE | 2019-04-12 17:12 | NUR ---
ED Nurse Note: pt still unable to provide urine. offered the option of straight cath and pt declined. ERMD aware. will continue to wait for urine sample.
--- NOTE | 2019-04-12 18:06 | Diagnostic Imaging Report ---
Indication: Abdominal pain Technique: Continuous helical transaxial imaging of the abdomen and pelvis was obtained from the lung bases to the pubic symphysis during intravenous contrast administration. Coronal 2-D reformats were also obtained. Study obtained in a Siemens sensation [address] Automatic Exposure Control was utilized. Total Dose length Product (DLP): [address] Dose Index Volume (CTDIvol): 16.2 mGy Comparison: 11/10/2018 Findings: Lung bases are clear. Cholecystectomy noted. Multiple bilateral renal cysts are noted. 1 cm hypodensity in the tail the pancreas demonstrated nonspecific. Tiny umbilical hernia containing fat noted. Staple line noted at the lower end of the right hemicolon consistent with the previous partial resection. Moderate fecal retention with distention of the rectum measuring about 8 cm transversely demonstrated. Small calcification noted within what is likely part of the uterus. The uterus is atrophic or may have been partially resected previously. There is narrowing of intervertebral discs and accompanying endplate osteophyte formation. Hypertrophied facet joints also demonstrated. There is no free fluid. There is a small hiatal hernia. IMPRESSION: Moderate fecal impaction. Previous partial right hemicolectomy. Status post cholecystectomy. Bilateral renal cysts. Tiny cystic lesion pancreatic tail. Follow-up contrast enhanced MRI recommended. [facility] has communicated the preliminary results to the Emergency Department. Their findings are largely concordant with this report. The CT scanner at [facility] is accredited by the [employer] and the scans are performed using dose optimization techniques as appropriate to a performed exam including Automatic Exposure control.
[2019-04-12] MEDS ORDERED: Fleet's Mineral Oil Enema RECTAL ONE (18:30)
[2019-04-12] MEDS ORDERED: Ketorolac 30mg Inj IV ONE (18:30)
[2019-04-12] MEDS ORDERED: Hydromorphone 0.5mg/0.5ml inj IVP ONE (18:30)
--- NOTE | 2019-04-12 18:50 | NUR ---
ED Nurse Note: fecal disimpaction was perfromed by ERMD. pt urinated on jeffrey. was unable to collect urine.
--- NOTE | 2019-04-12 20:47 | NUR ---
NURSE NOTES: Received report from AMADA Pablo from ER.
--- NOTE | 2019-04-12 20:58 | NUR ---
ED Nurse Note: report given to Minsu
--- NOTE | 2019-04-12 21:10 | NUR ---
ED Nurse Note: pt brought up to [facility] surge floor room 419-2 accompanied by quality control engineering technician in stable condition. belonging list signed.
--- NOTE | 2019-04-12 21:15 | NUR ---
NURSE NOTES: Patient came to the unit on a gurney from ER. Patient awake and verbally responsive to let her needs known. Patient speaks Indonesian primarily, but able to speak and understand Nepali. Breathing unlabored without distress on room air. Denies pain at this time. PICC line noted on the left upper arm patent with intact dressing. Surgical dressing noted on the right knee. Otherwise, skin intact. Belongings as noted on the belongings list, confirmed with transferring nurse. Patient refused staff touching her purse, was not able to identify belongings within the purse. Oriented to the unit and room. Bed placed at the lowest with alarm, brake, and siderails up for safety. Call light placed within reach. Will continue to monitor and provide care as ordered. Reached Dr. Manuel for admission orders.
[2019-04-12] MEDS ORDERED: Tylenol #3 tab (300mg/30mg) ORAL PRN (22:15)
--- NOTE | 2019-04-12 22:15 | NUR ---
NURSE NOTES: Received admission order as followed: Clear liquid diet, Full code, CBC, CMP, MAG, PHOS, PT/OT Eval for mobility, continue home medications, cefepime 1gm Q24hrs, vanco per pharmacist dose, tylenol 650 PO Q6hrs PRN for mild pain/fever, tylenol #3 1 tab Q 6hrs PRN for moderate to severe pain, Zofran 4mg IVP Q 4hr PRN for nausea and vomiting, D51/2 NS + 20 mEq KCL at 75 cc/hr, Heparin 5000u/ml for dvt ppx, and wait for Dr. Luna to evaluate the surgical dressing. Will carry out the order as given and continue to monitor.
[2019-04-12] MEDS: Metoprolol 25mg tab ORAL SCH (22:59)
[2019-04-12] MEDS: QUEtiapine 200mg tab ORAL SCH (23:08)
[2019-04-12] MEDS: D5 1/2NS w/KCl 20mEq 1,000 ML IV SCH (23:10)
[2019-04-12] MEDS: Cefepime HCl 1 GM in D5W 55 ML IVPB SCH (23:10)
[2019-04-13] VITALS: BP 138/66
--- NOTE | 2019-04-13 02:15 | NUR ---
NURSE NOTES: Patient's CIARA PICC line dressing is soiled. Performed sterile procedure to change CIARA PICC line dressing. Explained patient prior and during the process. Patient verbalize understanding. Patient tolerated the procedure well. Will continue to monitor.
[2019-04-13] MEDS: Vancomycin 1.5gm/NS Premix 275 ML IVPB SCH (02:32)
[2019-04-13 04:00] VITALS: BP 121/76
[2019-04-13 05:42] LABS: BASOPHILS % (AUTO) 1.1 % (0.0-2.0); EOSINOPHILS % (AUTO) 5.2 % (0.0-3.0); HEMATOCRIT 26.9 % (37.0-47.0); HEMOGLOBIN 8.6 G/DL (12.0-16.0); LYMPHOCYTES % (AUTO) 20.3 % (20.0-45.0); MEAN CORPUSCULAR VOLUME 92 FL (80-99); MONOCYTES % (AUTO) 8.9 % (1.0-10.0); NEUTROPHILS % (AUTO) 64.5 % (45.0-75.0); PLATELET COUNT 199 K/UL (150-450); RED BLOOD COUNT 2.94 M/UL (4.20-5.40); RED CELL DISTRIBUTION WIDTH 12.9 % (11.6-14.8); WHITE BLOOD COUNT 7.5 K/UL (4.8-10.8)
[2019-04-13 06:07] LABS: ALANINE AMINOTRANSFERASE 23 U/L (12-78); ALBUMIN 2.6 G/DL (3.4-5.0); ALBUMIN/GLOBULIN RATIO 0.9 (1.0-2.7); ALKALINE PHOSPHATASE 74 U/L (46-116); ANION GAP 6 mmol/L (5-15); ASPARTATE AMINO TRANSFERASE 23 U/L (15-37); BILIRUBIN,TOTAL 0.4 MG/DL (0.2-1.0); BLOOD UREA NITROGEN 17 mg/dL (7-18); CALCIUM 7.8 MG/DL (8.5-10.1); CARBON DIOXIDE 25 MMOL/L (21-32); CHLORIDE 110 MMOL/L (98-107); POTASSIUM 3.7 MMOL/L (3.5-5.1); SODIUM 141 MMOL/L (136-145)
--- NOTE | 2019-04-13 07:30 | NUR ---
NURSE NOTES: Received pt from MINSU RN. Pt is alert and orient. pt is in RA, no SOB or acute respiratory distress noted. pt has intact PICC CIARA is running well. Pt has drainage from R knee. all needs attended, bed is locked and is in the lowest position, call light within easy reach. will continue to monitor.
--- NOTE | 2019-04-13 07:44 | NUR ---
HAND-OFF: Report given to AMADA Jennings.
[2019-04-13 08:00] VITALS: BP 131/57
[2019-04-13] MEDS: Oxybutynin 5mg tab ORAL SCH (09:06)
[2019-04-13] MEDS: Vitamin D 1000 IU Tab ORAL SCH (09:06)
[2019-04-13] MEDS: Metoprolol 25mg tab ORAL SCH ×2 (09:06→21:17)
[2019-04-13] MEDS: Losartan 50mg tab ORAL SCH (09:06)
[2019-04-13] MEDS: Heparin 5000 units/ml inj SUBQ SCH ×2 (09:09→21:18)
--- NOTE | 2019-04-13 09:15 | NUR ---
PT NOTE Received MD order for PT evaluation. Attempted to see patient for PT evaluation, patient declining to participate due to c/o fatigue, states "I'm tired". Aftiffanyon RN notified, will re-attempt later as schedule permits.
--- NOTE | 2019-04-13 10:05 | NUR ---
NURSE NOTES: Called Dr GARCIA regarding orthopedic consult, left massage, waiting to call back. will continue to monitor.
[2019-04-13 12:00] VITALS: BP 138/63
[2019-04-13] MEDS: D5 1/2NS w/KCl 20mEq 1,000 ML IV SCH (12:16)
--- NOTE | 2019-04-13 12:28 | NUR ---
NURSE NOTES: DR ROCHA VISITED PT AND ORDERED [employer]ERAL [employer]IL ENEMA DAILY, AND HE IS AWARE PT' SON WANTS TO SPEAK WITH HIM AND HAS SON NUMBER, HE WILL F/U. DR ROCHA KNOWS ABOUT RN CALLED DR GARCIA WITH NO CALL BACK, HE WILL F/U. CONTINUE TO MONITOR
--- NOTE | 2019-04-13 12:56 | Consultation ---
History of Present Illness General Date patient seen: Apr 13, 2019 Chief Complaint: Diarrhea Present Illness HPI 82 years old female with PMHx of hypertension, GERD,, presented to emergency department with abdominal pain. Patient denied nausea and vomiting. Abdominal CT revealed increased stool load. She is admitted for further work up. Allergies: Coded Allergies: GABAPENTIN (Verified Allergy, Unknown, 05/27/17) LITHIUM (Verified Allergy, Unknown, 05/27/17) Medication History Scheduled Atorvastatin Calcium* (Lipitor*), 20 MG ORAL QHS, (Reported) Baclofen* (Baclofen*), 10 MG ORAL BID, (Reported) Cefepime Hcl/D5w (Cefepime-Dextrose 1 Gm/50 Ml), 1 GM IVPB Q24H, (Reported) Famotidine (Pepcid Ac), 20 MG PO BID, (Reported) Losartan Potassium* (Losartan Potassium*), 100 MG ORAL DAILY, (Reported) Metoprolol Tartrate* (Metoprolol Tartrate*), 25 MG ORAL EVERY 12 HOURS, ( Reported) Oxybutynin Chloride (Oxybutynin Chloride), 5 MG ORAL DAILY, (Reported) Quetiapine Fumarate* (Seroquel*), 200 MG ORAL QHS, (Reported) Quetiapine Fumarate* (Seroquel*), 25 MG ORAL MORNING, (Reported) Vancomycin In Dextrose,Iso-Osm (Vancomycin 750 Mg/150 Ml Bag), 750 MG IV Q12HR, (Reported) Vitamin D (Vitamin D3), 2,000 UNITS ORAL DAILY, (Reported) Patient History Healthcare decision maker Resuscitation status Full Code Advanced Directive on File Past Medical/Surgical History Past Medical/Surgical History: (1) Bipolar depression (2) HTN (hypertension) (3) Septic arthritis Review of Systems All Other Systems: negative except mentioned in HPI Physical Exam General Appearance: WD/WN, no apparent distress Lines, tubes and drains: peripheral HEENT: normocephalic, atraumatic Neck: non-tender, normal alignment Respiratory/Chest: chest wall non-tender, lungs clear Breasts: no masses Cardiovascular/Chest: normal rate, no JVD Abdomen: normal bowel sounds Genitourinary/Rectal: normal genital exam Extremities: normal range of motion Last 24 Hour Vital Signs Date Time Temp Pulse Resp B/P (MAP) Pulse Ox O2 Delivery O2 Flow Rate FiO2 04/13/19 09:06 60 131/57 04/13/19 09:06 131/57 04/13/19 09:00 Room Air 04/13/19 08:00 97.5 60 20 131/57 (81) 99 04/13/19 04:00 98.1 78 20 121/76 (91) 100 04/13/19 00:00 98.3 64 20 138/66 (90) 100 04/12/19 22:59 60 141/66 04/12/19 22:39 Room Air 04/12/19 21:10 98.1 89 18 132/84 99 Room Air 04/12/19 15:51 98.2 108 17 123/65 98 Room Air 04/12/19 13:11 98.4 78 18 111/56 98 Room Air 04/12/19 13:00 98.4 74 18 111/56 (74) 98 Room Air Intake and Output 04/12/19 04/13/19 19:00 07:00 Intake Total 1720 ml Balance 1720 ml Intake Oral 240 ml IV Total 1480 ml # Voids 2 # Bowel Movements 2 Laboratory Tests Test 04/12/19 14:15 04/13/19 05:25 White Blood Count 11.0 K/UL (4.8-10.8) H 7.5 K/UL (4.8-10.8) Red Blood Count 3.04 M/UL (4.20-5.40) L 2.94 M/UL (4.20-5.40) L Hemoglobin 9.1 G/DL (12.0-16.0) L 8.6 G/DL (12.0-16.0) L Hematocrit 27.6 % (37.0-47.0) L 26.9 % (37.0-47.0) L Mean Corpuscular Volume 91 FL (80-99) 92 FL (80-99) Mean Corpuscular Hemoglobin 30.0 PG (27.0-31.0) 29.3 PG (27.0-31.0) Mean Corpuscular Hemoglobin Concent 33.0 G/DL (32.0-36.0) 32.0 G/DL (32.0-36.0) Red Cell Distribution Width 12.8 % (11.6-14.8) 12.9 % (11.6-14.8) Platelet Count 270 K/UL (150-450) 199 K/UL (150-450) Mean Platelet Volume 4.6 FL (6.5-10.1) L 4.8 FL (6.5-10.1) L Neutrophils (%) (Auto) 77.2 % (45.0-75.0) H 64.5 % (45.0-75.0) Lymphocytes (%) (Auto) 10.1 % (20.0-45.0) L 20.3 % (20.0-45.0) Monocytes (%) (Auto) 7.8 % (1.0-10.0) 8.9 % (1.0-10.0) Eosinophils (%) (Auto) 3.9 % (0.0-3.0) H 5.2 % (0.0-3.0) H Basophils (%) (Auto) 1.1 % (0.0-2.0) 1.1 % (0.0-2.0) Sodium Level 143 MMOL/L (136-145) 141 MMOL/L (136-145) Potassium Level 4.0 MMOL/L (3.5-5.1) 3.7 MMOL/L (3.5-5.1) Chloride Level 109 MMOL/L (98-107) H 110 MMOL/L (98-107) H Carbon Dioxide Level 25 MMOL/L (21-32) 25 MMOL/L (21-32) Anion Gap 10 mmol/L (5-15) 6 mmol/L (5-15) Blood Urea Nitrogen 18 mg/dL (7-18) 17 mg/dL (7-18) Creatinine 1.0 MG/DL (0.55-1.30) 1.0 MG/DL (0.55-1.30) Estimat Glomerular Filtration Rate mL/min (>60) mL/min (>60) Glucose Level 153 MG/DL (74-106) H 86 MG/DL (74-106) Calcium Level 8.9 MG/DL (8.5-10.1) 7.8 MG/DL (8.5-10.1) L Total Bilirubin 0.5 MG/DL (0.2-1.0) 0.4 MG/DL (0.2-1.0) Aspartate Amino Transf (AST/SGOT) 26 U/L (15-37) 23 U/L (15-37) Alanine Aminotransferase (ALT/SGPT) 32 U/L (12-78) 23 U/L (12-78) Alkaline Phosphatase 88 U/L (46-116) 74 U/L (46-116) Total Protein 6.0 G/DL (6.4-8.2) L 5.4 G/DL (6.4-8.2) L Albumin 3.0 G/DL (3.4-5.0) L 2.6 G/DL (3.4-5.0) L Globulin 3.0 g/dL 2.8 g/dL Albumin/Globulin Ratio 1.0 (1.0-2.7) 0.9 (1.0-2.7) L Lipase 156 U/L (73-393) Phosphorus Level 4.0 MG/DL (2.5-4.9) Magnesium Level 2.0 MG/DL (1.8-2.4) Height (Feet): 5 Height (Inches): 3.00 Weight (Pounds): 178 Medications Current Medications Medications (Trade) Dose Ordered Sig/Caryl Route PRN Reason Start Time Stop Time Status Last Admin Dose Admin Acetaminophen (Tylenol) 650 mg Q6H PRN ORAL Mild Pain/Temp > 100.5 04/12/19 22:15 05/12/19 22:14 Acetaminophen/ Codeine Phosphate (Tylenol #3) 1 tab Q6H PRN ORAL Moderate to Severe Pain 04/12/19 22:15 04/19/19 22:14 Atorvastatin Calcium (Lipitor) 20 mg QHS ORAL 04/13/19 21:00 05/13/19 20:59 Baclofen (Lioresal) 10 mg BID ORAL 04/12/19 22:15 05/12/19 22:14 04/13/19 09:06 Cefepime HCl 1 gm/ Dextrose 55 ml @ 110 mls/hr DAILY@2200 IVPB 04/12/19 22:15 04/19/19 22:14 04/12/19 23:10 Chlorhexidine Gluconate (Michelle-Hex 2%) 1 applic DAILY@2000 TOPIC 04/13/19 20:00 05/13/19 19:59 Dextrose/ Electrolytes 1,000 ml @ 75 mls/hr [id number] IV 04/12/19 22:15 05/12/19 22:14 04/13/19 12:16 Famotidine (Pepcid) 20 mg QHS ORAL 04/12/19 22:15 05/12/19 22:14 04/12/19 22:59 Heparin Sodium (Porcine) (Heparin 5000 units/ml) 5,000 units EVERY 12 HOURS SUBQ 04/13/19 09:00 05/13/19 08:59 04/13/19 09:09 Iohexol (OMNIPAQUE-300 100ml) 100 ml NOW PRN INJ Radiology Procedure 04/12/19 13:45 04/14/19 13:33 Losartan Potassium (Cozaar) 100 mg DAILY ORAL 04/13/19 09:00 05/13/19 08:59 04/13/19 09:06 Metoprolol Tartrate (Lopressor) 25 mg EVERY 12 HOURS ORAL 04/12/19 22:15 05/12/19 22:14 04/13/19 09:06 Mineral Oil (Fleet's Mineral Oil Enema) 133 ml ONCE RECTAL 04/13/19 17:00 04/13/19 18:00 Ondansetron HCl (Zofran) 4 mg Q6H PRN IVP Nausea & Vomiting 04/12/19 22:15 05/12/19 22:14 Oxybutynin Chloride (Ditropan) 5 mg DAILY ORAL 04/13/19 09:00 05/13/19 08:59 04/13/19 09:06 Quetiapine Fumarate (SEROquel) 25 mg DAILY ORAL 04/13/19 09:00 05/13/19 08:59 04/13/19 09:07 Quetiapine Fumarate (SEROquel) 200 mg QHS ORAL 04/12/19 23:00 05/13/19 20:59 04/12/19 23:08 Vancomycin HCl (Vanco rx to dose) 1 ea DAILY PRN MISC Per rx protocol 04/12/19 22:15 05/12/19 22:14 Vancomycin/Sodium Chloride 275 ml @ 184 mls/hr Q24H IVPB 04/13/19 02:00 04/18/19 01:59 04/13/19 02:32 Vitamin D (Vitamin D) 2,000 intlu DAILY ORAL 04/13/19 09:00 05/13/19 08:59 04/13/19 09:06 Assessment/Plan Problem List: (1) Constipation ICD Codes: K59.00 - Constipation, unspecified SNOMED: 76766586 (2) Septic arthritis ICD Codes: M00.9 - Pyogenic arthritis, unspecified SNOMED: 875715419 (3) Fecal impaction in rectum ICD Codes: K56.41 - Fecal impaction SNOMED: 80930400 (4) Bipolar depression ICD Codes: F31.30 - Bipolar disorder, current episode depressed, mild or moderate severity, unspecified SNOMED: 86529051 (5) HTN (hypertension) ICD Codes: I10 - Essential (primary) hypertension SNOMED: 63878492 (6) Anemia ICD Codes: D64.9 - Anemia, unspecified SNOMED: 383818856 Assessment/Plan: daily enemas ID evaluation resume abx GI evaluation dvt prophylaxis. Christ Vallejo MD Apr 13, 2019 12:56
--- NOTE | 2019-04-13 13:33 | GI Initial Consult Note ---
History of Present Illness General Date patient seen: Apr 13, 2019 Time patient seen: 13:29 Reason for Hospitalization: Diarrhea Referring physician: CATE FLOWERS Reason for Consultation: FECAL IMPACATION Present Illness HPI 83 years old female with past medical history significant for hypertension, dyslipidemia, gastritis, chronic diarrhea, bipolar disorder, recent discharge from hospital for septic arthritis, patient endorses diarrhea x2 days no aggravating relieving factors severity is severe, with greater than 5 episodes, no fever no chills, patient endorses generalized abdominal pain achy in nature no aggravating relieving factors severity is moderate, constant. GI consulted for abdominal pain. Patient seen, awake alert oriented x4 no apparent distress. Patient has a complaint of abdominal pain, diarrhea. Denies any nausea or vomiting. Abdominal pelvis CT showed moderate fecal impaction. I attempted to do a digital disimpaction by bedside, however the patient refused. Unknown history of endoscopic colonoscopy at this time. Significant laboratory data; hemoglobin 8.6, hematocrit 26.9, no transaminitis. Home Meds Reported Medications Cefepime Hcl/D5w (CEFEPIME-DEXTROSE 1 GM/50 ML) 1 Gm/50 Ml Piggyback, 1 GM IVPB Q24H, BAG 04/08/19 Vancomycin In Dextrose,Iso-Osm (VANCOMYCIN 750 MG/150 ML BAG) 750 Mg/150 Ml Froz.piggy, 750 MG IV Q12HR for 39 Days, BAG 04/08/19 Oxybutynin Chloride (OXYBUTYNIN CHLORIDE) 5 Mg Tablet, 5 MG ORAL DAILY 04/05/19 Quetiapine Fumarate* (SEROQUEL*) 25 Mg Tablet, 25 MG ORAL MORNING 04/05/19 Famotidine (PEPCID AC) 20 Mg Tablet, 20 MG PO BID, TAB 04/03/19 Losartan Potassium* (LOSARTAN POTASSIUM*) 50 Mg Tablet, 100 MG ORAL DAILY, TAB 11/20/18 Metoprolol Tartrate* (METOPROLOL TARTRATE*) 25 Mg Tablet, 25 MG ORAL EVERY 12 HOURS, TAB 10/22/18 Baclofen* (BACLOFEN*) 10 Mg Tablet, 10 MG ORAL BID, TAB 10/21/18 Vitamin D (Vitamin D3) 400 Unit Tablet, 2000 UNITS ORAL DAILY, TAB 08/01/17 Quetiapine Fumarate* (SEROQUEL*) 200 Mg Tablet, 200 MG ORAL QHS 08/01/17 Atorvastatin Calcium* (LIPITOR*) 10 Mg Tablet, 20 MG ORAL QHS for CHOLESTEROL 07/09/14 Med list reviewed/reconciled: Yes Allergies: Coded Allergies: GABAPENTIN (Verified Allergy, Unknown, 05/27/17) LITHIUM (Verified Allergy, Unknown, 05/27/17) Patient History History Provided By: Patient, Medical Record PMH Narrative Past Medical History: see triage record Reviewed Nursing Documentation: PMH: Agreed; PSxH: Agreed Nursing Documentation-PMH Past Medical History: No History, Except For Hx Cardiac Problems: Yes Hx Hypertension: Yes Hx Cancer: No Hx Gastrointestinal Problems: No Hx Dialysis: No Hx Neurological Problems: No Social History: Denies: smoking, alcohol use, drug use, other Review of Systems All Other Systems: negative except mentioned in HPI Physical Exam Vital Signs Date Time Temp Pulse Resp B/P (MAP) Pulse Ox O2 Delivery O2 Flow Rate FiO2 04/12/19 13:00 98.4 74 18 111/56 (74) 98 Room Air Sp02 EP Interpretation: reviewed, normal Labs Laboratory Tests Test 04/12/19 14:15 04/13/19 05:25 White Blood Count 11.0 K/UL (4.8-10.8) H 7.5 K/UL (4.8-10.8) Red Blood Count 3.04 M/UL (4.20-5.40) L 2.94 M/UL (4.20-5.40) L Hemoglobin 9.1 G/DL (12.0-16.0) L 8.6 G/DL (12.0-16.0) L Hematocrit 27.6 % (37.0-47.0) L 26.9 % (37.0-47.0) L Mean Corpuscular Volume 91 FL (80-99) 92 FL (80-99) Mean Corpuscular Hemoglobin 30.0 PG (27.0-31.0) 29.3 PG (27.0-31.0) Mean Corpuscular Hemoglobin Concent 33.0 G/DL (32.0-36.0) 32.0 G/DL (32.0-36.0) Red Cell Distribution Width 12.8 % (11.6-14.8) 12.9 % (11.6-14.8) Platelet Count 270 K/UL (150-450) 199 K/UL (150-450) Mean Platelet Volume 4.6 FL (6.5-10.1) L 4.8 FL (6.5-10.1) L Neutrophils (%) (Auto) 77.2 % (45.0-75.0) H 64.5 % (45.0-75.0) Lymphocytes (%) (Auto) 10.1 % (20.0-45.0) L 20.3 % (20.0-45.0) Monocytes (%) (Auto) 7.8 % (1.0-10.0) 8.9 % (1.0-10.0) Eosinophils (%) (Auto) 3.9 % (0.0-3.0) H 5.2 % (0.0-3.0) H Basophils (%) (Auto) 1.1 % (0.0-2.0) 1.1 % (0.0-2.0) Sodium Level 143 MMOL/L (136-145) 141 MMOL/L (136-145) Potassium Level 4.0 MMOL/L (3.5-5.1) 3.7 MMOL/L (3.5-5.1) Chloride Level 109 MMOL/L (98-107) H 110 MMOL/L (98-107) H Carbon Dioxide Level 25 MMOL/L (21-32) 25 MMOL/L (21-32) Anion Gap 10 mmol/L (5-15) 6 mmol/L (5-15) Blood Urea Nitrogen 18 mg/dL (7-18) 17 mg/dL (7-18) Creatinine 1.0 MG/DL (0.55-1.30) 1.0 MG/DL (0.55-1.30) Estimat Glomerular Filtration Rate mL/min (>60) mL/min (>60) Glucose Level 153 MG/DL (74-106) H 86 MG/DL (74-106) Calcium Level 8.9 MG/DL (8.5-10.1) 7.8 MG/DL (8.5-10.1) L Total Bilirubin 0.5 MG/DL (0.2-1.0) 0.4 MG/DL (0.2-1.0) Aspartate Amino Transf (AST/SGOT) 26 U/L (15-37) 23 U/L (15-37) Alanine Aminotransferase (ALT/SGPT) 32 U/L (12-78) 23 U/L (12-78) Alkaline Phosphatase 88 U/L (46-116) 74 U/L (46-116) Total Protein 6.0 G/DL (6.4-8.2) L 5.4 G/DL (6.4-8.2) L Albumin 3.0 G/DL (3.4-5.0) L 2.6 G/DL (3.4-5.0) L Globulin 3.0 g/dL 2.8 g/dL Albumin/Globulin Ratio 1.0 (1.0-2.7) 0.9 (1.0-2.7) L Lipase 156 U/L (73-393) Phosphorus Level 4.0 MG/DL (2.5-4.9) Magnesium Level 2.0 MG/DL (1.8-2.4) General Appearance: well appearing, no apparent distress, alert Head: normocephalic EENT: PERRL/EOMI, normal ENT inspection Neck: supple Respiratory: normal breath sounds, no respiratory distress Cardiovascular: normal rate Gastrointestinal: normal inspection, non tender, soft, normal bowel sounds, non -distended Rectal: deferred Genitourinary: no CVA tenderness Musculoskeletal: normal inspection, back normal Neurologic: normal inspection, alert, oriented x3, responsive Psychiatric: normal inspection, judgement/insight normal, memory normal Skin: normal inspection, normal color, no rash, warm/dry, palpation normal, well hydrated Lymphatic: normal inspection, no adenopathy Current Medications Current Medications Medications (Trade) Dose Ordered Sig/Caryl Route PRN Reason Start Time Stop Time Status Last Admin Dose Admin Acetaminophen (Tylenol) 650 mg Q6H PRN ORAL Mild Pain/Temp > 100.5 04/12/19 22:15 05/12/19 22:14 Acetaminophen/ Codeine Phosphate (Tylenol #3) 1 tab Q6H PRN ORAL Moderate to Severe Pain 04/12/19 22:15 04/19/19 22:14 Atorvastatin Calcium (Lipitor) 20 mg QHS ORAL 04/13/19 21:00 05/13/19 20:59 Baclofen (Lioresal) 10 mg BID ORAL 04/12/19 22:15 05/12/19 22:14 04/13/19 09:06 Cefepime HCl 1 gm/ Dextrose 55 ml @ 110 mls/hr DAILY@2200 IVPB 04/12/19 22:15 04/19/19 22:14 04/12/19 23:10 Chlorhexidine Gluconate (Michelle-Hex 2%) 1 applic DAILY@2000 TOPIC 04/13/19 20:00 05/13/19 19:59 Dextrose/ Electrolytes 1,000 ml @ 75 mls/hr [id number] IV 04/12/19 22:15 05/12/19 22:14 04/13/19 12:16 Famotidine (Pepcid) 20 mg QHS ORAL 04/12/19 22:15 05/12/19 22:14 04/12/19 22:59 Heparin Sodium (Porcine) (Heparin 5000 units/ml) 5,000 units EVERY 12 HOURS SUBQ 04/13/19 09:00 05/13/19 08:59 04/13/19 09:09 Iohexol (OMNIPAQUE-300 100ml) 100 ml NOW PRN INJ Radiology Procedure 04/12/19 13:45 04/14/19 13:33 Losartan Potassium (Cozaar) 100 mg DAILY ORAL 04/13/19 09:00 05/13/19 08:59 04/13/19 09:06 Metoprolol Tartrate (Lopressor) 25 mg EVERY 12 HOURS ORAL 04/12/19 22:15 05/12/19 22:14 04/13/19 09:06 Mineral Oil (Fleet's Mineral Oil Enema) 133 ml ONCE RECTAL 04/13/19 17:00 04/13/19 18:00 Ondansetron HCl (Zofran) 4 mg Q6H PRN IVP Nausea & Vomiting 04/12/19 22:15 05/12/19 22:14 Oxybutynin Chloride (Ditropan) 5 mg DAILY ORAL 04/13/19 09:00 05/13/19 08:59 04/13/19 09:06 Quetiapine Fumarate (SEROquel) 25 mg DAILY ORAL 04/13/19 09:00 05/13/19 08:59 04/13/19 09:07 Quetiapine Fumarate (SEROquel) 200 mg QHS ORAL 04/12/19 23:00 05/13/19 20:59 04/12/19 23:08 Vancomycin HCl (Vanco rx to dose) 1 ea DAILY PRN MISC Per rx protocol 04/12/19 22:15 05/12/19 22:14 Vancomycin/Sodium Chloride 275 ml @ 184 mls/hr Q24H IVPB 04/13/19 02:00 04/18/19 01:59 04/13/19 02:32 Vitamin D (Vitamin D) 2,000 intlu DAILY ORAL 04/13/19 09:00 05/13/19 08:59 04/13/19 09:06 GI: Plan Problems: (1) Anemia (2) Constipation (3) Fecal impaction in rectum (4) Diarrhea Plan Abdominal pelvis CT noted with moderate fecal impaction within the rectum Patient refused digital disimpaction We will treat constipation with medical management Mineral oil p.o. x1 Mineral oil per rectum x1 Add Colace plus MiraLAX Will titrate as necessary Occult blood stool to rule out any GI bleed Monitor H&H, PRN transfusions PPI We will follow along on a daily basis with additional recommendations Discussed with Dr. Vázquez. Thank you for this patient referral, we will follow. The patient was seen and examined at bedside and all new and available data was reviewed in the patients chart. I agree with the above findings, impression and plan. (Patient seen earlier today. Signature stamp does not reflect patient encounter time.). - MD Cortney AlmendarezB[facility] JUL[facility] Apr 13, 2019 13:33
[2019-04-13] MEDS ORDERED: Mineral Oil 30ml ud ORAL SCH (13:45)
[2019-04-13] MEDS ORDERED: Mineral Oil 30ml ud ORAL PRN (13:45)
--- NOTE | 2019-04-13 14:03 | History & Physical ---
History and Physical History & Physicial Dictated for Int Med-García Tinajero MD Apr 13, 2019 14:03
[2019-04-13 16:00] VITALS: BP 147/69
--- NOTE | 2019-04-13 16:38 | Consultation ---
History of Present Illness General Date patient seen: Apr 13, 2019 Chief Complaint: Diarrhea Referring physician: CATE FLOWERS Reason for Consultation: FECAL IMPACATION Present Illness HPI 82yo woman with PMH HTN,dyslipidemia, gastritis, chronic diarrhea, bipolar disorder. Pt was admitted from 04/03-04/09 for knee prosthetic joint infection. OR culture grew Pseudomonas and coNS. Patient was discharged on vancomycin and cefepime for 6 weeks(end date 05/15/19). Pt now returns with diarrhea but CT imaging consistent with fecal impaction. Pt states that she was in the restaurant and she had an accident so son brought him to the ED. Pt is currently very anxious. States that she needs to go home but then also states that she still has abdominal pain. Allergies: Coded Allergies: GABAPENTIN (Verified Allergy, Unknown, 05/27/17) LITHIUM (Verified Allergy, Unknown, 05/27/17) Medication History Scheduled Atorvastatin Calcium* (Lipitor*), 20 MG ORAL QHS, (Reported) Baclofen* (Baclofen*), 10 MG ORAL BID, (Reported) Cefepime Hcl/D5w (Cefepime-Dextrose 1 Gm/50 Ml), 1 GM IVPB Q24H, (Reported) Famotidine (Pepcid Ac), 20 MG PO BID, (Reported) Losartan Potassium* (Losartan Potassium*), 100 MG ORAL DAILY, (Reported) Metoprolol Tartrate* (Metoprolol Tartrate*), 25 MG ORAL EVERY 12 HOURS, ( Reported) Oxybutynin Chloride (Oxybutynin Chloride), 5 MG ORAL DAILY, (Reported) Quetiapine Fumarate* (Seroquel*), 200 MG ORAL QHS, (Reported) Quetiapine Fumarate* (Seroquel*), 25 MG ORAL MORNING, (Reported) Vancomycin In Dextrose,Iso-Osm (Vancomycin 750 Mg/150 Ml Bag), 750 MG IV Q12HR, (Reported) Vitamin D (Vitamin D3), 2,000 UNITS ORAL DAILY, (Reported) Patient History Healthcare decision maker Resuscitation status Full Code Advanced Directive on File Patient History Narrative PMH: HTN Dyslipidemia Gastritis Chronic diarrhea bipolar disorder R Knee replacement 03/25/19 SHx: reviewed FHx: noncontributory Review of Systems Constitutional: Denies: chills, fever Respiratory: Denies: cough, shortness of breath Cardiovascular: Denies: chest pain Gastrointestinal: Reports: abdominal pain, constipation; Denies: nausea, vomiting Genitourinary: Denies: dysuria Musculoskeletal: Denies: back pain Neurological: Denies: headache, seizure Physical Exam Physical Exam Narrative Gen: NAD HEENT: anicteric sclera CV: RRR. no murmurs Resp: RRR. unlabored. no wheezes or crackles. Abd: Soft. hyperactive BS+. mild TTP Neuro: alert. interactive Psych: anxious Last 24 Hour Vital Signs Date Time Temp Pulse Resp B/P (MAP) Pulse Ox O2 Delivery O2 Flow Rate FiO2 04/13/19 16:00 97.8 60 18 147/69 (95) 97 04/13/19 12:00 97.6 61 19 138/63 (88) 99 04/13/19 09:06 60 131/57 04/13/19 09:06 131/57 04/13/19 09:00 Room Air 04/13/19 08:00 97.5 60 20 131/57 (81) 99 04/13/19 04:00 98.1 78 20 121/76 (91) 100 04/13/19 00:00 98.3 64 20 138/66 (90) 100 04/12/19 22:59 60 141/66 04/12/19 22:39 Room Air 04/12/19 21:10 98.1 89 18 132/84 99 Room Air Intake and Output 04/12/19 04/13/19 19:00 07:00 Intake Total 1720 ml Balance 1720 ml Intake Oral 240 ml IV Total 1480 ml # Voids 2 # Bowel Movements 2 Laboratory Tests Test 04/13/19 05:25 White Blood Count 7.5 K/UL (4.8-10.8) Red Blood Count 2.94 M/UL (4.20-5.40) L Hemoglobin 8.6 G/DL (12.0-16.0) L Hematocrit 26.9 % (37.0-47.0) L Mean Corpuscular Volume 92 FL (80-99) Mean Corpuscular Hemoglobin 29.3 PG (27.0-31.0) Mean Corpuscular Hemoglobin Concent 32.0 G/DL (32.0-36.0) Red Cell Distribution Width 12.9 % (11.6-14.8) Platelet Count 199 K/UL (150-450) Mean Platelet Volume 4.8 FL (6.5-10.1) L Neutrophils (%) (Auto) 64.5 % (45.0-75.0) Lymphocytes (%) (Auto) 20.3 % (20.0-45.0) Monocytes (%) (Auto) 8.9 % (1.0-10.0) Eosinophils (%) (Auto) 5.2 % (0.0-3.0) H Basophils (%) (Auto) 1.1 % (0.0-2.0) Sodium Level 141 MMOL/L (136-145) Potassium Level 3.7 MMOL/L (3.5-5.1) Chloride Level 110 MMOL/L (98-107) H Carbon Dioxide Level 25 MMOL/L (21-32) Anion Gap 6 mmol/L (5-15) Blood Urea Nitrogen 17 mg/dL (7-18) Creatinine 1.0 MG/DL (0.55-1.30) Estimat Glomerular Filtration Rate mL/min (>60) Glucose Level 86 MG/DL (74-106) Calcium Level 7.8 MG/DL (8.5-10.1) L Phosphorus Level 4.0 MG/DL (2.5-4.9) Magnesium Level 2.0 MG/DL (1.8-2.4) Total Bilirubin 0.4 MG/DL (0.2-1.0) Aspartate Amino Transf (AST/SGOT) 23 U/L (15-37) Alanine Aminotransferase (ALT/SGPT) 23 U/L (12-78) Alkaline Phosphatase 74 U/L (46-116) Total Protein 5.4 G/DL (6.4-8.2) L Albumin 2.6 G/DL (3.4-5.0) L Globulin 2.8 g/dL Albumin/Globulin Ratio 0.9 (1.0-2.7) L Height (Feet): 5 Height (Inches): 3.00 Weight (Pounds): 178 Medications Current Medications Medications (Trade) Dose Ordered Sig/Caryl Route PRN Reason Start Time Stop Time Status Last Admin Dose Admin Acetaminophen (Tylenol) 650 mg Q6H PRN ORAL Mild Pain/Temp > 100.5 04/12/19 22:15 05/12/19 22:14 Acetaminophen/ Codeine Phosphate (Tylenol #3) 1 tab Q6H PRN ORAL Moderate to Severe Pain 04/12/19 22:15 04/19/19 22:14 Atorvastatin Calcium (Lipitor) 20 mg QHS ORAL 04/13/19 21:00 05/13/19 20:59 Baclofen (Lioresal) 10 mg BID ORAL 04/12/19 22:15 05/12/19 22:14 04/13/19 09:06 Cefepime HCl 1 gm/ Dextrose 55 ml @ 110 mls/hr DAILY@2200 IVPB 04/12/19 22:15 04/19/19 22:14 04/12/19 23:10 Chlorhexidine Gluconate (Michelle-Hex 2%) 1 applic DAILY@2000 TOPIC 04/13/19 20:00 05/13/19 19:59 Dextrose/ Electrolytes 1,000 ml @ 75 mls/hr [id number] IV 04/12/19 22:15 05/12/19 22:14 04/13/19 12:16 Docusate Sodium (Colace) 100 mg THREE TIMES A DAY ORAL 04/13/19 18:00 05/13/19 17:59 Famotidine (Pepcid) 20 mg QHS ORAL 04/12/19 22:15 05/12/19 22:14 04/12/19 22:59 Heparin Sodium (Porcine) (Heparin 5000 units/ml) 5,000 units EVERY 12 HOURS SUBQ 04/13/19 09:00 05/13/19 08:59 04/13/19 09:09 Iohexol (OMNIPAQUE-300 100ml) 100 ml NOW PRN INJ Radiology Procedure 04/12/19 13:45 04/14/19 13:33 Losartan Potassium (Cozaar) 100 mg DAILY ORAL 04/13/19 09:00 05/13/19 08:59 04/13/19 09:06 Metoprolol Tartrate (Lopressor) 25 mg EVERY 12 HOURS ORAL 04/12/19 22:15 05/12/19 22:14 04/13/19 09:06 Mineral Oil (Fleet's Mineral Oil Enema) 133 ml ONCE RECTAL 04/13/19 22:00 04/13/19 23:00 Mineral Oil (Mineral Oil) 30 ml DAILY PRN ORAL Constipation 04/13/19 13:45 05/13/19 13:44 Ondansetron HCl (Zofran) 4 mg Q6H PRN IVP Nausea & Vomiting 04/12/19 22:15 05/12/19 22:14 Oxybutynin Chloride (Ditropan) 5 mg DAILY ORAL 04/13/19 09:00 05/13/19 08:59 04/13/19 09:06 Polyethylene Glycol (Miralax) 17 gm BEDTIME ORAL 04/13/19 21:00 05/13/19 20:59 Quetiapine Fumarate (SEROquel) 25 mg DAILY ORAL 04/13/19 09:00 05/13/19 08:59 04/13/19 09:07 Quetiapine Fumarate (SEROquel) 200 mg QHS ORAL 04/12/19 23:00 05/13/19 20:59 04/12/19 23:08 Vancomycin HCl (Vanco rx to dose) 1 ea DAILY PRN MISC Per rx protocol 04/12/19 22:15 05/12/19 22:14 Vancomycin/Sodium Chloride 275 ml @ 184 mls/hr Q24H IVPB 04/13/19 02:00 04/18/19 01:59 04/13/19 02:32 Vitamin D (Vitamin D) 2,000 intlu DAILY ORAL 04/13/19 09:00 05/13/19 08:59 04/13/19 09:06 Assessment/Plan Assessment/Plan: 82yo woman with PMH HTN,dyslipidemia, gastritis, chronic diarrhea, bipolar disorder. Pt was admitted from 04/03-04/09 for knee prosthetic joint infection. OR culture grew Pseudomonas and coNS. Patient was discharged on vancomycin and cefepime for 6 weeks(end date 05/15/19). Pt now returns with diarrhea but CT imaging consistent with fecal impaction. Afebrile Leukocytosis, SP Diarrhea, likely 2/2 fecal impaction, SP CT A/P: Moderate fecal impaction. Previous partial right hemicolectomy. Status post cholecystectomy. Bilateral renal cysts. Tiny cystic lesion pancreatic tail. Follow-up contrast enhanced MRI recommended. R knee hardware infection -04/03/19 SP Revision of right partial knee replacement, tibial insert. Incision and drainage, right knee. Complex closure measuring 5 cm. --OR findings: synovial fluid looked grossly purulent. Tibial insert was removed. 9 liters of bacitracin irrigation was then used to irrigate the knee. Once this was done, the same sized tibial insert was reimplanted and secured.There was significant fraying of the tissue. --OR cx: PsA HTN R knee replacement on 03/25/19 Plan: -Continue IV Vancomycin and Cefepime for CoNS and PsA R knee hardware infection -Treatment for 6 weeks from time of debridement; expected end date 05/15/19 ; weekly CBC, CMP, vanco through. after completion of IV antibiotics, pt will need 3 months of cipro 250mg PO BID+doxycycline 100mg BID + rifampin 300mg BID therapy with close monitoring of CMP. -04/05 SP ANcef #3 -04/03 SP Cefepime #1 Thank you for this consult. [facility] will continue to follow the patient with you. Patrick Ramesh MD Apr 13, 2019 16:38
[2019-04-13] MEDS ORDERED: Fleet's Mineral Oil Enema RECTAL SCH ×2 (17:00→22:00)
[2019-04-13] MEDS: Docusate 100mg cap ORAL SCH (17:48)
--- NOTE | 2019-04-13 19:12 | NUR ---
HAND-OFF: Report given to RN MINSU. no BM in shift, endorsed to night RN to F/U for OB.
--- NOTE | 2019-04-13 19:49 | NUR ---
NURSE NOTES: Received report from AMADA Jennings. Patient awake, alert, and verbally responsive. Breathing unlabored without distress on room air. Double lumen PICC line noted on CIARA patent with intact dressing. Bed placed at the lowest with alarm, brake, and siderails up for safety. Call light placed within reach. Will continue to monitor.
[2019-04-13 20:00] VITALS: BP 151/78
[2019-04-13] MEDS ORDERED: Dyna-Hex 2% Top Sol 2oz TOPIC SCH (20:00)
[2019-04-13] MEDS ORDERED: Miralax 17gm pkt ORAL SCH (21:00)
[2019-04-13] MEDS ORDERED: QUEtiapine 200mg tab ORAL SCH (21:00)
[2019-04-13] MEDS: Cefepime HCl 1 GM in D5W 55 ML IVPB SCH (21:17)
[2019-04-13] MEDS: QUEtiapine 200mg tab ORAL SCH (21:17)
--- NOTE | 2019-04-13 22:40 | NUR ---
NURSE NOTES: Performed enema ordered. Explained prior and during the procedure. Patient verbalize understanding. Patient was not able to hold the whole mineral oil. Patient does understand the procedure but does not have the capacity to hold the oil. Will continue to monitor.
[2019-04-14] VITALS: BP 146/81
[2019-04-14] MEDS: D5 1/2NS w/KCl 20mEq 1,000 ML IV SCH ×2 (00:55→13:50)
--- NOTE | 2019-04-14 01:05 | NUR ---
NURSE NOTES: patient asleep. not in distress. no bm. call light within reach. will continue to monitor.
[2019-04-14] MEDS: Vancomycin 1.5gm/NS Premix 275 ML IVPB SCH (01:36)
[2019-04-14 04:00] VITALS: BP 149/76
--- NOTE | 2019-04-14 06:15 | NUR ---
NURSE NOTES: No BM, patient slept without interruption throughout the night. Not in distress. In stable condition. Will continue to monitor.
[2019-04-14 06:30] LABS: EOSINOPHILS % (AUTO) 6.9 % (0.0-3.0); HEMATOCRIT 28.5 % (37.0-47.0); HEMOGLOBIN 9.2 G/DL (12.0-16.0); MEAN CORPUSCULAR VOLUME 91 FL (80-99); MONOCYTES % (AUTO) 7.9 % (1.0-10.0); NEUTROPHILS % (AUTO) 60.3 % (45.0-75.0); PLATELET COUNT 242 K/UL (150-450); RED BLOOD COUNT 3.14 M/UL (4.20-5.40); RED CELL DISTRIBUTION WIDTH 13.1 % (11.6-14.8); WHITE BLOOD COUNT 7.1 K/UL (4.8-10.8)
[2019-04-14 06:42] LABS: INR 0.9 (0.9-1.1)
[2019-04-14 07:05] LABS: ANION GAP 6 mmol/L (5-15); BLOOD UREA NITROGEN 10 mg/dL (7-18); CALCIUM 8.4 MG/DL (8.5-10.1); CARBON DIOXIDE 26 MMOL/L (21-32); CHLORIDE 111 MMOL/L (98-107); FERRITIN 114 NG/ML (8-388); SODIUM 143 MMOL/L (136-145)
--- NOTE | 2019-04-14 07:30 | NUR ---
NURSE NOTES: Received pt from MINSU RN. Pt is alert and orient. pt is in RA, no SOB or acute respiratory distress noted. pt has intact PICC CIARA is running well. Pt has drainage from R knee. Dr GARCIA visited pt and ordered to cover it only with 4x4 and Tegaderm. all needs attended, bed is locked and is in the lowest position, call light within easy reach. will continue to monitor.
[2019-04-14 07:35] LABS: % IRON SATURATION 15 % (15-50); IRON 32 ug/dL (50-175); TOTAL IRON BINDING CAPACITY 216 ug/dL (250-450)
--- NOTE | 2019-04-14 07:43 | NUR ---
HAND-OFF: Report given to AMADA Jennings.
[2019-04-14 08:00] VITALS: BP 157/79
[2019-04-14] MEDS: Vitamin D 1000 IU Tab ORAL SCH (09:00)
[2019-04-14] MEDS: Docusate 100mg cap ORAL SCH ×3 (09:00→17:08)
[2019-04-14] MEDS: Metoprolol 25mg tab ORAL SCH (09:00)
[2019-04-14] MEDS: Losartan 50mg tab ORAL SCH (09:00)
[2019-04-14] MEDS: Oxybutynin 5mg tab ORAL SCH (09:01)
[2019-04-14] MEDS: Heparin 5000 units/ml inj SUBQ SCH (09:07)
--- NOTE | 2019-04-14 09:15 | NUR ---
PT EVALUATION NOTE Patient seen for initial evaluation, see complete evaluation for details. Patient presents with generalized weakness and impaired balance which affects patient's ability to perform mobility tasks. Patient requires mod/max assist to come to sitting at the EOB. Patient declined to attempt transfers due to abdominal pain and pain R knee. Patient tearful, anxious. Patient will benefit from skilled inpatient PT intervention to address strength, balance and safety for improved level of functional mobility with increased safety awareness and to decrease fall risk. Recommend discharge home with home PT vs SNF for further rehab once medically cleared by MD. DME needs to be determined base on patient's progress. Addendum: 04/14/19 at 1355 by ROSAURA CINTRON PT Amended: Links added.
--- NOTE | 2019-04-14 09:30 | NUR ---
NURSE NOTES: WOUND TREATMENT DONE ORDER. DRESSING IS INTACT. WILL CONTINUE TO MONITOR.
[2019-04-14 12:00] VITALS: BP 140/74
[2019-04-14] MEDS ORDERED: COLACE100 MG ORAL (13:00)
[2019-04-14] MEDS ORDERED: SENNA LAXATIVE8.6 MG PO (13:00)
[2019-04-14] MEDS ORDERED: LACTULOSE20 GM/301 ORAL (13:00)
--- NOTE | 2019-04-14 13:02 | GI Progress Note ---
Assessment/Plan Problems: (1) Anemia ICD Codes: D64.9 - Anemia, unspecified SNOMED: 547054828 (2) Constipation ICD Codes: K59.00 - Constipation, unspecified SNOMED: 12713904 (3) Fecal impaction in rectum ICD Codes: K56.41 - Fecal impaction SNOMED: 58548683 (4) Diarrhea ICD Codes: R19.7 - Diarrhea, unspecified SNOMED: 99277102 Qualifiers: Qualified Codes: R19.7 - Diarrhea, unspecified Status: unchanged Status Narrative Discussed with Dr. Vázquez. Assessment/Plan Abdominal pelvis CT noted with moderate fecal impaction within the rectum Patient refused digital disimpaction No BM reported since admission We will treat constipation with medical management Mineral oil p.o.now, daily prn Colace plus MiraLAX, add lactulose TID Will titrate as necessary Occult blood stool to rule out any GI bleed Monitor H&H, PRN transfusions PPI We will follow along on a daily basis with additional recommendations The patient was seen and examined at bedside and all new and available data was reviewed in the patients chart. I agree with the above findings, impression and plan. (Patient seen earlier today. Signature stamp does not reflect patient encounter time.). - García Vázquez MD Subjective Gastrointestinal/Abdominal: Reports: no symptoms Objective Last 24 Hour Vital Signs Date Time Temp Pulse Resp B/P (MAP) Pulse Ox O2 Delivery O2 Flow Rate FiO2 04/14/19 12:00 98.2 64 20 140/74 (96) 99 04/14/19 09:00 63 157/79 04/14/19 09:00 157/79 04/14/19 08:36 Room Air 04/14/19 08:00 97.8 63 20 157/79 (105) 100 04/14/19 04:00 98.9 64 18 149/76 (100) 96 04/14/19 00:00 98.7 58 17 146/81 (102) 97 04/13/19 21:17 60 142/74 04/13/19 21:00 Room Air 04/13/19 20:00 98.9 62 16 151/78 (102) 97 04/13/19 16:00 97.8 60 18 147/69 (95) 97 Intake and Output 04/13/19 04/14/19 19:00 07:00 Intake Total 1710 ml 1290 ml Balance 1710 ml 1290 ml Intake Oral 810 ml 360 ml IV Total 900 ml 930 ml # Voids 2 4 # Bowel Movements 2 Laboratory Tests Test 04/14/19 05:55 White Blood Count 7.1 K/UL (4.8-10.8) Red Blood Count 3.14 M/UL (4.20-5.40) L Hemoglobin 9.2 G/DL (12.0-16.0) L Hematocrit 28.5 % (37.0-47.0) L Mean Corpuscular Volume 91 FL (80-99) Mean Corpuscular Hemoglobin 29.3 PG (27.0-31.0) Mean Corpuscular Hemoglobin Concent 32.2 G/DL (32.0-36.0) Red Cell Distribution Width 13.1 % (11.6-14.8) Platelet Count 242 K/UL (150-450) Mean Platelet Volume 5.0 FL (6.5-10.1) L Neutrophils (%) (Auto) 60.3 % (45.0-75.0) Lymphocytes (%) (Auto) 24.0 % (20.0-45.0) Monocytes (%) (Auto) 7.9 % (1.0-10.0) Eosinophils (%) (Auto) 6.9 % (0.0-3.0) H Basophils (%) (Auto) 1.0 % (0.0-2.0) Reticulocyte Count 1.3 % (0.5-2.0) Prothrombin Time 10.1 SEC (9.30-11.50) Prothromb Time International Ratio 0.9 (0.9-1.1) Activated Partial Thromboplast Time 27 SEC (23-33) Sodium Level 143 MMOL/L (136-145) Potassium Level 4.0 MMOL/L (3.5-5.1) Chloride Level 111 MMOL/L (98-107) H Carbon Dioxide Level 26 MMOL/L (21-32) Anion Gap 6 mmol/L (5-15) Blood Urea Nitrogen 10 mg/dL (7-18) Creatinine 1.0 MG/DL (0.55-1.30) Estimat Glomerular Filtration Rate mL/min (>60) Glucose Level 101 MG/DL (74-106) Calcium Level 8.4 MG/DL (8.5-10.1) L Phosphorus Level 3.0 MG/DL (2.5-4.9) Magnesium Level 2.0 MG/DL (1.8-2.4) Iron Level 32 ug/dL (50-175) L Total Iron Binding Capacity 216 ug/dL (250-450) L Percent Iron Saturation 15 % (15-50) Unsaturated Iron Binding 184 ug/dL (112-346) Ferritin 114 NG/ML (8-388) Vitamin B12 Level 822 PG/ML (193-986) Folate 39.7 NG/ML (8.6-58.9) Thyroid Stimulating Hormone (TSH) 2.016 uiU/mL (0.358-3.740) Free Thyroxine 0.89 NG/DL (0.76-1.46) Height (Feet): 5 Height (Inches): 3.00 Weight (Pounds): 178 General Appearance: WD/WN, no apparent distress, alert Cardiovascular: normal rate Respiratory/Chest: normal breath sounds, no respiratory distress Abdominal Exam: normal bowel sounds, non tender, soft Extremities: normal range of motion, non-tender Osiel Barr NP Apr 14, 2019 13:02
--- NOTE | 2019-04-14 13:07 | Pulmonology Progress Note ---
Assessment/Plan Problems: (1) Constipation (2) Septic arthritis (3) Fecal impaction in rectum (4) Bipolar depression (5) HTN (hypertension) (6) Anemia Assessment/Plan got enema, but didn't work got Miralx and Lactulose today getting abx pt's son wants her to go home with laxatives dc meds is done prescription written for laxatives Subjective ROS Limited/Unobtainable: No Constitutional: Reports: no symptoms HEENT: Repors: no symptoms Respiratory: Reports: no symptoms Allergies: Coded Allergies: GABAPENTIN (Verified Allergy, Unknown, 05/27/17) LITHIUM (Verified Allergy, Unknown, 05/27/17) Objective Last 24 Hour Vital Signs Date Time Temp Pulse Resp B/P (MAP) Pulse Ox O2 Delivery O2 Flow Rate FiO2 04/14/19 12:00 98.2 64 20 140/74 (96) 99 04/14/19 09:00 63 157/79 04/14/19 09:00 157/79 04/14/19 08:36 Room Air 04/14/19 08:00 97.8 63 20 157/79 (105) 100 04/14/19 04:00 98.9 64 18 149/76 (100) 96 04/14/19 00:00 98.7 58 17 146/81 (102) 97 04/13/19 21:17 60 142/74 04/13/19 21:00 Room Air 04/13/19 20:00 98.9 62 16 151/78 (102) 97 04/13/19 16:00 97.8 60 18 147/69 (95) 97 Intake and Output 04/13/19 04/14/19 19:00 07:00 Intake Total 1710 ml 1290 ml Balance 1710 ml 1290 ml Intake Oral 810 ml 360 ml IV Total 900 ml 930 ml # Voids 2 4 # Bowel Movements 2 General Appearance: WD/WN HEENT: normocephalic, atraumatic Respiratory/Chest: chest wall non-tender, lungs clear Breasts: no masses Cardiovascular: normal peripheral pulses Abdomen: normal bowel sounds, soft, non tender Genitourinary: normal external genitalia Extremities: no cyanosis Neurologic/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: 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 Laboratory Tests 04/14/19 05:55: White Blood Count 7.1, Red Blood Count 3.14L, Hemoglobin 9.2L, Hematocrit 28.5L , Mean Corpuscular Volume 91, Mean Corpuscular Hemoglobin 29.3, Mean Corpuscular Hemoglobin Concent 32.2, Red Cell Distribution Width 13.1, Platelet Count 242, Mean Platelet Volume 5.0L, Neutrophils (%) (Auto) 60.3, Lymphocytes ( %) (Auto) 24.0, Monocytes (%) (Auto) 7.9, Eosinophils (%) (Auto) 6.9H, Basophils (%) (Auto) 1.0, Reticulocyte Count 1.3, Prothrombin Time 10.1, Prothromb Time International Ratio 0.9, Activated Partial Thromboplast Time 27, Sodium Level 143, Potassium Level 4.0, Chloride Level 111H, Carbon Dioxide Level 26, Anion Gap 6, Blood Urea Nitrogen 10, Creatinine 1.0, Estimat Glomerular Filtration Rate , Glucose Level 101, Calcium Level 8.4L, Phosphorus Level 3.0, Magnesium Level 2.0, Iron Level 32L, Total Iron Binding Capacity 216L , Percent Iron Saturation 15, Unsaturated Iron Binding 184, Ferritin 114, Vitamin B12 Level 822, Folate 39.7, Thyroid Stimulating Hormone (TSH) 2.016, Free Thyroxine 0.89 Current Medications Medications (Trade) Dose Ordered Sig/Caryl Route PRN Reason Start Time Stop Time Status Last Admin Dose Admin Acetaminophen (Tylenol) 650 mg Q6H PRN ORAL Mild Pain/Temp > 100.5 04/12/19 22:15 05/12/19 22:14 Acetaminophen/ Codeine Phosphate (Tylenol #3) 1 tab Q6H PRN ORAL Moderate to Severe Pain 04/12/19 22:15 04/19/19 22:14 Atorvastatin Calcium (Lipitor) 20 mg QHS ORAL 04/13/19 21:00 05/13/19 20:59 04/13/19 21:17 Baclofen (Lioresal) 10 mg BID ORAL 04/12/19 22:15 05/12/19 22:14 04/14/19 09:01 Cefepime HCl 1 gm/ Dextrose 55 ml @ 110 mls/hr DAILY@2200 IVPB 04/12/19 22:15 04/19/19 22:14 04/13/19 21:17 Chlorhexidine Gluconate (Michelle-Hex 2%) 1 applic DAILY@2000 TOPIC 04/13/19 20:00 05/13/19 19:59 04/13/19 21:15 Dextrose/ Electrolytes 1,000 ml @ 75 mls/hr [id number] IV 04/12/19 22:15 05/12/19 22:14 04/14/19 00:55 Docusate Sodium (Colace) 100 mg THREE TIMES A DAY ORAL 04/13/19 18:00 05/13/19 17:59 04/14/19 12:11 Famotidine (Pepcid) 20 mg QHS ORAL 04/12/19 22:15 05/12/19 22:14 04/13/19 21:17 Heparin Sodium (Porcine) (Heparin 5000 units/ml) 5,000 units EVERY 12 HOURS SUBQ 04/13/19 09:00 05/13/19 08:59 04/14/19 09:07 Iohexol (OMNIPAQUE-300 100ml) 100 ml NOW PRN INJ Radiology Procedure 04/12/19 13:45 04/14/19 13:33 Lactulose (Cephulac) 20 gm THREE TIMES A DAY ORAL 04/14/19 13:00 05/14/19 12:59 Losartan Potassium (Cozaar) 100 mg DAILY ORAL 04/13/19 09:00 05/13/19 08:59 04/14/19 09:00 Metoprolol Tartrate (Lopressor) 25 mg EVERY 12 HOURS ORAL 04/12/19 22:15 05/12/19 22:14 04/14/19 09:00 Mineral Oil (Mineral Oil) 30 ml DAILY PRN ORAL Constipation 04/13/19 13:45 05/13/19 13:44 Ondansetron HCl (Zofran) 4 mg Q6H PRN IVP Nausea & Vomiting 04/12/19 22:15 05/12/19 22:14 Oxybutynin Chloride (Ditropan) 5 mg DAILY ORAL 04/13/19 09:00 05/13/19 08:59 04/14/19 09:01 Polyethylene Glycol (Miralax) 17 gm BEDTIME ORAL 04/13/19 21:00 05/13/19 20:59 04/13/19 21:15 Quetiapine Fumarate (SEROquel) 25 mg DAILY ORAL 04/13/19 09:00 05/13/19 08:59 04/14/19 09:01 Quetiapine Fumarate (SEROquel) 200 mg QHS ORAL 04/12/19 23:00 05/13/19 20:59 04/13/19 21:17 Vancomycin HCl (Vanco rx to dose) 1 ea DAILY PRN MISC Per rx protocol 04/12/19 22:15 05/12/19 22:14 Vancomycin/Sodium Chloride 275 ml @ 184 mls/hr Q24H IVPB 04/13/19 02:00 04/18/19 01:59 04/14/19 01:36 Vitamin D (Vitamin D) 2,000 intlu DAILY ORAL 04/13/19 09:00 05/13/19 08:59 04/14/19 09:00 Christ Vallejo MD Apr 14, 2019 13:07
[2019-04-14] MEDS: Lactulose 20gm/30ml UDC ORAL SCH ×2 (13:50→17:08)
--- NOTE | 2019-04-14 15:13 | Infectious Diseases Prog Note ---
Assessment/Plan Assessment/Plan Assessment/Plan: 82yo woman with PMH HTN,dyslipidemia, gastritis, chronic diarrhea, bipolar disorder. Pt was admitted from 04/03-04/09 for knee prosthetic joint infection. OR culture grew Pseudomonas and coNS. Patient was discharged on vancomycin and cefepime for 6 weeks(end date 05/15/19). Pt now returns with diarrhea but CT imaging consistent with fecal impaction. Afebrile Leukocytosis, SP Diarrhea, likely 2/2 fecal impaction, SP CT A/P: Moderate fecal impaction. Previous partial right hemicolectomy. Status post cholecystectomy. Bilateral renal cysts. Tiny cystic lesion pancreatic tail. Follow-up contrast enhanced MRI recommended. R knee hardware infection -04/03/19 SP Revision of right partial knee replacement, tibial insert. Incision and drainage, right knee. Complex closure measuring 5 cm. --OR findings: synovial fluid looked grossly purulent. Tibial insert was removed. 9 liters of bacitracin irrigation was then used to irrigate the knee. Once this was done, the same sized tibial insert was reimplanted and secured.There was significant fraying of the tissue. --OR cx: PsA HTN R knee replacement on 03/25/19 Plan: -Continue IV Vancomycin and Cefepime for CoNS and PsA R knee hardware infection -Treatment for 6 weeks from time of debridement; expected end date 05/15/19 ; weekly CBC, CMP, vanco trough. after completion of IV antibiotics, pt will need 3 months of cipro 250mg PO BID+doxycycline 100mg BID + rifampin 300mg BID therapy with close monitoring of CMP...plan discussed with son and instructed son to follow up with in network ID physician. -04/05 SP Ancef #3 -04/03 SP Cefepime #1 Thank you for this consult. [facility] will continue to follow the patient with you. Subjective Allergies: Coded Allergies: GABAPENTIN (Verified Allergy, Unknown, 05/27/17) LITHIUM (Verified Allergy, Unknown, 05/27/17) Subjective Afebrile. RA. Pt continues to report abdominal discomfort. Has not had a bowel movement today. Receiving bowel regimen. Anxious Objective Vital Signs Last 24 Hour Vital Signs Date Time Temp Pulse Resp B/P (MAP) Pulse Ox O2 Delivery O2 Flow Rate FiO2 04/14/19 12:00 98.2 64 20 140/74 (96) 99 04/14/19 09:00 63 157/79 04/14/19 09:00 157/79 04/14/19 08:36 Room Air 04/14/19 08:00 97.8 63 20 157/79 (105) 100 04/14/19 04:00 98.9 64 18 149/76 (100) 96 04/14/19 00:00 98.7 58 17 146/81 (102) 97 04/13/19 21:17 60 142/74 04/13/19 21:00 Room Air 04/13/19 20:00 98.9 62 16 151/78 (102) 97 04/13/19 16:00 97.8 60 18 147/69 (95) 97 Height (Feet): 5 Height (Inches): 3.00 Weight (Pounds): 178 Objective Gen: NAD CV: RRR Resp: RRR Abd: Hyperactive BS+. Distended. Soft. no TTP Neuro: awake. alert. Psych: anxious Laboratory Tests Test 04/14/19 05:55 White Blood Count 7.1 K/UL (4.8-10.8) Red Blood Count 3.14 M/UL (4.20-5.40) L Hemoglobin 9.2 G/DL (12.0-16.0) L Hematocrit 28.5 % (37.0-47.0) L Mean Corpuscular Volume 91 FL (80-99) Mean Corpuscular Hemoglobin 29.3 PG (27.0-31.0) Mean Corpuscular Hemoglobin Concent 32.2 G/DL (32.0-36.0) Red Cell Distribution Width 13.1 % (11.6-14.8) Platelet Count 242 K/UL (150-450) Mean Platelet Volume 5.0 FL (6.5-10.1) L Neutrophils (%) (Auto) 60.3 % (45.0-75.0) Lymphocytes (%) (Auto) 24.0 % (20.0-45.0) Monocytes (%) (Auto) 7.9 % (1.0-10.0) Eosinophils (%) (Auto) 6.9 % (0.0-3.0) H Basophils (%) (Auto) 1.0 % (0.0-2.0) Reticulocyte Count 1.3 % (0.5-2.0) Prothrombin Time 10.1 SEC (9.30-11.50) Prothromb Time International Ratio 0.9 (0.9-1.1) Activated Partial Thromboplast Time 27 SEC (23-33) Sodium Level 143 MMOL/L (136-145) Potassium Level 4.0 MMOL/L (3.5-5.1) Chloride Level 111 MMOL/L (98-107) H Carbon Dioxide Level 26 MMOL/L (21-32) Anion Gap 6 mmol/L (5-15) Blood Urea Nitrogen 10 mg/dL (7-18) Creatinine 1.0 MG/DL (0.55-1.30) Estimat Glomerular Filtration Rate mL/min (>60) Glucose Level 101 MG/DL (74-106) Calcium Level 8.4 MG/DL (8.5-10.1) L Phosphorus Level 3.0 MG/DL (2.5-4.9) Magnesium Level 2.0 MG/DL (1.8-2.4) Iron Level 32 ug/dL (50-175) L Total Iron Binding Capacity 216 ug/dL (250-450) L Percent Iron Saturation 15 % (15-50) Unsaturated Iron Binding 184 ug/dL (112-346) Ferritin 114 NG/ML (8-388) Vitamin B12 Level 822 PG/ML (193-986) Folate 39.7 NG/ML (8.6-58.9) Thyroid Stimulating Hormone (TSH) 2.016 uiU/mL (0.358-3.740) Free Thyroxine 0.89 NG/DL (0.76-1.46) Current Medications Medications (Trade) Dose Ordered Sig/Caryl Route PRN Reason Start Time Stop Time Status Last Admin Dose Admin Acetaminophen (Tylenol) 650 mg Q6H PRN ORAL Mild Pain/Temp > 100.5 04/12/19 22:15 05/12/19 22:14 Acetaminophen/ Codeine Phosphate (Tylenol #3) 1 tab Q6H PRN ORAL Moderate to Severe Pain 04/12/19 22:15 04/19/19 22:14 Atorvastatin Calcium (Lipitor) 20 mg QHS ORAL 04/13/19 21:00 05/13/19 20:59 04/13/19 21:17 Baclofen (Lioresal) 10 mg BID ORAL 04/12/19 22:15 05/12/19 22:14 04/14/19 09:01 Cefepime HCl 1 gm/ Dextrose 55 ml @ 110 mls/hr DAILY@2200 IVPB 04/12/19 22:15 04/19/19 22:14 04/13/19 21:17 Chlorhexidine Gluconate (Michelle-Hex 2%) 1 applic DAILY@2000 TOPIC 04/13/19 20:00 05/13/19 19:59 04/13/19 21:15 Dextrose/ Electrolytes 1,000 ml @ 75 mls/hr [id number] IV 04/12/19 22:15 05/12/19 22:14 04/14/19 13:50 Docusate Sodium (Colace) 100 mg THREE TIMES A DAY ORAL 04/13/19 18:00 05/13/19 17:59 04/14/19 12:11 Famotidine (Pepcid) 20 mg QHS ORAL 04/12/19 22:15 05/12/19 22:14 04/13/19 21:17 Heparin Sodium (Porcine) (Heparin 5000 units/ml) 5,000 units EVERY 12 HOURS SUBQ 04/13/19 09:00 05/13/19 08:59 04/14/19 09:07 Lactulose (Cephulac) 20 gm THREE TIMES A DAY ORAL 04/14/19 13:00 05/14/19 12:59 04/14/19 13:50 Losartan Potassium (Cozaar) 100 mg DAILY ORAL 04/13/19 09:00 05/13/19 08:59 04/14/19 09:00 Metoprolol Tartrate (Lopressor) 25 mg EVERY 12 HOURS ORAL 04/12/19 22:15 05/12/19 22:14 04/14/19 09:00 Mineral Oil (Mineral Oil) 30 ml DAILY PRN ORAL Constipation 04/13/19 13:45 05/13/19 13:44 Ondansetron HCl (Zofran) 4 mg Q6H PRN IVP Nausea & Vomiting 04/12/19 22:15 05/12/19 22:14 Oxybutynin Chloride (Ditropan) 5 mg DAILY ORAL 04/13/19 09:00 05/13/19 08:59 04/14/19 09:01 Polyethylene Glycol (Miralax) 17 gm BEDTIME ORAL 04/13/19 21:00 05/13/19 20:59 04/13/19 21:15 Quetiapine Fumarate (SEROquel) 25 mg DAILY ORAL 04/13/19 09:00 05/13/19 08:59 04/14/19 09:01 Quetiapine Fumarate (SEROquel) 200 mg QHS ORAL 04/12/19 23:00 05/13/19 20:59 04/13/19 21:17 Vancomycin HCl (Vanco rx to dose) 1 ea DAILY PRN MISC Per rx protocol 04/12/19 22:15 05/12/19 22:14 Vancomycin/Sodium Chloride 275 ml @ 184 mls/hr Q24H IVPB 04/13/19 02:00 04/18/19 01:59 04/14/19 01:36 Vitamin D (Vitamin D) 2,000 intlu DAILY ORAL 04/13/19 09:00 05/13/19 08:59 04/14/19 09:00 Patrick Ramesh MD Apr 14, 2019 15:13
[2019-04-14 16:00] VITALS: BP 137/80
--- NOTE | 2019-04-14 16:55 | Internal Med Progress Note ---
Subjective Date of Service: Apr 14, 2019 Physician Name García Rodrigues Attending Physician Brad Manuel MD Current Medications Medications (Trade) Dose Ordered Sig/Caryl Route PRN Reason Start Time Stop Time Status Last Admin Dose Admin Acetaminophen (Tylenol) 650 mg Q6H PRN ORAL Mild Pain/Temp > 100.5 04/12/19 22:15 05/12/19 22:14 Acetaminophen/ Codeine Phosphate (Tylenol #3) 1 tab Q6H PRN ORAL Moderate to Severe Pain 04/12/19 22:15 04/19/19 22:14 Atorvastatin Calcium (Lipitor) 20 mg QHS ORAL 04/14/19 21:00 05/13/19 20:59 Baclofen (Lioresal) 10 mg BID ORAL 04/12/19 22:15 05/12/19 22:14 04/14/19 09:01 Cefepime HCl 1 gm/ Dextrose 55 ml @ 110 mls/hr DAILY@2200 IVPB 04/12/19 22:15 04/19/19 22:14 04/13/19 21:17 Chlorhexidine Gluconate (Michelle-Hex 2%) 1 applic DAILY@2000 TOPIC 04/13/19 20:00 05/13/19 19:59 04/13/19 21:15 Dextrose/ Electrolytes 1,000 ml @ 75 mls/hr [id number] IV 04/12/19 22:15 05/12/19 22:14 04/14/19 13:50 Docusate Sodium (Colace) 100 mg THREE TIMES A DAY ORAL 04/13/19 18:00 05/13/19 17:59 04/14/19 12:11 Famotidine (Pepcid) 20 mg QHS ORAL 04/12/19 22:15 05/12/19 22:14 04/13/19 21:17 Heparin Sodium (Porcine) (Heparin 5000 units/ml) 5,000 units EVERY 12 HOURS SUBQ 04/13/19 09:00 05/13/19 08:59 04/14/19 09:07 Lactulose (Cephulac) 20 gm THREE TIMES A DAY ORAL 04/14/19 13:00 05/14/19 12:59 04/14/19 13:50 Losartan Potassium (Cozaar) 100 mg DAILY ORAL 04/13/19 09:00 05/13/19 08:59 04/14/19 09:00 Metoprolol Tartrate (Lopressor) 25 mg EVERY 12 HOURS ORAL 04/12/19 22:15 05/12/19 22:14 04/14/19 09:00 Mineral Oil (Mineral Oil) 30 ml DAILY PRN ORAL Constipation 04/13/19 13:45 05/13/19 13:44 Ondansetron HCl (Zofran) 4 mg Q6H PRN IVP Nausea & Vomiting 04/12/19 22:15 05/12/19 22:14 Oxybutynin Chloride (Ditropan) 5 mg DAILY ORAL 04/13/19 09:00 05/13/19 08:59 04/14/19 09:01 Polyethylene Glycol (Miralax) 17 gm BEDTIME ORAL 04/13/19 21:00 05/13/19 20:59 04/13/19 21:15 Quetiapine Fumarate (SEROquel) 25 mg DAILY ORAL 04/13/19 09:00 05/13/19 08:59 04/14/19 09:01 Quetiapine Fumarate (SEROquel) 200 mg QHS ORAL 04/12/19 23:00 05/13/19 20:59 04/13/19 21:17 Vancomycin HCl (Vanco rx to dose) 1 ea DAILY PRN MISC Per rx protocol 04/12/19 22:15 05/12/19 22:14 Vancomycin/Sodium Chloride 275 ml @ 184 mls/hr Q24H IVPB 04/13/19 02:00 04/18/19 01:59 04/14/19 01:36 Vitamin D (Vitamin D) 2,000 intlu DAILY ORAL 04/13/19 09:00 05/13/19 08:59 04/14/19 09:00 Allergies: Coded Allergies: GABAPENTIN (Verified Allergy, Unknown, 05/27/17) LITHIUM (Verified Allergy, Unknown, 05/27/17) ROS Limited/Unobtainable: No Constitutional: Reports: no symptoms HEENT: Reports: no symptoms Cardiovascular: Reports: no symptoms Respiratory: Reports: no symptoms Gastrointestinal/Abdominal: Reports: constipated, diarrhea Genitourinary: Reports: no symptoms Neurologic/Psychiatric: Reports: no symptoms Subjective 83 YO F admitted with diarrhea, now fecal impaction. Cover for Int Med-Dr Manuel Objective Last Vital Signs Date Time Temp Pulse Resp B/P (MAP) Pulse Ox O2 Delivery O2 Flow Rate FiO2 04/14/19 16:00 98.2 60 18 137/80 (99) 99 04/14/19 08:36 Room Air General Appearance: WD/WN, no apparent distress, alert EENT: PERRL/EOMI, normal ENT inspection Neck: non-tender, normal alignment, supple, normal inspection Cardiovascular: normal peripheral pulses, normal rate, regular rhythm, no gallop/murmur, no JVD Respiratory/Chest: chest wall non-tender, lungs clear, normal breath sounds, no respiratory distress, no accessory muscle use Abdomen: normal bowel sounds, non tender, soft, no organomegaly, no mass Extremities: normal range of motion, non-tender Neurologic: rubber insulator II-XII grossly normal, no motor/sensory deficits Skin: normal pigmentation, warm/dry Laboratory Tests Test 04/14/19 05:55 White Blood Count 7.1 K/UL (4.8-10.8) Red Blood Count 3.14 M/UL (4.20-5.40) L Hemoglobin 9.2 G/DL (12.0-16.0) L Hematocrit 28.5 % (37.0-47.0) L Mean Corpuscular Volume 91 FL (80-99) Mean Corpuscular Hemoglobin 29.3 PG (27.0-31.0) Mean Corpuscular Hemoglobin Concent 32.2 G/DL (32.0-36.0) Red Cell Distribution Width 13.1 % (11.6-14.8) Platelet Count 242 K/UL (150-450) Mean Platelet Volume 5.0 FL (6.5-10.1) L Neutrophils (%) (Auto) 60.3 % (45.0-75.0) Lymphocytes (%) (Auto) 24.0 % (20.0-45.0) Monocytes (%) (Auto) 7.9 % (1.0-10.0) Eosinophils (%) (Auto) 6.9 % (0.0-3.0) H Basophils (%) (Auto) 1.0 % (0.0-2.0) Reticulocyte Count 1.3 % (0.5-2.0) Prothrombin Time 10.1 SEC (9.30-11.50) Prothromb Time International Ratio 0.9 (0.9-1.1) Activated Partial Thromboplast Time 27 SEC (23-33) Sodium Level 143 MMOL/L (136-145) Potassium Level 4.0 MMOL/L (3.5-5.1) Chloride Level 111 MMOL/L (98-107) H Carbon Dioxide Level 26 MMOL/L (21-32) Anion Gap 6 mmol/L (5-15) Blood Urea Nitrogen 10 mg/dL (7-18) Creatinine 1.0 MG/DL (0.55-1.30) Estimat Glomerular Filtration Rate mL/min (>60) Glucose Level 101 MG/DL (74-106) Calcium Level 8.4 MG/DL (8.5-10.1) L Phosphorus Level 3.0 MG/DL (2.5-4.9) Magnesium Level 2.0 MG/DL (1.8-2.4) Iron Level 32 ug/dL (50-175) L Total Iron Binding Capacity 216 ug/dL (250-450) L Percent Iron Saturation 15 % (15-50) Unsaturated Iron Binding 184 ug/dL (112-346) Ferritin 114 NG/ML (8-388) Vitamin B12 Level 822 PG/ML (193-986) Folate 39.7 NG/ML (8.6-58.9) Thyroid Stimulating Hormone (TSH) 2.016 uiU/mL (0.358-3.740) Free Thyroxine 0.89 NG/DL (0.76-1.46) Intake and Output 04/13/19 04/14/19 19:00 07:00 Intake Total 1710 ml 1365 ml Balance 1710 ml 1365 ml Intake Oral 810 ml 360 ml IV Total 900 ml 1005 ml # Voids 2 4 # Bowel Movements 2 Assessment/Plan Problem List: (1) Hypocholesterolemia Assessment & Plan: Continue atorvastatin (2) Gastritis (3) Diarrhea (4) Fecal impaction in rectum Assessment & Plan: See GI note-Dr Vázquez (5) Septic arthritis Assessment & Plan: Continue vanco and cefepime per ID-Dr David (6) HTN (hypertension) Assessment & Plan: Continue losartan (7) Bipolar depression Status: not improved García Rodrigues MD Apr 14, 2019 16:55
--- NOTE | 2019-04-14 17:45 | Progress Note ---
DATE: 04/14/2019 SUBJECTIVE: The patient admitted for . She underwent I and D last week of the knee. PHYSICAL EXAMINATION: GENERAL: The patient is resting comfortably on the exam bed EXTREMITIES: Right knee incision is clean, dry, intact with a dressing saturated with dry fluid. There was minimal effusion. Posterior calf is soft. Neurovascular is normal. ASSESSMENT: Status post incision and drainage, right periprosthetic infection. DISCUSSION: At this point, I recommend a 4 x 4, Tegaderm dressings as needed to keep the dressing clean, dry, intact. She is going to continue on the antibiotics as per Infectious Diseases recommendations. We will continue to monitor from clinical point of view. Julian Luna M.D. DR: Veronica JOB#: [id number] CC:
--- NOTE | 2019-04-14 18:34 | NUR ---
NURSE NOTES: Dr ROCHA visited pt and placed discharge order, is aware pt didn't have BM during my shift. all discharge assessments and instructions done and pt and son MARCIO confirmed to understand all. pt is stable. V/S stable. all belongings are with pt and list signed by son. PICC flushed. skin is intact. prescription given to son, he wants to take to own pharmacy. pt left hospital with accompany of chloe BUCKLEY.
[2019-04-14] MEDS ORDERED: Atorvastatin 20mg tab ORAL SCH (21:00)
--- NOTE | 2019-04-15 00:15 | History and Physical Report ---
DATE OF ADMISSION: 04/12/2019 CHIEF COMPLAINT: The patient is an 83-year-old female, who presents with a chief complaint of diarrhea. HISTORY OF PRESENT ILLNESS: The patient was admitted to [facility] from April 03, 2019 to April 08, 2019. The patient is status post revision of right knee replacement. Please see history and physical and discharge summary dictated at that time. The patient was discharged on April 08, 2019. The patient presented to [place] emergency room on April 12, 2019. The patient complained of a two-day history of diarrhea. The patient was having diarrhea 5 episodes daily. Diarrhea was watery. There was no blood in the stool. The patient was admitted with diarrhea to rule out Clostridium difficile diarrhea secondary to antibiotic therapy. REVIEW OF SYSTEMS: CONSTITUTIONAL: The patient denies weight loss or weight gain. The patient denies fevers or chills. HEENT: The patient denies ear or throat pain. The patient denies headache. CARDIOVASCULAR: The patient denies palpitations or chest pain. CHEST: The patient denies wheeze or shortness of breath. ABDOMINAL: The patient complains of abdominal pain. The patient complains of diarrhea as above. The patient denies constipation. GENITOURINARY: The patient denies dysuria or increased frequency of urination. NEUROMUSCULAR: The patient denies seizures or generalized weakness. PAST MEDICAL HISTORY: Significant for: 1. Hypertension. 2. Hypercholesterolemia. 3. Bipolar disorder. 4. Gastritis. PAST SURGICAL HISTORY: Significant for: 1. Right knee replacement surgery on March 25, 2019. 2. Revision of right knee replacement on April 03, 2019. CURRENT MEDICATIONS: 1. Atorvastatin 20 mg p.o. at bedtime. 2. Baclofen 10 mg p.o. twice daily. 3. Cefepime 1 gram IV q.24 hours. 4. Colace 100 mg p.o. 3 times daily. 5. Pepcid 20 mg p.o. twice daily. 6. Lactulose 20 g p.o. 3 times daily. 7. Losartan 100 mg p.o. daily. 8. Metoprolol 25 mg p.o. twice daily. 9. Oxybutynin 5 mg p.o. daily. 10. Seroquel 200 mg p.o. at bedtime. 11. Seroquel 25 mg p.o. every morning. 12. Vancomycin 750 mg IV q.12 hours. 13. Vitamin D3 2000 units p.o. daily. ALLERGIES: Gabapentin and lithium. SOCIAL HISTORY: The patient is single and lives with her adult son. The patient denies tobacco or alcohol use. PHYSICAL EXAMINATION: VITAL SIGNS: Temperature 98.4, respirations 18, pulse 74, and blood pressure 111/56. GENERAL: The patient is a well-developed and well-nourished female, in no apparent distress. HEENT: Eyes, pupils are equal and responsive to light and accommodation. Extraocular movements are intact. NECK: Supple without lymphadenopathy. CHEST: Lungs are clear to auscultation bilaterally without wheezes or rales. CARDIOVASCULAR: Regular rhythm and rate. S1, S2 are normal without murmurs, rubs, or gallops. ABDOMEN: Soft, nontender, nondistended. Positive bowel sounds. No evidence of hepatosplenomegaly. Currently, no rebound or guarding noted. EXTREMITIES: Negative for clubbing, cyanosis, or edema. RECTAL/GENITAL: Not performed. NEUROLOGICAL: Cranial nerves II through XII are grossly intact without focal deficits. Motor strength is 5/5 bilaterally. Deep tendon reflexes are 2+ plantar. LABORATORY STUDIES: WBC 11.0, hemoglobin 9.1, hematocrit 27.6, and platelets 170,000. Sodium 143, potassium 4.0, chloride 109, CO2 25, BUN 18, creatinine 1.0, and glucose . The CT of the abdomen and pelvis showed fecal impaction. ASSESSMENT: This is an 83-year-old female. 1. Fecal impaction. 2. Diarrhea. 3. Septic arthritis of the right knee. 4. Hypertension. 5. Hypercholesterolemia. 6. Bipolar disorder. 7. Gastritis. TREATMENT: 1. Fecal impaction/diarrhea. A Gastroenterology consultation has been obtained with Dr. García Vázquez. We will follow recommendations of Gastroenterology. Diarrhea may be secondary to overflow. We will follow recommendations of Gastroenterology. 2. Septic arthritis, right knee. An Infectious Disease consultation has been obtained with Dr. David/Shahana. The patient will remain on vancomycin and cefepime as above. 3. Hypertension. Continue losartan as above. 4. Hypercholesterolemia. Continue atorvastatin as above. 5. Bipolar disorder. Continue Seroquel as above. 6. Gastritis. Continue Protonix as above. García Rodrigues M.D. DR: BALJEET JOB#: [id number] CC:
--- NOTE | 2019-04-16 10:05 | Discharge Summary ---
Discharge Summary Discharge Summary _ DATE OF ADMISSION: 04/12/2019 DATE OF DISCHARGE: 04/14/2019 DISCHARGED BY: Dr Manuel REASON FOR ADMISSION: 83 years old female with past medical history significant for hypertension, dyslipidemia, gastritis, bipolar disorder, chronic diarrhea, recent discharge from the hospital for septic arthritis, presented to emergency department complaining of diarrhea for 2 days with more than 5 episodes a day. No fever or chills. Patient reported generalized abdominal pain , no nausea, no vomiting. Upon evaluation vital signs were stable. Laboratory work-up revealed WBC 11, hemoglobin 9.1, hematocrit 26.7 with MCV of 91. Platelet count 270. Stable electrolytes. BUN 18, creatinine 1.0. Stable LFT and lipase. EKG revealed sinus rhythm, no acute ischemic changes. CT of the abdomen and pelvis revealed fecal impaction. Previous bowel surgery. Nonobstructive bowel gas pattern. Cholecystectomy. Presacral edema. Patient was rectally disimpacted in ED, provided with Fleet enema and started on bowel regimen. Patient subsequently admitted for further management. CONSULTANTS: hospitalist Dr. Vallejo ID specialist Dr. Ramesh GI specialist Dr. Vázquez orthopedic surgery Dr. Luna [facility] COURSE: Patient admitted to medical surgical floor. GI specialist followed. Bowel regimen instituted. Patient refused further digital disimpaction. Hemoglobin and hematocrit were closely monitored with goal to keep hemoglobin above 7. Anemia work-up revealed anemia of chronic disease, stable folate and B12. Hemoglobin and hematocrit remained at the baseline. Prior to discharge hemoglobin 9.3, hematocrit 20.5. Patient had bowel movement . No further diarrhea. Patient was counseled on importance to have a good bowel regimen at home. GI prophylaxis provided wWith PPI. Infectious disease specialist followed. Patient was recently diagnosed in the hospital with septic arthritis due to right knee hardware infection, and was discharged on IV antibiotics. Patient was continued on current antibiotic regimen with vancomycin and cefepime. Expected end day of treatment 05/15. Patient has a home health services for IV antibiotics with weekly CBC , CMP and Vanco trough level monitoring. Per ID recommendation, after completion of IV antibiotic, patient will need 3 months of ciprofloxacin , doxycycline and rifampin. Antibiotic management was discussed by ID specialist with patient's son, who was instructed to follow-up with a network ID specialist. Orthopedic surgeon followed the patient. Patient had recent incision and drainage due to the right periprostatic infection. Wound care provided as per surgeon recommendation . Continue wound care by home health services. Patient clinically stabilized and was ready for discharge home with home health services. 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 DISCHARGE INSTRUCTIONS: Patient was discharged home with home health services for IV antibiotic and wound care. Follow up with primary care provider in one week. I have been assigned to dictate discharge summary for this account. I was not involved in the patient's management. Brooke Howe NP Apr 16, 2019 10:05
== END 2019-04-14 18:41 | disposition home or self-care (01) | DRG 389 ==
LOC: EMR 15:26 → 4E 19:10 → EDBEDREQ 20:47
DX: K56.41 Fecal impaction (principal); T84.53XA Infection and inflammatory reaction due to internal right knee prosthesis, initial encounter; F31.89 Other bipolar disorder; R19.7 Diarrhea, unspecified; I10 Essential (primary) hypertension; E78.00 Pure hypercholesterolemia, unspecified; Z96.651 Presence of right artificial knee joint; Z88.8 Allergy status to other drugs, medicaments and biological substances; E78.5 Hyperlipidemia, unspecified; Y83.8 Other surgical procedures as the cause of abnormal reaction of the patient, or of later complication, without mention of misadventure at the time of the procedure; K29.70 Gastritis, unspecified, without bleeding; K21.9 Gastro-esophageal reflux disease without esophagitis; D63.8 Anemia in other chronic diseases classified elsewhere
CPT/HCPCS: 36415; 74177; 80048; 80053; 82607; 82728; 82746; 83540; 83550; 83690; 83735; 84100; 84439; 84443; 85025; 85044; 85610; 85730; 87081; 96361; 96374; 96375; 99285; J2405; J7030

== ENCOUNTER 2020-06-29 05:15 | Emergency (ER) | payer MEDICARE, OTHER ==
[~2020-06-29] VITALS: Ht 165.1 cm; Wt 74.8 kg
[~2020-06-29 05:15] MED LIST changes: +LACTULOSE20 GM/301 ORAL; +SENNA LAXATIVE8.6 MG PO
--- NOTE | 2020-06-29 05:39 | NUR ---
ED Nurse Note: Pt walked in from home accompanied by son c/o bilateral leg cramping since last night. Per son, pt had long hours of flight yesterday. Pain gets worse when laying down. Respirations even and unlabored on room air. Vitals stable as documented. A+Ox4, speaking in complete sentences.
[2020-06-29 05:42] VITALS: BP 149/62
--- NOTE | 2020-06-29 05:56 | Emergency Room Report ---
History of Present Illness General Chief Complaint: Pain Source: Patient, Family Member (Pb Wagner MD) Source: Patient, Family Member (Ish Sweeney MD) Present Illness HPI The patient presents with bilateral leg cramps. She apparently flew from [place] to [place] yesterday. She is left with bilateral lower leg cramps that are severe. She is never had this problem before. She is status post bilateral knee replacements. She denies any swelling, edema, shortness of breath, hemo ptysis or chest pain. She denies fevers or chills. The pain is rated 9/10 at this time and aching. The cramps are causing anxiety. She suffers from chronic anxiety. In addition to this she has a rash on her left arm. Her son showed pictures of this to her psychiatrist who had prescribed lamotrigine. The psychiatrist was concerned about Ayers-Mack syndrome. The lesions are not painful. They only involve the left arm. There are no oral or genital lesions. The patient denies dysuria. During travel the patient more in 95 mask. Aside from this she has been social isolating and does not know of any positive Covid contacts. No sore throat, palpitations, nausea, vomiting, diarrhea, dysuria, abdominal pain, shortness of breath, visual changes, dizziness, headache. (In the medicine reconciliation the patient is alleged to be on lithium. 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 COVID-19 Screening: Negative COVID-19 COVID-19 Testing Source: 06/12/20 (Pb Wagner MD) Patient History Past Medical History: see triage record Past Surgical History: other - knee replacements, colectomy Social History: Denies: smoking, alcohol use, drug use Social History Narrative Lives with her son Reviewed Nursing Documentation: PMH: Agreed; PSxH: Agreed (Pb Wagner MD) Nursing Documentation-PMH Past Medical History: No History, Except For Hx Cardiac Problems: Yes Hx Hypertension: Yes - high cholesterol Hx Cancer: No Hx Gastrointestinal Problems: No Hx Dialysis: No Hx Neurological Problems: No (Pb Wagner MD) Review of Systems All Other Systems: negative except mentioned in HPI (Pb Wagner MD) All Other Systems: negative except mentioned in HPI (Ish Sweeney MD) Physical Exam Vital Signs Date Time Temp Pulse Resp B/P (MAP) Pulse Ox O2 Delivery O2 Flow Rate FiO2 06/29/20 05:28 97.9 58 16 154/57 (89) 95 Room Air Sp02 EP Interpretation: reviewed, normal General Appearance: well appearing, no apparent distress, GCS 15, non-toxic Head: normocephalic Eyes: bilateral eye normal inspection, bilateral eye PERRL, bilateral eye EOMI ENT: moist mucus membranes Neck: full range of motion, supple Respiratory: chest non-tender, lungs clear, normal breath sounds Cardiovascular #1: regular rate, rhythm, no edema Cardiovascular #2: 2+ radial (R), 2+ dorsalis pedis (R), 2+ dorsalis pedis (L) Gastrointestinal: normal inspection, normal bowel sounds, non tender, no mass, non-distended Musculoskeletal: back normal, normal range of motion, no calf tenderness, ga it/station normal, other - Reported leg cramps Neurologic: alert, oriented x3, grossly normal Psychiatric: anxious Skin: warm/dry, other - Macular rashes left forearm with some ecchymoses wi thout erythema (Pb Wagner MD) Gastrointestinal: non tender, soft Neurologic: other - TTP bilat calves, no deformity ROM intact bilat knees (Ish Sweeney MD) Medical Decision Making Diagnostic Impression: Primary Impression: Leg cramps Additional Impression: Macular rash left forearm ER Course Patient presents with bilateral leg cramps after flying from [place] with a history of bilateral knee replacements. Differential includes DVTs, electrolyte imbalance, muscle strain, cellulitis amongst others. We need to exclude cardiac involvement. Patient evaluated with EKG, chest x-ray, labs and noninvasive vascular study of lower extremities. Clinically there is no evidence of DVT at this time. In addition the patient is quite anxious. Patient treated with dose of Ativan and mild IV hydration. Patient placed on a radiographer cardiac catheterization. There is no evidence of Ayers-Mack syndrome at this time. EKG with nonspecific ST-T wave changes. Chest x-ray no infiltrates and essentially normal. Labs pending. Patient improved with Ativan administration. Signed out to Dr. Sweeney for lab results and noninvasive vascular study of lower extremities. (Pb Wagner MD) ER Course 85-year-old female multiple committees presents with bilateral leg cramps after exiting a long flight, DVT ultrasound shows no acute DVT supportive care, no evidence of electrolyte abnormalities, disposition home with son supportive care Laboratory Tests Test 06/29/20 06:00 White Blood Count 8.1 K/UL (4.8-10.8) Red Blood Count 3.95 M/UL (4.20-5.40) L Hemoglobin 11.4 G/DL (12.0-16.0) L Hematocrit 36.4 % (37.0-47.0) L Mean Corpuscular Volume 92 FL (80-99) Mean Corpuscular Hemoglobin 28.8 PG (27.0-31.0) Mean Corpuscular Hemoglobin Concent 31.2 G/DL (32.0-36.0) L Red Cell Distribution Width 13.9 % (11.6-14.8) Platelet Count 303 K/UL (150-450) Mean Platelet Volume 5.7 FL (6.5-10.1) L Neutrophils (%) (Auto) 66.4 % (45.0-75.0) Lymphocytes (%) (Auto) 20.0 % (20.0-45.0) Monocytes (%) (Auto) 8.2 % (1.0-10.0) Eosinophils (%) (Auto) 4.2 % (0.0-3.0) H Basophils (%) (Auto) 1.2 % (0.0-2.0) Prothrombin Time 10.6 SEC (9.30-11.50) Prothrombin Time INR 1.0 (0.9-1.1) Activated Partial Thromboplast Time 26 SEC (23-33) Urine Color Pale yellow Urine Appearance Clear Urine pH 6 (4.5-8.0) Urine Specific [place] 1.010 (1.005-1.035) Urine Protein Negative (NEGATIVE) Urine Glucose (UA) Negative (NEGATIVE) Urine Ketones Negative (NEGATIVE) Urine Blood 2+ (NEGATIVE) H Urine Nitrite Negative (NEGATIVE) Urine Bilirubin Negative (NEGATIVE) Urine Urobilinogen Normal MG/DL (0.0-1.0) Urine Leukocyte Esterase 2+ (NEGATIVE) H Urine RBC 0-2 /HPF (0 - 2) Urine WBC 5-10 /HPF (0 - 2) H Urine Squamous Epithelial Cells Few /LPF (NONE/OCC) Urine Bacteria Few /HPF (NONE) Sodium Level 140 MMOL/L (136-145) Potassium Level 4.5 MMOL/L (3.5-5.1) Chloride Level 106 MMOL/L (98-107) Carbon Dioxide Level 28 MMOL/L (21-32) Anion Gap 6 mmol/L (5-15) Blood Urea Nitrogen 17 mg/dL (7-18) Creatinine 1.0 MG/DL (0.55-1.30) Estimated Glomerular Filtration Rate 52.7 mL/min (>60) Glucose Level 88 MG/DL (74-106) Calcium Level 9.6 MG/DL (8.5-10.1) Magnesium Level 2.3 MG/DL (1.8-2.4) Total Bilirubin 0.6 MG/DL (0.2-1.0) Aspartate Amino Transferase (AST) 25 U/L (15-37) Alanine Aminotransferase (ALT) 22 U/L (12-78) Alkaline Phosphatase 97 U/L (46-116) Total Creatine Kinase 125 U/L (26-308) Troponin I 0.027 ng/mL (0.000-0.056) Pro-B-Type Natriuretic Peptide 2189 pg/mL (0-125) H Total Protein 7.1 G/DL (6.4-8.2) Albumin 3.6 G/DL (3.4-5.0) Globulin 3.5 g/dL Albumin/Globulin Ratio 1.0 (1.0-2.7) [place] Level Pending (Ish Sweeney MD) EKG Diagnostic Results Rate: normal Rhythm: NSR ST Segments: no acute changes (Pb Wagner MD) Rhythm Strip Diag. Results EP Interpretation: yes Rhythm: NSR, no PVC's, no ectopy (Pb Wagner MD) Chest X-Ray Diagnostic Results Chest X-Ray Diagnostic Results : Chest X-Ray Ordered: Yes # of Views/Limited/Complete: 1 View Indication: Other EP Interpretation: Yes Interpretation: no consolidation, no effusion, no pneumothorax, other - djd Impression: No acute disease Electronically Signed by: Electronically signed by Pb Wagner MD (Pb Wagner MD) Last Vital Signs Date Time Temp Pulse Resp B/P (MAP) Pulse Ox O2 Delivery O2 Flow Rate FiO2 06/29/20 08:20 98.0 76 17 136/72 100 Room Air Status: improved (Pb Wagner MD) Disposition: HOME, SELF-CARE Condition: Improved Scripts Acetaminophen (Tylenol) 325 Mg Tablet 650 MG ORAL Q6H PRN for Prn Pain/Headache/Temp > 101, #30 TAB 0 Refills Prov: Ish Sweeney MD 06/29/20 Referrals: NON PHYSICIAN (PCP) [facility] Anil Jorgensen [facility] Patient Instructions: Leg Cramps, Muscle Cramps and Spasms, [id number] Additional Instructions: The patient was provided with discharge instructions, notified to follow-up with a primary care doctor and or specialist in the next 24-48 hours, and to return to the ED if they have worsening of their symptoms. Please note that this report is being documented using Pipewise technology. This can lead to erroneous entry secondary to incorrect interpretation by the dictating instrument. Pb Wagner MD Jun 29, 2020 05:56 Ish Sweeney MD Jun 29, 2020 07:52
[2020-06-29] MEDS ORDERED: LORazepam Inj 2mg/ml 1ml IV ONE (06:00)
[2020-06-29 06:12] LABS: APPEARANCE,URINE CLEAR; BASOPHILS % (AUTO) 1.2 % (0.0-2.0); BILIRUBIN, URINE NEGATIVE (NEGATIVE); COLOR,URINE PALE YELLOW; EOSINOPHILS % (AUTO) 4.2 % (0.0-3.0); GLUCOSE, URINE (UA) NEGATIVE (NEGATIVE); HEMATOCRIT 36.4 % (37.0-47.0); HEMOGLOBIN 11.4 G/DL (12.0-16.0); KETONES,URINE NEGATIVE (NEGATIVE); LEUKOCYTE ESTERASE ,URINE 2+ (NEGATIVE); MEAN CORPUSCULAR VOLUME 92 FL (80-99); MONOCYTES % (AUTO) 8.2 % (1.0-10.0); NEUTROPHILS % (AUTO) 66.4 % (45.0-75.0); NITRITE,URINE NEGATIVE (NEGATIVE); PH,URINE 6 (4.5-8.0); PLATELET COUNT 303 K/UL (150-450); PROTEIN,URINE NEGATIVE (NEGATIVE); RED BLOOD COUNT 3.95 M/UL (4.20-5.40); RED CELL DISTRIBUTION WIDTH 13.9 % (11.6-14.8); UROBILINOGEN,URINE NORMAL MG/DL (0.0-1.0); WHITE BLOOD COUNT 8.1 K/UL (4.8-10.8)
[2020-06-29 06:29] LABS: ANION GAP 6 mmol/L (5-15); BLOOD UREA NITROGEN 17 mg/dL (7-18); CALCIUM 9.6 MG/DL (8.5-10.1); CARBON DIOXIDE 28 MMOL/L (21-32); CHLORIDE 106 MMOL/L (98-107); POTASSIUM 4.5 MMOL/L (3.5-5.1); SODIUM 140 MMOL/L (136-145)
[2020-06-29 06:45] LABS: ALANINE AMINOTRANSFERASE 22 U/L (12-78); ALBUMIN 3.6 G/DL (3.4-5.0); ALKALINE PHOSPHATASE 97 U/L (46-116); ASPARTATE AMINO TRANSFERASE 25 U/L (15-37); BILIRUBIN,TOTAL 0.6 MG/DL (0.2-1.0); CREATINE KINASE 125 U/L (26-308)
--- NOTE | 2020-06-29 07:23 | NUR ---
ED Nurse Note: US tech at bedside
[2020-06-29] MEDS ORDERED: TYLENOL325 MG ORAL (07:47)
[2020-06-29 08:20] VITALS: BP 136/72
[2020-06-29 10:30] VITALS: BP 132/70
--- NOTE | 2020-06-29 10:30 | NUR ---
ER DISCHARGE NOTE: Pt son present to pickers material handlers pt, pt assisted to car with her walker. Patient is cleared to be discharged per ERMD, pt is aox4, on room air, with stable vital signs. pt was given dc and prescription instructions, pt was able to verbalize understanding, pt id band and iv site removed without complications. pt took all belongings.
--- NOTE | 2020-06-29 12:21 | Diagnostic Imaging Report ---
Indication: Bilateral lower extremity pain and edema Technique: Grayscale and duplex images of the bilateral lower extremity veins Comparison: None Findings: Bilaterally, grayscale and duplex images demonstrate no evidence of intraluminal thrombus. Normal phasic Doppler waveforms, demonstrating normal augmentation response and no evidence of valvular insufficiency. Greater saphenous vein(s) and tibial veins are patent. Normal compressibility. Impression: Negative for evidence of lower extremity deep venous thrombosis bilaterally
--- NOTE | 2020-06-29 14:27 | Diagnostic Imaging Report ---
Indication: Chest pain Technique: One view of the chest Comparison: 04/03/2019 Findings: Lungs and pleural spaces are clear. The heart size is normal. Calcific granulomatous nodes are seen in the aortopulmonary window. There are degenerative changes of the left shoulder. Findings are unchanged Impression: No acute process
== END 2020-06-29 10:32 | disposition home or self-care (01) ==
LOC: EMR 05:41
DX: R25.2 Cramp and spasm (principal); R21 Rash and other nonspecific skin eruption; I11.9 Hypertensive heart disease without heart failure; Z96.653 Presence of artificial knee joint, bilateral; E78.00 Pure hypercholesterolemia, unspecified; Z88.5 Allergy status to narcotic agent; Z88.8 Allergy status to other drugs, medicaments and biological substances
CPT/HCPCS: 36415; 71045; 80053; 80178; 81003; 82550; 83735; 83880; 84484; 85025; 85610; 85730; 93005; 93970; 96374; 99284

== ENCOUNTER 2020-08-02 01:48 | Emergency (ER) | payer MEDICARE, OTHER ==
[~2020-08-02] VITALS: Ht 154.9 cm; Wt 72.1 kg
[2020-08-02] MEDS ORDERED: Nitroglycerin 2% oint pkt TOPIC ONE (02:00)
[2020-08-02] MEDS ORDERED: Aspirin Baby 81mg ORAL ONE (02:00)
[2020-08-02 02:01] VITALS: BP 157/75
--- NOTE | 2020-08-02 02:01 | Emergency Room Report ---
History of Present Illness General Chief Complaint: To Be Triaged Source: Patient, Medical Record Present Illness HPI Is an 85-year-old female with hypertension and cardiac history. She presents with complaint of chest pain. Onset today. This has been intermittently since this morning. Pain to left chest and radiates to her left arm. Worse with exertion. No nausea no vomiting. Also felt shortness of breath. Denies any fever chills. Denies any cough or congestion. No diaphoresis. Pain is 7 out of 10. Lasting 5 to 15 min. Allergies: Coded Allergies: GABAPENTIN (Verified Allergy, Unknown, 05/27/17) LITHIUM (Verified Allergy, Unknown, 05/27/17) COVID-19 Screening Contact w/high risk pt: No Experienced COVID-19 symptoms?: No Patient History Past Medical History: see triage record, old chart reviewed, HTN, CAD Past Surgical History: other Pertinent Family History: none Social History: Denies: smoking Now: No Immunizations: other Reviewed Nursing Documentation: PMH: Agreed; PSxH: Agreed Nursing Documentation-PMH Hx Cardiac Problems: Yes Hx Hypertension: Yes - high cholesterol Hx Cancer: No Hx Gastrointestinal Problems: No Hx Dialysis: No Hx Neurological Problems: No Review of Systems Eye: Denies: eye pain, blurred vision ENT: Denies: ear pain, nose congestion, throat swelling Respiratory: Reports: shortness of breath; Denies: cough Cardiovascular: Reports: chest pain; Denies: palpitations Gastrointestinal: Denies: abdominal pain, diarrhea, nausea, vomiting Musculoskeletal: Denies: back pain, joint pain Skin: Denies: rash Neurological: Denies: headache, numbness Endocrine: Denies: increased thirst, increased urine Hematologic/Lymphatic: Denies: easy bruising All Other Systems: negative except mentioned in HPI Physical Exam Vitals with hypertension Sp02 EP Interpretation: reviewed, normal General Appearance: well appearing, no apparent distress, alert Head: normocephalic, atraumatic Eyes: bilateral eye PERRL, bilateral eye EOMI ENT: hearing grossly normal, normal pharynx Neck: full range of motion, supple, no meningismus Respiratory: chest non-tender, lungs clear, normal breath sounds Cardiovascular #1: regular rate, rhythm, no murmur Gastrointestinal: normal bowel sounds, non tender, no mass, no organomegaly, no bruit, non-distended Musculoskeletal: back normal, normal range of motion, gait/station normal Psychiatric: mood/affect normal Medical Decision Making Diagnostic Impression: Primary Impression: Chest pain Qualified Codes: R07.9 - Chest pain, unspecified Additional Impressions: ACS (acute coronary syndrome) Acute exacerbation of CHF (congestive heart failure) ER Course Patient presents with chest pain. She has risk factor with coronary disease in the past and hypertension. Her age is also concerning factor. Pain is rating to her left arm and worse with exertion. This is concerning for ACS. EKG is unremarkable. Troponin is normal. I wanted patient to be admitted. Her son does not want her to be admitted here. He claimed that we are "scamming her insurance" by admitting her. He said that her chest pain is from a fall a week ago. Explained to the patient and her son that with her age and the pain rating to her arm and pain with exertion is prudent to admit the patient to the hospital for further work-up. He will sign her out AMA and take her to [facility]. Patient understand the risks of leaving including but not limited to increased morbidity mortality including . EKG Diagnostic Results Troponin ordered: Yes Rate: normal Rhythm: NSR ST Segments: no acute changes ASA given to the pt in ED: Yes Rhythm Strip Diag. Results EP Interpretation: yes Rate: 56 Rhythm: NSR, no PVC's, no ectopy Chest X-Ray Diagnostic Results Chest X-Ray Diagnostic Results : Chest X-Ray Ordered: Yes # of Views/Limited/Complete: 1 View Indication: Chest Pain EP Interpretation: Yes Interpretation: no consolidation, no effusion, no pneumothorax, no acute cardiopulmonary disease Impression: No acute disease Electronically Signed by: Keon Barr MD Status: improved Disposition: AGAINST MEDICAL ADVICE Condition: Stable Additional Instructions: You are signing out AGAINST MEDICAL ADVICE. Your chest pain complaint is concerning for possible coronary disease and HI. Return if you change your mind. You may also call 911. Keon Barr MD Aug 02, 2020 02:01
--- NOTE | 2020-08-02 02:15 | NUR ---
ED Nurse Note: Patient came in ambulatory with walker complaints of chest pain radiating down left arm x1 week
--- NOTE | 2020-08-02 02:15 | NUR ---
ED Nurse Note: blood specimen sent to lab
--- NOTE | 2020-08-02 02:17 | NUR ---
ED Nurse Note: Gopi (son)
[2020-08-02 02:52] VITALS: BP 142/62
[2020-08-02 02:52] LABS: BASOPHILS % (AUTO) 1.2 % (0.0-2.0); EOSINOPHILS % (AUTO) 4.9 % (0.0-3.0); HEMATOCRIT 37.2 % (37.0-47.0); HEMOGLOBIN 11.8 G/DL (12.0-16.0); LYMPHOCYTES % (AUTO) 25.6 % (20.0-45.0); MEAN CORPUSCULAR VOLUME 92 FL (80-99); MONOCYTES % (AUTO) 10.6 % (1.0-10.0); NEUTROPHILS % (AUTO) 57.8 % (45.0-75.0); PLATELET COUNT 221 K/UL (150-450); RED BLOOD COUNT 4.03 M/UL (4.20-5.40); RED CELL DISTRIBUTION WIDTH 13.4 % (11.6-14.8)
--- NOTE | 2020-08-02 03:00 | NUR ---
ED Nurse Note: Spoke with son Gopi, was unhappy that his mother was not going up stairs sooner, voiced that he was thinking about coming to get her to take her to another facility
[2020-08-02 03:04] LABS: CALCIUM 9.7 MG/DL (8.5-10.1); POTASSIUM 4.7 MMOL/L (3.5-5.1)
[2020-08-02 03:14] LABS: ALBUMIN 3.5 G/DL (3.4-5.0); BILIRUBIN,TOTAL 0.4 MG/DL (0.2-1.0)
--- NOTE | 2020-08-02 03:50 | NUR ---
AMA: SEE AMA FORM.
--- NOTE | 2020-08-02 15:33 | Diagnostic Imaging Report ---
Indication: Chest pain Technique: One view of the chest Comparison: 06/29/2020 Findings: No acute infiltrates, effusions, or congestion. Tortuous calcified aorta. Normal heart size. Upper mediastinum unremarkable. No significant change Impression: No acute process.
--- NOTE | 2020-08-02 17:42 | Cardiology Report ---
APPROVED REPORT EKG Measurement Heart [id number] <Conclusion> Sinus bradycardia with 1st degree AV block Otherwise normal ECG
== END 2020-08-02 03:00 | disposition left against medical advice (07) ==
LOC: EMR 02:05
DX: R07.9 Chest pain, unspecified (principal); I24.9 Acute ischemic heart disease, unspecified; I11.0 Hypertensive heart disease with heart failure; Z88.8 Allergy status to other drugs, medicaments and biological substances; E78.00 Pure hypercholesterolemia, unspecified
CPT/HCPCS: 71045; 80053; 83880; 84484; 85025; 93005; 96374; 99284; J1940